=== PATIENT | male | born 1965 | race Caucasian/White ===

== ENCOUNTER 2025-05-06 15:52 | Inpatient (IN) | payer BC, SELFPAY ==
--- OUTSIDE RECORDS SUMMARY | 2025-04-07 05:06 | XMS_ITS ---
Author Organization [facility] in [place] Address [address] [place] [address] Care Team Providers Care Secretarial Teacher Name Role Phone Manoj Oshea Primary Care Provider REASON FOR VISIT TCM NOT DONE Encounters Encounter Location Date Provider Diagnosis [facility] [address] [place] [address] 04/07/2025 Manoj Oshea Plan Of Treatment No Information Progress Notes * Keshawn NOBLES ADOB:1965 (60 yo M)Acc No.[id number]:04/07/2025 Patient: Monica Keshawn BONILLA :1965 A ge:60 Y S ex:Male Address:[address] [place] [address], [phone] * true * Date: Generated for Printi ng/Faxing/eTransmitting on: 0 05/09/2025 08:30 AM EDT
--- OUTSIDE RECORDS SUMMARY | 2025-04-07 05:06 | XMS_ITS ---
Author Organization [facility] in [place] Address [address] [place] [address] Care Team Providers Care Landfill Grader Name Role Phone Manoj Oshea Primary Care Provider [phone] REASON FOR VISIT TCM NOT DONE Encounters Encounter Location Date Provider Diagnosis [facility] [address] [place] [address] 04/07/2025 Manoj Oshea Plan Of Treatment No Information Progress Notes * Keshawn NOBLES ADOB:1965 (60 yo M)Acc No.[id number]:04/07/2025 Patient: Monica Keshawn BONILLA :1965 A ge:60 Y S ex:Male Address:[address] [place] [address], [phone] * true * Date: Generated for Printi ng/Faxing/eTransmitting on: 0 05/06/2025 03:59 PM EDT
--- OUTSIDE RECORDS SUMMARY | 2025-04-27 13:00 | XMS_ITS | Encounter Summary ---
Author Organization [facility] [employer] Address [id number] [address] [place] [address] Care Team Providers Care President Educational Institution Name Role Phone Sheyla Oshea MD Primary Care Provider [phone] Reason for Referral * Cardiology (Routine) - Authorized Specialty Diagnoses / Procedures Referred By Contac t Referred To Contact Diagnoses Ischemic cardiomyopathy Procedures Echo complete W/O contrast Aliza De La Cruz MD [address] [place] [address] Phone: tel: fax: Referral ID Status Reason Start Date Expiration Date V isits Requested Visits Authorized [id number] Authorized 04/27/2025 04/27/2026 1 1 * Consultation (Routine) - Authorized Specialty Diagnoses / Procedures Referred By Contac t Referred To Contact Cardiac Rehabilitation Diagnoses Coronary artery disease 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 Procedures [facility]hab Aliza De La Cruz MD [address] [place] [address] Phone: tel: fax: [facility] [address] [place] [address] Phone: tel: fax: Referral ID Status Reason Start Date Expiration Date V isits Requested Visits Authorized [id number] Authorized 04/27/2025 04/27/2026 1 1 Reason for Visit * Reason Comments Follow-up EST PT HOSP FU IP TT H, S/P CABG,SCHED W/PT Encounter Details Date Type Department Care Team (Latest Contact Info) Description 04/27/2025 1:00 PM EDT Office Visit [facility] [address] [place] [address] Aliza De La Cruz MD [address] [place] [address] Chronic systolic heart failure (CMS-HCC) (Primary Dx); Coronary artery disease 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 No 04/07/2025 AUDIT-C Answer Date Recorded Q1: How often do you have a drink containing alcohol? Never 04/07/2025 Q2: How many drinks containi ng alcohol do you have on a typical day when you are drinking? Patient does not drink Q3: How often do you have si x or more drinks on one occasion? Never 04/07/2025 PHQ-2 Answer Date Recorded Total Score 0 04/07/2025 PRAPARE - Transportation Answer Date Re corded In the past 12 months, has l ack of transportation kept you from medical appointments or from getting medications? No 03/11 In the past 12 months, has l ack of transportation kept you from meetings, work, or from getting things needed for daily living? No 04/07/2025 Housing Instability Answer Date Recorde d Are you worried or concerned that in the next two months you may not have stable housing that you own, rent or stay in as a part of a household? No 04/07/2025 Hunger Screening Answer Date Recorded Within the past 12 months we worried whether our food would run out before we got money to buy more. Never True 04/27/2025 Within the past 12 months th e food we bought just didn't last and we didn't have money to get more. Never True 04/27/2025 Sex and Gender Information Value Date Recorded Sex Assigned at Not on file Legal Sex Male 11:53 AM EDT Gender Identity Not on file Sexual Orientation Not on file documented as of this encounter Last Filed Vital Signs Vital Sign Reading Time Taken Comments Blood Pressure 138/66 04/27/2025 12:54 PM EDT Pulse 81 04/27/2025 12:54 PM EDT Temperature - - Respiratory Rate - - Oxygen Saturation 97% 04/27/2025 12:54 PM EDT Inhaled Oxygen Concentration - - Weight 71.7 kg (158 lb) 04/27/2025 12:54 PM EDT Height 165.1 cm (5' 5 ) 04/27/2025 12:54 PM EDT Body Mass Index 26.29 04/27/2025 12:54 PM EDT documented in this encounter Patient Instructions * Patient Instructions* Aliza De La Cruz MD - 04/27/2025 1:00 PM EDT Discontinue metoprolol and Zetia/ezetimibe Start carvedilol 12.5 mg twice daily Call in 1 week and let us know how you are doing with the change in medicine Echocardiogram Record blood pressure and heart rate 3 times per week. Call if systolic (top) number is consistently greater than 140 or less than 100 or diastolic (bottom) number is consistently greater than 90. Call if heart rate is consistently greater than 110 or less than 50. Cardiac rehab documented in this encounter Progress Notes * Aliza De La Cruz MD - 04/27/2025 1:00 PM EDT Keshawn Hodges Hair Date of visit: 04/27/2025 Date of : 1965 Age: 60 y.o. Patient Active Problem List Diagnosis Coronary artery disease Mixed hyperlipidemia Primary hypertension Ischemic cardiomyopathy Chronic systolic heart failure (CMS-HCC) No Known Allergies Current Outpatient Medications Medication Sig Dispense Refill acetaminophen (TYLENOL EXTRA STRENGTH) 500 mg tablet Take 2 tablets (1,000 mg total) by mouth every6 (six) hours as needed for pain. 60 tablet 0 albuterol (PROVENTIL HFA;VENTOLIN HFA) 90 mcg/actuation inhaler Inhale 2 puffs every 6 (six) hours as needed for wheezing or shortness of breath. aspirin 81 mg Take 1 tablet (81 mg total) by mouth in the morning for 30 days. 30 tablet 0 furosemide (LASIX) 40 mg tablet Take 1 tablet (40 mg total) by mouth 2 (two) times a day before meals. 60 tablet 3 insulin glargine (LANTUS, SEMGLEE) 100 unit/mL (3 mL) insulin pen Inject 15 Units under the skin inthe morning. 15 mL 12 insulin lispro (HumaLOG) 100 unit/mL insulin pen Inject 1-8 Units under the skin 4 (four) times a day with meals and nightly. 15 mL 12 insulin lispro (HumaLOG) 100 unit/mL insulin pen Inject 2-10 Units under the skin in the morning and 2-10 Units at noon and 2-10 Units in the evening. Inject with meals. 15 mL 12 insulin lispro (HumaLOG) 100 unit/mL insulin pen Inject 2-8 Units under the skin nightly. 15 mL 12 oxyCODONE (ROXICODONE) 5 mg immediate release tablet Take 1 tablet (5 mg total) by mouth every 6 (six) hours as needed for pain. Max Daily Amount: 20 mg pen needle,diabetic dual safty (BD AUTOSHIELD DUO PEN NEEDLE) 30 gauge x 3/16 needle 1 applicator by miscellaneous route 4 (four) times daily after meals and at bedtime for 30 days. 100 each 4 tamsulosin (FLOMAX) 0.4 mg capsule Take 1 capsule (0.4 mg total) by mouth nightly for 30 days. 30 capsule 0 atorvastatin (LIPITOR) 80 mg tablet Take 1 tablet (80 mg total) by mouth nightly. 30 tablet 11 carvediloL (COREG) 12.5 mg tablet Take 1 tablet (12.5 mg total) by mouth in the morning and 1 tablet (12.5 mg total) before bedtime. 180 tablet 3 clopidogreL (PLAVIX) 75 mg tablet Take 1 tablet (75 mg total) by mouth in the morning. 30 tablet 11 No current facility-administered medications for this visit. Chief Complaint Patient presents with Follow-up EST PT HOSP FU IP TTH, S/P CABG,SCHED W/PT History of Present Illness I had the opportunity to meet this 60-year-old today He was first seen by Darcy MCCLELLAN 04/07/2025 when he presented as a transfer from [facility] to [facility] for shortness of breath and lower extremity edema. He was discharged from [facility] 04/17/2025 He has been doing relatively well since hospital discharge. He states the diabetes is difficult to accommodate He denies chest pain, worsening shortness of breath, syncope or palpitations. He has been troubled by severe diarrhea every other day that lasts for approximately 12 hours. He has not been taking a stool softener. He treats the diarrhea with Pepto-Bismol CV TESTING HISTORY: ECHO: Intra-operative transesophageal echocardiogram Result Date: 04/11/2025 See Anesthesia DEIDRE procedure note for findings. Intra-operative transesophageal echocardiogram Result Date: 04/11/2025 See Anesthesia DEIDRE procedure note for findings. Intra-operative transesophageal echocardiogram Result Date: 04/11/2025 See Anesthesia DEIDRE procedure note for findings. STRESS: No results found. HOLTER: No results found. CARDIAC CATH: No results found. CAROTID: Vas carotid duplex bilateral Result Date: 04/10/2025 Right: Plaque with no significant ICA spectral Doppler or color flow disturbances; ICA 114/25 cm/sec. Antegrade vertebral artery flow. Left: Plaque with no significant ICA spectral Doppler or color flow disturbances; ICA 125/25 cm/sec. Antegrade vertebral artery flow. Conclusions: BILATERAL: Plaquewithout significant stenosis (<50%) of the internal carotid artery. Antegrade vertebral artery flow. Recommendations: Any questions prior to finalization, please call the reading physician during normal business hours at the phone number beside their name. CXR: X-ray chest 1 view Result Date: 04/15/2025 XR CHEST 1 VW HISTORY: Shortness of breath COMPARISON: Radiograph 04/13/2025 and earlier FINDINGS: APportable upright film obtained. Status post sternotomy. Right IJ catheter with tip projecting over the SVC. The cardiomediastinal silhouette is stable compared to prior exam. Bibasilar airspace disease, increased. Trace left pleural effusion. No measurable pneumothorax. Skinfold overlies the right hemithorax. Congestion. IMPRESSION: Congestion with increase in lower lobe infiltrates. Approved by Cecil Benson DO on 04/15/2025 9:02 AM Shaun Lyons MD have personally reviewed the image(s) and agree with and/or edited the report Finalized by Shaun Loja MD on 04/15/2025 9:13 AM X-ray chest 1 view Result Date: 04/13/2025 Single view chest XR CHEST 1 VW History: s/p CABG x4 Comparison: April 12 Impression: * [place] catheter into sheath. Left chest tube unchanged. Mediastinal drains difficult to visualize currently * Poor inspiration with only minimal left basilar consolidation. No pneumothorax on expiratory view Wor kstation:[id number] Finalized by Carlos Jennings MD on 04/13/2025 7:23 AM X-ray chest 1 view Result Date: 04/12/2025 History: Post OHS Exam/Technique: Single AP view of the chest was obtained Comparison: 04/11/2025 Findings: There is interval removal of the endotracheal and enteric tubes. Right-sided [place] catheter tip at the right main pulmonary outflow track. Mediastinal and left-sided chest tubes are in stable position There is no gross new infiltration or pneumothorax. IMPRESSION: Stable chest x- ray status post extubation Finalized by Alli Velasquez MD on 04/12/2025 5:31 AM X-ray chest 1 view Result Date: 04/11/2025 History: Evaluate tube/line placement post-op cardiac surgery Exam/Technique: AP chest upright Comparison: 04/08/2025. Findings: Appropriate positioning of support tubes and lines. Of the [place] catheter in the right pulmonary outflow. No pneumothorax. ET tube approximately 3.3 cm above the linnea. IMPRESSION: Appropriate positioning of support tubes and lines. Finalized byRogerio Pizarro MD on 04/11/2025 6:22 PM X-ray chest 1 view Result Date: 04/08/2025 Single view chest History:Fluid overload Difficulty breathing, shortness of breath Comparison: 04/07/2025 Findings: Single portable view of the chest. Small bilateral pleural effusions and bilateral lower lung atelectasis versus pneumonia and mild vascular congestion, improved. Impression: Decreasing vascular congestion and edema. Otherwise, stable chest. Finalized by Nick Perdomo MD on 04/08/2025 7:02 AM Lipid Profile: Lab Results Component Value Date CHOLESTEROL 178 04/09/2025 CHOLESTEROL:HDL 3.1 04/09/2025 HDL CHOLESTEROL 57 04/09/2025 TRIGLYCERIDE 111 04/09/2025 DIRECT LDL 96 04/06/2025 LDL (CALC) 99 04/09/2025 Past Medical History: Diagnosis Date Arrhythmia CHF (congestive heart failure) ([facility]) Chronic kidney disease Coronary artery disease Dental disease Diabetes mellitus type 2, controlled ([facility]) RANDOLPH (dyspnea on exertion) HL (hearing loss) Hyperlipidemia Hypertension Visual impairment Past Surgical History: Procedure Laterality Date CORONARY ARTERY BYPASS GRAFT X 4 , DHILLON, SVG X 3 EVH LEFT LEG AND RIGHT UPPER LEG /DEIDRE N/A 04/11/2025 Performed by Jimmy Fernando MD at [facility] MULTIPLE TOOTH EXTRACTIONS History reviewed. No pertinent family history. Social History Socioeconomic History Marital status: Single Spouse name: Not on file Number of children: Not on file Years of education: Not on file Highest education level: Not on file Occupational History Not on file Tobacco Use Smoking status: Former Current packs/day: 0.00 Average packs/day: 1 pack/day for 28.0 years (28.0 ttl pk-yrs) Types: Cigarettes Start date: 1983 Quit date: 2011 Years since quittin.4 Passive exposure: Past Smokeless tobacco: Never Vaping Use Vaping status: Former Substances: Nicotine, Flavoring Devices: Pre-filled or refillable cartridge, Refillable tank Substance and Sexual Activity Alcohol use: Not Currently Drug use: Never Sexual activity: Defer Other Topics Concern Caffeine Use Yes Social History Narrative Not on file Social Drivers of Health Financial Resource Strain: Not on file Food Insecurity: No Food Insecurity (04/27/2025) Hunger Screening Food Insecurity - Worry: Never True Food Insecurity - Inability: Never True Transportation Needs: No Transportation Needs (04/07/2025) PRAPARE - Transportation Lack of Transportation (Medical): No Lack of Transportation (Non-Medical): No Physical Activity: Not on file Stress: Not on file Social Connections: Not on file Interpersonal Safety: Not At Risk (04/07/2025) Humiliation, Afraid, Rape, and Kick questionnaire Fear of Current or Ex-Partner: No Emotionally Abused: No Physically Abused: No Sexually Abused: No Housing Instability: Low Risk (04/07/2025) Housing Instability Housing Instability: No Review of Systems Review of Systems Constitutional: Positive for malaise/fatigue. HENT: Negative. Eyes: Positive for blurred vision. Cardiovascular: Negative. Vascular: Negative. Respiratory: Positive for shortness of breath. Endocrine: Negative. Hematologic/Lymphatic: Bruises/bleeds easily. Skin: Negative. Musculoskeletal: Negative. Gastrointestinal: Positive for change in bowel habit. Genitourinary: Negative. Neurological: Negative. Psychiatric/Behavioral: Negative. Allergic/Immunologic: Negative. CARDIOVASCULAR: Please review HPI. Physical Examination General appearance: Alert, oriented and cooperative. In no acute distress. Pleasant Respiratory: Bilateral diminished Cardiovascular: RRR with normal S1 and S2 with no murmurs. Musculoskeletal: No peripheral edema. VITAL SIGNS: BP 138/66 Pulse 81 Ht 165.1 cm (5' 5 ) Wt 71.7 kg (158 lb) SpO2 97% BMI 26.29 kg/m?? Orders Placed or Reconciled This Encounter Medications oxyCODONE (ROXICODONE) 5 mg immediate release tablet Sig: Take 1 tablet (5 mg total) by mouth every 6 (six) hours as needed for pain. Max Daily Amount: 20 mg atorvastatin (LIPITOR) 80 mg tablet Sig: Take 1 tablet (80 mg total) by mouth nightly. Dispense: 30 tablet Refill: 11 clopidogreL (PLAVIX) 75 mg tablet Sig: Take 1 tablet (75 mg total) by mouth in the morning. Dispense: 30 tablet Refill: 11 carvediloL (COREG) 12.5 mg tablet Sig: Take 1 tablet (12.5 mg total) by mouth in the morning and 1 tablet (12.5 mg total) before bedtime. Dispense: 180 tablet Refill: 3 Medications Discontinued During This Encounter Medication Reason sennosides-docusate sodium (SENOKOT-S) 8.6-50 mg ezetimibe (ZETIA) 10 mg tablet famotidine (PEPCID) 20 mg tablet metoprolol succinate XL (TOPROL XL) 50 mg 24 hr tablet atorvastatin (LIPITOR) 80 mg tablet Reorder clopidogreL (PLAVIX) 75 mg tablet Reorder IMPRESSIONS/PLAN 1. Chronic systolic heart failure (CMS-HCC) 2. Coronary artery disease 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 - [facility]; Future 3. Ischemic cardiomyopathy - Echo complete W/O contrast; Future 4. Primary hypertension 5. Mixed hyperlipidemia 1. ASCVD -status post CABG x4 04/2025 Dhillon to the LAD SVG to the diagonal SVG to the first obtuse marginal SVG to the PDA --continue clopidogrel 2. Ischemic cardiomyopathy 3. Chronic heart failure with reduced ejection fraction --metoprolol succinate --guideline directed medical therapy limited by renal insufficiency 4. Type 2 diabetes, newly diagnosed 05/04 with hemoglobin A1c of 13.8 5. Primary hypertension 6. Acute kidney injury post CABG 04/2025 7. Hyperlipidemia Atorvastatin Zetia \ The diarrhea may be related to medication. Some of his medication will be change/held to try to discover the culprit Discontinue metoprolol and Zetia/ezetimibe Start carvedilol 12.5 mg twice daily Call in 1 week and let us know how you are doing with the change in medicine Echocardiogram Record blood pressure and heart rate 3 times per week. Call if systolic (top) number is consistently greater than 140 or less than 100 or diastolic (bottom) number is consistently greater than 90. Call if heart rate is consistently greater than 110 or less than 50. Cardiac rehab He needs guideline directed medical therapy titrated for his left ventricular dysfunction. He is obtaining an echocardiogram. Laboratory studies were done yesterday which will give us information as to his current renal function. Medication then can be added once the GI issues are resolved TODAYS ORDERS Orders Placed This Encounter Procedures [facility] Echo complete W/O contrast FOLLOW UP Return for 4-8 weeks, LEBRON Ok. PCP: SHEYLA OSHEA MD Referring Physician: Sheyla Oshea MD [address] [place] [address] * Maisha Mar RN - 04/27/2025 1:00 PM EDT Patient will call and schedule his echo. Order given. Will await cardiac rehab to call him for scheduling. Will go buy a bp cuff as does not have one and understands to monitor and update us per LLD request. documented in this encounter Plan of Treatment Upcoming Encounters Date Type Department Care Team (Late st Contact Info) Description 05/12/2025 10:30 AM EDT Appointment [facility] [address] [place] [id number] Aliza De La Cruz MD [address] [place] [address] 06/27/2025 9:00 AM EDT Office Visit [facility] [address] [place] [id number] Charlotte Alatorre, PA-C [address] [place] [address] Scheduled Orders Name Type Priority Associated Diagnoses Orde r Schedule [facility] Card Rehab Routine Coronary artery disease 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 1 Occurrences starting 04/27/2025 until 10/27/2025 Echo complete W/O contrast Echocardiography Routine Ischemic cardiomyopathy Expected: 04/27/2025, Expires: 04/27/2026 documented as of this encounter Goals Goal Patient Goal Type Associated Problems Recent Progress Patient-Stated? Author <enter goal here> General Yes Mariely Daniel, RN Note: Evaluation of progress towards goal: Patient plans for a safe discharge. documented as of this encounter Visit Diagnoses Diagnosis Chronic systolic heart failure ([facility])- Primary Chronic systolic heart failure Coronary artery disease 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 Ischemic cardiomyopathy Other specified forms of chronic ischemic heart disease Primary hypertension Unspecified essential hypertension Mixed hyperlipidemia documented in this encounter Additional Health Concerns Assessment Noted Time PHQ-9 Depression Total Score: 0 04/07/20 25 8:16 PM EDT documented as of this encounter Care Teams President Educational Institution Relationship Specialty Start Date End Date Sheyla Oshea MD [address] [place] [address] PCP - General Family Medicine 04/07/25 documented as of this encounter
--- OUTSIDE RECORDS SUMMARY | 2025-04-27 13:00 | XMS_ITS | Encounter Summary ---
Author Organization [facility] [employer] s tem Address [id number] [address] [place] [address] Care Team Providers Care Drug Worker Name Role Phone Sheyla Oshea MD Primary Care Provider [phone] Reason for Referral * Cardiology (Routine) - Authorized Specialty Diagnoses / Procedures Referred By Contac t Referred To Contact Diagnoses Ischemic cardiomyopathy Procedures Echo complete W/O contrast Aliza De La Cruz MD [address] [place] [address] Phone: tel: fax: Referral ID Status Reason Start Date Expiration Date V isits Requested Visits Authorized [id number] Authorized 04/27/2025 04/27/2026 1 1 * Consultation (Routine) - Authorized Specialty Diagnoses / Procedures Referred By Contac t Referred To Contact Cardiac Rehabilitation Diagnoses 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 pectoris Procedures [facility] Cardiac Rehab Aliza De La Cruz MD [address] [place] [address] Phone: tel: fax: [facility] - Cardiac Rehab [address] [place] [address] Phone: tel: fax: Referral ID Status Reason Start Date Expiration Date V isits Requested Visits Authorized [id number] Authorized 04/27/2025 04/27/2026 1 1 Reason for Visit * Reason Comments Follow-up EST PT HOSP FU IP TT H, S/P CABG,SCHED W/PT Encounter Details Date Type Department Care Team (Latest Contact Info) Description 04/27/2025 1:00 PM EDT Office Visit [facility] [address] [place] [address] Aliza De La Cruz MD [address] [place] [address] Chronic systolic heart failure (CMS-HCC) (Primary Dx); 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 pectoris; Ischemic cardiomyopathy; Primary hypertension; Mixed hyperlipidemia Social History Tobacco Use Types Packs/Day Years Used Date Smoking Tobacco: Former Cigarettes - 2011 Passive Smoke Exposure: Past Smokeless Tobacco: Never Tobacco Cessation:Counseling Given: Not Answered Alcohol Use Standard Drinks/Week Comments Not Currently 0 (1 standard drink = 0.6 oz pur e alcohol) [facility] [employer] Answer Date Recorded In the past 12 months has [email or web address], gas, oil, or water [employer] threatened to shut off services in your [...] this encounter Patient Instructions * Patient Instructions* Alzia De La Cruz MD - 04/27/2025 1:00 [...] when he presented as a transfer from [facility] to [facility] for shortness of breath and lower extremity edema. He was discharged from [facility] 04/17/2025 He has been doing relatively well [...] CABG x4 Comparison: April 12 Impression: * Megargel-Patito catheter into sheath. Left chest tube unchanged. Mediastinal drains difficult to visualize currently * Poor inspiration with only minimal left basilar consolidation. No pneumothorax on expiratory view Wor kstation:[id number] Finalized by Carlos Jennings MD on 04/13/2025 7:23 AM X-ray chest 1 view Result Date: 04/12/2025 History: Post OHS Exam/Technique: Single AP view of the chest was obtained Comparison: 04/11/2025 Findings: There is interval removal of the endotracheal and enteric tubes. Right-sided Megargel-Patito catheter tip at the right main pulmonary [...] of support tubes and lines. Of the Megargel-Patito catheter in the right pulmonary outflow. No [...] Diagnosis Date Arrhythmia CHF (congestive heart failure) ([facility]) Chronic kidney disease Coronary artery disease Dental disease Diabetes mellitus type 2, controlled ([facility]) RANDOLPH (dyspnea on exertion) HL (hearing loss) Hyperlipidemia Hypertension Visual impairment Past Surgical History: Procedure Laterality Date CORONARY ARTERY BYPASS GRAFT X 4 , DHILLON, SVG X 3 EVH LEFT LEG AND RIGHT UPPER LEG /DEIDRE N/A 04/11/2025 Performed by Jimmy Fernando MD at [facility] MULTIPLE TOOTH EXTRACTIONS History reviewed. No pertinent [...] failure (CMS-HCC) 2. 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 pectoris - [facility] [...] Referring Physician: Sheyla Oshea MD [address] [place] [address] * Maisha Mar RN - 04/27/2025 1:00 [...] Info) Description 05/12/2025 10:30 AM EDT Appointment [facility] - Cardiovascular [address] [place] [phone] Aliza De La Cruz MD [address] [place] [address] 06/27/2025 9:00 AM EDT Office Visit [facility] [address] [place] [id number] Charlotte Alatorre, PA-C [address] [place] [address] Scheduled Orders Name Type Priority Associated Diagnoses Orde r Schedule [facility] Routine 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 pectoris 1 Occurrences starting [...] Visit Diagnoses Diagnosis Chronic systolic heart failure ([facility])- Primary Chronic systolic heart failure 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
[2025-05-06] VITALS (35 sets, daily range): BP systolic 143–171; BP diastolic 76–102; PULSE 64–85; TEMP 36.6–37.2; O2SAT 95–99; BMI 26.1; BMI 27.3
--- OUTSIDE RECORDS SUMMARY | 2025-05-06 09:30 | XMS_ITS ---
Author Organization [facility] [place] in [place] Address [address] [place] [address] Care Team Providers Care Cloud Operations Engineer Name Role Phone Manoj Oshea Primary Care Provider [phone] Allergies No Known Allergies Results Component Value Reference Range Notes BNP Reviewed date:05/08/2025 02:54:50 PM Interpretation: Performing Lab: Notes/Report: [facility] , NT Pro B Type Natriuretic Pept 6748.0 <=900.0 pg /mL RESULTS CALLED TO LISA DON RN Performing Lab: see note ML - [facility] LB REASON FOR VISIT [facility] F/u, CABG 04/14/2025, Hasn't been seen in about 10 years, Swelling in legs, Fatigue, Just not feeling well, Please clarify the directions you want for the Humalog, Approx 1.5 hours after patient left the building the sister came to window saying he was out in his vehicle and felt like his blood sugar was low. She gave him half a hotdog on a bun, container of oranges and a glass of juice. I checked his sugar after that and it was 65. Patient was very clamy but has been sitting in a hot car for 1.5 hours. I gave patient a piece of hard candy to suck on. He said he feltmuch better after that and sister is going to take him to the ER. Patient assisted to her vehicle with a standby assist. Report called to Enrike at [facility] ER Medications Medication SIG (Take, Route, Frequency, Duration) Notes Start Date End Date Status Aspirin 81 MG 1 tablet Orally Once a day Active Acetaminophen 500 MG 1 capsule as needed Orally every 6 hrs Active Albuterol Sulfate HFA 108 (90 Base) MCG/ACT 1 puff as needed Inhalation every 4 hrs Active Hyoscyamine Sulfate 0.125 MG 1-2 tabs SL SL every 4 hrs PRN abd pain 05/06/2025 Active Jardiance 10 MG 1 tablet Orally Once a day for 30 days 05/06/2025 Active Furosemide 40 MG 1 tablet Orally Twice Daily Active Clopidogrel Bisulfate 75 MG 1 tablet Orally Once a day Active Spironolactone 25 MG 1 tablet Orally Once a day for 3 days 05/06/2025 Active Carvedilol 12.5 MG 1 tablet with food Orally Twice a day Active Atorvastatin Calcium 80 MG 1 tablet Orally Once a day Active Lantus SoloStar 100 UNIT/ML 15 units Subcutaneous in morning Active oxyCODONE HCl 5 MG 1 tablet as needed Orally every 6 hrs Active HumaLOG KwikPen 100 UNIT/ML Inject 1-8 units Subcutaneous four times day with meals and nightly Clarify Directions Active Tamsulosin HCl 0.4 MG 1 capsule Orally Once a day Active Social History Tobacco Use: Social History Observation Description Date Details (start date - stop date) Former Smoker NA - NA Tobacco Control (Standard) Question Answer Notes Tobacco use: Former smoker How long has it been since you last smoked? Grea ter than 10 years AUDIT-C (Standard) Question Answer Notes Did you have a drink containing alcohol in the p ast year? No Points 0 Interpretation Negative Problems Problem Type SNOMED Code ICD Code Onset Dates Problem Status W/U Status Risk Notes Problem Hypertension (24326286) Hypertension (I10) Active confirmed Problem Type II diabetes mellitus without complication (420270337) Controlled type 2 diabetes mellitus (E11.9) Active confirmed Problem Heart failure (52140479) Heart failure (I50.9) Active confirmed Vital Signs Weight 166.2 lbs 05/06/2025 Height 65 in 05/06/2025 Blood pressure systolic 140 mm Hg 05/06/20 25 Blood pressure diastolic 82 mm Hg 025 BMI 27.65 kg/m2 05/06/2025 Encounters Encounter Location Date Provider Diagnosis [facility] [address] [place] [address] 05/06/2025 Manoj Hoy Heart failure I50.9 ; Hypertension I10 ; Controlled type 2 diabetes mellitus E11.9 and Coronary artery disease involving port lions coronary artery of port lions heart without angina pectoris I25.10 Assessments Encounter Date Diagnosis (ICD Code) Assessment Notes Treatment Notes Treatment Clinical Notes Section Notes 05/06/2025 Heart failure (ICD-10 - I50.9) 05/06/2025 Hypertension (ICD-10 - I10) 05/06/2025 Controlled type 2 diabetes mellitus (ICD-10 - E11.9) 05/06/2025 Coronary artery disease involving port lions coronary artery of port lions heart without angina pectoris (ICD-10 - I25.10) Plan Of Treatment Medication Medication Name Sig Start Date Stop Date Notes Hyoscyamine Sulfate 0.125 MG 1-2 tabs SL SL every 4 hrs PRN abd pain 05/06/2025 Jardiance 10 MG 1 tablet Orally Once a day for 30 days 05/06/2025 Spironolactone 25 MG 1 tablet Orally Onc e a day for 3 days 05/06/2025 Pending Test Test Name Order Date High Sensitivity Troponin 05/06/2025 THYROID PANEL (T4/TSH/FREE T3) CMP (COMP MET GALEANO) w/eGFR CKD-EPI 2024 CBC WITH DIFF 05/06/2025 Progress Notes * Keshawn ARNDT ADOB:1965 (60 yo M)Acc No.[id number]:05/06/2025 UNLOCKED PROGRESS NOTE New Patient Patient: Keshawn SIEGEL Provider: Jonny Oshea ([facility])MD :1965 A ge:60 Y S ex:Male Date:05/06/2025 Address:[address] [place], [place] [id number] Check In:01:06 PM ESTCheck O ut:02:32 PM EST Subjective: * Chief Complaints: * 1 . [facility] F/u. 2. CABG 04/14/2025. 3. Hasn't been seen in about 10 years. 4. Swelling in legs, Fatigue, Just not feeling well. 5. Please clarify the directions you want for the Humalog. 6. Approx 1.5 hours after patient left the building the sister came to window saying he was out in his vehicle and felt like his blood sugar was low. She gave him half a hotdog on a bun, container of oranges and a glass of juice. I checked his sugar after that and it was 65. Patient was very clamy but has been sitting in a hot car for 1.5 hours. I gave patient a piece of hard candy to suck on. He said he felt much better after that and sister is going to take him to the ER. Patient assisted to her vehicle with a standby assist. Report called to Enrike at [facility] ER. * HPI: D epression Screening: PHQ-2 (2015 Edition) L ittle interest or pleasure in doing things??Not at all F eeling down, depressed, or hopeless? N ot at all T otal Score 0 [place] good at D/C - now withsweling in legs and + Orthpopnea. * ROS: E ENT: hearing changes d enies. v isual changes d enies.?non-healing mouth sores d enies. s wollen glands or neck lumps d enies. h oarseness d enies. s ore throat d enies. d ifficulty swallowing d enies. n ose bleeds d enies. n estrada congestion d enies. e ar ache d enies. e ar discharge?denies. r inging in ears d enies. l ight sensitivity d enies. e ye pain d enies. b lurring d enies. e ye irritation d enies. d ouble vision d enies.?vision loss d enies. G eneral/Constitutional: Sweats: D enies. F atigue d enies. S leep problems d enies. A norexia d enies. M alaise d enies. W eight loss d enies.?Fatigue or Weakness d enies. F ever or Chills d enies. C ardiovascular: Shortness of Breath w/lying flat d enies. L ightheadedness/dizziness d enies. C hest tightness/ heavy pressure d enies. S welling of legs, ankles, or feet d enies. W aking up with shortness of breath d enies. C hest pain denies. P alpitations d enies. W eight gain d enies. R espiratory: Chronic or frequent cough d enies. C oughing up blood?denies. D ifficulty breathing d enies. P roductive cough d enies. S noring?denies. S hortness of breath that awakens from sleep (PND) d enies. C hest pain d enies. S putum production d enies. W heezing d enies. M usculoskeletal: Joint pain d enies. J oint Fluid d enies. B ack pain d enies. K nee pain d enies. N pierce pain d enies. J oint Stiffness d enies. M uscle cramps d enies. W eakness of muscles d enies. A rthritis d enies. M uscle aches d enies. P ain in shoulder(s) d enies. S wollen joints d enies. * Medical History: H ypertension, Controlled type 2 diabetes mellitus, Heart failure. * Surgical History: C oronary Artery Bypass X 4 04/11/25. * Hospitalization/Major Diagno stic Procedure: S ee Above . * Family History: F ather: alive, diagnosed with Diabetes mellitus without mention of complication, type II or unspecified type, not stated as uncontrolled, Unspecified essential hypertension, Unspecified heart disease. M other: alive, diagnosed with Diabetes mellitus without mention of complication, type II or unspecified type, not stated as uncontrolled, Unspecified essential hypertension, Unspecified heart disease. B rother(s): alive, diagnosed with Diabetes mellitus without mention of complication, type II or unspecified type, not stated as uncontrolled, Unspecified essential hypertension, Unspecified heart disease. S ister(s): alive, diagnosed with Diabetes mellitus without mention of complication, type II or unspecified type, not stated as uncontrolled, Unspecified essential hypertension, Unspecified heart disease. S on(s): alive. 1 brother(s) . . * Social History: T obacco Use: T obacco Control (Standard) T obacco use: F ormer smoker H ow long has it been since you last smoked??Greater than 10 years D rug/Alcohol: A AMENA-C (Standard) D id you have a drink containing alcohol in the past year? N o P oints 0 I nterpretation N egative * Medications: T aking Acetaminophen 500 MG Capsule 1 capsule as needed Orally every 6 hrs , Taking Albuterol Sulfate HFA 108 (90 Base) MCG/ACT Aerosol Solution 1 puff as needed Inhalation every 4 hrs , Taking Aspirin 81 MG Tablet Delayed Release 1 tablet Orally Once a day , Taking Atorvastatin Calcium 80 MG Tablet 1 tablet Orally Once a day , Taking Carvedilol 12.5 MG Tablet 1 tablet with food Orally Twice a day , Taking Clopidogrel Bisulfate 75 MG Tablet 1 tablet Orally Once a day , Taking Furosemide 40 MG Tablet 1 tablet Orally Twice Daily , Taking HumaLOG KwikPen(Insulin Lispro (1 Unit Dial)) 100 UNIT/ML Solution Pen-injector Inject 1-8 units Subcutaneous four times day with meals and nightly , Notes to Pharmacist: Clarify Directions, Taking Lantus SoloStar(Insulin Glargine) 100 UNIT/ML Solution Pen-injector 15 units Subcutaneous in morning , Taking oxyCODONE HCl 5 MG Tablet 1 tablet as needed Orally every 6 hrs , Taking Tamsulosin HCl 0.4 MG Capsule 1 capsule Orally Once a day , Medication List reviewed and reconciled with the patient * Allergies: N .K.D.A. Objective: * Vitals: W t:166.2lbs, Ht: 65 in, BP:140/82mm Hg, BMI:27.65Index, Ht-cm: 165.1 cm, Wt-k.39 kg. * Examination: P hysical Exam: GENERAL: w ell developed, well nourished, in no acute distress. HEAD: n ormocephalic/atraumatic. EYES: p upils equal, round and reactive to light, conjunctivae and sclerae normal. EARS: n o deformity or lesion of external ear, canals and TM appear normal bilaterally, TM's intact, not inflamed with normal light reflex, hearing grossly normal to conversational speech. NOSE: n o deformity, discharge, inflammation, or lesions.? MOUTH: m ucous membranes moist, normal oropharynx and posterior pharynx without lesions or exudates, tongue normal, dentition normal. NECK: n pierce supple, no masses or palpable cervical nodes, trachea midline, thyroid without nodules, masses, tenderness, or enlargement. CHEST: n o chest wall deformity, no chest wall tenderness.? LUNGS: n ormal respiratory effort and clear to auscultation, no wheezes, rales, or rhonchi, good air exchange. CARDIO: r egular rate and rhythm, normal S1 and S2, nor murmur, rub, or gallop. PULSES: n ormal capillary refill. ABDOMEN: s oft, non-distended, non-tender, no masses. MUSCULOSKELETAL: n o deformity or scoliosis noted, normal range of motion, joints normal, no erythema, edema, effusion, or ecchymosis. EXTREMITY: n o clubbing, cyanosis, edema, or deformity with normal ROM in both upper and lower bilateral extremities. NEUROLOGIC: g rossly normal. SKIN: n o rashes, ulcerations, or suspicious lesions. LYMPH NODES: n o cervical adenopathy, nodes normal. MENTAL STATUS: a lert and oriented x3, normal mood and affect. Assessment: * Assessment: 1. H eart failure - I50.9 (Primary) 2 . H ypertension - I10 ?3. C ontrolled type 2 diabetes mellitus - E11.9 4 . C oronary artery disease involving port lions coronary artery of port lions heart without angina pectoris - I25.10 ? Plan: * Treatment: 2. H ypertension L AB: THYROID PANEL (T4/TSH/FREE T3) L AB: CMP (COMP MET GALEANO) w/eGFR CKD-EPI L AB: CBC WITH DIFF * Labs: * L ab: BNP (Collection Date & Time - 05/06/2025 04:25 PM) * Preventive Medicine: Screenings/Counseling: B FL ACTION PLAN Above Normal BMI Follow-up D ietary management education, guidance, and counseling * * Electronic signature of Manoj Oshea MD, [id number] on 05/09/2025 at 08:31 AM EDT Sign off status: Pending Visit Status: C HK (Check Out) * Provider: Jonny Oshea ([facility])MD Date: 0 05/06/2025 Generated for Denise bansal/Deshaun/eTransmitting on: 0 05/09/2025 08:31 AM EDT History and Physical Notes * HPI (History of Present Illness) Category Sub-Category Detail Notes Category Not es Depression Screening PHQ-2 (2015 Edition) Little interest or pleasure in doing things?: Not at all [place] good at D/C - now withsweling in legs and + Orthpopnea Feeling down, depressed, or hopeless?: N ot at all Total Score: 0 Examination Category Sub-Category Detail Notes Category Not es Physical Exam GENERAL: well developed, well nourished, in no acute distress HEAD: normocephalic/atraum atic EYES: pupils equal, round and reactive to light, conjunctivae and sclerae normal EARS: no deformity or lesi on of external ear, canals and TM appear normal bilaterally, TM's intact, not inflamed with normal light reflex, hearing grossly normal to conversational speech NOSE: no deformity, discha rge, inflammation, or lesions MOUTH: mucous membranes sneha st, normal oropharynx and posterior pharynx without lesions or exudates, tongue normal, dentition normal NECK: neck supple, no mass es or palpable cervical nodes, trachea midline, thyroid without nodules, masses, tenderness, or enlargement CHEST: no chest wall deform ity, no chest wall tenderness LUNGS: normal respiratory e ffort and clear to auscultation, no wheezes, rales, or rhonchi, good air exchange CARDIO: regular rate and rhy thm, normal S1 and S2, nor murmur, rub, or gallop PULSES: normal capillary ref ill ABDOMEN: soft, non-distended, non-tender, no masses RECTAL: MUSCULOSKELETAL: no deformity or scol iosis noted, normal range of motion, joints normal, no erythema, edema, effusion, or ecchymosis EXTREMITY: no clubbing, cyanosi s, edema, or deformity with normal ROM in both upper and lower bilateral extremities NEUROLOGIC: grossly normal SKIN: no rashes, ulceratio ns, or suspicious lesions LYMPH NODES: no cervical adenopat hy, nodes normal MENTAL STATUS: alert and oriented x 3, normal mood and affect
--- OUTSIDE RECORDS SUMMARY | 2025-05-06 09:30 | XMS_ITS ---
Author Organization [facility] in [place] Address [address] [place] [address] Care Team Providers Care Crime Laboratory Analyst Name Role Phone DayoManoj Primary Care Provider Allergies No Known Allergies REASON FOR VISIT [facility] F/u, CABG 04/14/2025, Hasn't been seen in [...] standby assist. Report called to Enrike at [facility] ER Medications Medication SIG (Take, Route, Frequency, [...] Status W/U Status Risk Notes Problem Hypertension (34618258) Hypertension (I10) Active confirmed Problem Type II diabetes mellitus without complication (752187839) Controlled type 2 diabetes mellitus (E11.9) Active confirmed Problem Heart failure (48317096) Heart failure (I50.9) Active confirmed Vital Signs Weight 166.2 lbs 05/06/2025 Height 65 in 05/06/2025 Blood pressure systolic 140 mm Hg 05/06/20 25 Blood pressure diastolic 82 mm Hg 025 BMI 27.65 kg/m2 05/06/2025 Encounters Encounter Location Date Provider Diagnosis [facility] [address] [place] [address] 05/06/2025 Manoj Hoy Heart failure I50.9 ; Hypertension I10 ; Controlled type 2 diabetes mellitus E11.9 and Coronary artery disease involving tanana coronary artery of tanana heart without angina pectoris I25.10 Assessments Encounter Date Diagnosis (ICD Code) Assessment Notes Treatment Notes Treatment Clinical Notes Section Notes 05/06/2025 Heart failure (ICD-10 - I50.9) 05/06/2025 Hypertension (ICD-10 - I10) 05/06/2025 Controlled type 2 diabetes mellitus (ICD-10 - E11.9) 05/06/2025 Coronary artery disease involving tanana coronary artery of tanana heart without angina pectoris (ICD-10 - I25.10) [...] Name Order Date High Sensitivity Troponin 05/06/2025 BNP 05/06/2025 THYROID PANEL (T4/TSH/FREE T3) CMP (COMP MET GALEANO) w/eGFR CKD-EPI 2024 CBC WITH DIFF 05/06/2025 Progress Notes * Keshawn ARNDT ADOB:1965 (60 yo M)Acc No.[id number]:05/06/2025 UNLOCKED PROGRESS NOTE New Patient Patient: Keshawn SIEGEL Provider: Jonny Oshea ([facility])MD :1965 A ge:60 Y S ex:Male Date:05/06/2025 Address:[address] [place], [place] [id number] Check In:01:06 PM ESTCheck O ut:02:32 PM EST Subjective: * Chief Complaints: * [address] [facility] F/u. 2. CABG 04/14/2025. 3. Hasn't been [...] standby assist. Report called to Enrike at [facility] ER. * HPI: D epression Screening: PHQ-2 (2015 Edition) L ittle interest or pleasure in doing things??Not at all F eeling down, depressed, or hopeless? N ot at all T otal Score 0 [place] good at D/C - now withsweling in [...] 4 . C oronary artery disease involving tanana coronary artery of tanana heart without angina pectoris - I25.10 ? Plan: * Treatment: 2. H ypertension L AB: THYROID PANEL (T4/TSH/FREE T3) L AB: CMP (COMP MET GALEANO) w/eGFR CKD-EPI L AB: CBC WITH DIFF * Preventive Medicine: Screenings/Counseling: B RI ACTION PLAN Above Normal BMI Follow-up D ietary management education, guidance, and counseling * * Electronic signature of Manoj Oshea MD, [id number] on 05/06/2025 at 03:59 PM EDT Sign off status: Pending Visit Status: C HK (Check Out) * Provider: Jonny Oshea ([facility])MD Date: 0 05/06/2025 Generated for Jalyni nimisha/Deshaun/eTmarileeitting on: 0 05/06/2025 03:59 PM EDT History and Physical Notes * HPI (History of Present Illness) Category Sub-Category Detail Notes Category Not es Depression Screening PHQ-2 (2015 Edition) Little interest or pleasure in doing things?: Not at all [place] good at D/C - now withsweling in [...]
--- OUTSIDE RECORDS SUMMARY | 2025-05-06 10:27 | XMS_ITS ---
Author Organization [facility] in [place] Address [address] [place] [address] Care Team Providers Care Orthopedics Pediatric Physician Name Role Phone Manoj Oshea Primary Care Provider REASON FOR VISIT rf lantus and test strips Medications Medication SIG (Take, Route, Frequency, Duration) Notes Start Date End Date Status Test Strips - Dx: E11.9 Dx: Diabet es Type II Once daily for 90 days 05/06/2025 Active Lantus SoloStar 100 UNIT/ML 15 units Subcutaneous in morning Active Encounters Encounter Location Date Provider Diagnosis [address] [address] 05/06/2025 Manoj Oshea Plan Of Treatment Medication Medication Name Sig Start Date Stop Date Notes Test Strips - Dx: E11.9 Dx: Diabet es Type II Once daily for 90 days 05/06/2025 Lantus SoloStar 100 UNIT/ML 15 units Sub cutaneous in morning Progress Notes * Keshawn NOBLES ADOB:1965 (60 yo M)Acc No.[id number]:05/06/2025 Patient: Monica SRAVANTHIJESUS Keshawn Diana :1965 A ge:60 Y S ex:Male Address:[address] [place] [address], [phone] * Refills Refill Lantus SoloStar Solution Pen-injector, 100 UNIT/ML, Subcutaneous, 10 Milliliter, 15 units, in morning Start Test Strips -, -, 100, Dx: E11.9 Dx: Diabetes Type II Once daily, 90 days, Refills=3 * true * Date: Generated for Denise bansal/Deshaun/Sergiosmitting on: 0 05/06/2025 03:59 PM EDT
--- OUTSIDE RECORDS SUMMARY | 2025-05-06 10:27 | XMS_ITS ---
Author Organization [facility] in [place] Address [address] [place] [address] Care Team Providers Care Collateral Specialist Name Role Phone Manoj Oshea Primary Care Provider REASON FOR VISIT rf lantus and test strips Medications Medication SIG (Take, Route, Frequency, Duration) Notes Start Date End Date Status Test Strips - Dx: E11.9 Dx: Diabet es Type II Once daily for 90 days 05/06/2025 Active Lantus SoloStar 100 UNIT/ML 15 units Subcutaneous in morning Active Encounters Encounter Location Date Provider Diagnosis [address] [address] 05/06/2025 Manoj Oshea Plan Of Treatment Medication Medication Name Sig Start Date Stop Date Notes Test Strips - Dx: E11.9 Dx: Diabet es Type II Once daily for 90 days 05/06/2025 Lantus SoloStar 100 UNIT/ML 15 units Sub cutaneous in morning Progress Notes * Keshawn NOBLES ADOB:1965 (60 yo M)Acc No.[id number]:05/06/2025 Patient: Monica SRAVANTHIJESUS Keshawn Diana :1965 A ge:60 Y S ex:Male Address:[address] [place] [address], [phone] * Refills Refill Lantus SoloStar Solution Pen-injector, 100 UNIT/ML, Subcutaneous, 10 Milliliter, 15 units, in morning Start Test Strips -, -, 100, Dx: E11.9 Dx: Diabetes Type II Once daily, 90 days, Refills=3 * true * Date: Generated for Denise bansal/Deshaun/Sergiosmitting on: 0 05/09/2025 08:30 AM EDT
--- OUTSIDE RECORDS SUMMARY | 2025-05-06 15:59 | XMS_ITS | Encounter Summary ---
Author [facility] Address [id number] [address] [place] [address] Care Team Providers Care Mechanic Foreman Name Role Phone Kwadwo Oshea MD Primary Care Provider [phone] Encounter Details Date Type Department Care Team (Late st Contact Info) Description 04/19/2025 Lab Requisition [facility] - Lab [address] [place] [phone] Jimmy Fernando MD [address] [facility] [place], [place] [id number] Chronic kidney disease, stage 3a ([facility]-HCC); Proteinuria, unspecified; Atherosclerotic heart disease of [place] coronary artery with unstable angina pectoris ([facility]-HCC) Social History Tobacco Use Types Packs/Day Years Used Date Smoking Tobacco: Former Cigarettes 984 - 2011 Passive Smoke Exposure: Past Smokeless Tobacco: Never Alcohol Use Standard Drinks/Week Comments Not Currently 0 (1 standard drink = 0.6 oz pur e alcohol) [facility] Utilities Answer Date Recorded In the past 12 months has [employer], gas, oil, or water company threatened to shut off services in your [...] got money to buy more. Never True 04/07/2025 Within the past 12 months th e food we bought just didn't last and we didn't have money to get more. Never True 04/07/2025 Sex and Gender Information Value Date Recorded Sex Assigned at Not on file Legal Sex Male 11:53 AM EDT Gender Identity Not on file Sexual Orientation Not on file documented as of this encounter Plan of Treatment Upcoming Encounters Date Type Department Care Team (Late st Contact Info) Description 05/12/2025 10:30 AM EDT Appointment [facility] - Cardiovascular [address] [place] [phone] Aliza De La Cruz MD [address] [place] [address] 06/27/2025 9:00 AM EDT Office Visit [facility] Physicians Cardiology [address] [facility] [address] [place] [phone] [place] Alatorre, PA-C [address] [place] [address] documented as of this encounter Goals Goal Patient Goal Type Associated Problems Recent Progress Patient-Stated? Author <enter goal here> General Yes Mariely Daniel, RN Note: Evaluation of progress towards goal: Patient plans for a safe discharge. documented as of this encounter Procedures Procedure Name Priority Date/Time Associated Diagnosis Comments CBC (NO DIFF) Routine 04/19/2025 9:00 AM EDT Chronic kidney disease, stage 3a (CMS-HCC) Proteinuria, unspecified Atherosclerotic heart disease of [place] coronary artery with unstable angina pectoris (CMS-HCC) PHOSPHORUS Routine 04/19/2025 9:00 AM EDT Chronic kidney disease, stage 3a (CMS-HCC) Proteinuria, unspecified Atherosclerotic heart disease of [place] coronary artery with unstable angina pectoris (CMS-HCC) MAGNESIUM Routine 04/19/2025 9:00 AM EDT Chronic kidney disease, stage 3a (CMS-HCC) Proteinuria, unspecified Atherosclerotic heart disease of [place] coronary artery with unstable angina pectoris (CMS-HCC) COMPREHENSIVE METABOLIC PANEL Routine 04/19/2025 9:00 AM EDT Chronic kidney disease, stage 3a (CMS-HCC) Proteinuria, unspecified Atherosclerotic heart disease of [place] coronary artery with unstable angina pectoris (CMS-HCC) documented in this encounter Results * Phosphorus (04/19/2025 9:00 AM EDT) PHOSPHORUS 3.8 2.4 - 4.9 mg/dL 04/19/2025 10:[address] [facility] Blood Venous blood / Unknown 04/19/2025 9:00 AM EDT 04/19/2025 10:07 AM EDT us Jimmy Fernando MD LAB BLOOD ORDERABLES Fi nal Result [facility] [address] [place] [address], * Magnesium (04/19/2025 9:00 AM EDT) MAGNESIUM 2.0 1.8 - 2.6 mg/dL 04/19/2025 10:[address] [facility] Blood Venous blood / Unknown 04/19/2025 9:00 AM EDT 04/19/2025 10:07 AM EDT us Jimmy Fernando MD LAB BLOOD ORDERABLES Fi nal Result [facility] [address] [place] [address], [place] * (ABNORMAL) CBC without diff (04/19/2025 9:00 AM EDT) WBC 7.4 4 - 11 x10E9/L 04/19/2025 10:[address] [facility] RBC Count 3.04(L) 4.1 - 5.7 X10E12/L 04/19/2025 10:[address] [facility] Hemoglobin 9.7(L) 13 - 17 g/dL 04/19/2025 10:[address] [facility] Hematocrit 28.1(L) 39 - 50 % 04/19/2025 10:[address] [facility] MCV 93 80 - 100 fL 04/19/2025 10:[address] [facility] MCH 31.8 27 - 34 pg 04/19/2025 10:[address] [facility] MCHC 34.3 32 - 36 g/dL 04/19/2025 10:[address] [facility] RDW 13.8 11.5 - 15 % 04/19/2025 10:[address] [facility] Platelet Count 430 150 - 450 X10E9/L 04/19/2025 10:[address] [facility] MPV 7.2 7 - 12 fL 04/19/2025 10:[address] [facility] Blood Venous blood / Unknown 04/19/2025 9:00 AM EDT 04/19/2025 10:07 AM EDT us Jimmy Fernando MD LAB BLOOD ORDERABLES Fi nal Result [facility] [address] [place] [address], [place] * (ABNORMAL) Comprehensive metabolic panel (04/19/2025 9:00 AM EDT) SODIUM 134 134 - 146 mmol/L 04/19/2025 10:[address] [facility] POTASSIUM 4.0 3.5 - 5.0 mmol/L 04/19/2025 10:[address] [facility] CHLORIDE 101 98 - 109 mmol/L 04/19/2025 10:[address] [facility] CARBON DIOXIDE 29 22 - 32 mmol/L 04/19/2025 10:[address] [facility] ANION GAP 4(L) 5 - 15 mmol/L 04/19/2025 10:[address] [facility] BLOOD UREA NITROGEN 42(H) 5 - 27 mg/dL 04/19/2025 10:[address] [facility] CREATININE 1.48(H) 0.70 - 1.20 mg/dL 04/19/2025 10:[address] [facility] Comment:METHOD TRACEABLE TO IDMS STANDARD GLUCOSE 285(H) 65 - 99 mg/dL 04/19/2025 10:[address] [facility] CALCIUM 7.9(L) 8.5 - 10.5 mg/dL 04/19/2025 10:[address] [facility] TOTAL PROTEIN 5.9(L) 6.0 - 8.0 g/dL 04/19/2025 10:[address] [facility] ALBUMIN 2.7(L) 3.2 - 5.3 g/dL 04/19/2025 10:[address] [facility] ALKALINE PHOSPHATASE 100 39 - 130 U/L 04/19/2025 10:[address] [facility] AST 25 <=41 U/L 04/19/2025 10:[address] [facility] ALT 18 <=40 U/L 04/19/2025 10:[address] [facility] BILIRUBIN,TOTAL 0.4 0.3 - 1.2 mg/dL 04/19/2025 10:[address] [facility] EGFR Non-Race Dependent 53(L) >=60 ml/min/1.7 3sq.m 04/19/2025 10:[address] [facility] Comment: eGFR not reported due to non-numeric value for Creatinine. Reported eGFR is based on the CKD-EPI 2020 equation that does not use a race coefficient. Blood Venous blood / Unknown 04/19/2025 9:00 AM EDT 04/19/2025 10:07 AM EDT us Jimmy Fernando MD LAB BLOOD ORDERABLES Fi nal Result [facility] [address] documented in this encounter Visit Diagnoses Diagnosis Chronic kidney disease, stage 3a (CMS-HCC) Proteinuria, unspecified Atherosclerotic heart disease of [place] coronary artery with unstable angina pectoris (CMS-HCC) documented in this encounter Additional Health Concerns Assessment Noted Time PHQ-9 Depression Total Score: 0 04/07/20 25 8:16 PM EDT documented as of this encounter Care Teams Mechanic Foreman Relationship Specialty Start Date End Date Kwadwo Oshea MD [address] [place] [address] PCP - General Family Medicine 04/07/25 documented as of this encounter
--- OUTSIDE RECORDS SUMMARY | 2025-05-06 15:59 | XMS_ITS | Encounter Summary ---
Author Organization [facility] tem Address [id number] [address] [place] [address] Care Team Providers Care Butt Presser Name Role Phone Kwadwo Oshea MD Primary Care Provider [phone] Encounter Details Date Type Department Care Team ([facility] st Contact Info) Description 04/20/2025 Orders Only [facility] [address] [place] [phone] External, Scanning Provider Social History Tobacco Use Types Packs/Day Years Used Date Smoking Tobacco: Former Cigarettes 984 2011 Passive Smoke Exposure: Past Smokeless Tobacco: Never Alcohol Use Standard Drinks/Week Comments Not Currently 0 (1 standard drink = 0.6 oz pur e alcohol) [facility] Utilities Answer Date Recorded In the past 12 months has e [employer], gas, oil, or water company threatened to [...] Info) Description 05/12/2025 10:[address] [facility] - Cardiovascular [address] [place] [phone] Aliza De La Cruz MD [address] [place], [place] [phone] 06/27/2025 9:00 AM EDT Office Visit [facility] Cardiology [address] [facility] 1 [place] [address] [place] Alatorre, PA-C [address] [place], [place] [phone] documented as of this encounter Goals Goal Patient Goal Type Associated Problems Recent Progress Patient-Stated? Author <enter goal here> General Yes Mariely Daniel, DANIEL Note: Evaluation of progress towards goal: Patient plans for a safe discharge. documented as of this encounter Procedures Procedure Name Priority Date/Time Associated Diagnosis Comments XR CHEST 1 VW Routine 04/07/2025 11:06 AM EDT MULTIPLE LABS Routine 04/07/2025 10:55 AM EDT CARDIAC INVASIVE Routine 04/07/2025 10:0 2 AM EDT LIPID PROFILE Routine 04/06/2025 10:57 AM EDT ECHO DOPPLER Routine 04/06/2025 10:[address] CHEST W CONT Routine 04/05/2025 11:04 AM EDT ECG 12-LEAD Routine 04/05/2025 10:00 AM EDT documented in this encounter Results * X-ray chest 1 view (04/07/2025 11:06 AM EDT) Anatomical Region Laterality Modality Body, Chest N/A Computed Radiogr aphy us Scanning Provider External IMG DIAGNOSTIC IMAGIN G ORDERABLES Final Result * Multiple labs (04/07/2025 10:55 AM EDT) us Scanning Provider External [facility] Final Result Performing Organization Address City/[facility]/ZIP Co de Phone Number MANUALLY TRANSCRIBED RESULTS * Cardiac Invasive (04/07/2025 10:02 AM EDT) Anatomical Region Laterality Modality Other us Scanning Provider External CV CARDIAC CATH ORDER JANESSA Final Result * Lipid profile (04/06/2025 10:57 AM EDT) External Cholesterol 174 MANUALLY TRANSCRIBED RESULTS External Hdl Cholesterol 47 MANUALLY TRANSCRIBED RESULTS DIRECT LDL 96 <=130 mg/dL MANUALLY TRANSCRIBED RESULTS External Triglycerides 145 MANUALLY TRANSCRIBED RESULTS Vldl,Cholesterol 29 MAN UALLY TRANSCRIBED RESULTS Blood Venous blood / Unknown us Scanning Provider External LAB BLOOD ORDERABLES Edited Result - Final MANUALLY TRANSCRIBED RESULTS * Echo Doppler (04/06/2025 10:01 AM EDT) Anatomical Region Laterality Modality Chest N/A Ultrasound us Scanning Provider External CV ECHO ORDERABLES Fi nal Result * CT chest with contrast (04/05/2025 11:04 AM EDT) Anatomical Region Laterality Modality Body, Lung, Chest, Body Covera N/A C omputed Tomography us Scanning Provider External IMG CT ORDERABLES Fin al Result * ECG 12 lead (04/05/2025 10:00 AM EDT) us Scanning Provider External ECG ORDERABLES Final Result MANUALLY TRANSCRIBED RESULTS documented in this encounter Visit Diagnoses Not on filedocumented in this encounter Additional Health Concerns Assessment Noted Time PHQ-9 Depression Total Score: 0 04/07/20 8:16 PM EDT documented as of this encounter Care Teams Butt Presser Relationship Specialty Start Date End Date Kwadwo Oshea MD [address] [place] [address] PCP - General Family Medicine 04/07/25 documented as of this encounter
--- OUTSIDE RECORDS SUMMARY | 2025-05-06 15:59 | XMS_ITS | Encounter Summary ---
Author Organization [facility] tem Address [id number] [address] [place] [address] Care Team Providers Care Research Phlebotomist Name Role Phone Kwadwo Oshea MD Primary Care Provider [phone] Encounter Details Date Type Department Care Team (Late st Contact Info) Description 04/26/2025 Orders Only [facility] Cardiothoracic [facility] - [facility] [address] [phone] Laura Bills, ADNIEL Coronary artery disease involving [place] coronary artery of [place] heart with unstable angina pectoris ([facility]) Social History Tobacco Use Types Packs/Day Years Used Date Smoking Tobacco: Former Cigarettes 2011 Passive Smoke Exposure: Past Smokeless Tobacco: Never Alcohol Use Standard Drinks/Week Comments Not Currently 0 (1 standard drink = 0.6 oz pur e alcohol) [facility] Utilities Answer Date Recorded In the past 12 months has [employer], gas, oil, or water [employer] threatened to shut off services in your [...] Info) Description 05/12/2025 10:30 AM EDT Appointment [facility] - Cardiovascular [address] [phone] Aliza De La Cruz MD [address] [place], [place] [phone] 06/27/2025 9:00 AM EDT Office Visit [facility] Cardiology [address] [place] [phone] [place] Alatorre, PA-C [address] [place] [address] documented as of this encounter Goals Goal Patient Goal Type Associated Problems Recent Progress Patient-Stated? Author <enter goal here> General Yes Mariely Daniel, RN Note: Evaluation of progress towards goal: Patient plans for a safe discharge. documented as of this encounter Procedures Procedure Name Priority Date/Time Associated Diagnosis Comments MULTIPLE LABS Routine 04/26/2025 2:48 PM EDT documented in this encounter Results * Multiple labs (04/26/2025 2:48 PM EDT) us Not In System Ref Prov AL IMAGING Final Res ult MANUALLY TRANSCRIBED RESULTS documented in this encounter Visit Diagnoses Diagnosis Coronary artery disease involving [place] coronary artery of [place] heart with unstable angina pectoris ([facility]) documented in this encounter Additional Health Concerns Assessment Noted Time PHQ-9 Depression Total Score: 0 04/07/20 25 8:16 PM EDT documented as of this encounter Care Teams Research Phlebotomist Relationship Specialty Start Date End Date Kwadwo Oshea MD [address] [place] [address] PCP - General Family Medicine 04/07/25 documented as of this encounter
--- OUTSIDE RECORDS SUMMARY | 2025-05-06 15:59 | XMS_ITS | Encounter Summary ---
Author Organization [facility] Address [id number] [address] [place] [address] Care Team Providers Care Biomedical Analytical Scientist Name Role Phone Kwadwo Oshea MD Primary Care Provider [phone] Encounter Details Date Type Department Care Team ([facility] st Contact Info) Description 05/03/2025 Documentation [facility] Cardioth[facility] - [place] [address] [phone] Marquita Veliz Social History Tobacco Use Types Packs/Day Years Used Date Smoking Tobacco: Former Cigarettes 2011 Passive Smoke Exposure: Past Smokeless Tobacco: Never Alcohol Use Standard Drinks/Week Comments Not Currently 0 (1 standard drink = 0.6 oz pur e alcohol) [facility] Utilities Answer Date Recorded In the past 12 months has [employer], gas, oil, or water [employer] threatened to shut off services in your [...] on file documented as of this encounter Progress Notes * Marquita Veliz - 05/03/2025 4:33 PM EDT Lvm to schedule post op appointment w/cr documented in this encounter Plan of Treatment Upcoming Encounters Date Type Department Care Team (Late st Contact Info) Description 05/12/2025 10:30 AM EDT Appointment [facility] - Cardiovascular [address] [place] [phone] Aliza De La Cruz MD [address] [place] [address] 06/27/2025 9:00 AM EDT Office Visit [facility] Cardiology [address] [facility] [address] [place] [phone] [place] Alatorre, PA-C [address] [place] [address] documented as of this encounter Goals Goal Patient Goal Type Associated Problems Recent Progress Patient-Stated? Author <enter goal here> General Yes Mariely Daniel, RN Note: Evaluation of progress towards goal: Patient plans for a safe discharge. documented as of this encounter Visit Diagnoses Not on filedocumented in this encounter Additional Health Concerns Assessment Noted Time PHQ-9 Depression Total Score: 0 04/07/20 25 8:16 PM EDT documented as of this encounter Care Teams Biomedical Analytical Scientist Relationship Specialty Start Date End Date Kwadwo Oshea MD [address] [place] [address] PCP - General Family Medicine 04/07/25 documented as of this encounter
--- OUTSIDE RECORDS SUMMARY | 2025-05-06 15:59 | XMS_ITS | Clinical Summary ---
Author Organization [facility] Address [id number] [address] [place] [address] Care Team Providers Care Utility Technician Name Role Phone Kwadwo Oshea MD Primary Care Provider [phone] Allergies No known active allergies Medications albuterol (PROVENTIL HFA;VENTOLIN HFA) 90 mcg/actuation inhaler Inhale 2 puffs every 6 (six) hours as needed for wheezing or shortness of breath. 03/09/20 25 Active acetaminophen (TYLENOL EXTRA STRENGTH) 500 mg tablet Take 2 tablets (1,000 mg total) by mouth every 6 (six) hours as needed for pain. 60 tablet 04/16/20 25 Active aspirin 81 mg Take 1 tablet (81 mg total) by mouth in the morning for 30 days. 30 tablet 04/17/20 25 2024 Active insulin glargine (LANTUS, SEMGLEE) 100 unit/mL (3 mL) insulin pen Inject 15 Units under the skin in the morning. 15 mL 12 04/17/20 25 Active insulin lispro (HumaLOG) 100 unit/mL insulin pen Inject 1-8 Units under the skin 4 (four) times a day with meals and nightly. 15 mL 04/16/20 25 Active insulin lispro (HumaLOG) 100 unit/mL insulin pen Inject 2-10 Units under the skin in the morning and 2-10 Units at noon and 2-10 Units in the evening. Inject with meals. 15 mL 04/16/20 25 Active insulin lispro (HumaLOG) 100 unit/mL insulin pen Inject 2-8 Units under the skin nightly. 15 mL 04/16/20 25 Active tamsulosin (FLOMAX) 0.4 mg capsule Take 1 capsule (0.4 mg total) by mouth nightly for 30 days. 30 capsule 04/16/20 25 2024 Active pen needle,diabet ic dual safty (BD AUTOSHIELD DUO PEN NEEDLE) 30 gauge x 3/16 needle 1 applicator by miscellaneous route 4 (four) times daily after meals and at bedtime for 30 days. 100 each 4 04/16/20 25 2024 Active furosemide (LASIX) 40 mg tablet Take 1 tablet (40 mg total) by mouth 2 (two) times a day before meals. 60 tablet 04/16/20 25 Active oxyCODONE (ROXICODONE) 5 mg immediate release tablet Take 1 tablet (5 mg total) by mouth every 6 (six) hours as needed for pain. Max Daily Amount: 20 mg Active atorvastatin (LIPITOR) 80 mg tablet Take 1 tablet (80 mg total) by mouth nightly. 30 tablet 04/27/20 25 Active clopidogreL (PLAVIX) 75 mg tablet Take 1 tablet (75 mg total) by mouth in the morning. 30 tablet 04/27/20 25 Active carvediloL (COREG) 12.5 mg tablet Take 1 tablet (12.5 mg total) by mouth in the morning and 1 tablet (12.5 mg total) before bedtime. 180 tablet 04/27/20 25 Active ibuprofen (ADVIL,MOTRIN ) 200 mg tablet Take 3 tablets (600 mg total) by mouth every 6 (six) hours as needed for headaches, fever or pain. 04/05/20 25 2024 Discontinued(S top Taking at Discharge) atorvastatin (LIPITOR) 80 mg tablet Take 1 tablet (80 mg total) by mouth nightly for 30 days. 30 tablet 04/16/20 25 2024 Discontinued(R eorder) clopidogreL (PLAVIX) 75 mg tablet Take 1 tablet (75 mg total) by mouth in the morning for 30 days. 30 tablet 04/17/20 25 2024 Discontinued(R eorder) ezetimibe (ZETIA) 10 mg tablet Take 1 tablet (10 mg total) by mouth nightly for 30 days. 30 tablet 04/16/20 25 2024 Discontinued famotidine (PEPCID) 20 mg tablet Take 1 tablet (20 mg total) by mouth in the morning for 14 days. 14 tablet 04/17/20 25 2024 Discontinued metoprolol succinate XL (TOPROL XL) 50 mg 24 hr tablet Take 1 tablet (50 mg total) by mouth in the morning for 30 days. 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 Max Daily Amount: 20 mg 28 tablet 04/16/20 25 2024 sennosides-do cusate sodium (SENOKOT-S) 8.6-50 mg Take 1 tablet by mouth in the morning for 14 days. 14 tablet 04/17/20 25 2024 Discontinued Active Problems Problem Noted Date Diagnosed Date Mixed hyperlipidemia 04/27/2025 Primary hypertension 04/27/2025 Ischemic cardiomyopathy 04/27/2025 Chronic systolic heart failure 04/27/2025 Coronary artery disease 04/07/2025 Encounters Date Type Department Care Team Description 05/03/2025 Documentation [facility] - Manuel Nobles [place] [address] [place] [phone] Marquita Veliz 04/27/2025 1:00 PM EDT Office Visit [facility] [address] [place] [address] Aliza De La Cruz MD Chronic systolic heart failure (CMS-HCC) (Primary Dx); Coronary artery disease involving kashia coronary artery of kashia heart without angina pectoris; Ischemic cardiomyopathy; Primary hypertension; Mixed hyperlipidemia 04/27/2025 Travel 04/26/2025 Orders Only [facility] - Manuel Manueler [address] [place] [phone] Laura Bills RN 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 ([facility]) 04/20/2025 Orders Only [facility] [address] [place] [phone] External, Scanning Provider 04/19/2025 Abstract [facility] [address] [place] [phone] External, Scanning Provider 04/19/2025 Lab Requisition [facility] - Lab [address] [place] [address] Jimmy Fernando MD Chronic kidney disease, stage 3a ([facility]); Proteinuria, unspecified; Atherosclerotic heart disease of kashia coronary artery with unstable angina pectoris ([facility]) 04/18/2025 Telephone [facility] [address] [place] [address] [facility] Follow-up 04/12/2025 Telephone [facility] [address] [place] [address] Diya Sarkar orders 04/11/2025 5:30 PM EDT Ancillary Procedure [facility] [phone] 04/11/2025 12:36 PM EDT Anesthesia Event [facility] [address] [place] [address]. [place] [phone] Omar Iglesias MD 04/11/2025 12:35 PM EDT Ancillary Procedure [facility] [phone] 04/11/2025 12:30 PM EDT - 04/11/2025 5:30 PM EDT Surgery [facility] [address] [place] [address]. [place] [phone] Jimmy Fernando MD CORONARY ARTERY BYPASS GRAFT X 4 , DHILLON, SVG X 3 EVH LEFT LEG AND RIGHT UPPER LEG /DEIDRE 04/11/2025 11:30 AM EDT Ancillary Procedure [facility] [phone] 04/11/2025 Travel 04/07/2025 5:51 PM EDT - 04/16/2025 3:41 PM EDT Hospital Encounter 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 ([facility]) Discharge Disposition: Home Health 04/07/2025 8:15 AM EDT Ancillary Procedure [facility] [address] [place] [phone] Pain 04/07/2025 6:00 AM EDT [facility] [address] [place] [phone] Pain 04/07/2025 Travel 04/06/2025 9:30 AM EDT [facility] [address] [place] [phone] Pain 04/05/2025 5:45 PM EDT [facility] [address] [place] [phone] Pain 04/05/2025 12:35 PM EDT [facility] [address] [place] [phone] Pain 04/05/2025 10:10 AM EDT Ancillary Procedure [facility] [address] [place] [phone] Pain from Last 3 Months Immunizations Immunization Administration Dates Next Due Influenza (IM) Preservative Free 09/18/2016 Social History Tobacco Use Types Packs/Day Years Used Date Smoking Tobacco: Former Cigarettes 1 28 1 984 - 2011 Passive Smoke Exposure: Past Smokeless Tobacco: Never Tobacco Cessation:Counseling Given: Not Answered Alcohol Use Standard Drinks/Week Comments Not Currently 0 (1 standard drink = 0.6 oz pur e alcohol) [facility] Utilities Answer Date Recorded In the past 12 months has th e electric, gas, oil, or water company threatened to [...] on file Sexual Orientation Not on file Last Filed Vital Signs Vital Sign Reading Time Taken Comments Blood Pressure 138/66 04/27/2025 12:54 PM EDT Pulse 81 04/27/2025 12:54 PM EDT Temperature 37.1 C (98.7 F) 04/16/2025 12:55 PM EDT Respiratory Rate 18 04/16/2025 12:55 PM EDT Oxygen Saturation 97% 04/27/2025 12:54 PM EDT Inhaled Oxygen Concentration - - Weight 71.7 kg (158 lb) 04/27/2025 12:54 PM EDT Height 165.1 cm (5' 5 ) 04/27/2025 12:54 PM EDT Body Mass Index 26.29 04/27/2025 12:54 PM EDT Plan of Treatment Upcoming Encounters Date Type Department Care Team (Late st Contact Info) Description 05/12/2025 10:30 AM EDT Appointment [facility] - Cardiovascular [address] [facility] [place] [phone] Aliza De La Cruz MD [address] [place], [place] [phone] 06/27/2025 9:00 AM EDT Office Visit [facility] [address] [place] [address] Charlotte Alatorre PA-C [address] [place] [address] Health Maintenance Due Date Last Done Comments Diabetic Ophthalmology Exam 1963 Adult BMI Follow Up Plan 1981 Diabetic Foot Exam 1981 DTaP,Tdap and Td Vaccines (1 - Tdap) 1982 Zoster (Shingles) Vaccine (1 of 2) 2013 Influenza Vaccine 07/11/2025 09/18/2016 Depression Screening 04/07/2026 04/07/2025 Adult BMI Screening 04/27/2026 04/27/2025 Tobacco Screening 04/27/2026 04/27/2025 Goals Goal Patient Goal Type Associated Problems Recent Progress Patient-Stated? Author <enter goal here> General Yes Mariely Daniel, RN Note: Evaluation of progress towards goal: Patient plans for a safe discharge. Medical Devices Not on file Procedures Procedure Name Priority Date/Time Associated Diagnosis Comments MULTIPLE LABS Routine 04/26/2025 2:48 PM EDT LAB RESULTS REPORT (SCANNED INTO EHR) 04/22/2025 10:38 AM EDT PHOSPHORUS Routine 04/19/2025 9:00 AM EDT Chronic kidney disease, stage 3a ([facility]) Proteinuria, unspecified Atherosclerotic heart disease of kashia coronary artery with unstable angina pectoris ([facility]) MAGNESIUM Routine 04/19/2025 9:00 AM EDT Chronic kidney disease, stage 3a (CMS-HCC) Proteinuria, unspecified Atherosclerotic heart disease of kashia coronary artery with unstable angina pectoris (CMS-HCC) CBC (NO DIFF) Routine 04/19/2025 9:00 AM EDT Chronic kidney disease, stage 3a (CMS-HCC) Proteinuria, unspecified Atherosclerotic heart disease of kashia coronary artery with unstable angina pectoris (CMS-HCC) COMPREHENSIVE METABOLIC PANEL Routine 04/19/2025 9:00 AM EDT Chronic kidney disease, stage 3a (CMS-HCC) Proteinuria, unspecified Atherosclerotic heart disease of kashia coronary artery with unstable angina pectoris (CMS-HCC) BEDSIDE GLUCOSE Routine 04/16/2025 12:52 PM EDT BEDSIDE GLUCOSE Routine 04/16/2025 8:55 AM EDT PHOSPHORUS Routine 04/16/2025 4:44 AM EDT COMPREHENSIVE METABOLIC PANEL Routine 04/16/2025 4:44 AM EDT IONIZED CALCIUM Routine 04/16/2025 4:44 AM EDT CBC (NO DIFF) Routine 04/16/2025 4:44 AM EDT BEDSIDE GLUCOSE Routine 04/15/2025 9:30 PM EDT BEDSIDE GLUCOSE Routine 04/15/2025 4:27 PM EDT HEMOGLOBIN Routine 04/15/2025 3:01 PM EDT BEDSIDE GLUCOSE Routine 04/15/2025 12:35 PM EDT XR CHEST 1 VW Routine 04/15/2025 8:45 AM EDT BEDSIDE GLUCOSE Routine 04/15/2025 8:04 AM EDT PHOSPHORUS Routine 04/15/2025 3:29 AM EDT COMPREHENSIVE METABOLIC PANEL Routine 04/15/2025 3:29 AM EDT IONIZED CALCIUM Routine 04/15/2025 3:29 AM EDT CBC (NO DIFF) Routine 04/15/2025 3:29 AM EDT BEDSIDE GLUCOSE Routine 04/14/2025 9:02 PM EDT HEMOGLOBIN Routine 04/14/2025 5:02 PM EDT BEDSIDE GLUCOSE Routine 04/14/2025 4:47 PM EDT CLINICAL PATHOLOGY REVIEW Routine 2024 2:17 PM EDT TRANSFUSE RED BLOOD CELLS Routine 2024 12:38 PM EDT BEDSIDE GLUCOSE Routine 04/14/2025 12:02 PM EDT CROSSMATCH RBC Routine 04/14/2025 11:18 AM EDT TYPE AND SCREEN Routine 04/14/2025 11:18 AM EDT BEDSIDE GLUCOSE Routine 04/14/2025 8:45 AM EDT PHOSPHORUS Routine 04/14/2025 3:35 AM EDT COMPREHENSIVE METABOLIC PANEL Routine 04/14/2025 3:35 AM EDT IONIZED CALCIUM Routine 04/14/2025 3:35 AM EDT CK TOTAL Routine 04/14/2025 3:35 AM EDT CBC (NO DIFF) Routine 04/14/2025 3:35 AM EDT CROSSMATCH RBC STAT 04/13/2025 10:42 PM EDT BEDSIDE GLUCOSE Routine 04/13/2025 10:30 PM EDT BEDSIDE GLUCOSE Routine 04/13/2025 9:42 PM EDT US RETROPERITONEAL COMPLETE Routine 02/2025 8:37 PM EDT URINALYSIS Add-On 04/13/2025 6:12 PM EDT PROTEIN CREAT RATIO Routine 04/13/2025 6:12 PM EDT MICROALBUMIN / CREATININE URINE RATIO Add-On 04/13/2025 6:12 PM EDT BEDSIDE GLUCOSE Routine 04/13/2025 6:07 PM EDT GLOMERULAR BASEMENT MEMBRANE IGG AB Routine 04/13/2025 4:33 PM EDT CYTOPLASMIC NEUTROPHILIC AB (ANCA), S Routine 04/13/2025 4:33 PM EDT SYPHILIS TOTAL(UNKNOWN SYPHILIS STATUS) Routine 04/13/2025 4:33 PM EDT IMMUNOELECTROPHORESIS FOR THERAPY MONITORING Routine 04/13/2025 4:33 PM EDT COMPLEMENT PROFILE (C3 AND C4) Routine 04/13/2025 4:33 PM EDT PROTEIN ELECTROPHORESIS, SERUM Routine 04/13/2025 4:33 PM EDT BEDSIDE GLUCOSE Routine 04/13/2025 1:29 PM EDT BEDSIDE GLUCOSE Routine 04/13/2025 9:23 AM EDT BEDSIDE GLUCOSE Routine 04/13/2025 6:18 AM EDT XR CHEST 1 VW Routine 04/13/2025 5:49 AM EDT HEMOGLOBIN A1C Add-On 04/13/2025 3:41 AM EDT RHEUMATOID FACTOR Add-On 04/13/2025 3:41 AM EDT DOUBLE STRANDED DNA AB Add-On 3:41 AM EDT HEPATITIS PANEL, ACUTE Add-On 3:41 AM EDT RAMBO SCREEN W/ REFLEX Add-On 04/13/2025 3:41 AM EDT IRON AND TIBC Add-On 04/13/2025 3:41 AM EDT FERRITIN Add-On 04/13/2025 3:41 AM EDT VITAMIN B12 Add-On 04/13/2025 3:41 AM EDT FOLATE Add-On 04/13/2025 3:41 AM EDT CBC (NO DIFF) Routine 04/13/2025 3:41 AM EDT IONIZED CALCIUM Routine 04/13/2025 3:41 AM EDT IONIZED MAGNESIUM Routine 04/13/2025 3:41 AM EDT PHOSPHORUS Routine 04/13/2025 3:41 AM EDT BASIC METABOLIC PANEL Routine 04/13/2025 3:41 AM EDT BEDSIDE GLUCOSE Routine 04/12/2025 9:32 PM EDT BEDSIDE GLUCOSE Routine 04/12/2025 6:18 PM EDT BEDSIDE GLUCOSE Routine 04/12/2025 11:38 AM EDT BEDSIDE GLUCOSE Routine 04/12/2025 8:43 AM EDT BEDSIDE GLUCOSE Routine 04/12/2025 7:23 AM EDT POTASSIUM Routine 04/12/2025 7:20 AM EDT BEDSIDE GLUCOSE Routine 04/12/2025 6:16 AM EDT BEDSIDE GLUCOSE Routine 04/12/2025 5:36 AM EDT XR CHEST 1 VW Routine 04/12/2025 5:14 AM EDT ECG 12-LEAD Timed 04/12/2025 3:21 AM EDT BEDSIDE GLUCOSE Routine 04/12/2025 3:09 AM EDT BEDSIDE GLUCOSE Routine 04/12/2025 2:06 AM EDT PROTIME & INR Routine 04/12/2025 2:03 AM EDT CBC (NO DIFF) Routine 04/12/2025 2:03 AM EDT IONIZED CALCIUM Routine 04/12/2025 2:03 AM EDT IONIZED MAGNESIUM Routine 04/12/2025 2:03 AM EDT PHOSPHORUS Routine 04/12/2025 2:03 AM EDT BASIC METABOLIC PANEL Routine 04/12/2025 2:03 AM EDT BEDSIDE GLUCOSE Routine 04/12/2025 1:12 AM EDT BEDSIDE GLUCOSE Routine 04/12/2025 12:07 AM EDT HEMOGLOBIN Routine 04/11/2025 11:12 PM EDT HEMOGLOBIN AND HEMATOCRIT, BLOOD STAT 04/11/2025 11:12 PM EDT PLATELET COUNT STAT 04/11/2025 11:12 PM EDT IONIZED CALCIUM Routine 04/11/2025 11:12 PM EDT IONIZED MAGNESIUM Routine 04/11/2025 11:12 PM EDT POTASSIUM Routine 04/11/2025 11:12 PM EDT CREATININE, SERUM Routine 04/11/2025 11:12 PM EDT BUN Routine 04/11/2025 11:12 PM EDT BEDSIDE GLUCOSE Routine 04/11/2025 10:02 PM EDT BEDSIDE GLUCOSE Routine 04/11/2025 9:02 PM EDT BEDSIDE GLUCOSE Routine 04/11/2025 8:04 PM EDT BEDSIDE GLUCOSE Routine 04/11/2025 7:00 PM EDT BLOOD GAS, ARTERIAL Routine 04/11/2025 6:20 PM EDT VENTILATION Routine 04/11/2025 6:12 PM EDT BEDSIDE GLUCOSE Routine 04/11/2025 5:54 PM EDT ECG 12-LEAD STAT 04/11/2025 5:34 PM EDT XR CHEST 1 VW STAT 04/11/2025 5:33 PM EDT HEMOGLOBIN AND HEMATOCRIT, BLOOD Routine 04/11/2025 5:29 PM EDT PLATELET COUNT Routine 04/11/2025 5:29 PM EDT IONIZED CALCIUM STAT 04/11/2025 5:29 PM EDT IONIZED MAGNESIUM STAT 04/11/2025 5:29 PM EDT POTASSIUM STAT 04/11/2025 5:29 PM EDT CREATININE, SERUM STAT 04/11/2025 5:29 PM EDT BUN STAT 04/11/2025 5:29 PM EDT APTT STAT 04/11/2025 5:29 PM EDT PROTIME & INR STAT 04/11/2025 5:29 PM EDT WEANING PARAMETERS Routine 04/11/2025 5:26 PM EDT VENTILATION Routine 04/11/2025 5:26 PM EDT ECHO DEIDRE INTRA OP ONLY STAT 5:25 PM EDT ANESTHESIA DEIDRE Routine 04/11/2025 4:40 PM EDT TEG BILL ONLY Routine 04/11/2025 4:33 PM EDT POCT ABG RAPID K GLU ICA HH Routine 12/2024 4:31 PM EDT POCT ABG RAPID K GLU HH Routine 04/11/20 25 4:02 PM EDT POCT ABG RAPID K GLU ICA HH Routine 12/2024 3:30 PM EDT POCT ABG RAPID K GLU HH Routine 04/11/20 3:02 PM EDT OR ANES ART LINE Routine 04/11/2025 2:39 PM EDT OR INSERT/PLACE FLOW DIRECT CATH Routine 04/11/2025 2:36 PM EDT TRANSFUSE RED BLOOD CELLS Routine 2024 1:41 PM EDT POCT IMAGN Routine 04/11/2025 1:11 PM EDT TEG BILL ONLY Routine 04/11/2025 1:11 PM EDT POCT ABG RAPID K GLU ICA HH Routine 12/2024 1:10 PM EDT OR AN ELECTIVE ENDOTRACHEAL AIRWAY Routine 04/11/2025 12:48 PM EDT CORONARY ARTERY BYPASS GRAFT 04/11/2025 12:36 PM EDT CORONARY ARTERY DISEASE Case Notes BHARGAV 4.5W DNM Special Needs DNM ECHO DEIDRE INTRA OP ONLY STAT 12:33 PM EDT ECHO DEIDRE INTRA OP ONLY Routine 11:25 AM EDT BEDSIDE GLUCOSE Routine 04/11/2025 11:21 AM EDT BEDSIDE GLUCOSE Routine 04/11/2025 7:30 AM EDT MAGNESIUM Routine 04/11/2025 6:25 AM EDT HEPARIN ANTI XA, UNFRACTIONATED Routine 04/11/2025 6:25 AM EDT APTT Routine 04/11/2025 6:25 AM EDT PROTIME & INR Routine 04/11/2025 6:25 AM EDT CBC WITH AUTO DIFFERENTIAL Routine 04/11 6:25 AM EDT BASIC METABOLIC PANEL Routine 04/11/2025 6:25 AM EDT BEDSIDE GLUCOSE Routine 04/10/2025 9:56 PM EDT BEDSIDE GLUCOSE Routine 04/10/2025 5:09 PM EDT POTASSIUM Routine 04/10/2025 3:52 PM EDT BEDSIDE GLUCOSE Routine 04/10/2025 11:21 AM EDT BEDSIDE GLUCOSE Routine 04/10/2025 7:40 AM EDT TYPE AND SCREEN Routine 04/10/2025 6:24 AM EDT C-REACTIVE PROTEIN Routine 04/10/2025 6:24 AM EDT COMPREHENSIVE METABOLIC PANEL Routine 04/10/2025 6:24 AM EDT APTT Routine 04/10/2025 6:24 AM EDT PROTIME & INR Routine 04/10/2025 6:24 AM EDT CBC WITH AUTO DIFFERENTIAL Routine 04/10 6:24 AM EDT CROSSMATCH RBC Routine 04/10/2025 6:00 AM EDT MAGNESIUM Routine 04/09/2025 11:58 PM EDT BEDSIDE GLUCOSE Routine 04/09/2025 9:40 PM EDT BEDSIDE GLUCOSE Routine 04/09/2025 5:17 PM EDT POTASSIUM Routine 04/09/2025 3:48 PM EDT MAGNESIUM Routine 04/09/2025 3:48 PM EDT BEDSIDE GLUCOSE Routine 04/09/2025 12:07 PM EDT FOLATE Routine 04/09/2025 8:27 AM EDT IRON AND TIBC Routine 04/09/2025 8:27 AM EDT VITAMIN B12 Routine 04/09/2025 8:27 AM EDT FERRITIN Routine 04/09/2025 8:27 AM EDT LIPID PROFILE Routine 04/09/2025 8:27 AM EDT MAGNESIUM Routine 04/09/2025 8:27 AM EDT CBC WITH AUTO DIFFERENTIAL Routine 04/09 8:27 AM EDT BASIC METABOLIC PANEL Routine 04/09/2025 8:27 AM EDT BEDSIDE GLUCOSE Routine 04/09/2025 8:16 AM EDT BEDSIDE GLUCOSE Routine 04/08/2025 9:32 PM EDT BEDSIDE GLUCOSE Routine 04/08/2025 7:53 PM EDT VASC CAROTID DUPLEX BILATERAL Routine 04/08/2025 4:41 PM EDT PROTEIN CREAT RATIO Routine 04/08/2025 3:05 PM EDT URINALYSIS Routine 04/08/2025 3:05 PM EDT BEDSIDE GLUCOSE Routine 04/08/2025 12:15 PM EDT HEMOGLOBIN A1C Add-On 04/08/2025 7:26 AM EDT MAGNESIUM Routine 04/08/2025 7:26 AM EDT CBC WITH AUTO DIFFERENTIAL Routine 04/08 7:26 AM EDT BASIC METABOLIC PANEL Routine 04/08/2025 7:26 AM EDT XR CHEST 1 VW Routine 04/08/2025 6:45 AM EDT BEDSIDE GLUCOSE Routine 04/07/2025 11:19 PM EDT ECG 12-LEAD Routine 04/07/2025 11:15 PM EDT BEDSIDE GLUCOSE Routine 04/07/2025 9:29 PM EDT BEDSIDE GLUCOSE Routine 04/07/2025 7:15 PM EDT LIVER PANEL Routine 04/07/2025 6:28 PM EDT TSH WITH REFLEX Routine 04/07/2025 6:28 PM EDT MAGNESIUM Routine 04/07/2025 6:28 PM EDT CBC WITH AUTO DIFFERENTIAL Routine 04/07 6:28 PM EDT BASIC METABOLIC PANEL Routine 04/07/2025 6:28 PM EDT BEDSIDE GLUCOSE Routine 04/07/2025 6:27 PM EDT XR CHEST 1 VW Routine 04/07/2025 11:06 AM EDT MULTIPLE LABS Routine 04/07/2025 10:55 AM EDT CARDIAC INVASIVE Routine 04/07/2025 10:02 AM EDT NON [facility] CATH Routine 04/07 8:15 AM EDT Pain XR CHEST 1 VW Routine 04/07/2025 6:00 AM EDT Pain LIPID PROFILE Routine 04/06/2025 10:57 AM EDT ECHO DOPPLER Routine 04/06/2025 10:01 AM EDT NON [facility] ECHO Routine 04/06/2025 9:30 AM EDT Pain VASC VENOUS DUPLEX LOWER BILATERAL Routine 04/05/2025 5:[address] CTA CHEST Routine 04/05/2025 12:[address] CHEST W CONT Routine 04/05/2025 11:04 AM EDT XR CHEST 2 VWS Routine 04/05/2025 10:10 AM EDT Pain ECG 12-LEAD Routine 04/05/2025 10:00 AM EDT from Last 3 Months Results * Multiple labs (04/26/2025 2:48 PM EDT) Only the most recent of2 resultswithin the time period is included. us Not In System Ref Prov OR IMAGING Final Res ult MANUALLY TRANSCRIBED RESULTS * Lab Results Report (Scanned Into EHR) (04/22/2025 10:38 AM EDT) Narrative 04/22/2025 10:38 AM EDT Ordered by an unspecified provider. us Not In System Ref Prov LAB BLOOD ORDERABLES Valery l Result * (ABNORMAL) CBC without diff (04/19/2025 9:00 AM EDT) Only the most recent of6 resultswithin the time period is included. WBC 7.4 4 - 11 x10E9/L 04/19/2025 10:25 AM EDT [facility] RBC Count 3.04(L) 4.1 - 5.7 X10E12/L 04/19/2025 10:25 AM EDT [facility] Hemoglobin 9.7(L) 13 - 17 g/dL 04/19/2025 10:25 AM EDT [facility] Hematocrit 28.1(L) 39 - 50 % 04/19/2025 10:25 AM EDT [facility] MCV 93 80 - 100 fL 04/19/2025 10:25 AM EDT [facility] MCH 31.8 27 - 34 pg 04/19/2025 10:25 AM EDT [facility] MCHC 34.3 32 - 36 g/dL 04/19/2025 10:25 AM EDT [facility] RDW 13.8 11.5 - 15 % 04/19/2025 10:25 AM EDT [facility] Platelet Count 430 150 - 450 X10E9/L 04/19/2025 10:25 AM EDT [facility] MPV 7.2 7 - 12 fL 04/19/2025 10:25 AM EDT [facility] Blood Venous blood / Unknown 04/19/2025 9:00 AM EDT 04/19/2025 10:07 AM EDT Jimmy Fernando MD LAB BLOOD ORDERABLES Fi nal Result Performing Organization Address City/[facility]/ZIP Co de Phone Number [address] [place] [address], [place] * Phosphorus (04/19/2025 9:00 AM EDT) Only the most recent of6 resultswithin the time period is included. PHOSPHORUS 3.8 2.4 - 4.9 mg/dL 04/19/2025 10:34 AM EDT [facility] Blood Venous blood / Unknown 04/19/2025 9:00 AM EDT 04/19/2025 10:07 AM EDT us Jimmy Fernando MD LAB BLOOD ORDERABLES Fi nal Result Performing Organization Address City/[facility] Co de Phone Number [address] [place] [address], [place] * Magnesium (04/19/2025 9:00 AM EDT) Only the most recent of7 resultswithin the time period is included. MAGNESIUM 2.0 1.8 - 2.6 mg/dL 04/19/2025 10:34 AM EDT [facility] Blood Venous blood / Unknown 04/19/2025 9:00 AM EDT 04/19/2025 10:07 AM EDT Jimmy Fernando MD LAB BLOOD ORDERABLES Fi nal Result Performing Organization Address City/[facility]/ZIP Co de Phone Number [address] [place] [address], [place] * (ABNORMAL) Comprehensive metabolic panel (04/19/2025 9:00 AM EDT) Only the most recent of5 resultswithin the time period is included. SODIUM 134 134 - 146 mmol/L 04/19/2025 10:34 AM EDT [facility] POTASSIUM 4.0 3.5 - 5.0 mmol/L 04/19/2025 10:34 AM EDT [facility] CHLORIDE 101 98 - 109 mmol/L 04/19/2025 10:34 AM EDT [facility] CARBON DIOXIDE 29 22 - 32 mmol/L 04/19/2025 10:34 AM EDT [facility] ANION GAP 4(L) 5 - 15 mmol/L 04/19/2025 10:34 AM T [facility] BLOOD UREA NITROGEN 42(H) 5 - 27 mg/dL 04/19/2025 10:34 AM EDT [facility] CREATININE 1.48(H) 0.70 - 1.20 mg/dL 04/19/2025 10:34 AM EDT [facility] Comment:METHOD TRACEABLE TO IDMS STANDARD GLUCOSE 285(H) 65 - 99 mg/dL 04/19/2025 10:34 AM EDT [facility] [facility] CALCIUM 7.9(L) 8.5 - 10.5 mg/dL 04/19/2025 10:34 AM EDT [facility] TOTAL PROTEIN 5.9(L) 6.0 - 8.0 g/dL 04/19/2025 10:34 AM EDT [facility] ALBUMIN 2.7(L) 3.2 - 5.3 g/dL 04/19/2025 10:34 AM EDT [facility] ALKALINE PHOSPHATASE 100 39 - 130 U/L 04/19/2025 10:34 AM EDT [facility] AST 25 <=41 U/L 04/19/2025 10:34 AM EDT [facility] ALT 18 <=40 U/L 04/19/2025 10:34 AM EDT [facility] BILIRUBIN,TOTAL 0.4 0.3 - 1.2 mg/dL 04/19/2025 10:34 AM EDT [facility] EGFR Non-Race Dependent 53(L) >=60 ml/min/1.7 3sq.m 04/19/2025 10:34 AM EDT [facility] Comment: eGFR not reported due to non-numeric value for Creatinine. Reported eGFR is based on the CKD-EPI 2020 equation that does not use a race coefficient. Blood Venous blood / Unknown 04/19/2025 9:00 AM EDT 04/19/2025 10:07 AM EDT us Jimmy Fernando MD LAB BLOOD ORDERABLES Fi nal Result [facility] [address] [place] [address], [place] * (ABNORMAL) Bedside Glucose *Place/Obtain serum glucose if >500 per glucometer. (04/16/2025 12:52PM EDT) Only the most recent of49 resultswithin the time period is included. Bedside Glucose (POC) 167(H) 65 - 99 mg/dL 04/16/2025 12:57 PM EDT [facility] arterial/capilla ry 04/16/2025 12:52 PM EDT 04/16/2025 12:57 PM EDT us Jimmy Fernando MD POINT OF CARE TEST ORDE RABLES Final Result [facility] [address] [place] [address], [place] * Ionized calcium (04/16/2025 4:44 AM EDT) Only the most recent of7 resultswithin the time period is included. IONIZED CALCIUM - ICAN 4.5 4.5 - 5.3 mg/dL 04/16/2025 5:24 AM EDT [facility] Blood Venous blood / Unknown Port / Unknown 04/16/2025 4:44 AM EDT 04/16/2025 5:07 AM EDT Alicia Puri MD LAB BLOOD ORDERABLES Final Result [facility] [address] [place] [address], * (ABNORMAL) Hemoglobin (04/15/2025 3:01 PM EDT) Only the most recent of3 resultswithin the time period is included. Hemoglobin 8.5(L) 13 - 17 g/dL 04/15/2025 3:15 PM EDT [facility] Blood Venous blood / Unknown 04/15/2025 3:01 PM EDT 04/15/2025 3:09 PM EDT Varsha Reeves CLINICAL RESEARCH SCIENTIST-WOOD GRAINER LAB BLOOD ORDERABLES F inal Result Performing Organization Address City/[facility]/ZIP Co de Phone Number [facility] [address] [place] [address], * X-ray chest 1 view (04/15/2025 8:45 AM EDT) Only the most recent of7 resultswithin the time period is included. Anatomical Region Laterality Modality Body, Chest N/A Computed Radiogr aphy 04/15/2025 9:02 AM EDT Narrative 04/15/2025 9:13 AM EDT XR CHEST 1 VW HISTORY: Shortness of breath COMPARISON: Radiograph 04/13/2025 and earlier FINDINGS: AP portable upright film obtained. Status post sternotomy. Right [...] Shaun Loja MD on 04/15/2025 9:13 AM Procedure Note Shaun Loja MD - 04/15/2025 XR CHEST 1 VW HISTORY: Shortness of breath COMPARISON: Radiograph 04/13/2025 and earlier FINDINGS: AP portable upright film obtained. Status post sternotomy. Right IJcatheter with tip projecting over the SVC. The cardiomediastinal silhouette is stable compared to prior exam.Bibasilar airspace disease, increased. Trace left pleural effusion. Nomeasurable pneumothorax. Skinfold overlies the right hemithorax.Congestion. IMPRESSION: Congestion with increase in lower lobe infiltrates. Approved by Cecil Benson DO on 04/15/2025 9:02 AM Shaun Lyons MD have personally reviewed the image(s) and agree withand/or edited the report Finalized by Shaun Loja MD on 04/15/2025 9:13 AM 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 IMG DIAGNOSTIC IMAGING ORDERABLES Final Result * Transfuse RBC:1 Unit (04/14/2025 2:21 PM EDT) Only the most recent of2 resultswithin the time period is included. us Bertha Roldan CLINICAL RESEARCH SCIENTIST-WOOD GRAINER BLOOD TRANSFUSION OR DERABLES Final Result * Clinical Pathology Review (04/14/2025 2:17 PM EDT) Case Report Clinical Pathology Report Case: [id number] Authorizing Provider: Alicia Puri MD Collected: 04/14/2025 1417 Ordering Location: [facility] Received: 04/14/2025 1417 - JUAREZ 6W Acute Pathologist: Rajwinder Madrigal MD Specimen: Blood, Venous 04/14/2025 4:16 PM EDT [facility] Final Diagnosis No monoclonal protein identified. 04/14/2025 4:16 PM EDT [facility] at 1616 EDT Venous blood / Unknown 04/14/2025 2:17 PM EDT 04/14/2025 2:17 PM EDT Alicia Puri MD PATHOLOGY/CYTOLOGY ORDERABL ES Final Result [facility] [address] [place] [address], [place] [phone] * Crossmatch RBC:Number of Units: 1 (04/14/2025 11:18 AM EDT) Only the most recent of3 resultswithin the time period is included. Blood component type [id number] BLOOD BANK - MD.Voice Unit number [id number] BL OOD BANK - MD.Voice Unit ABO A BLOOD BANK - MD.Voice Unit RH POS BLOOD BANK - MD.Voice Crossmatch Compatible BLOOD BA NK - [employer] Status of unit TRANSFUSED BLOO D BANK - MD.Voice Expiration Date BLOOD BANK - MD.Voice BB Type Barcode [id number] BLOOD BANK - MD.Voice Blood Venous blood / Unknown 04/14/2025 11:18 AM EDT 04/14/2025 11:25 AM EDT Bertha Roldan CLINICAL RESEARCH SCIENTIST-WOOD GRAINER BLOOD BANK PRODUCT O RDERABLES Edited Result - Final BLOOD BANK - MD.Voice * Type and screen(includes indirect magali) (04/14/2025 11:18 AM EDT) Only the most recent of2 resultswithin the time period is included. ABO A 04/14/2025 12:19 PM EDT [facility] RH Positive 04/14/2025 12:19 PM EDT [facility] Antibody Screen Negative 04/14/2025 12:19 PM EDT [facility] Blood Venous blood / Unknown Central Line / Unknown 04/14/2025 11:18 AM EDT 04/14/2025 11:37 AM EDT us Bertha Roldan CLINICAL RESEARCH SCIENTIST-WOOD GRAINER BLOOD BANK TEST ORDSulma CARBAJAL Edited Result - Final Performing Organization Address [facility] Co de Phone Number [facility] [address] [place] [address], [place] [facility] [address] [place] [address], [place] * CK Total (04/14/2025 3:35 AM EDT) CPK 155 24 - 195 U/L 04/14/2025 4:42 AM EDT [facility] Blood 04/14/2025 3:35 AM EDT 04/14/2025 4:09 AM EDT us Alicia Puri MD LAB BLOOD ORDERABLES Final Result Performing Organization Address [facility] Co de Phone Number [facility] [address] [place] [address], [place] [phone] * Ultrasound retroperitoneal complete (04/13/2025 8:37 PM EDT) Anatomical Region Laterality Modality Body Ultrasound 04/13/2025 10:2 0 PM EDT Narrative 04/13/2025 10:21 PM EDT ULTRASOUND RETROPERITONEUM INDICATION: Acute renal injury. COMPARISON: None available. FINDINGS: Ultrasound evaluation of the kidneys and bladder was performed. Right kidney: 9 cm in maximal length. No collecting system dilatation, calculi, or contour deforming mass lesion. Left kidney: 9.9 cm in maximal length. No collecting system dilatation, calculi, or contour deforming mass lesion. Bladder: Unremarkable fluid filled bladder. Bladder volume: 420 mL. Both ureteral jets seen. Right-sided pleural effusion. IMPRESSION: 1. No acute abnormality. No stone or collecting system dilatation. 2. Right-sided pleural effusion. Finalized by Les Spivey MD on 04/13/2025 10:21 PM Procedure Note Les Spivey MD - 04/13/2025 ULTRASOUND RETROPERITONEUM INDICATION: Acute renal injury. COMPARISON: None available. FINDINGS: Ultrasound evaluation of the kidneys and bladder wasperformed. Right kidney: 9 cm in maximal length. No collecting system dilatation,calculi, or contour deforming mass lesion. Left kidney: 9.9 cm in maximal length. No collecting system dilatation,calculi, or contour deforming mass lesion. Bladder: Unremarkable fluid filled bladder. Bladder volume: 420 mL. Bothureteral jets seen. Right-sided pleural effusion. IMPRESSION: 1. No acute abnormality. No stone or collecting system dilatation. 2. Right-sided pleural effusion. Finalized by Les Spivey MD on 04/13/2025 10:21 PM Alicia Puri MD [facility] Final Res ult * (ABNORMAL) Protein creat ratio (04/13/2025 6:12 PM EDT) Only the most recent of2 resultswithin the time period is included. URINE PROTEIN, RANDOM (MG/L) 1,830(H) <120 mg/L 04/13/2025 8:43 PM EDT [facility] URINE CREATININE,RDM 136.21 mg/dL 04/13/2025 8:43 PM EDT [facility] U/PRO/MANAGER ER RATIO CALC 1.34(H) <=0.20 04/13/2025 8:43 PM EDT [facility] Urine Collection / Unknown 04/13/2025 6:12 PM EDT 04/13/2025 6:28 PM EDT Narrative [facility] - 04/13/2025 8:43 PM EDT Nephrotic Syndrome is associated with ratios >3.5 Alicia Puri MD URINE ORDERABLES Final Resu lt [facility] [address] [place] [address], [place] [phone] * (ABNORMAL) Microalbumin - Albumin: Creatinine Urine Ratio (04/13/2025 6:12 PM EDT) URINE CREATININE,RDM 136.86 mg/dL 04/14/2025 1:40 AM EDT [facility] MALB/CREAT RATIO 971.8(H) 0.0 - 30.0 mg/g 04/14/2025 1:40 AM EDT [facility] MICROALBUMIN, URINE 133.0(H) 0.0 - 1.9 mg/dL 04/14/2025 1:40 AM EDT [facility] Urine Collection / Unknown 04/13/2025 6:12 PM EDT 04/13/2025 6:28 PM EDT us Alicia Puri MD URINE ORDERABLES Final Resu lt [facility] [address] [place] [address], * (ABNORMAL) Urinalysis (04/13/2025 6:12 PM EDT) Only the most recent of2 resultswithin the time period is included. COLOR Yellow Yellow, Colorless 04/14/2025 1:00 AM EDT [facility] TURBIDITY Clear Clear 04/14/2025 1:00 AM EDT [facility] SPECIFIC GRAVITY 1.021 1.003 - 1.035 04/14/2025 1:00 AM EDT [facility] NITRITE Negative Negative 04/14/2025 1:00 AM EDT [facility] PH,URINE 5.5 5.0 - 8.5 04/14/2025 1:00 AM EDT [facility] LEUKOCYTE ESTERASE Negative Negative 04/14/2025 1:00 AM EDT [facility] PROTEIN 100 mg/dL(A) Negative 04/14/2025 1:00 AM EDT [facility] KETONES (URINE) Trace(A) Negative 1:00 AM EDT [facility] UROBILINOGEN <1.1 eu/dL <1.1 eu/dL 04/14/2025 1:00 AM EDT [facility] BILIRUBIN (URINE) Negative Negative 04/14/2025 1:00 AM EDT [facility] BLOOD/HGB Small(A) Negative 04/14/2025 1:00 AM EDT [facility] HYALINE CASTS 8(H) 0 - 2 04/14/2025 1:00 AM EDT [facility] MUCOUS Present(A) None 04/14/2025 1:00 AM EDT [facility] R.B.CELLS 1 0 - 5 04/14/2025 1:00 AM EDT [facility] W.B.CELLS 2 0 - 5 04/14/2025 1:00 AM EDT [facility] GLUCOSE (URINE) 100 mg/dL(A) Negative 04/14/2025 1:00 AM EDT [facility] Urine Collection / Unknown 04/13/2025 6:12 PM EDT 04/13/2025 6:28 PM EDT Narrative [facility] - 04/14/2025 1:00 AM EDT Urine received without preservative. Delays in transport may affect results. Interpret with caution. A clinical correlation is recommended. us Alicia Puri MD URINE ORDERABLES Final Resu lt [facility] [address] [place] [address], * Cytoplasmic Neutrophilic Ab (ANCA), S (04/13/2025 4:33 PM EDT) C-ANCA Negative Negative 04/14/2025 2:13 PM EDT [facility] P-ANCA Negative Negative 04/14/2025 2:13 PM EDT [facility] Comment: Negative for cANCA and pANCA patterns by immunofluorescence. ADDITIONAL INFORMATION This test was developed and its performance characteristics determined by [facility] in a manner consistent with CLIA requirements. This test has not been cleared or approved by the U.S. Food and Drug Administration. Test Performed by: [facility] [address] [place] [address] Electro Mechanic: Brodie Hernandez Ph.D.; CLIA# [id number] Blood Central Line / Unknown 04/13/2025 4:33 PM EDT 04/13/2025 4:47 PM EDT Alicia Puri MD LAB BLOOD ORDERABLES Final Result [facility] [address] [place] [address], [place] * Glomerular basement membrane IgG AB (04/13/2025 4:33 PM EDT) GBM IGG AB <0.2 <1.0 AI 04/13/2025 6:35 PM EDT [facility] Blood Central Line / Unknown 04/13/2025 4:33 PM EDT 04/13/2025 4:48 PM EDT Alicia Puri MD LAB BLOOD ORDERABLES Final Result [facility] [address] [place] [address], * Syphilis Total (Unknown Syphilis Status) (04/13/2025 4:33 PM EDT) SYPHILIS TOTAL <0.2 <=0.8 AI 04/13/2025 6:36 PM EDT [facility] Blood Central Line / Unknown 04/13/2025 4:33 PM EDT 04/13/2025 4:48 PM EDT Narrative [facility] - 04/13/2025 6:36 PM EDT NON REACTIVE No serologic evidence of infection to Treponema pallidum. Repeat testing may be considered in patients with suspected acute or primary syphilis in 2 to 4 weeks. us Alicia Puri MD LAB BLOOD ORDERABLES Final Result [facility] [address] [place] [address], [place] [phone] * Complement profile (C3 AND C4) (04/13/2025 4:33 PM EDT) COMPLEMENT C3 110 86 - 184 mg/dL 04/13/2025 5:21 PM EDT [facility] COMPLEMENT C4 25 16 - 47 mg/dL 04/13/2025 5:21 PM EDT [facility] Blood Central Line / Unknown 04/13/2025 4:33 PM EDT 04/13/2025 4:48 PM EDT Alicia Puri MD LAB BLOOD ORDERABLES Final Result Performing Organization Address City/[facility]/ZIP Co de Phone Number [facility] [address] [place] [address], [place] [phone] * (ABNORMAL) Immunoelectrophoresis for Therapy Monitoring (04/13/2025 4:33 PM EDT) IGA 189 68 - 378 mg/dL 04/14/2025 7:37 PM EDT [facility] IGG 313(L) 635 - 1,741 mg/dL 04/14/2025 7:37 PM EDT [facility] IGM 39(L) 45 - 281 mg/dL 04/14/2025 7:37 PM EDT [facility] FREE KAPPA LT CHAINS 3.79(H) 0.33 - 1.94 mg/dL 04/14/2025 7:37 PM EDT [facility] Immune Profile Interpretation See Pathology Report 04/14/2025 7:37 PM EDT [facility] FREE LAMBDA LT CHAINS 2.41 0.57 - 2.63 mg/dL 04/14/2025 7:37 PM EDT [facility] FREE KIKA/LAMBD RATIO 1.57 0.26 - 1.65 04/14/2025 7:37 PM EDT [facility] Blood Central Line / Unknown 04/13/2025 4:33 PM EDT 04/13/2025 4:48 PM EDT us Alicia Puri MD LAB BLOOD ORDERABLES Final Result [facility] [address] [place] [address], [place] [phone] * (ABNORMAL) Protein electrophoresis, serum (04/13/2025 4:33 PM EDT) TOTAL PROTEIN 4.6(L) 6.0 - 8.0 g/dL 04/14/2025 1:22 PM EDT [facility] ALPHA 1 GLOBULIN 0.4 0.1 - 0.4 g/dL 04/14/2025 1:22 PM EDT [facility] ALPHA 2 GLOBULIN 0.8 0.4 - 1.1 g/dL 04/14/2025 1:22 PM EDT [facility] BETA GLOBULIN 0.5 0.5 - 1.2 g/dL 04/14/2025 1:22 PM EDT [facility] GAMMA GLOBULIN 0.3(L) 0.5 - 1.6 g/dL 04/14/2025 1:22 PM EDT [facility] Protein Electrophoresis Interp Unremarkable protein distribution, no monoclonal bands 04/14/2025 1:22 PM EDT [facility] Albumin 2.5(L) 3.4 - 5.3 g/dL 04/14/2025 1:22 PM EDT [facility] Blood Central Line / Unknown 04/13/2025 4:33 PM EDT 04/13/2025 4:48 PM EDT us Alicia Puri MD LAB BLOOD ORDERABLES Final Result Performing Organization Address City/[facility]/ZIP Co de Phone Number [facility] [address] [place] [address], * Ionized magnesium (04/13/2025 3:41 AM EDT) Only the most recent of4 resultswithin the time period is included. IONIZED MAGNESIUM 0.68 0.45 - 0.74 mmol/L 04/13/2025 4:11 AM EDT [facility] Blood Venous blood / Unknown 04/13/2025 3:41 AM EDT 04/13/2025 3:53 AM EDT Jimmy Fernando MD LAB BLOOD ORDERABLES Fi nal Result Performing Organization Address [facility]/ZIP Co de Phone Number [facility] [address] [place] [address], * (ABNORMAL) Iron and TIBC (04/13/2025 3:41 AM EDT) Only the most recent of2 resultswithin the time period is included. IRON 14(L) 50 - 212 ug/dL 04/13/2025 4:04 PM EDT [facility] TRANSFERRIN 119(L) 168 - 336 mg/dL 04/13/2025 4:04 PM EDT [facility] IRON BINDING 167(L) 250 - 425 ug/dL 04/13/2025 4:04 PM EDT [facility] IRON SATURATION 8(L) 20 - 50 % SATURATION 04/13/2025 4:04 PM EDT [facility] Blood Venous blood / Unknown 04/13/2025 3:41 AM EDT 04/13/2025 3:53 AM EDT Alicia Puri MD LAB BLOOD ORDERABLES Final Result Performing Organization Address City/[facility]/ZIP Co de Phone Number [facility] [address] [place] [address], [place] [phone] * DNA double-stranded (dsDNA) Abs (04/13/2025 3:41 AM EDT) [facility] Double Stranded DNA Ab <1 <5 IU/ML 04/13/2025 6:48 PM EDT [facility] Blood Venous blood / Unknown 04/13/2025 3:41 AM EDT 04/13/2025 3:53 AM EDT Narrative [facility] - 04/13/2025 6:48 PM EDT Interpretation < 5 Negative 5 - 9 Indeterminate > 9 Positive Alicia Puri MD LAB BLOOD ORDERABLES Final Result [facility] [address] [place] [address], * Hepatitis panel, acute (04/13/2025 3:41 AM EDT) [facility] HEPATITIS B SURF AG Non-Reacti ve Non-Reacti ve 04/13/2025 4:57 PM EDT [facility] HEPATITIS A IGM Non-Reacti ve Non-Reacti ve 04/13/2025 4:57 PM EDT [facility] HEPATITIS B CORE IGM Non-Reacti ve Non-Reacti ve 04/13/2025 4:57 PM EDT [facility] ANTI HCV W/PCR REFLX Non-Reacti ve Non-Reacti ve 04/13/2025 4:57 PM EDT [facility] Comment: If recent infection suspected, recommend repeat testing (>2 months). Qeopqn-ss-dobyoc ratio is <1.0. Blood Venous blood / Unknown 04/13/2025 3:41 AM EDT 04/13/2025 3:53 AM EDT Alicia Puri MD LAB BLOOD ORDERABLES Final Result [facility] [address] [place] [address], [place] [phone] * Rheumatoid factor (04/13/2025 3:41 AM EDT) RHEUMATOID FACTOR <10 <20 IU/mL 04/13/2025 4:04 PM EDT [facility] Blood Venous blood / Unknown 04/13/2025 3:41 AM EDT 04/13/2025 3:53 AM EDT Alicia Puri MD LAB BLOOD ORDERABLES Final Result [facility] [address] [place] [address], [place] [phone] * RAMBO Screen w/ Reflex (04/13/2025 3:41 AM EDT) RAMBO SCREEN W/REFLEX Negative Negative 04/13/2025 6:48 PM EDT [facility] Blood Venous blood / Unknown 04/13/2025 3:41 AM EDT 04/13/2025 3:53 AM EDT Narrative [facility] - 04/13/2025 6:48 PM EDT Testing performed using multiplex flow immunoassay. Eleven difference antigens associated with systemic autoimmunie diseases (dsDNA, Sm, Sm/ASSOCIATE PROFESSOR OF ART HISTORY, ASSOCIATE PROFESSOR OF ART HISTORY, Chromatin, SSA, SSB, Yamilka-1, Sc170, Ribo P, Centromere B) are included in this sreening tests. Alicia Puri MD LAB BLOOD ORDERABLES Final Result [facility] [address] [place] [address], [place] [phone] * (ABNORMAL) Hemoglobin A1c (04/13/2025 3:41 AM EDT) Only the most recent of2 resultswithin the time period is included. HEMOGLOBIN A1C 11.3(H) 4.4 - 5.6 % 04/13/2025 5:05 PM EDT [facility] Comment: ADA Guidelines Result HgbA1c Normal : less than 5.7 % Prediabetes : 5.7 % to 6.4 % Diabetes : > 6.4 % Use with caution in patients with abnormal hemoglobin variants as the half-life of red blood cells and in vivo glycation rates are affected. EST. AVERAGE GLUCOSE 278 mg/dL 04/13/2025 5:05 PM EDT [facility] Blood Venous blood / Unknown 04/13/2025 3:41 AM EDT 04/13/2025 3:53 AM EDT Alicia Puri MD LAB BLOOD ORDERABLES Final Result Performing Organization Address City/[facility]/ZIP Co de Phone Number [facility] [address] [place] [address], * (ABNORMAL) Folate (04/13/2025 3:41 AM EDT) Only the most recent of2 resultswithin the time period is included. FOLIC ACID 5.4(L) >5.8 ng/mL 04/13/2025 4:24 PM EDT [facility] Blood Venous blood / Unknown 04/13/2025 3:41 AM EDT 04/13/2025 3:53 AM EDT Alicia Puri MD LAB BLOOD ORDERABLES Final Result Performing Organization Address City/[facility]/ZIP Co de Phone Number [facility] [address] [place] [address], * (ABNORMAL) Ferritin (04/13/2025 3:41 AM EDT) Only the most recent of2 resultswithin the time period is included. FERRITIN 438(H) 24 - 336 ng/mL 04/13/2025 4:21 PM EDT [facility] Blood Venous blood / Unknown 04/13/2025 3:41 AM EDT 04/13/2025 3:53 AM EDT Alicia Puri MD LAB BLOOD ORDERABLES Final Result [facility] [address] [place] [address], [place] [phone] * Vitamin B12 (04/13/2025 3:41 AM EDT) Only the most recent of2 resultswithin the time period is included. VITAMIN B12 297 180 - 914 pg/mL 04/13/2025 4:26 PM EDT [facility] Blood Venous blood / Unknown 04/13/2025 3:41 AM EDT 04/13/2025 3:53 AM EDT Alicia Puri MD LAB BLOOD ORDERABLES Final Result [facility] [address] [place] [address], [place] [phone] * (ABNORMAL) Basic Metabolic Panel (04/13/2025 3:41 AM EDT) Only the most recent of6 resultswithin the time period is included. SODIUM 140 134 - 146 mmol/L 04/13/2025 4:20 AM EDT [facility] POTASSIUM 4.7 3.5 - 5.0 mmol/L 04/13/2025 4:20 AM EDT [facility] CHLORIDE 105 98 - 109 mmol/L 04/13/2025 4:20 AM EDT [facility] CARBON DIOXIDE 27 22 - 32 mmol/L 04/13/2025 4:20 AM EDT [facility] ANION GAP 8 5 - 15 mmol/L 04/13/2025 4:20 AM EDT [facility] BLOOD UREA NITROGEN 41(H) 5 - 27 mg/dL 04/13/2025 4:20 AM EDT [facility] CREATININE 1.80(H) 0.60 - 1.30 mg/dL 04/13/2025 4:20 AM EDT [facility] Comment:METHOD TRACEABLE TO IDMS STANDARD GLUCOSE 73 65 - 99 mg/dL 04/13/2025 4:20 AM EDT [facility] CALCIUM 7.9(L) 8.5 - 10.5 mg/dL 04/13/2025 4:20 AM EDT [facility] EGFR Non-Race Dependent 42(L) >=60 ml/min/1.7 3sq.m 04/13/2025 4:20 AM EDT [facility] Comment: Reported eGFR is based on the CKD-EPI 2020 equation that does not use a race coefficient. Blood Venous blood / Unknown 04/13/2025 3:41 AM EDT 04/13/2025 3:53 AM EDT Jimmy Fernando MD LAB BLOOD ORDERABLES Fi nal Result [facility] [address] [place] [address], * Potassium (04/12/2025 7:20 AM EDT) Only the most recent of5 resultswithin the time period is included. POTASSIUM 4.9 3.5 - 5.0 mmol/L 04/12/2025 7:57 AM EDT [facility] Blood Venous blood / Unknown 04/12/2025 7:20 AM EDT 04/12/2025 7:32 AM EDT Jimmy Fernando MD LAB BLOOD ORDERABLES Fi nal Result [facility] [address] [place] [address], * ECG 12 lead (04/12/2025 3:21 AM EDT) Only the most recent of4 resultswithin the time period is included. 04/12/2025 3:21 AM EDT Narrative TRACEMASTERVUE - 04/12/2025 9:13 AM EDT us Jimmy Fernando MD ECG ORDERABLES Final R esult Performing Organization Address City/[facility]/ZIP Co de Phone Number TRACEMASTERVUE * Protime & INR (04/12/2025 2:03 AM EDT) Only the most recent of4 resultswithin the time period is included. PROTIME 12.3 9.8 - 13.2 sec 04/12/2025 3:41 AM EDT [facility] INR 1.1 0.9 - 1.2 04/12/2025 3:41 AM EDT [facility] Blood Venous blood / Unknown 04/12/2025 2:03 AM EDT 04/12/2025 2:37 AM EDT us Jimmy Fernando MD LAB BLOOD ORDERABLES Fi nal Result Performing Organization Address City/[facility] Co de Phone Number [facility] [address] [place] [address], [place] [phone] * (ABNORMAL) Hemoglobin and hematocrit, blood (04/11/2025 11:12 PM EDT) Only the most recent of2 resultswithin the time period is included. Hemoglobin 8.4(L) 13 - 17 g/dL 04/11/2025 11:36 PM EDT [facility] Hematocrit 24.3(L) 39 - 50 % 04/11/2025 11:36 PM EDT [facility] Blood Venous blood / Unknown 04/11/2025 11:12 PM EDT 04/11/2025 11:24 PM EDT us Jimmy Fernando MD LAB BLOOD ORDERABLES Fi nal Result [facility] [address] [place] [address], * Platelet count (04/11/2025 11:12 PM EDT) Only the most recent of2 resultswithin the time period is included. Platelet Count 185 150 - 450 X10E9/L 04/11/2025 11:36 PM EDT [facility] MPV 7.6 7 - 12 fL 04/11/2025 11:36 PM EDT [facility] Blood Venous blood / Unknown 04/11/2025 11:12 PM EDT 04/11/2025 11:24 PM EDT Jimmy Fernando MD LAB BLOOD ORDERABLES Fi nal Result Performing Organization Address [facility] Co de Phone Number [facility] [address] [place] [address], * (ABNORMAL) BUN (04/11/2025 11:12 PM EDT) Only the most recent of2 resultswithin the time period is included. BLOOD UREA NITROGEN 36(H) 5 - 27 mg/dL 04/11/2025 11:52 PM EDT [facility] Blood Venous blood / Unknown 04/11/2025 11:12 PM EDT 04/11/2025 11:24 PM EDT Jimmy Fernando MD LAB BLOOD ORDERABLES Fi nal Result Performing Organization Address City/[facility]/ZIP Co de Phone Number [facility] [address] [place] [address], * (ABNORMAL) Creatinine includes GFR, serum (04/11/2025 11:12 PM EDT) Only the most recent of2 resultswithin the time period is included. CREATININE 1.34(H) 0.60 - 1.30 mg/dL 04/11/2025 11:52 PM EDT [facility] Comment:METHOD TRACEABLE TO IDMS STANDARD EGFR Non-Race Dependent 60 >=60 ml/min/1.7 3sq.m 04/11/2025 11:52 PM EDT [facility] Comment: Reported eGFR is based on the CKD-EPI 2020 equation that does not use a race coefficient. Blood Venous blood / Unknown 04/11/2025 11:12 PM EDT 04/11/2025 11:24 PM EDT us Jimmy Fernando MD LAB BLOOD ORDERABLES Fi nal Result [facility] [address] [place] [address], [place] [phone] * (ABNORMAL) Blood Gas, Arterial (04/11/2025 6:20 PM EDT) Sample type Arterial 04/11/2025 6:20 PM T [facility] Body Temp 37.00 >=37 C 04/11/2025 6:20 PM T [facility] pH, Arterial 7.393 7.350 - 7.450 04/11/2025 6:20 PM EDT [facility] pCO2, Arterial 40.2 35.0 - 45.0 mmHg 04/11/2025 6:20 PM T [facility] PO2, Arterial 550(H) 80 - 100 mmHg 04/11/2025 6:20 PM T [facility] Base, Deficit -0.5(L) 0.0 - 2.0 mmol/L 04/11/2025 6:20 PM EDT [facility] HCO3, Arterial 24.4 22.0 - 26.0 mmol/L 04/11/2025 6:20 PM EDT [facility] %O2 Saturation, Arterial 100.8 >90.0 % 04/11/2025 6:20 PM EDT [facility] Jono's test NA 04/11/2025 6:20 PM EDT [facility] SPO2 550.0 % 04/11/2025 6:20 PM EDT [facility] Sample site A LINE 04/11/2025 6:20 PM EDT [facility] Insp. O2 conc. 100.0 % 04/11/2025 6:20 PM EDT [facility] arterial (Blood, Arterial) 04/11/2025 6:20 PM EDT 04/11/2025 6:20 PM EDT us Mihai Gibbons MD LAB BLOOD ORDERABLES Final Re sult [facility] [address] [place] [address], [place] * APTT (04/11/2025 5:29 PM EDT) Only the most recent of3 resultswithin the time period is included. APTT 31 26 - 37 sec 04/11/2025 6:11 PM EDT [facility] Blood Venous blood / Unknown Central Line / Unknown 04/11/2025 5:29 PM EDT 04/11/2025 5:38 PM EDT us Jimmy Fernando MD LAB BLOOD ORDERABLES Fi nal Result Performing Organization Address City/[facility]/ZIP Co de Phone Number [facility] [address] [place] [address], [place] [phone] * Intra-operative transesophageal echocardiogram (04/11/2025 5:25 PM EDT) Narrative XCELERA - 04/11/2025 5:25 PM EDT See Anesthesia DEIDRE procedure note for findings. 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 CV ECHO ORDERABLES Fin al Result XCELERA * ANESTHESIA DEIDRE (04/11/2025 4:40 PM EDT) Narrative Omar Iglesias MD - 04/11/2025 4:40 PM EDT Omar Iglesias MD 04/11/2025 4:43 PM DEIDRE Patient Location: OR Type of Anesthesia: General Anesthesia: Requesting Physician: Jimmy Fernando MD IV Insitu: Peripheral Service Provider: Omar Iglesias MD Placed by: Omar Iglesias MD Checklist: Patient Identified, IV Checked, Risks and Benefits Discussed, Surgical Consent, Monitors and Equipment Checked, Pre-op Evaluation and Timeout Performed Fire Risk Assessment Score: 0 Indication for DEIDRE: Assessment of Surgical Repair Intubated: Yes Heart Visualized: Yes Insertion: Easy Probe Type: Biplane Modalities: 3D, Pulse Wave Doppler, Continuous Wave Doppler and Color Flow Mapping Right Ventricle Cavity Size: Normal Hypertrophy: No Thrombus: No Function: Normal Left Ventricle cavity size: Normal Hypertrophy: None Thrombus: No Function: Severe LV Ejection Fraction: 15 % AV Annulus: Normal AV Stenosis: None AV Regurgitation: Trace AV Leaflet Morphology: Normal AV Leaflet Motion: Normal MV Annulus: Normal MV Stenosis: None MV Regurgitation: Mild regurgitation is present. MV Leaflet Morphology: Normal MV Leaflet Motion: Normal TV Annulus: Normal TV Stenosis: None Severity: none TV Leaflet Morphology: Normal TV Leaflet Motion: Normal PV Annulus: Normal PV Stenosis:None PV Regurgitation: None PV Leaflet Morphology: Normal Ascending Aorta: Normal AA Dissection: No AA Plaque Thick: Grade 2 AA Plaque Mobile: No Aortic Arch: Normal Arch Dissection:No Aortic Arch Plaque Thick: grade 2 Aortic Arch Plaque Mobile:No Descending Aorta: Normal Aortic Arch Plaque Mobile:No Descending Aorta Plaque Thick: grade 2 Descending Aorta Plaque Mobile:No Right Atrium: Normal RA SEC: No RA Thrombus: No RA Tumor: No RA Device:No Left Atrium: Normal LA SEC: No LA Thrombus: No LA Tumor:No LA Device: No Left Atrial Appendage: Normal Intra-Atrial Septal Morphology: Normal Intra-Ventricular Septal Morphology: Normal Pericardium: Normal Pericardial Effusion: None Pleural: normal Pleural Effusion: None Pulmonary Arteries: Normal Pulmonary Venous Flow: normal Echocardiogram Comments: Post-bypass: LV: Improved, LVEF 30-35%, no obvious RWMAs RV: Stable, normal function Valves: Stable as above Aorta: No dissection AV post intervention: tracemild TV Regurgitation post intervention: trace LV Function post intervention: improved LV function RV Function post intervention: UnchangedLV Ejection Fraction: 35 us Omar Iglesias MD ANESTHESIA ORDERABLES Final Resu lt * TEG BILL ONLY (04/11/2025 4:33 PM EDT) Only the most recent of2 resultswithin the time period is included. Blood (Other) 04/11/2025 4:3 3 PM EDT 04/12/2025 11:13 AM EDT us Jimmy Fernando MD LAB BLOOD ORDERABLES Fi nal Result [facility] [address] [place] [address], [place] * (ABNORMAL) POCT ABG Rapid K GLU ICA HH (04/11/2025 4:31 PM EDT) Only the most recent of3 resultswithin the time period is included. POC Potassium 4.8 3.5 - 5.0 mmol/L 04/11/2025 4:34 PM EDT [facility] POC Glucose 206(H) 65 - 99 mg/dL 04/11/2025 4:34 PM [facility] POC HGB 8.2(L) 13.0 - 17.0 g/dL 04/11/2025 4:34 PM [facility] POC Hematocrit 25(L) 39 - 49 % 04/11/2025 4:34 PM [facility] POC Ionized Calcium 4.6 4.5 - 5.3 mg/dL 04/11/2025 4:34 PM [facility] Sample type Arterial 04/11/2025 4:34 PM [facility] Body Temp 37.00 >=37 C 04/11/2025 4:34 PM [facility] pH, Arterial 7.447 7.350 - 7.450 04/11/2025 4:34 PM [facility] pCO2, Arterial 34.4(L) 35.0 - 45.0 mmHg 04/11/2025 4:34 PM [facility] PO2, Arterial 538(H) 80 - 100 mmHg 04/11/2025 4:34 PM [facility] Base, Deficit -0.4(L) 0.0 - 2.0 mmol/L 04/11/2025 4:34 PM EDT [facility] HCO3, Arterial 23.7 22.0 - 26.0 mmol/L 04/11/2025 4:34 PM EDT [facility] %O2 Saturation, Arterial 100.6 >90.0 % 04/11/2025 4:34 PM EDT [facility] Jono's test NA 04/11/2025 4:34 PM EDT [facility] Sample site A LINE 04/11/2025 4:34 PM EDT [facility] Insp. O2 conc. 100.0 % 04/11/2025 4:34 PM EDT [facility] arterial (Blood, Arterial) 04/11/2025 4:31 PM EDT 04/11/2025 4:34 PM EDT us Mihai Gibbons MD POINT OF CARE TEST ORDERABLES Final Result [facility] [address] [place] [address], [place] * (ABNORMAL) POCT ABG Rapid K GLU HH (04/11/2025 4:02 PM EDT) Only the most recent of2 resultswithin the time period is included. POC Potassium 5.3(H) 3.5 - 5.0 mmol/L 04/11/2025 4:06 PM [facility] POC Glucose 181(H) 65 - 99 mg/dL 04/11/2025 4:06 PM [facility] POC HGB 7.6(L) 13.0 - 17.0 g/dL 04/11/2025 4:06 PM [facility] POC Hematocrit 23(L) 39 - 49 % 04/11/2025 4:06 PM [facility] Sample type Arterial 04/11/2025 4:06 PM EDT [facility] Body Temp 37.00 >=37 C 04/11/2025 4:06 PM EDT [facility] pH, Arterial 7.411 7.350 - 7.450 04/11/2025 4:06 PM EDT [facility] pCO2, Arterial 41.0 35.0 - 45.0 mmHg 04/11/2025 4:06 PM EDT [facility] PO2, Arterial 312(H) 80 - 100 mmHg 04/11/2025 4:06 PM EDT [facility] Base, Excess 1.4 0.0 - 2.0 mmol/L 04/11/2025 4:06 PM EDT [facility] HCO3, Arterial 26.0 22.0 - 26.0 mmol/L 04/11/2025 4:06 PM EDT [facility] %O2 Saturation, Arterial 100.4 >90.0 % 04/11/2025 4:06 PM EDT [facility] Jono's test NA 04/11/2025 4:06 PM EDT [facility] Sample site A LINE 04/11/2025 4:06 PM EDT [facility] Insp. O2 conc. 100.0 % 04/11/2025 4:06 PM EDT [facility] SPO2 312.0 % 04/11/2025 4:06 PM EDT [facility] arterial (Blood, Arterial) 04/11/2025 4:02 PM EDT 04/11/2025 4:06 PM EDT us Mihai Gibbons MD POINT OF CARE TEST ORDERABLES Final Result [facility] [address] [place] [address], [place] * OR ANES ART LINE (04/11/2025 2:39 PM EDT) Narrative Alphonso Gaviria APRN-CRNA - 04/11/2025 2:39 PM EDT MICHAEL Connolly 04/11/2025 2:40 PM Art Line Performed by: MICHAEL Connolly Authorized by: Omar Iglesias MD Patient Location: OR Start Time: 04/11/2025 12:46 PM End Time: 04/11/2025 1:06 PM Service Provider: Omar Iglesias MD FOLDER MACHINE OPERATOR ( if not the service provider): MICHAEL Connolly Placed By: Omar Iglesias MD Complete checklist: Patient Identified, IV Checked, Risks and Benefits Discussed, Surgical Consent, Monitors and Equipment Checked, Pre-op Evaluation and Timeout Performed Fire Risk Assessment Score: 0 Site Prep: Chlorhexidine and Maximum Sterile Barriers Used Hand Hygiene Performed Prior to Insertion: Yes Site Prep Agent has Completely Dried Before Insertion: Yes Local Anesthetic: Injectable Patient Prep Prior to AL Insertion: General Anesthesia Size: 20 G Total Catheter Length (inches): 1 01/11 Location: Radial Orientation: Left Securement Method: Taped, Transparent Dressing and Sutured Specimen Obtained: No Placement Technique: Guidewire and Ultrasound Guidance Insertion Attempts: 2 Patient Tolerance: Tolerated Well no arterial injury us Omar Iglesias MD OR ANESTHESIA Final Result * OR INSERT/PLACE FLOW DIRECT CATH (04/11/2025 2:36 PM EDT) Alphonso Noel APRN-CRNA - 04/11/2025 2:36 PM EDT MICHAEL Connolly 04/11/2025 2:37 PM Venous Access Line (CVC/Harvey Patito) Performed by: MICHAEL Connolly Authorized by: Omar Iglesias MD Patient Location: OR Start Time: 04/11/2025 12:50 PM End Time: 04/11/2025 12:55 PM Service Provider: Omar Iglesias MD Requesting Surgeon: Jimmy Fernando MD FOLDER MACHINE OPERATOR ( if not the service provider): MICHAEL Connolly Placed By: Omar Iglesias MD Patient Identified, IV Checked, Risks and Benefits Discussed, Surgical Consent, Monitors and Equipment Checked, Pre-op Evaluation and Timeout Performed Fire Risk Assessment Score: 0 Vascular Access: Introducer Number of Introducer Lumens: Double Vascular Access: Harvey-Patito Is the patient 5 years old or younger: No Prep: Chlorhexidine, Maximum Sterile Barriers used during central venous catheter insertion and All Elements of Maximal Sterile Barrier Technique Not Followed for Medical Reasons Hand Hygiene Performed Prior to Insertion: Yes Site Prep Agent has Completely Dried Before Insertion: Yes Patient Prep prior to CVC insertion: Yes Type of Patient Prep: General Anesthesia CVC Type: Non-Tunneled CVC Size (Fr): 9 Location: Internal Jugular Orientation: Right Securement Method: Sutured and Transparent Dressing Specimen Obtained: No Placement Technique: Ultrasound Guidance and Guidewire Insertion Attempts: 1 Placement Verification: Blood Return and Ultrasound Patient Tolerance: Tolerated Well us Omar Iglesias MD OR ANESTHESIA Final Result * POCT IMAGN (04/11/2025 1:11 PM EDT) POC Ionized Magnesium 0.58 0.45 - 0.60 mmol/L 04/11/2025 1:14 PM EDT [facility] venous 04/11/2025 1:11 PM EDT 04/11/2025 1:14 PM EDT Mihai Gibbons MD POINT OF CARE TEST ORDERABLES Final Result [facility] [address] [place] [address], * OR AN ELECTIVE ENDOTRACHEAL AIRWAY (04/11/2025 12:48 PM EDT) Narrative Alphonso Gaviria APRN-CRNA - 04/11/2025 12:48 PM EDT MICHAEL Connolly 04/11/2025 2:16 PM Airway Patient location during procedure: OR Urgency: Elective Date/Time: 04/11/2025 12:48 PM Airway not difficult IV In Situ: Peripheral General Information and Staff Service Provider: Omar Iglesias MD FOLDER MACHINE OPERATOR: MICHAEL Connolly Placed by: Omar Iglesias MD Patient Identified, IV Checked, Risks and Benefits Discussed, Surgical Consent, Monitors and Equipment Checked, Pre-op Evaluation and Timeout Performed Fire Risk Assessment Score: 0 Consent for Emergent Airway (if performed for an anesthetic, see related documentation for consents) Risks and benefits: risks, benefits and alternatives were discussed Indications and Patient Condition Sedation level: Deep Preoxygenated: yesPatient position: Supine Mask difficulty assessment: Vent By Mask Indications for airway management: Anesthesia Complications: No Complicating Factors: No Final Airway Details Final airway type: ETT Endotracheal airway: Cuffed, ETT - Single Lumen and Inflated Techniques used for successful ETT Placement: Direct Laryngoscopy and With Stylet Cormack-Lehane Classification: Grade I Endotracheal tube insertion site: Oral No Bite Block Placed Dentition Check Pre: See Pre-Evaluaton documentation Post Intubation Trauma? No Visibility: Cords Clear Blade: Alba Blade size: #4 Placement verified by: chest auscultation, capnography and symmetrical chest wall movement ETT size: 8.0 mm Measured from: Lips Secured at (cm): 23 Number of attempts at approach: 1 Additional Comments Atraumatic insertion of ETT. Omar Iglesias MD ANESTHESIA ORDERABLES Final Resu lt * Intra-operative transesophageal echocardiogram (04/11/2025 12:33 PM EDT) Narrative XCELERA - 04/11/2025 12:33 PM EDT See Anesthesia DEIDRE procedure note for findings. Omar Iglesias MD CV ECHO ORDERABLES Final Result Performing Organization Address [facility] Co de Phone Number XCELERA * Intra-operative transesophageal echocardiogram (04/11/2025 11:25 AM EDT) Narrative XCELERA - 04/11/2025 11:25 AM EDT See Anesthesia DEIDRE procedure note for findings. us Omar Iglesias MD CV ECHO ORDERABLES Final Result Performing Organization Address City/[facility] Co de Phone Number XCELERA * (ABNORMAL) CBC auto differential (04/11/2025 6:25 AM EDT) Only the most recent of5 resultswithin the time period is included. WBC 4.6 4 - 11 x10E9/L 04/11/2025 6:52 AM EDT [facility] RBC Count 3.25(L) 4.1 - 5.7 X10E12/L 04/11/2025 6:52 AM EDT [facility] Hemoglobin 10.1(L) 13 - 17 g/dL 04/11/2025 6:52 AM EDT [facility] Hematocrit 29.4(L) 39 - 50 % 04/11/2025 6:52 AM EDT [facility] MCV 91 80 - 100 fL 04/11/2025 6:52 AM EDT [facility] MCH 30.9 27 - 34 pg 04/11/2025 6:52 AM EDT [facility] MCHC 34.2 32 - 36 g/dL 04/11/2025 6:52 AM EDT [facility] RDW 14.5 11.5 - 15 % 04/11/2025 6:52 AM EDT [facility] Platelet Count 294 150 - 450 X10E9/L 04/11/2025 6:52 AM EDT [facility] MPV 7.4 7 - 12 fL 04/11/2025 6:52 AM EDT [facility] Neutrophils % 56.8 % 04/11/2025 6:52 AM EDT [facility] Lymphocytes % 27.4 % 04/11/2025 6:52 AM EDT [facility] Monocytes % 10.3 % 04/11/2025 6:52 AM EDT [facility] Eosinophils % 4.4 % 04/11/2025 6:52 AM EDT [facility] Basophils % 1.1 % 04/11/2025 6:52 AM EDT [facility] Neutrophils Absolute (A) 2.6 1.5 - 6.6 10*3/uL 04/11/2025 6:52 AM EDT [facility] Lymphocytes Absolute 1.3 1.0 - 3.5 10*3/uL 04/11/2025 6:52 AM EDT [facility] Monocytes Absolute 0.5 0.0 - 0.9 10*3/uL 04/11/2025 6:52 AM EDT [facility] Eosinophils Absolute 0.2 0.0 - 0.4 10*3/uL 04/11[facility]2025 6:[facility] Basophils Absolute 0.0 0.0 - 0.2 10*3/uL 04/11/2025 6:52 AM [facility] Differential Type AUTOMATED DIFFERENTIAL 04/11/2025 6:52 AM [facility] Blood 04/11/2025 6:25 AM EDT 04/11/2025 6:25 AM EDT Tricia Smith MD LAB BLOOD ORDERABLES Final Resul t [facility] [address] [place] [address], [place] [phone] * (ABNORMAL) Anti XA unfractionated heparin (04/11/2025 6:25 AM EDT) ANTI XA UFH 0.07(L) 0.30 - 0.70 IU/mL 04/11/2025 7:05 AM EDT [facility] Comment: Optimal time for testing is 6 hrs post dosage This test is specific for monitoring patients on UFH, and is not recommended for use with other Anti-Xa medications. Blood Venous blood / Unknown 04/11/2025 6:25 AM EDT 04/11/2025 6:25 AM EDT Enrike Lancaster CLINICAL RESEARCH SCIENTIST-WOOD GRAINER LAB BLOOD ORDERABLES Final Result Performing Organization Address City/[facility]/ZIP Co de Phone Number [facility] [address] [place] [address], [place] [phone] * C-reactive protein (04/10/2025 6:24 AM EDT) C REACTIVE PROTEIN <0.1 <=0.7 mg/dL 04/10/2025 7:58 AM EDT [facility] Blood 04/10/2025 6:24 AM EDT 04/10/2025 6:24 AM EDT Varsha Reeves CLINICAL RESEARCH SCIENTIST-WOOD GRAINER LAB BLOOD ORDERABLES F inal Result [facility] [address] [place] [address], [place] [phone] * Lipid profile (04/09/2025 8:27 AM EDT) Only the most recent of2 resultswithin the time period is included. CHOLESTEROL 178 150 - 200 mg/dL 04/09/2025 9:24 AM EDT [facility] TRIGLYCERIDE 111 27 - 150 mg/dL 04/09/2025 9:24 AM EDT [facility] HDL CHOLESTEROL 57 >39 mg/dL 9:24 AM EDT [facility] Comment: HDL <40 mg/dL - High Risk HDL > or = 40mg/dL- Desirable HDL >60 mg/dL - Negative Risk LDL (CALC) 99 <130 mg/dL 04/09/2025 9:24 AM EDT [facility] Comment: LDL <100 mg/dL - Desirable LDL >160 mg/dL - High Risk CHOLESTEROL:HDL 3.1 1.0 - 5.0 9:24 AM EDT [facility] VERY LOW LIPOPROTEIN 22 0 - 30 mg/dL 04/09/2025 9:24 AM EDT [facility] Blood Venous blood / Unknown 04/09/2025 8:27 AM EDT 04/09/2025 8:27 AM EDT 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 LAB BLOOD ORDERABLES F inal Result [facility] [address] [place] [address], * Vas carotid duplex bilateral (04/08/2025 4:41 PM EDT) Anatomical Region Laterality Modality Vascular Bilateral Ultrasound 04/08/2025 4:47 PM EDT Narrative 04/10/2025 9:29 AM EDT Right: Plaque with no significant ICA spectral Doppler or color flow disturbances; ICA 114/25 cm/sec. Antegrade vertebral artery flow. Left: Plaque with no significant ICA spectral Doppler or color flow disturbances; ICA 125/25 cm/sec. Antegrade vertebral artery flow. Conclusions: BILATERAL: Plaque without significant stenosis (<50%) of the internal carotid artery. Antegrade vertebral artery flow. Recommendations: Any questions prior to finalization, please call the reading physician during normal business hours at the phone number beside their name. Procedure Note MustaphaRay Sonny, DO - 04/10/2025 Right: Plaque with no significant ICA spectral Doppler or color flowdisturbances; ICA 114/25 cm/sec. Antegrade vertebral artery flow. Left: Plaque with no significant ICA spectral Doppler or color flowdisturbances; ICA 125/25 cm/sec. Antegrade vertebral artery flow. Conclusions: BILATERAL: Plaque without significant stenosis (<50%) of theinternal carotid artery. Antegrade vertebral artery flow. Recommendations: Any questions prior to finalization, please call thereading physician during normal business hours at the phone number besidetheir name. Varsha Reeves CLINICAL RESEARCH SCIENTIST-WOOD G[employer]INER CV VASCULAR ORDERABLES Final Result * TSH with Reflex (04/07/2025 6:28 PM EDT) Pathologist [facility] TSH 1.88 0.49 - 4.67 uIU/mL 04/07/2025 7:19 PM EDT [facility] Blood Venous blood / Unknown 04/07/2025 6:28 PM EDT 04/07/2025 6:28 PM EDT Tricia Smith MD LAB BLOOD ORDERABLES Final Resul t [facility] [address] [place] [address], [place] [phone] * (ABNORMAL) Liver panel (04/07/2025 6:28 PM EDT) TOTAL PROTEIN 5.8(L) 6.0 - 8.0 g/dL 04/07/2025 7:10 PM EDT [facility] ALBUMIN 3.0(L) 3.2 - 5.3 g/dL 04/07/2025 7:10 PM EDT [facility] BILIRUBIN,TOTAL 0.3 0.3 - 1.2 mg/dL 04/07/2025 7:10 PM EDT [facility] ALKALINE PHOSPHATASE 96 39 - 130 U/L 04/07/2025 7:10 PM EDT [facility] AST 18 <=41 U/L 04/07/2025 7:10 PM EDT [facility] ALT 16 <=40 U/L 04/07/2025 7:10 PM EDT [facility] BILIRUBIN,DIRECT <0.1 <=0.4 mg/dL 04/07/2025 7:10 PM EDT [facility] Blood Venous blood / Unknown 04/07/2025 6:28 PM EDT 04/07/2025 6:28 PM EDT us Tricia Smith MD LAB BLOOD ORDERABLES Final Resul t [facility] [address] [place] [address], [place] [phone] * Cardiac Invasive (04/07/2025 10:02 AM EDT) Anatomical Region Laterality Modality Other us Scanning Provider External CV CARDIAC CATH ORDER JANESSA Final Result * Non [facility] Cardiac Catheterization (04/07/2025 8:15 AM EDT) Narrative OLVINYMCHARIS - 04/07/2025 3:08 PM EDT This order has been auto-finalized and does not contain a result. us Scanning Provider External CV CARDIAC SERVICES O RDERABLES Final Result HOLTZYMED * Echo Doppler (04/06/2025 10:01 AM EDT) Anatomical Region Laterality Modality Chest N/A Ultrasound us Scanning Provider External CV ECHO ORDERABLES Fi nal Result * Non [facility] Echo (04/06/2025 9:30 AM EDT) us Scanning Provider External CV ECHO ORDERABLES Fi nal Result XCELERA * Vas venous duplex lwr bilateral (04/05/2025 5:45 PM EDT) us Scanning Provider External CV VASCULAR ORDERABLE S Final Result [facility] * CT angiogram chest (04/05/2025 12:35 PM EDT) us Scanning Provider External IMG CT ORDERABLES Fin al Result * CT chest with contrast (04/05/2025 11:04 AM EDT) Anatomical Region Laterality Modality Body, Lung, Chest, Body Covera N/A C omputed Tomography us Scanning Provider External IMG CT ORDERABLES Fin al Result * X-ray chest 2 views (04/05/2025 10:10 AM EDT) us Scanning Provider External IMG DIAGNOSTIC IMAGIN G ORDERABLES Final Result from Last 3 Months Insurance ESLIE ANTHJUWAN Advance Directives * Full Code (Latest Code Status on File) Date Activated Date Inactivated Comments 04/07/2025 5:55 PM 04/16/2025 5:46 PM Care Teams Utility Technician Relationship Specialty Start Date End Date Kwadwo Oshea MD [address] [place] [address] PCP - General Family Medicine 04/07/25
--- OUTSIDE RECORDS SUMMARY | 2025-05-06 15:59 | XMS_ITS | Encounter Summary ---
Author Organization [employer] Sys [employer] Address [facility] [id number] [address] [place] [address] Care Team Providers Care Call Or Contact Centre Manager Name Role Phone Kwadwo Oshea MD Primary Care Provider [phone] Reason for Visit * Reason Onset Date Comments Hospital Follow-up 04/18/2025 Encounter Details Date Type Department Care Team (Late st Contact Info) Description 04/18/2025 [facility] [address] [place] [phone] [facility] Follow-up Social History Tobacco Use Types Packs/Day Years Used Date Smoking Tobacco: Former Cigarettes 2011 Passive Smoke Exposure: Past Smokeless Tobacco: Never Alcohol Use Standard Drinks/Week Comments Not Currently 0 (1 standard drink = 0.6 oz pur e alcohol) C Utilities Answer Date Recorded In the past 12 months has [employer], gas, oil, or water Causes threatened to shut off services in your [...] on file documented as of this encounter Miscellaneous Notes * Telephone Encounter - Riya Roberts - 04/18/2025 11:15 AM EDT Message from the 04/16/25 d/c list Patient d/c from [facility]. Dx Progressive dyspnea Multivessel ASCVD -status post coronary artery bypass grafting x4 -DHILLON to LAD, SVG to diagonal, OM1 and PDA Ischemic cardiomyopathy -EF of 35% -currently on Toprol -adjust GDM T as outpatient, pending creatinine Hypertension, essential Hyperlipidemia Type 2 diabetes mellitus IRENE -creatinine today 1.83 -nephrology is following Patient to f/u 1 to 2 weeks. bvb * Telephone Encounter - Marquita Goddard CMA - 04/18/2025 11:15 AM EDT PHONED PT AND SCHED APPT documented in this encounter Plan of Treatment Upcoming Encounters Date Type Department Care Team (Late st Contact Info) Description 05/12/2025 10:30 AM EDT Appointment [facility] - Cardiovascular [address] [place] [address] Aliza De La Cruz MD [address] [place] [address] 06/27/2025 9:00 AM EDT Office Visit [facility] [address] [facility] [address] [place] [address] Charlotte Alatorre, PA-C [address] [place], [place] [phone] documented as of this encounter Goals Goal [...] documented as of this encounter Care Teams Call Or Contact Centre Manager Relationship Specialty Start Date End Date Kwadwo Oshea MD [address] [facility] [place] [address] PCP - General Family Medicine 04/07/25 documented as of this encounter
--- OUTSIDE RECORDS SUMMARY | 2025-05-06 15:59 | XMS_ITS | Encounter Summary ---
Author Organization [employer] s tem Address [facility] [id number] [address] [place] [address] Care Team Providers Care Helicopter Dispatcher Name Role Phone Kwadwo Oshea MD Primary Care Provider [phone] Encounter Details Date Type Department Care Team (Latest Contact Info) Description 04/27/2025 Travel Social History Tobacco Use Types Packs/Day Years Used Date Smoking Tobacco: Former Cigarettes 982011 Passive Smoke Exposure: Past Smokeless Tobacco: Never Alcohol Use Standard Drinks/Week Comments Not Currently 0 (1 standard drink = 0.6 oz pur e alcohol) [facility] Utilities Answer Date Recorded In the past 12 months has [employer], gas, oil, or water [employer] threatened to shut off services in your [...] Info) Description 05/12/2025 10:30 AM EDT Appointment [facility] - Cardiovascular [address] [place] [phone] Aliza De La Cruz MD [address] [place], [place] [phone] 06/27/2025 9:00 AM EDT Office Visit [facility] Cardiology [address] [facility] [address] [address] [place] [phone] Charlotte Alatorre, PA-C [address] [place] [address] documented as of this encounter Goals Goal [...] documented as of this encounter Care Teams Helicopter Dispatcher Relationship Specialty Start Date End Date Kwadwo Oshea MD [address] [facility] [place] [address] PCP - General Family Medicine 04/07/25 documented as of this encounter
[2025-05-06 16:10] LABS: Glucometer 105 mg/dL (74-106)
--- NOTE | 2025-05-06 16:10 | ECG_ITS ---
[facility] Test Date: 2025-05-06 Pat Name: GUMARO NOBLES Department: Room: - Gender: Male Net Programmer: : 1965 Requested By: SHEYLA JUSTICE Order Number: [id number] Reading MD: OSWALDO GALLO M.D. Measurements Intervals [place] Rate: 68 P: 55 TX: 188 QRS: 69 QRSD: 96 T: 222 QT: 378 QTc: 396 Interpretive Statements 1100 Sinus rhythm 4068 Nonspecific Twave abnormality 9130 borderline ECG No previous ECG available for comparison Electronically Signed On 05-07-2025 12:04:58 EDT by OSWALDO GALLO M.D.
--- OUTSIDE RECORDS SUMMARY | 2025-05-06 16:20 | XMS_ITS | Encounter Summary ---
Author Organization [employer] Address [facility] [id number] [address] [place] [address] Care Team Providers Care Territory Account Executive Name Role Phone Kwadwo Oshea MD Primary Care Provider [phone] Encounter Details Date Type Department Care Team ([facility] st Contact Info) Description 05/06/2025 4:20 PM EDT Ancillary Procedure [facility] [address] [place] [phone] Pain Social History Tobacco Use Types Packs/Day Years Used Date Smoking Tobacco: Former Cigarettes 2011 Passive Smoke Exposure: Past Smokeless Tobacco: Never Alcohol Use Standard Drinks/Week Comments Not Currently 0 (1 standard drink = 0.6 oz pur e alcohol) [facility] Utilities Answer Date Recorded In the past 12 months has [employer], gas, oil, or water [employer] threatened to shut off services in your home? No 05/07/2025 AUDIT-C Answer Date Recorded Q1: How often [...] medical appointments or from getting medications? No 04/11 In the past 12 months, has l ack of transportation kept you from meetings, work, or from getting things needed for daily living? No 05/07/2025 Housing Instability Answer Date Recorde d Are you worried or concerned that in the next two months you may not have stable housing that you own, rent or stay in as a part of a household? No 05/07/2025 Hunger Screening Answer Date Recorded Within the past 12 months we worried whether our food would run out before we got money to buy more. Never True 05/07/2025 Within the past 12 months th e food we bought just didn't last and we didn't have money to get more. Never True 05/07/2025 Sex and Gender Information Value Date Recorded Sex Assigned at Not on file Legal Sex Male 11:53 AM EDT Gender Identity Not on file Sexual Orientation Not on file documented as of this encounter Plan of Treatment Upcoming Encounters Date Type Department Care Team (Late st Contact Info) Description 05/12/2025 10:30 AM EDT Appointment [facility] - Cardiovascular [address] [place] [phone] Aliza De La Cruz MD [address] [place], [place] [phone] 06/27/2025 9:00 AM EDT Office Visit [facility] Cardiology [address] [facility] [address] [place] [phone] Charlotte Alatorre, PA-C [address] [place], [place] [phone] documented as of this encounter Goals Goal Patient Goal Type Associated Problems Recent Progress Patient-Stated? Author <enter goal here> General Yes Mariely Daniel, RN Note: Evaluation of progress towards goal: Patient plans for a safe discharge. documented as of this encounter Procedures Procedure Name Priority Date/Time Associated Diagnosis Comments XR CHEST 2 VWS Routine 05/06/2025 4:20 PM EDT Pain documented in this encounter Results * X-ray chest 2 views (05/06/2025 4:20 PM EDT) us Scanning Provider External IMG DIAGNOSTIC IMAGIN G ORDERABLES Final Result documented in this encounter Visit Diagnoses Diagnosis Pain Generalized pain documented in this encounter Additional Health Concerns Assessment Noted Time PHQ-9 Depression Total Score: 0 04/07/20 25 8:16 PM EDT documented as of this encounter Care Teams Territory Account Executive Relationship Specialty Start Date End Date Kwadwo Oshea MD [address] [place] [address] PCP - General Family Medicine 04/07/25 documented as of this encounter
--- NOTE | 2025-05-06 16:42 | XR_ITS ---
The [address] [address] Patient Name: GUMARO NOBLES MRN: [id number] date: 1965 Sex: M Assigned Patient Location: ER Current Patient Location: ER Accession/Order Number: [id number] Exam Date: 05/06/2025 17:07 Report Date: 05/06/2025 17:08 At the request of: SHANON BUENO Procedure: XR chest 2V PA AND LATERAL CHEST: CLINICAL HISTORY: short of breath COMPARISON: None FINDINGS: Sternotomy wires. Low lung findings. Small right-sided moderate left-sided opacities likely effusions. Left perihilar and left lung base opacity possibly related to atelectasis versus airspace disease. There are few prominent dilated loops of bowel within the upper abdomen with multifocal air-fluid levels.. XR/XR chest 2V IMPRESSION: Bilateral effusions and airspace disease, likely CHF and edema Dilated air-fluid levels involving the upper abdominal bowel loops please correlate with exam findings. Impression dictated by: Homer Mccrary M.D. 05/06/2025 5:08 PM Dictation Location: [place] [address] Electronically authenticated by: [id number] Y Date: 05/06/2025 17:08
[2025-05-06 16:46] LABS: Basophils Absolute Auto 0.1 10^3/uL (0.0-0.1); Basophils Percent Auto 0.8 % (0.2-2.0); Eosinophils Absolute Auto 0.4 10^3/uL (0.0-0.7); Eosinophils Percent Auto 5.6 % (0.9-7.0); Hematocrit 26.1 % (42.0-54.0); Hemoglobin 8.6 g/dL (14.0-18.0); Immature Granulocytes Abs Auto 0.02 10^3/uL (0.00-0.03); Immature Granulocytes Pct Auto 0.3 % (0.0-0.5); Lymphocytes Percent Auto 16.4 % (20.5-60.0); Mean Corpuscular Hemoglobin 30.9 pg (25.9-34.0); Mean Corpuscular Volume 93.9 fL (80.0-94.0); Mean Platelet Volume 9.6 fL (9.5-13.5); Monocytes Absolute Auto 0.6 10^3/uL (0.3-0.8); Monocytes Percent Auto 8.8 % (1.7-12.0); Neutrophils Absolute Auto 4.3 10^3/uL (1.4-6.5); Neutrophils Percent Auto 68.1 % (43.0-75.0); Platelet Count 252 10^3/uL (150-450); Red Blood Count 2.78 10^6/uL (4.70-6.10); Red Cell Distribution Width 13.8 % (11.0-15.0); White Blood Count 6.3 10^3/uL (4.0-11.0)
[2025-05-06 17:07] LABS: INR 1.06; Prothrombin Time 11.2 sec (9.0-11.6)
[2025-05-06 17:21] LABS: Alanine Aminotransferase 35 U/L (16-63); Albumin Globulin Ratio 0.6; Albumin Level 2.4 g/dL (3.4-5.0); Alkaline Phosphatase 135 U/L (46-116); Anion Gap 11.3; Aspartate Amino Transferase 30 U/L (15-37); BUN Creatinine Ratio 23.7; Bilirubin Total 0.2 mg/dL (0.2-1.0); Calcium 8.2 mg/dL (8.5-10.1); Carbon Dioxide 27.5 mmol/L (21.0-32.0); Chloride 109 mmol/L (98-107); Estimated GFR (African America >60 (>=60 mL/min/1.73m^2); Estimated GFR (Non-African Ame >60 (>=60 mL/min/1.73m^2); Globulin 3.7 g/dL; Glucose 110 mg/dL (74-106); Sodium 145 mmol/L (136-145); Total Protein 6.1 g/dL (6.4-8.2)
[2025-05-06 17:22] LABS: Potassium 2.8 mmol/L (3.5-5.1); Troponin I High Sensitivity 115.1 pg/mL (4.0-76.1)
--- NOTE | 2025-05-06 17:54 | CT_ITS ---
The [address] [address] Patient Name: GUMARO NOBLES MRN: [id number] date: 1965 Sex: M Assigned Patient Location: ER Current Patient Location: ER Accession/Order Number: [id number] Exam Date: 05/06/2025 18:03 Report Date: 05/06/2025 18:10 At the request of: SHANON BUENO Procedure: CT abdomen pelvis w con CT ABDOMEN AND PELVIS WITH INTRAVENOUS CONTRAST: CLINICAL HISTORY: air fluid level abnormal chest x-ray COMPARISON: Chest x-ray earlier today TECHNIQUE: Spiral images were obtained through the abdomen and pelvis following the administration of intravenous contrast. This CT exam was performed using one or more following dose reduction techniques: Automated exposure control, adjustment of the mA and/or kV according to patient size, or use of iterative reconstruction technique. FINDINGS: Lung Bases: [Moderate to large pleural effusions. There are consolidative changes both lung base likely areas of atelectasis. Cardiac megaly.] Organs:Liver, spleen, adrenals, kidneys, and pancreas unremarkable. Gallbladder is contracted.[ GI: Mild to moderate stool burden. No findings of bowel obstruction. Loss of normal haustral pattern involving the distal sigmoid colon possibly chronic finding[ Pelvis:[Insert bladder wall thickening likely chronic finding. Bladder extends into the right inguinal canal with associated fluid within the canal. Peritoneum/Retroperitoneum:Moderate severe plaque involving the aorta and atelectasis. Aorta is nonaneurysmal. No free air or free fluid.[ Abd wall/Bones:Diffuse anasarca. Pars defects L5 with minimal anterolisthesis. Otherwise multilevel degenerative changes noted.[ CT/CT abdomen pelvis w con IMPRESSION: Bilateral moderate to large effusions with consolidative changes both lung bases Diffuse anasarca. No evidence of acute inflammatory or bowel obstruction. Impression dictated by: Homer Mccrary M.D. 05/06/2025 6:10 PM Dictation Location: [place] [address] Electronically authenticated by: [id number] Y Date: 05/06/2025 18:10
--- OUTSIDE RECORDS SUMMARY | 2025-05-06 17:55 | XMS_ITS | Encounter Summary ---
Author Organization [employer] Address [facility] [id number] [address] [place] [address] Care Team Providers Care Android Developer Name Role Phone Kwadwo Oshea MD Primary Care Provider [phone] Reason for Visit * Diagnostic Imaging (Routine) - Pending Review Specialty Diagnoses / Procedures Referred By Contac t Referred To Contact Radiology Diagnoses Pain Procedures CT abdomen and pelvis with contrast Transcribe, Orders Support User Referral ID Status Reason Start Date Expiration Date V isits Requested Visits Authorized [id number] Pending Review 05/07/2025 05/07/2026 1 1 Encounter Details Date Type Department Care Team (Late st Contact Info) Description 05/06/2025 5:55 PM EDT Ancillary Procedure [facility] [address] [place] [phone] Pain Social History Tobacco Use Types Packs/Day Years Used Date Smoking Tobacco: Former Cigarettes 98 - 2011 Passive Smoke Exposure: Past Smokeless Tobacco: Never Alcohol Use Standard Drinks/Week Comments Not Currently 0 (1 standard drink = 0.6 oz pur e alcohol) [facility] Utilities Answer Date Recorded In the past 12 months has [employer], gas, oil, or water company threatened to [...] Info) Description 05/12/2025 10:30 AM EDT Appointment [facility] - Cardiovascular [address] [place] [phone] Aliza De La Cruz MD [address] [place] [address] 06/27/2025 9:00 AM EDT Office Visit [facility] Cardiology [address] [facility] [address] [place] [phone] Charlotte Alatorre PAMinervaC [address] [place] [address] documented as of this encounter Goals Goal Patient Goal Type Associated Problems Recent Progress Patient-Stated? Author <enter goal here> General Yes Mariely Daniel, RN Note: Evaluation of progress towards goal: Patient plans for a safe discharge. documented as of this encounter Procedures Procedure Name Priority Date/Time Associated Diagnosis Comments CT ABDOMEN AND PELVIS W CONT Routine 05/06/2025 5:55 PM EDT Pain documented in this encounter Results * CT abdomen and pelvis with contrast (05/06/2025 5:55 PM EDT) us Scanning Provider External IMG CT ORDERABLES Fin al Result documented in this encounter Visit Diagnoses Diagnosis Pain Generalized pain documented in this encounter Additional Health Concerns Assessment Noted Time PHQ-9 Depression Total Score: 0 04/07/20 8:16 PM EDT documented as of this encounter Care Teams Android Developer Relationship Specialty Start Date End Date Kwadwo Oshea MD [address] [place] [address] PCP - General Family Medicine 04/07/25 documented as of this encounter
[2025-05-06 17:58] LABS: Internal Control Within Normal Limits; Occult Blood Positive
--- NOTE | 2025-05-06 18:02 | ED.GENADUL1 ---
HPI HPI - General Adult General Chief complaint: Shortness of Breath/Dyspnea Stated complaint: ABNORMAL LABS SENT BY DR OSHEA Time Seen by Provider: 05/06/25 16:03 Source: patient Mode of arrival: Wheelchair Limitations: no limitations History of Present Illness HPI narrative: 60-year-old male was brought to the emergency room from Dr. Oshea office today. Patient was seen in hallway his office went out to his car felt weak and lightheaded. He was sitting in his car called his sister to come and drive him home. He was found to have a low blood sugar of 65. Patient had not eaten prior to seeing Dr. Oshea. Dr. Oshea's nurses came out and did help assist the patient and gave him juice and candies. Sister then brought him here to the hospital for evaluation. Patient had a quadruple bypass surgery performed at [facility] on 04/14/2025. He was following up with Dr. Oshea's office today because he had not felt well and felt weak and short of breath. He is very poor historian and states he cannot recall when he followed up with his cyber reverse engineer. Patient continues to have sutures in his abdomen from where his chest tubes were placed he states he did not have the sutures removed the cyber reverse engineer did not asked to see has chest when they saw him in the office. He did not show them to Dr. tSeele today as well. Patient does appear pale. He he was fever and he was not hypoxic. He is alert and oriented x 3 upon arrival here to the emergency room and blood sugar was 105. Related Data Home Medications ?Medication ?Instructions ?Recorded ?Confirmed acetaminophen 500 mg tablet 1,000 mg PO Q6H PRN pain 05/06/25 05/06/25 (Acetaminophen Extra Strength) albuterol sulfate 90 mcg/actuation 2 puff inhalation Q6H PRN 05/06/25 05/06/25 aerosol inhaler shortness of breath or wheezing aspirin 81 mg capsule 81 mg PO DAILY 05/06/25 05/06/25 atorvastatin 80 mg tablet 80 mg PO .qhs 05/06/25 05/06/25 carvedilol 12.5 mg tablet 12.5 mg PO Q12H 05/06/25 05/06/25 clopidogrel 75 mg tablet 75 mg PO QDAY 05/06/25 05/06/25 furosemide 20 mg tablet 40 mg PO Q12H 05/06/25 05/06/25 insulin glargine 100 unit/mL 15 unit subcut QAM 05/06/25 05/06/25 subcutaneous solution (Lantus U-100 Insulin) insulin lispro 100 unit/mL 1 sliding scale dose subcut 05/06/25 05/06/25 subcutaneous pen .COMPLEX oxycodone 5 mg tablet 5 mg PO Q6H PRN pain 05/06/25 05/06/25 tamsulosin 0.4 mg capsule 0.4 mg PO Q24H 05/06/25 05/06/25 Allergies Allergy/AdvReac Type Severity Reaction Status Date / Time No Known Drug Allergies Allergy Verified 05/06/25 15:59 Review of Systems ROS Status of ROS 10 or more systems reviewed and unremarkable except as noted in history and below PFSH PFSH Social History Little interest or pleasure in doing things: not at all Feeling down, depressed, or hopeless: not at all Exam Narrative Exam Narrative: All Systems are negative except as noted/marked.All systems reviewed and otherwise negative Nurses note and vital signs reviewed and patient is not hypoxic. General: The patient appears well and in no apparent distress. Patient is resting comfortably on cart. Skin: Warm, dry, pallor noted. There is no rash noted. Head: Normocephalic, atraumatic Eye: Normal conjunctiva, no drainage, EOMI. PERRL Ears, Nose, Mouth, and Throat: oral mucosa is moist. Nares patent. Mouth without vesicles. Ear canals patent. Tm's without Erythema Cardiovascular: Regular Rate and Rhythm chest wall: Sutures noted to the chest wall where chest tubes had been placed Respiratory: Patient is in no distress, no accessory muscle use, lungs are clear to auscultation, no wheezing, rales or rhonchi Back: non-tender, no CVA tenderness bilaterally to percussion. GI: Normal bowel sounds, no tenderness to palpation, no masses appreciated. No rebound, guarding, or rigidity noted. Musculoskeletal: The patient has no evidence of calf tenderness, + 2 pitting edema bilateral lower, symmetrical pulses noted bilaterally Neurological: A&O x4, normal speech Psychiatric: Cooperative Constitutional Vital Signs, click to edit/add: Last Vital Signs Pulse 77 05/06/25 18:10 Resp 17 05/06/25 18:10 BP 143/76 H 05/06/25 15:59 Pulse Ox 97 05/06/25 18:10 O2 Del Method Room Air 05/06/25 15:59 Course Vital Signs Vital signs: Vital Signs Pulse Rate 66 05/06/25 15:59 Respiratory Rate 20 05/06/25 15:59 Blood Pressure 143/76 H 05/06/25 15:59 Pulse Oximetry 96 05/06/25 15:59 Oxygen Delivery Method Room Air 05/06/25 15:59 Pulse Rate 77 05/06/25 18:10 Respiratory Rate 17 05/06/25 18:10 Blood Pressure 143/76 H 05/06/25 15:59 Pulse Oximetry 97 05/06/25 18:10 Oxygen Delivery Method Room Air 05/06/25 15:59 Medical Decision Making MDM Narrative Medical decision making narrative: 60-year-old male was brought to the emergency room from Dr. Oshea office today. Patient was seen in hallway his office went out to his car felt weak and lightheaded. He was sitting in his car called his sister to come and drive him home. He was found to have a low blood sugar of 65. Patient had not eaten prior to seeing Dr. Oshea. Dr. Oshea's nurses came out and did help assist the patient and gave him juice and candies. Sister then brought him here to the hospital for evaluation. Patient had a quadruple bypass surgery performed at [facility] on 04/14/2025. He was following up with Dr. Oshea's office today because he had not felt well and felt weak and short of breath. He is very poor historian and states he cannot recall when he followed up with his cyber reverse engineer. Patient continues to have sutures in his abdomen from where his chest tubes were placed he states he did not have the sutures removed the cyber reverse engineer did not asked to see has chest when they saw him in the office. He did not show them to Dr. Steele today as well. Patient does appear pale. He he was fever and he was not hypoxic. He is alert and oriented x 3 upon arrival here to the emergency room and blood sugar was 105. [address] Jc who agrees to admit this patient cardiology at [facility] hospitalist called me back to say the patient is admitted to stepdown but they are on a bed hold and patient will probably be held here for almost 24 hours. I did call and speak to Dr. Oshea who agrees to it keep the patient here. I will also speak to Rhonda. Massey hospitalist Differential Diagnosis Differential Diagnosis: chf, chest pain, anemia, weakness Medical Records Medical records reviewed: Yes I reviewed the patient's medical records Lab Data Lab results reviewed: Yes I reviewed the patient's lab results Labs: Lab Results 05/06/25 05/06/25 05/06/25 Range/Units 16:06 16:25 17:45 WBC 6.3 (4.0-11.0) 10^3/uL RBC 2.78 L (4.70-6.10) 10^6/uL Hgb 8.6 L (14.0-18.0) g/dL Hct 26.1 L (42.0-54.0) % MCV 93.9 (80.0-94.0) fL MCH 30.9 (25.9-34.0) pg MCHC 33.0 (29.9-35.2) g/dL RDW 13.8 (11.0-15.0) % Plt Count 252 (150-450) 10^3/uL MPV 9.6 (9.5-13.5) fL Neut % (Auto) 68.1 (43.0-75.0) % Lymph % (Auto) 16.4 L (20.5-60.0) % Crosby % (Auto) 8.8 (1.7-12.0) % Eos % (Auto) 5.6 (0.9-7.0) % Baso % (Auto) 0.8 (0.2-2.0) % Neut # (Auto) 4.3 (1.4-6.5) 10^3/uL Lymph # (Auto) 1.0 L (1.2-3.8) 10^3/uL Crosby # (Auto) 0.6 (0.3-0.8) 10^3/uL Eos # (Auto) 0.4 (0.0-0.7) 10^3/uL Baso # (Auto) 0.1 (0.0-0.1) 10^3/uL Abs Immat Gran (auto) 0.02 (0.00-0.03) 10^3/uL Imm/Tot Granulo (auto) 0.3 (0.0-0.5) % PT 11.2 (9.0-11.6) sec INR 1.06 Sodium 145 (136-145) mmol/L Potassium 2.8 L* (3.5-5.1) mmol/L Chloride 109 H (98-107) mmol/L Carbon Dioxide 27.5 (21.0-32.0) mmol/L Anion Gap 11.3 BUN 28.0 H (7.0-18.0) mg/dL Creatinine 1.18 (0.70-1.30) mg/dL Est GFR ( Amer) >60 (>=60 mL/min/1.73m^2) Est GFR (Non-Af Amer) >60 (>=60 mL/min/1.73m^2) BUN/Creatinine Ratio 23.7 Glucose 110 H (74-106) mg/dL Calcium 8.2 L (8.5-10.1) mg/dL Total Bilirubin 0.2 (0.2-1.0) mg/dL AST 30 (15-37) U/L ALT 35 (16-63) U/L Alkaline Phosphatase 135 H (46-116) U/L Troponin I High Sens 115.1 H* (4.0-76.1) pg/mL NT-Pro-B Natriuret Pep 6748.0 H* (<=900.0) pg/mL Total Protein 6.1 L (6.4-8.2) g/dL Albumin 2.4 L (3.4-5.0) g/dL Globulin 3.7 g/dL Albumin/Globulin Ratio 0.6 TSH 1.720 (0.358-3.740) uIU/mL Stool Occult Blood Positive A POC Glucose 105 (74-106) mg/dL Imaging Data CT scan - abdomen: Attestation: I have reviewed the pertinent imaging results. Radiologist's impression: ITS Impressions Chest X-Ray 05/06/25 16:42 IMPRESSION: Bilateral effusions and airspace disease, likely CHF and edema Dilated air-fluid levels involving the upper abdominal bowel loops please correlate with exam findings. Impression dictated by: Homer Mccrary M.D. 05/06/2025 5:08 PM Dictation Location: [place] [address] Electronically authenticated by: [id number] Y Date: 05/06/2025 17:08 Abdomen/Pelvis CT 05/06/25 17:54 IMPRESSION: Bilateral moderate to large effusions with consolidative changes both lung bases Diffuse anasarca. No evidence of acute inflammatory or bowel obstruction. Impression dictated by: Homer Mccrary M.D. 05/06/2025 6:10 PM Dictation Location: [facility] Electronically authenticated by: [id number] Y Date: 05/06/2025 18:10 ECG Data Attestation: ?I have reviewed the pertinent ECG results. Interpretation: 1631 normal sinus rhythm rate of 60 bpm, TN interval 108 ms QRS duration 96 ms T wave abnormality noted in leads II, aVF, V3, V4 V5 V6 acute STEMI Discharge Plan Discharge Chief Complaint: Shortness of Breath/Dyspnea Clinical Impression: Congestive heart failure, Pleural effusion, GI bleed, Acute hypokalemia Patient Disposition: [facility] Time of Disposition Decision: 19:00 Discharge Location: [facility] Condition: Fair Mode of Transportation: EMS
[2025-05-06] MEDS: POTASSIUM CHLORIDE 40 MEQ in 0.9 % SODIUM CHLORIDE 250 ML 67.5 MEQ IV (18:05)
[2025-05-06] MEDS: FUROSEMIDE 20 MG TABLET 40 MG PO (18:48)
[2025-05-06 19:58] LABS: Magnesium 1.7 mg/dL (1.8-2.4)
[2025-05-06 20:43] LABS: Troponin I High Sensitivity 114.5 pg/mL (4.0-76.1)
[2025-05-06] MEDS: CARVEDILOL 12.5 MG TABLET PO (23:27)
[2025-05-06] MEDS: ATORVASTATIN CALCIUM 40 MG TABLET 80 MG PO (23:28)
[2025-05-06] MEDS: TAMSULOSIN HCL 0.4 MG CAPSULE PO (23:28)
[2025-05-06] MEDS: BUMETANIDE 10 MG in 0.9 % SODIUM CHLORIDE 160 ML IV (23:28)
[2025-05-07] VITALS (80 sets, daily range): BP systolic 129–164; BP diastolic 68–89; PULSE 82–94; TEMP 36.7–37.1; O2SAT 88–97
[2025-05-07 03:54] LABS: Troponin I High Sensitivity 113.5 pg/mL (4.0-76.1)
[2025-05-07 06:45] LABS: Hematocrit 24.1 % (42.0-54.0); Mean Corpuscular HGB Conc 33.2 g/dL (29.9-35.2); Mean Corpuscular Volume 93.4 fL (80.0-94.0); Mean Platelet Volume 9.6 fL (9.5-13.5); Platelet Count 257 10^3/uL (150-450); Red Blood Count 2.58 10^6/uL (4.70-6.10); Red Cell Distribution Width 13.9 % (11.0-15.0); White Blood Count 5.1 10^3/uL (4.0-11.0)
[2025-05-07 06:58] LABS: Anion Gap 12.6; BUN Creatinine Ratio 21.1; Calcium 7.9 mg/dL (8.5-10.1); Carbon Dioxide 27.3 mmol/L (21.0-32.0); Chloride 111 mmol/L (98-107); Estimated GFR (African America >60 (>=60 mL/min/1.73m^2); Estimated GFR (Non-African Ame 60 (>=60 mL/min/1.73m^2); Glucose 103 mg/dL (74-106); Sodium 148 mmol/L (136-145)
[2025-05-07 07:01] LABS: Potassium 2.9 mmol/L (3.5-5.1)
--- NOTE | 2025-05-07 07:50 | P.HP_ITS ---
HPI H&P: HPI History of Present Illness Chief complaint: CHF,PE,GI BLEED, ACUTE HYPOKALEMIA, DIARREHA Narrative: Patient was seen and evaluated in the office yesterday 3 weeks postop from bypass surgery, found to have what appeared to be acute combined congestive heart failure, at the time patient did not want to be readmitted, sending over to the hospital for labs but while on his way over there had a severe hypoglycemic reaction recommended at that point in time he would go to the emergency room. In the emergency room did found to have hypoglycemia sugar less than 70, but significant bilateral pleural effusions and edema and laboratory findings consistent with acute combined congestive heart failure When I saw patient today does appear improved from previous day, much more alert and talkative, denies chest pain, shortness of breath is improving Opioid HPI Opioid Management Most Recent Pain and Opioid Data: Last Pain Assessment 05/06/25, 23:00 Last ORT Total Score 0 05/06/25, 22:12 Last ORT Risk Category Low Risk 05/06/25, 22:12 Review of Systems ROS Status of ROS 10 or more systems reviewed and unremark able except as noted in history and below PFSH PFSH Medical History (Updated 05/07/25 @ 09:41 by Kwadwo Oshea MD) CABG (coronary artery bypass graft) planned ?Z78.9 - Other specified health status (ICD-10) Family History (Updated 05/07/25 @ 01:50 by Jmimy Edgar RN) Father Family history of diabetes mellitus Mother Family history of diabetes mellitus Sister Family history of diabetes mellitus Social History (Updated 05/07/25 @ 01:16 by Jimmy Edgar RN) Within the past year, how often did you have a drink containing alcohol: never Within the past year, how often did you have six or more drinks on one occasion: never Score interpretation: A score less than 4 is consistent with normal alcohol consumption. 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 Highest level of school completed/degree received: high school graduate Little interest or pleasure in doing things: not at all Feeling down, depressed, or hopeless: not at all Gender Identity: male Meds Home Medications and Allergies Home Medications ?Medication ?Instructions ?Recorded ?Confirmed ?Type acetaminophen 500 mg tablet 1,000 mg PO Q6H PRN pain 0 05/06/25 05/06/25 History (Acetaminophen Extra Strength) albuterol sulfate 90 mcg/actuation 2 puff inhalation Q 6H PRN 05/06/25 05/06/25 History aerosol inhaler shortness of breath or wheez ing aspirin 81 mg capsule 81 mg PO DAILY 05/06/2504/11 History atorvastatin 80 mg tablet 80 mg PO .qhs 05/06/2505/06 History carvedilol 12.5 mg tablet 12.5 mg PO Q12H 05/06/25 History clopidogrel 75 mg tablet 75 mg PO QDAY 05/06/2505/06 History insulin glargine 100 unit/mL 15 unit subcut QAM 05/06/25 History subcutaneous solution (Lantus U-100 Insulin) insulin lispro 100 unit/mL 1 sliding scale dose subcut 05/06/25 05/06/25 History subcutaneous pen .COMPLEX oxycodone 5 mg tablet 5 mg PO Q6H PRN pain 5 05/06/25 History tamsulosin 0.4 mg capsule 0.4 mg PO Q24H 05/06/2504/11 History empagliflozin 10 mg tablet 10 mg PO DAILY 05/07/25 History (Jardiance) ezetimibe 10 mg tablet 10 mg PO DAILY 05/07/2504/11 History famotidine 20 mg tablet 20 mg PO DAILY 05/07/2504/11 History furosemide 40 mg tablet 40 mg PO Q12H 05/07/2505/07 History metoprolol succinate 50 mg 50 mg PO DAILY 05/07/25 History tablet,extended release 24 hr Allergies Allergy/AdvReac Type Severity Reaction Status Date / Time No Known Drug Allergies Allergy Verified 05/06/25 15:59 Exam Constitutional Vital Signs, click to edit/add: Last Vital Signs Temp 98.1 F 05/07/25 04:00 Pulse 84 05/07/25 06:20 Resp 22 H 05/07/25 06:20 BP 129/68 05/07/25 04:44 Pulse Ox 96 05/07/25 04:00 O2 Del Method Room Air 05/07/25 04:00 Documenting provider has reviewed patient's vital signs: yes Common normals: no apparent distress Chest Common normals: inspection of chest normal Respiratory Common normals: normal respiratory effort; not clear to ascultation bilaterally Auscultation: rales and diminished lung sounds Cardio Common normals: regular rhythm and no murmurs GI Common normals: Normal to inspection, nondistended, normoactive bowel sounds present, soft to palpation and no hepatosplenomegaly Extremity Common normals: abnormal to inspection (3+ edema bilateral) Results Labs Labs: Short CBC 05/06/25 05/07/25 Range/Units 16:25 06:11 WBC 6.3 5.1 (4.0-11.0) 10^3/uL Hgb 8.6 L 8.0 L (14.0-18.0) g/dL Hct 26.1 L 24.1 L (42.0-54.0) % Plt Count 252 257 (150-450) 10^3/uL BMP 05/06/25 05/07/25 16:25 06:11 Sodium 145 148 H Potassium 2.8 L* 2.9 L* Chloride 109 H 111 H Carbon Dioxide 27.5 27.3 BUN 28.0 H 26.0 H Creatinine 1.18 1.23 Glucose 110 H 103 Calcium 8.2 L 7.9 L Liver Function 05/06/25 Range/Units 16:25 Total Bilirubin 0.2 (0.2-1.0) mg/dL AST 30 (15-37) U/L ALT 35 (16-63) U/L Alkaline Phosphatase 135 H (46-116) U/L Albumin 2.4 L (3.4-5.0) g/dL Assessment and Plan Assessment and Plan (1) Diarrhea: (2) Acute hypokalemia: (3) GI bleed: (4) Pleural effusion: (5) Acute combined systolic (congestive) and diastolic (congestive) heart failure: (6) Status post coronary artery bypass graft: (7) Diabetes mellitus: (8) Bladder outlet obstruction: (9) BPH (benign prostatic hyperplasia): (10) Acute blood loss anemia: (11) Hypokalemia: (12) Acute non-ST elevation myocardial infarction (NSTEMI): (13) Hypomagnesemia: Plan Admission findings: Hypoglycemia, respiratory distress, uncontrolled hypertension, elevated BNP, elevated high-sensitivity troponin consistent with acute NSTEMI secondary to acute combined congestive heart failure Acute combined congestive heart failure resulting in acute NSTEMI-track and trend troponins and BNP, increase rate of Bumex drip to 1 mg an hour as opposed to the 0.5 mg an hour, repeat Bumex drip later today, so far good but not great diuresis although patient is overall feeling improved, holding off on heparin secondary to acute GI bleed Acute GI blood loss anemia secondary to acute upper gastrointestinal blood loss- IV Protonix, maintain aspirin prophy Plavix secondary to recent CABG, repeat CBC later today Poorly controlled diabetes mellitus-insulin sliding scale Hypertensive heart disease-maintain current medications Bilateral pleural effusion secondary to the acute combined congestive heart failure, repeat chest x-ray in the future Acute diarrhea-Hemoccult positive, check for C. difficile as well. Bladder outlet obstruction-secondary to BPH-started patient on Flomax, maintain Menezes catheter secondary to the diuresis, 1000 cc postvoid noted prior to catheter placement Hypokalemia-supplement Admission status: Patient with to inpatient status secondary to acute NSTEMI secondary to acute combined congestive heart failure, recent CABG, awaiting transfer to his tertiary care facility, medically necessary treatment will span 2 midnights. Inpatient status Urinary Catheter Management Urinary Catheter Management Urethral: Cath placed during this visit: yes Urethral indwelling: Yes Reason for continuing: acute urinary retention Insertion date: 05/07/25 Insertion time: 05:51
[2025-05-07 08:18] LABS: Magnesium 1.5 mg/dL (1.8-2.4); Thyroid Stimulating Hormone 1.034 uIU/mL (0.358-3.740)
[2025-05-07 08:21] LABS: Troponin I High Sensitivity 110.4 pg/mL (4.0-76.1)
[2025-05-07] MEDS: METOPROLOL SUCCINATE 50 MG TAB.ER.24H PO (08:57)
[2025-05-07] MEDS: ASPIRIN 81 MG TAB.CHEW PO (08:57)
[2025-05-07] MEDS: EZETIMIBE 10 MG TABLET PO (08:57)
[2025-05-07] MEDS: CLOPIDOGREL BISULFATE 75 MG TABLET PO (08:57)
[2025-05-07] MEDS: PROSTAT 15 GM PROTEIN/100 CAL 30 ML LIQUID PACKET PO (08:57)
[2025-05-07] MEDS: CANAGLIFLOZIN 100 MG TABLET PO (08:57)
[2025-05-07] MEDS: CARVEDILOL 12.5 MG TABLET PO (08:57)
[2025-05-07] MEDS: PANTOPRAZOLE SODIUM 40 MG VIAL IV (08:58)
[2025-05-07] MEDS: ENSURE HP 237 ML LIQUID PO (08:58)
[2025-05-07] MEDS: POTASSIUM CHLORIDE 40 MEQ in 0.9 % SODIUM CHLORIDE 250 ML 67.5 MEQ IV (08:59)
[2025-05-07] MEDS: MAGNESIUM SULFATE IN WATER 4 GM/100 ML PIGGYBACK IV (11:03)
[2025-05-07] MEDS: INSULIN ASPART 300 UNIT/3 ML PEN SUBQ (11:20)
[2025-05-07 11:29] LABS: Glucometer 206 mg/dL (74-106)
--- NOTE | 2025-05-07 12:59 | PC.NURSE ---
Transferred via ambulance to [facility]. Report given. Patient care relinquished
--- OUTSIDE RECORDS SUMMARY | 2025-05-07 14:11 | XMS_ITS | Encounter Summary ---
Author Organization [facility] tem Address [id number] [address] [place] [address] Care Team Providers Care Pile Driving Technician Name Role Phone Sheyla Oshea MD Primary Care Provider [phone] Reason for Visit * Auth/Cert Specialty Diagnoses / Procedures Referred By Contkimi t Referred To Contact Diagnoses Acute heart failure [address] [address] Referral ID Status Reason Start Date Expiration Date Visits Re quested Visits Authorized [id number] Encounter Details Date Type Department Care Team (Late st Contact Info) Description 05/07/2025 2:11 PM EDT - Present Hospital Encounter [facility] - GEN 5 Acute [address] [place] [id number] Mitesh Montoya MD [address], [address] [address] Social History Tobacco Use Types Packs/Day Years Used Date Smoking Tobacco: Former Cigarettes 4 - 2011 Passive Smoke Exposure: Past Smokeless Tobacco: Never Alcohol Use Standard Drinks/Week Comments Not Currently 0 (1 standard drink = 0.6 oz pur e alcohol) [facility] Utilities Answer Date Recorded In the past 12 months has e electric, gas, oil, or water company [...] Sign Reading Time Taken Comments Blood Pressure 132/77 05/09/2025 7:34 AM EDT Pulse 88 05/09/2025 7:34 AM EDT Temperature 36.8 C (98.2 F) 05/09/2025 7:34 AM EDT Respiratory Rate 17 05/09/2025 7:34 AM EDT Oxygen Saturation 90% 05/09/2025 7:34 AM EDT Inhaled Oxygen Concentration - - Weight 67.6 kg (149 lb 0.5 oz) 05/09/2025 4:00 A M EDT Height 165.1 cm (5' 5 ) 05/07/2025 2:16 PM EDT Body Mass Index 24.8 05/07/2025 2:16 PM EDT documented in this encounter Functional Status documented as of this encounter Progress Notes * Mitesh Montoya MD - 05/08/2025 2:00 PM EDT Images from the original note were not included. [facility] INTERNAL MEDICINE [facility] - GEN 5 ACUTE [address] [facility] [id number] Hospital Medicine Progress Note Patient: Keshawn Arndt Date of : 1965 Room: [place] [address] PCP: SHEYLA OSHEA MD Admission date: 05/07/2025 2:11 PM Encounter date: 05/08/25 Hospital Day: 2 SUBJECTIVE Interval History: Status: stable. No overnight events. Sitting up in recliner, stated he was breathing has improved Remains on Lasix infusion Urine is darker today, urinalysis ordered, denies any pain Review of Systems Constitutional: Positive for fatigue. Negative for chills and fever. HENT: Negative for ear pain and sore throat. Eyes: Negative for pain and visual disturbance. Respiratory: Positive for shortness of breath. Negative for cough. Cardiovascular: Positive for leg swelling. Negative for chest pain and palpitations. Gastrointestinal: Negative for abdominal pain and vomiting. Genitourinary: Negative for difficulty urinating, dysuria and hematuria. Musculoskeletal: Negative for arthralgias and back pain. Skin: Negative for color change and rash. Neurological: Positive for weakness. Negative for seizures and syncope. All other systems reviewed and are negative. OBJECTIVE BP 117/68 Pulse 86 Temp 36.4 ??C (97.5 ??F) (Oral) Resp 17 Ht 165.1 cm (5' 5 ) Wt 71.1 kg(156 lb 12 oz) SpO2 90% BMI 26.08 kg/m?? Temp: [36.4 ??C (97.5 ??F)-37.1 ??C (98.7 ??F)] 36.4 ??C (97.5 ??F) Pulse: [83-87] 86 Resp: [16-19] 17 BP: (117-150)/(67-91) 117/68 SpO2: [90 %-98 %] 90 % O2 Device: None (Room air) Intake/Output Summary (Last 24 hours) at 05/08/2025 1749 Last data filed at 05/08/2025 1730 Gross per 24 hour Intake 480 ml Output 6025 ml Net -5545 ml Physical Exam Constitutional: General: He is not in acute distress. Appearance: Normal appearance. He is well-developed. HENT: Head: Normocephalic. Right Ear: External ear normal. Left Ear: External ear normal. Nose: Nose normal. Eyes: Conjunctiva/sclera: Conjunctivae normal. Pupils: Pupils are equal, round, and reactive to light. Cardiovascular: Rate and Rhythm: Normal rate and regular rhythm. Heart sounds: Normal heart sounds. No murmur heard. Pulmonary: Effort: Pulmonary effort is normal. Breath sounds: Decreased air movement present. No wheezing or rales. Abdominal: General: Bowel sounds are normal. Palpations: Abdomen is soft. There is no mass. Tenderness: There is no abdominal tenderness. Genitourinary: Comments: Li Musculoskeletal: General: Normal range of motion. Cervical back: Normal range of motion. Right lower leg: Edema present. Left lower leg: Edema present. Lymphadenopathy: Cervical: No cervical adenopathy. Skin: General: Skin is warm and dry. Findings: No rash. Neurological: Mental Status: He is alert and oriented to person, place, and time. Cranial Nerves: No cranial nerve deficit. Coordination: Coordination normal. Psychiatric: Behavior: Behavior normal. Medications Scheduled: aspirin, 81 mg, oral, Daily atorvastatin, 80 mg, oral, Nightly carvediloL, 6.25 mg, oral, BID clopidogreL, 75 mg, oral, Daily heparin (porcine), 5,000 Units, subcutaneous, Q8H [facility] insulin glargine, 15 Units, subcutaneous, Daily insulin lispro, 2-10 Units, subcutaneous, TID with meals insulin lispro, 2-8 Units, subcutaneous, Nightly melatonin, 3 mg, oral, Nightly pantoprazole, 40 mg, oral, QAM AC sodium chloride, 3 mL, intravenous, Q12H ANNIE spironolactone, 25 mg, oral, Daily tamsulosin, 0.4 mg, oral, Nightly Infusions: dextrose 5 % in water, 100 mL/hr furosemide, 20 mg/hr, Last Rate: 20 mg/hr (05/08/25 1305) sodium chloride 0.9 %, 20 mL/hr As Needed: acetaminophen alum-mag hydroxide-simeth dextrose dextrose 5 % in water dextrose 50 % in water (D50W) glucagon (human recombinant) magnesium sulfate magnesium sulfate ondansetron potassium chloride OR potassium chloride OR potassium chloride IV (Adult) sennosides-docusate sodium sodium chloride sodium chloride sodium chloride 0.9 % Allergies: Definity [perflutren lipid microspheres] Code Status: Full Code Labs Recent Results (from the past 24 hours) Electrolyte panel Collection Time: 05/07/25 6:35 PM Result Value Ref Range SODIUM 143 134 - 146 mmol/L POTASSIUM 3.6 3.5 - 5.0 mmol/L CHLORIDE 105 98 - 109 mmol/L CARBON DIOXIDE 28 22 - 32 mmol/L ANION GAP 10 5 - 15 mmol/L Bedside Glucose *Place/Obtain serum glucose if >500 per glucometer. Collection Time: 05/07/25 8:34 PM Result Value Ref Range Bedside Glucose (POC) 168 (H) 65 - 99 mg/dL Electrolyte panel Collection Time: 05/08/25 12:50 AM Result Value Ref Range SODIUM 144 134 - 146 mmol/L POTASSIUM 3.6 3.5 - 5.0 mmol/L CHLORIDE 106 98 - 109 mmol/L CARBON DIOXIDE 28 22 - 32 mmol/L ANION GAP 10 5 - 15 mmol/L Comprehensive metabolic panel Collection Time: 05/08/25 6:57 AM Result Value Ref Range SODIUM 144 134 - 146 mmol/L POTASSIUM 3.8 3.5 - 5.0 mmol/L CHLORIDE 104 98 - 109 mmol/L CARBON DIOXIDE 31 22 - 32 mmol/L ANION GAP 9 5 - 15 mmol/L BLOOD UREA NITROGEN 32 (H) 5 - 27 mg/dL CREATININE 1.62 (H) 0.60 - 1.30 mg/dL GLUCOSE 157 (H) 65 - 99 mg/dL CALCIUM 8.3 (L) 8.5 - 10.5 mg/dL TOTAL PROTEIN 5.8 (L) 6.0 - 8.0 g/dL ALBUMIN 3.4 3.2 - 5.3 g/dL ALKALINE PHOSPHATASE 100 39 - 130 U/L AST 17 <=41 U/L ALT 17 <=40 U/L BILIRUBIN,TOTAL 0.4 0.3 - 1.2 mg/dL EGFR Non-Race Dependent 48 (L) >=60 ml/min/1.73sq.m Magnesium Collection Time: 05/08/25 6:57 AM Result Value Ref Range MAGNESIUM 2.3 1.8 - 2.6 mg/dL CBC auto differential Collection Time: 05/08/25 6:57 AM Result Value Ref Range WBC 5.4 4 - 11 x10E9/L RBC Count 2.68 (L) 4.1 - 5.7 X10E12/L Hemoglobin 8.3 (L) 13 - 17 g/dL Hematocrit 24.2 (L) 39 - 50 % MCV 90 80 - 100 fL MCH 31.0 27 - 34 pg MCHC 34.3 32 - 36 g/dL RDW 14.3 11.5 - 15 % Platelet Count 245 150 - 450 X10E9/L MPV 7.5 7 - 12 fL Neutrophils % 61.5 % Lymphocytes % 20.6 % Monocytes % 11.3 % Eosinophils % 5.9 % Basophils % 0.7 % Neutrophils Absolute (A) 3.3 1.5 - 6.6 10*3/uL Lymphocytes Absolute 1.1 1.0 - 3.5 10*3/uL Monocytes Absolute 0.6 0.0 - 0.9 10*3/uL Eosinophils Absolute 0.3 0.0 - 0.4 10*3/uL Basophils Absolute 0.0 0.0 - 0.2 10*3/uL Differential Type AUTOMATED DIFFERENTIAL Ferritin Collection Time: 05/08/25 6:57 AM Result Value Ref Range FERRITIN 759 (H) 24 - 336 ng/mL Folate Collection Time: 05/08/25 6:57 AM Result Value Ref Range FOLIC ACID 9.6 >5.8 ng/mL Iron and TIBC Collection Time: 05/08/25 6:57 AM Result Value Ref Range IRON 42 (L) 50 - 212 ug/dL TRANSFERRIN 128 (L) 168 - 336 mg/dL IRON BINDING 179 (L) 250 - 425 ug/dL IRON SATURATION 23 20 - 50 % SATURATION Vitamin B12 Collection Time: 05/08/25 6:57 AM Result Value Ref Range VITAMIN B12 260 180 - 914 pg/mL Bedside Glucose *Place/Obtain serum glucose if >500 per glucometer. Collection Time: 05/08/25 7:55 AM Result Value Ref Range Bedside Glucose (POC) 170 (H) 65 - 99 mg/dL Bedside Glucose *Place/Obtain serum glucose if >500 per glucometer. Collection Time: 05/08/25 11:23 AM Result Value Ref Range Bedside Glucose (POC) 242 (H) 65 - 99 mg/dL Electrolyte panel Collection Time: 05/08/25 12:09 PM Result Value Ref Range SODIUM 142 134 - 146 mmol/L POTASSIUM 3.8 3.5 - 5.0 mmol/L CHLORIDE 103 98 - 109 mmol/L CARBON DIOXIDE 28 22 - 32 mmol/L ANION GAP 11 5 - 15 mmol/L Bedside Glucose *Place/Obtain serum glucose if >500 per glucometer. Collection Time: 05/08/25 5:05 PM Result Value Ref Range Bedside Glucose (POC) 176 (H) 65 - 99 mg/dL Radiology Echo limited W/ contrast Result Date: 05/08/2025 Left Ventricle: Left ventricle is small. Wall thickness is normal. Systolic function is mildly decreased with an ejection fraction of 45-50%. See wall score diagram for wall motion abnormalities. Right Ventricle: Right ventricular size appears normal. Systolic function is normal. HOSPITAL PROBLEM LIST Principal Problem: Acute heart failure ([facility]) Active Problems: Coronary artery disease Mixed hyperlipidemia Primary hypertension Ischemic cardiomyopathy Type 2 diabetes mellitus without complications ([facility]) Chronic kidney disease, stage 3a ([facility]) ASSESSMENT & PLAN Acute on chronic folic heart failure Ischemic cardiomyopathy Coronary artery disease with previous CABG Cardiology following Nephrology consulted for fluid management Currently on Lasix infusion, down 6.9L Ejection fraction 35-40%, repeat echo today pending Continue aspirin, Lipitor, Coreg, Plavix, Aldactone Chronic kidney disease stage IIIA Nephrology following Baseline creatinine approximately 1.5 Urine tea-colored today, UA ordered BPH Li placed this admission On flomax Type 2 diabetes Insulin sliding scale, Lantus Hemoglobin A1c 11.3 VTE prophylaxis Heparin subQ Discharge planning Home LUDWIG Valdez 05/08/2025 5:49 PM [facility] Internal Medicine 7AM-7PM & 7PM-7AM: EpicChat or page through On-Call Finder. LUDWIG Valdez 05/08/25 3822 Attending Addendum: I Dr Mitesh Montoya, personally performed a face to face diagnostic evaluation on this patient. I have reviewed the note authored by the advance practice provider including history, review of systems, physical examination, medical decision making and agree with the assessment and plan as written. I have seen and evaluated the patient,I have repeated the laughlin portions of the physical exam and concur with the LEBRON findings.I have reviewed all laboratory findings and imaging reprts/films.I agree with the plan as noted. * LUDWIG Segura - 05/08/2025 10:51 AM EDT Images from the original note were not included. NEPHROLOGY PROGRESS NOTE Assessment Acute on chronic systolic congestive heart failure with left ventricular ejection fraction of 35-40%, in negative balace Chronic kidney disease stage IIIB, creatinine stable Hypertension: elevated, start coreg Anemia, check iron Plan Renal panel daily I/O Weights Coreg bid Iron workuop Subjective/ interval history no events Problem List Acute kidney injury on chronic kidney disease : Baseline creatinine is around 1.2-1.3 mg/dL.. Renalultrasound from 04/13/2025 showed no evidence of hydronephrosis there was right-sided pleural effusion right kidney size was 9 cm left kidney size was 9.9 cm. Npob-tskmgf-kpimwepe DNA is negative. Rheumatoid factor is normal. RAMBO is negative. C3 and C4 were normal. Hepatitis panel is negative. Ancais negative. Serum free light chain ratio was 1.57. Glomerular basement membrane antibody is negative. SPEP showed no evidence of monoclonal bands. Multivessel coronary artery disease status post CABG x4 on 04/11/2025 Acute systolic congestive heart failure decompensation Ischemic cardiomyopathy. LV ejection fraction 35-40% with [id number] MR mild pulmonary hypertension on outside echo Hypertension Hyperlipidemia Type 2 diabetes mellitus. Visual in permanent. Former smoker Physical Exam Admission Weight: Weight: 73.6 kg (162 lb 4.1 oz) I/O last 3 completed shifts: In: 240 [P.O.:240] Out: 5250 [Urine:5250] Weight change: Wt Readings from Last 3 Encounters: 05/08/25 71.1 kg (156 lb 12 oz) 04/27/25 71.7 kg (158 lb) 04/16/25 67.5 kg (148 lb 13 oz) Vitals: Vitals: 05/07/25 1947 05/07/25 2326 05/08/25 0418 05/08/25 0756 BP: (!) 147/91 132/67 143/74 150/76 Pulse: 83 83 85 87 Resp: 16 16 19 16 Temp: 36.8 ??C (98.3 ??F) 36.7 ??C (98.1 ??F) 37 ??C (98.6 ??F) 37.1 ??C (98.7 ??F) TempSrc: Oral Oral Oral Oral SpO2: 96% 98% 93% 90% Weight: 71.1 kg (156 lb 12 oz) Height: General: Alert, oriented x 3 and in no obvious distress Psychiatric: Has a normal mood and affect. HEENT: Head normocephalic. Eyes: Conjunctivae and EOM are normal. Pupils are equal, round and reactive to light. Cardiovascular: Normal rate, regular rhythm and normal heart sounds. No JVD. Pulmonary/Chest: Air entry bilaterally equal. No wheezes or rales. Abdominal: Soft, bowel sounds are normal and there was no tenderness rebound or guarding. Musculoskeletal: Normal range of motion. No tenderness. Neurological: No obvious deficits. Skin: No rash noted. Extremities: 1+ Meds: Current Meds: aspirin, 81 mg, oral, Daily atorvastatin, 80 mg, oral, Nightly clopidogreL, 75 mg, oral, Daily heparin (porcine), 5,000 Units, subcutaneous, Q8H ANNIE insulin glargine, 15 Units, subcutaneous, Daily insulin lispro, 2-10 Units, subcutaneous, TID with meals insulin lispro, 2-8 Units, subcutaneous, Nightly melatonin, 3 mg, oral, Nightly pantoprazole, 40 mg, oral, QAM AC sodium chloride, 3 mL, intravenous, Q12H ANNIE spironolactone, 25 mg, oral, Daily tamsulosin, 0.4 mg, oral, Nightly Continuous Infusions: dextrose 5 % in water, 100 mL/hr furosemide, 20 mg/hr, Last Rate: 20 mg/hr (05/08/25 0554) sodium chloride 0.9 %, 20 mL/hr Laboratory Studies Results from last 7 days Lab Units 05/08/25 0657 05/08/25 0050 05/07/25 1835 05/07/25 1504 SODIUM mmol/L 144 144 143 142 POTASSIUM mmol/L 3.8 3.6 3.6 3.9 CHLORIDE mmol/L 104 106 105 107 CO2 mmol/L BUN mg/dL 32* -- -- 25 CREATININE mg/dL 1.62* -- -- 1.44* CALCIUM mg/dL 8.3* -- -- 7.8* MAGNESIUM mg/dL 2.3 -- -- 2.5 Results from last 7 days Lab Units 05/08/25 0657 05/07/25 1504 WBC x10E9/L 5.4 5.3 HEMOGLOBIN g/dL 8.3* 8.7* HEMATOCRIT % 24.2* 25.7* PLATELETS X10E9/L 245 261 Results from last 7 days Lab Units 05/08/25 0657 05/07/25 1504 MAGNESIUM mg/dL 2.3 2.5 Lab Results Component Value Date CALCIUM 8.3 (L) 05/08/2025 Lab Results Component Value Date IRON 14 (L) 04/13/2025 TIBC 167 (L) 04/13/2025 FERRITIN 438 (H) 04/13/2025 Please contact me at [phone] (Office) or [phone] (Answering service) with any questions. Please feel free to contact me through Epic Secure chat during the daytime hours, if no response after 5 minutes then call the answering service. LUDWIG Rowe [facility] This note was created with the assistance of a speech-recognition program. Although the intention is to generate a document that actually reflects the content of the visit, no guarantees can be provided that every mistake has been identified and corrected by editing. LUDWIG Segura 05/08/25 1108 * Baltazar Bailey MD - 05/08/2025 8:30 AM EDT Images from the original note were not included. [facility] [place] [address] PROGRESS NOTE Nam Hair no chest pain, shortness of breath significantly improving, continues to have some no complaints of heart palpitations SUBJECTIVE Allergies: No Known Allergies CURRENT MEDICATIONS aspirin, 81 mg, oral, Daily atorvastatin, 80 mg, oral, Nightly clopidogreL, 75 mg, oral, Daily heparin (porcine), 5,000 Units, subcutaneous, Q8H ANNIE insulin glargine, 15 Units, subcutaneous, Daily insulin lispro, 2-10 Units, subcutaneous, TID with meals insulin lispro, 2-8 Units, subcutaneous, Nightly melatonin, 3 mg, oral, Nightly pantoprazole, 40 mg, oral, QAM AC sodium chloride, 3 mL, intravenous, Q12H ANNIE spironolactone, 25 mg, oral, Daily tamsulosin, 0.4 mg, oral, Nightly CONTINUOUS INFUSIONS dextrose 5 % in water, 100 mL/hr furosemide, 20 mg/hr, Last Rate: 20 mg/hr (05/08/25 0554) sodium chloride 0.9 %, 20 mL/hr OBJECTIVE CBC: Results from last 7 days Lab Units 05/08/25 0657 05/07/25 1504 WBC x10E9/L 5.4 5.3 HEMOGLOBIN g/dL 8.3* 8.7* HEMATOCRIT % 24.2* 25.7* MCV fL 90 92 PLATELETS X10E9/L 245 261 BMP: Results from last 7 days Lab Units 05/08/25 0657 05/08/25 0050 05/07/25 1835 05/07/25 1504 SODIUM mmol/L 144 144 143 142 POTASSIUM mmol/L 3.8 3.6 3.6 3.9 CHLORIDE mmol/L 104 106 105 107 CO2 mmol/L 28 28 25 BUN mg/dL 32* -- -- 25 CREATININE mg/dL 1.62* -- -- 1.44* CALCIUM mg/dL 8.3* -- -- 7.8* MAGNESIUM mg/dL 2.3 -- -- 2.5 PT/INR: APTT: MAG: Results from last 7 days Lab Units 05/08/25 0657 05/07/25 1504 MAGNESIUM mg/dL 2.3 2.5 D Dimer: Troponin I ProBNP Results from last 7 days Lab Units 05/07/25 1504 BNP pg/mL 1,709* Lipid Panel: Lab Results Component Value Date CHOL 178 04/09/2025 TRIG 111 04/09/2025 HDL 57 04/09/2025 Liver Panel: No results found for: TBIL , ALB HgA1C: Lab Results Component Value Date HGBA1C 11.3 (H) 04/13/2025 ABG: CV TESTING HISTORY: ECHO: Intra-operative transesophageal echocardiogram [...] CABG x4 Comparison: April 12 Impression: * [place] catheter into sheath. Left chest tube unchanged. Mediastinal drains difficult to visualize currently * Poor inspiration with only minimal left basilar consolidation. No pneumothorax on expiratory view Wor kstation:[id number] Finalized by Carlos Jennings MD on 04/13/2025 7:23 AM X-ray chest 1 view Result Date: 04/12/2025 History: Post OHS Exam/Technique: Single AP view of the chest was obtained Comparison: 04/11/2025 Findings: There is interval removal of the endotracheal and enteric tubes. Right-sided [place] catheter tip at the right main pulmonary [...] of support tubes and lines. Of the [place] catheter in the right pulmonary outflow. No [...] Nick Perdomo MD on 04/08/2025 7:02 AM TELEMETRY: Sinus rhythm PHYSICAL EXAM Admission Weight: Weight: 73.6 kg (162 lb 4.1 oz) I/O last 3 completed shifts: In: 240 [P.O.:240] Out: 5250 [Urine:5250] Weight change: Wt Readings from Last 3 Encounters: 05/08/25 71.1 kg (156 lb 12 oz) 04/27/25 71.7 kg (158 lb) 04/16/25 67.5 kg (148 lb 13 oz) Vitals: Vitals: 05/07/25 1947 05/07/25 2326 05/08/25 0418 05/08/25 0756 BP: (!) 147/91 132/67 143/74 150/76 Pulse: 83 83 85 87 Resp: 16 16 19 16 Temp: 36.8 ??C (98.3 ??F) 36.7 ??C (98.1 ??F) 37 ??C (98.6 ??F) 37.1 ??C (98.7 ??F) TempSrc: Oral Oral Oral Oral SpO2: 96% 98% 93% 90% Weight: 71.1 kg (156 lb 12 oz) Height: Admit Weight Weight: 73.6 kg (162 lb 4.1 oz) Last 3 Weights Last 3 Weight Readings 05/07/25 1416 05/08/25 0418 Weight: 73.6 kg (162 lb 4.1 oz) 71.1 kg (156 lb 12 oz) Body mass index is 26.08 kg/m??. INTAKE/OUTPUT I/O last 3 completed shifts: In: 240 [P.O.:240] Out: 5250 [Urine:5250] Intake/Output Summary (Last 24 hours) at 05/08/2025 0830 Last data filed at 05/08/2025 0759 Gross per 24 hour Intake 480 ml Output 5800 ml Net -5320 ml General appearance: Alert oriented and cooperative, In no acute distress Skin: Warm and dry to touch Head: Normocephalic, without obvious abnormality, atraumatic Eyes: Conjunctivae unremarkable, EOM's intact, sclera non icteric Neck: Trace JVD Lungs: Clear to ausculation bilaterally, no use of accessory muscles Heart:: RRR with normal S1 and S2, +murmur and no gallops. Abdomen: Nontender Extremities: +2 pitting edema Neurologic: Oriented to time, person and place, affect appropriate, no focal/major motor or sensorydefects noted Psychiatric: Appropriate mood, memory and judgment ASSESSMENT Acute on chronic heart failure with reduced ejection fraction Ischemic cardiomyopathy CAD with prior CABG 04/12/2025 Type 2 diabetes mellitus Hypertension Dyslipidemia PLAN Patient is currently on a furosemide drip responding well 5 L of urine produced His dry weight appears to be around 148/0 04/16/2025 currently 156 as of today, continue current diuretics will continue to titrate guideline directed medical therapy as able to -continue carvedilol 12.5 mg b.i.d. -spironolactone 25 mg -eventual addition of Entresto once nearing euvolemia -SGLT2 prior to discharge Echocardiogram ordered yesterday this is pending CLEMENT CASTANEDA PA-C This note was completed using a voice flue lining dipper system. Every effort was made to ensure accuracy. However, inadvertent computerized flue lining dipper errors may be present. Clement Castaneda PA-C 05/08/25 0846 Progress Note Patient Name: Keshawn Arndt : 1965 05/08/2025 12:09 PM I, Baltazar Bailey MD, personally performed the face to face diagnostic evaluation on this patient. My findings are as follows below. If there is no associated LEBRON/resident/fellow note, I evaluated the patient independently. SUBJECTIVE Mr. Arndt has no chest pain, shortness of breath, orthopnea or palpitations. MEDS Current Meds: aspirin, 81 mg, oral, Daily atorvastatin, 80 mg, oral, Nightly carvediloL, 6.25 mg, oral, BID clopidogreL, 75 mg, oral, Daily heparin (porcine), 5,000 Units, subcutaneous, Q8H ANNIE insulin glargine, 15 Units, subcutaneous, Daily insulin lispro, 2-10 Units, subcutaneous, TID with meals insulin lispro, 2-8 Units, subcutaneous, Nightly melatonin, 3 mg, oral, Nightly pantoprazole, 40 mg, oral, QAM AC sodium chloride, 3 mL, intravenous, Q12H ANNIE spironolactone, 25 mg, oral, Daily tamsulosin, 0.4 mg, oral, Nightly Continuous Infusions: dextrose 5 % in water, 100 mL/hr furosemide, 20 mg/hr, Last Rate: 20 mg/hr (05/08/25 0554) sodium chloride 0.9 %, 20 mL/hr OBJECTIVE Vital signs: BP 126/67 Pulse 86 Temp 36.9 ??C (98.5 ??F) (Oral) Resp 16 Ht 165.1 cm (5' 5 ) Wt 71.1 kg(156 lb 12 oz) SpO2 90% BMI 26.08 kg/m?? Admit Weight: 73.6 kg (162 lb 4.1 oz) Last 3 weights: Wt Readings from Last 3 Encounters: 05/08/25 71.1 kg (156 lb 12 oz) 04/27/25 71.7 kg (158 lb) 04/16/25 67.5 kg (148 lb 13 oz) BMI: Body mass index is 26.08 kg/m??. Input/Output: Intake/Output Summary (Last 24 hours) at 05/08/2025 1209 Last data filed at 05/08/2025 1125 Gross per 24 hour Intake 720 ml Output 6400 ml Net -5680 ml PHYSICAL EXAM Constiutional: In no acute distress. Cardiovascular: RRR, normal S1S2 Respiratory: Clear to Auscultation bilaterally Gastointestonal: Soft, NABS Extremities: no edema Psychiatric: Appropriate mood and affect. Awake, alert and oriented x 3. LABS CBC: Results from last 7 days Lab Units 05/08/25 0657 05/07/25 1504 WBC x10E9/L 5.4 5.3 HEMOGLOBIN g/dL 8.3* 8.7* HEMATOCRIT % 24.2* 25.7* MCV fL 90 92 PLATELETS X10E9/L 245 261 BMP: Results from last 7 days Lab Units 05/08/25 0657 05/08/25 0050 05/07/25 1835 05/07/25 1504 POTASSIUM mmol/L 3.8 3.6 3.6 3.9 CHLORIDE mmol/L 104 106 105 107 CO2 mmol/L 31 28 28 25 BUN mg/dL 32* -- -- 25 CREATININE mg/dL 1.62* -- -- 1.44* PT/INR: MAG: Results from last 7 days Lab Units 05/08/25 0657 05/07/25 1504 MAGNESIUM mg/dL 2.3 2.5 Troponin I ASSESSMENT 1. Acute on chronic heart failure with preserved LV function 2. Coronary artery disease CABG 04/12/2025 3. Mellitus 4. Primary hypertension 5. IRENE on CKD 6. Ischemic cardiomyopathy with improvement in LV function reported after CABG PLAN Recheck limited echocardiogram to make sure LV Function is truly normal Continue carvedilol 6.25 mg twice daily and spironolactone, aggressive diuresis 6 on Bumex drip by Nephrology If LV systolic dysfunction on echo, add hydralazine/nitrates or ARB/Entresto depending on where renal function is documented in this encounter H&P Notes * Mitesh Montoya MD - 05/07/2025 4:00 PM EDT Images from the original note were not included. [facility] INTERNAL MEDICINE [facility] - GEN ACUTE [address] [facility] [id number] Hospital Medicine History & Physical Patient: Keshawn Arndt Date of : 1965 Room: [place] [address] PCP: SHEYLA OSHEA MD Admission date: 05/07/2025 2:11 PM Encounter date: 05/07/25 Hospital Day: 1 SUBJECTIVE Keshawn Arndt is a 60 y.o. male past medical history of coronary artery disease with previousCABG, ischemic cardiomyopathy, CKD, diabetes, hypertension, hyperlipidemia, who presented to outside hospital due to worsening shortness of breath, also having increased bilateral lower extremity edema. He stated he has been taking his diuretic as prescribed. Due to his recent open heart surgery, he was transferred to [facility] to be evaluated by Cardiology. At time of assessment, he was sitting up on room air, stated his breathing has improved however he was not yet back to baseline. He was started on Lasix infusion. Allergies: Patient has no known allergies. Prior to Admission medications Medication Sig Start Date End Date Taking? Authorizing Provider acetaminophen (TYLENOL EXTRA STRENGTH) 500 mg tablet Take 2 tablets (1,000 mg total) by mouth every6 (six) hours as needed for pain. 04/16/25 Zachariah Pacheco, CARE COORDINATION MANAGER-CHARTER COORDINATOR albuterol (PROVENTIL HFA;VENTOLIN HFA) 90 mcg/actuation inhaler Inhale 2 puffs every 6 (six) hours as needed for wheezing or shortness of breath. 03/09/25 Not In System Ref Prov aspirin 81 mg Take 1 tablet (81 mg total) by mouth in the morning for 30 days. 04/17/25 05/17/25 LUDWIG Sky atorvastatin (LIPITOR) 80 mg tablet Take 1 tablet (80 mg total) by mouth nightly. 04/27/25 Aliza De La Cruz MD carvediloL (COREG) 12.5 mg tablet Take 1 tablet (12.5 mg total) by mouth in the morning and 1 tablet (12.5 mg total) before bedtime. 04/27/25 Aliza De La Cruz MD clopidogreL (PLAVIX) 75 mg tablet Take 1 tablet (75 mg total) by mouth in the morning. 04/27/25 Aliza De La Cruz MD furosemide (LASIX) 40 mg tablet Take 1 tablet (40 mg total) by mouth 2 (two) times a day before meals. 04/16/25 LUDWIG Segura insulin glargine (LANTUS, SEMGLEE) 100 unit/mL (3 mL) insulin pen Inject 15 Units under the skin inthe morning. 04/17/25 LUDWIG Sky insulin lispro (HumaLOG) 100 unit/mL insulin pen Inject 1-8 Units under the skin 4 (four) times a day with meals and nightly. 04/16/25 LUDWIG Sky insulin lispro (HumaLOG) 100 unit/mL insulin pen Inject 2-10 Units under the skin in the morning and 2-10 Units at noon and 2-10 Units in the evening. Inject with meals. 04/16/25 LUDWIG Sky insulin lispro (HumaLOG) 100 unit/mL insulin pen Inject 2-8 Units under the skin nightly. 04/16/25 LUDWIG Sky pen needle,diabetic dual safty (BD AUTOSHIELD DUO PEN NEEDLE) 30 gauge x 3/16 needle 1 applicator by miscellaneous route 4 (four) times daily after meals and at bedtime for 30 days. 04/16/25 05/16/25 LUDWIG Sky tamsulosin (FLOMAX) 0.4 mg capsule Take 1 capsule (0.4 mg total) by mouth nightly for 30 days. 04/16/25 05/16/25 Zachariah Pacheco APRN-CHARTER COORDINATOR Code Status: Full Code Past Medical History: Patient has a past medical history of Arrhythmia, CHF (congestive heart failure) ([facility] Chronickidney disease, Coronary artery disease, Dental disease, Diabetes mellitus type 2, controlled ([facility]), RANDOLPH (dyspnea on exertion), HL (hearing loss), Hyperlipidemia, Hypertension, and Visual impairment. Past Surgical History: Patient has a past surgical history that includes Multiple tooth extractions and Coronary artery bypass graft (N/A, 04/11/2025). Family History: Patient's family history is not on file. Social History: Patient reports that he quit smoking about 13 years ago. His smoking use included cigarettes. He started smoking about 41 years ago. He has a 28 pack- year smoking history. He has been exposed to tobacco smoke. He has never used smokeless tobacco. He reports that he does not currently use alcohol. He reports that he does not use drugs. Review of Systems Constitutional: Positive for fatigue. Negative for chills and fever. HENT: Negative for ear pain and sore throat. Eyes: Negative for pain and visual disturbance. Respiratory: Positive for cough and shortness of breath. Cardiovascular: Positive for chest pain. Negative for palpitations. Gastrointestinal: Negative for abdominal pain and vomiting. Genitourinary: Negative for dysuria and hematuria. Musculoskeletal: Negative for arthralgias and back pain. Skin: Negative for color change and rash. Neurological: Positive for weakness. Negative for seizures and syncope. All other systems reviewed and are negative. OBJECTIVE BP (!) 147/91 Pulse 83 Temp 36.8 ??C (98.3 ??F) (Oral) Resp 16 Ht 165.1 cm (5' 5 ) Wt 73.6 kg (162 lb 4.1 oz) SpO2 96% BMI 27.00 kg/m?? Temp: [36.8 ??C (98.2 ??F)-36.8 ??C (98.3 ??F)] 36.8 ??C (98.3 ??F) Pulse: [83-87] 83 Resp: [16-20] 16 BP: (136-157)/(61-91) 147/91 SpO2: [92 %-96 %] 96 % O2 Device: None (Room air) Intake/Output Summary (Last 24 hours) at 05/07/20252135 Last data filed at 05/07/20251946 Gross per 24 hour Intake 240 ml Output 2600 ml Net -2360 ml Physical Exam Constitutional: General: He is not in acute distress. Appearance: Normal appearance. He is well-developed. HENT: Head: Normocephalic. Right Ear: External ear normal. Left Ear: External ear normal. Nose: Nose normal. Eyes: Conjunctiva/sclera: Conjunctivae normal. Pupils: Pupils are equal, round, and reactive to light. Cardiovascular: Rate and Rhythm: Normal rate and regular rhythm. Heart sounds: Normal heart sounds. No murmur heard. Pulmonary: Effort: Pulmonary effort is normal. Breath sounds: Rales present. No wheezing. Abdominal: General: Bowel sounds are normal. Palpations: Abdomen is soft. There is no mass. Tenderness: There is no abdominal tenderness. Musculoskeletal: General: Normal range of motion. Cervical back: Normal range of motion. Right lower leg: Edema present. Left lower leg: Edema present. Lymphadenopathy: Cervical: No cervical adenopathy. Skin: General: Skin is warm and dry. Findings: No rash. Neurological: Mental Status: He is alert and oriented to person, place, and time. Cranial Nerves: No cranial nerve deficit. Coordination: Coordination normal. Psychiatric: Behavior: Behavior normal. Medications Scheduled: aspirin, 81 mg, oral, Daily atorvastatin, 80 mg, oral, Nightly clopidogreL, 75 mg, oral, Daily heparin (porcine), 5,000 Units, subcutaneous, Q8H ANNIE insulin glargine, 15 Units, subcutaneous, Daily insulin lispro, 2-10 Units, subcutaneous, TID with meals insulin lispro, 2-8 Units, subcutaneous, Nightly pantoprazole, 40 mg, oral, QAM AC sodium chloride, 3 mL, intravenous, Q12H ANNIE spironolactone, 25 mg, oral, Daily tamsulosin, 0.4 mg, oral, Nightly Infusions: dextrose 5 % in water, 100 mL/hr furosemide, 20 mg/hr, Last Rate: 20 mg/hr (05/07/25 1624) sodium chloride 0.9 %, 20 mL/hr As Needed: acetaminophen alum-mag hydroxide-simeth dextrose dextrose 5 % in water dextrose 50 % in water (D50W) glucagon (human recombinant) magnesium sulfate magnesium sulfate ondansetron potassium chloride OR potassium chloride OR potassium chloride IV (Adult) sennosides-docusate sodium sodium chloride sodium chloride sodium chloride 0.9 % Allergies: Patient has no known allergies. Labs Recent Results (from the past 24 hours) Comprehensive metabolic panel Collection Time: 05/07/25 3:04 PM Result Value Ref Range SODIUM 142 134 - 146 mmol/L POTASSIUM 3.9 3.5 - 5.0 mmol/L CHLORIDE 107 98 - 109 mmol/L CARBON DIOXIDE 25 22 - 32 mmol/L ANION GAP 10 5 - 15 mmol/L BLOOD UREA NITROGEN 25 5 - 27 mg/dL CREATININE 1.44 (H) 0.60 - 1.30 mg/dL GLUCOSE 157 (H) 65 - 99 mg/dL CALCIUM 7.8 (L) 8.5 - 10.5 mg/dL TOTAL PROTEIN 5.7 (L) 6.0 - 8.0 g/dL ALBUMIN 3.0 (L) 3.2 - 5.3 g/dL ALKALINE PHOSPHATASE 114 39 - 130 U/L AST 25 <=41 U/L ALT 19 <=40 U/L BILIRUBIN,TOTAL 0.3 0.3 - 1.2 mg/dL EGFR Non-Race Dependent 55 (L) >=60 ml/min/1.73sq.m Magnesium Collection Time: 05/07/25 3:04 PM Result Value Ref Range MAGNESIUM 2.5 1.8 - 2.6 mg/dL CBC auto differential Collection Time: 05/07/25 3:04 PM Result Value Ref Range WBC 5.3 4 - 11 x10E9/L RBC Count 2.80 (L) 4.1 - 5.7 X10E12/L Hemoglobin 8.7 (L) 13 - 17 g/dL Hematocrit 25.7 (L) 39 - 50 % MCV 92 80 - 100 fL MCH 30.9 27 - 34 pg MCHC 33.7 32 - 36 g/dL RDW 14.5 11.5 - 15 % Platelet Count 261 150 - 450 X10E9/L MPV 7.4 7 - 12 fL Neutrophils % 62.0 % Lymphocytes % 21.4 % Monocytes % 10.8 % Eosinophils % 4.9 % Basophils % 0.9 % Neutrophils Absolute (A) 3.3 1.5 - 6.6 10*3/uL Lymphocytes Absolute 1.1 1.0 - 3.5 10*3/uL Monocytes Absolute 0.6 0.0 - 0.9 10*3/uL Eosinophils Absolute 0.3 0.0 - 0.4 10*3/uL Basophils Absolute 0.0 0.0 - 0.2 10*3/uL Differential Type AUTOMATED DIFFERENTIAL B-type natriuretic peptide Collection Time: 05/07/25 3:04 PM Result Value Ref Range BNP 1,709 (H) <=100 pg/mL Bedside Glucose *Place/Obtain serum glucose if >500 per glucometer. Collection Time: 05/07/25 4:42 PM Result Value Ref Range Bedside Glucose (POC) 169 (H) 65 - 99 mg/dL Electrolyte panel Collection Time: 05/07/25 6:35 PM Result Value Ref Range SODIUM 143 134 - 146 mmol/L POTASSIUM 3.6 3.5 - 5.0 mmol/L CHLORIDE 105 98 - 109 mmol/L CARBON DIOXIDE 28 22 - 32 mmol/L ANION GAP 10 5 - 15 mmol/L Bedside Glucose *Place/Obtain serum glucose if >500 per glucometer. Collection Time: 05/07/25 8:34 PM Result Value Ref Range Bedside Glucose (POC) 168 (H) 65 - 99 mg/dL Radiology X-ray chest 1 view Result Date: 04/15/2025 Narrative: XR CHEST 1 VW HISTORY: Shortness of breath COMPARISON: Radiograph 04/13/2025 and earlier FINDINGS: AP portable upright film obtained. Status post sternotomy. Right IJ catheter with tip projecting over the SVC. The cardiomediastinal silhouette is stable compared to prior exam. Bibasilar airs pace disease, increased. Trace left pleural effusion. No measurable pneumothorax. Skinfold overliesthe right hemithorax. Congestion. IMPRESSION: Congestion with increase in lower lobe infiltrates. Approved by Cecil Benson DO on 04/15/2025 9:02 AM Shaun Lyons MD have personally reviewed the image(s) and agree with and/or edited the report Finalized by Shaun Loja MDon 04/15/2025 9:13 AM Ultrasound retroperitoneal complete Result Date: 04/13/2025 Narrative: ULTRASOUND RETROPERITONEUM INDICATION: Acute renal injury. COMPARISON: [...] Les Spivey MD on 04/13/2025 10:21 PM X-ray chest 1 view Result Date: 04/13/2025 Narrative: Single view chest XR CHEST 1 VW History: s/p CABG x4 Comparison: April 12 Impression: * [place] catheter into sheath. Left chest tube unchanged. Mediastinal drains difficult to visualize currently * Poor inspiration with only minimal left basilar consolidation. No pneumothorax on expiratory view Finalized by Carlos Jennings MD on 04/13/2025 7:23 AM X-ray chest 1 view Result Date: 04/12/2025 Narrative: History: Post OHS Exam/Technique: Single AP view of the chest was obtained Comparison: 04/11/2025 Findings: There is interval removal of the endotracheal and enteric tubes. Right-sided [place] catheter tip at the right main pulmonary outflow track. Mediastinal and left-sided chest tubes are in stable position There is no gross new infiltration or pneumothorax. IMPRESSION: Stable chest x-ray status post extubation Finalized by Alli Velasquez MD on 04/12/2025 5:31 AM X-ray chest 1 view Result Date: 04/11/2025 Narrative: History: Evaluate tube/line placement post-op cardiac surgery Exam/Technique: AP chest upright Comparison: 04/08/2025. Findings: Appropriate positioning of support tubes and lines. Of the [place] catheter in the right pulmonary outflow. No pneumothorax. ET tube approximately 3.3 cm above the linnea. IMPRESSION: Appropriate positioning of support tubes and lines. Finalized by Rogerio Pizarro MD on 04/11/2025 6:22 PM Intra-operative transesophageal echocardiogram Result Date: 04/11/2025 Narrative: See Anesthesia DEIDRE procedure note for findings. Intra-operative transesophageal echocardiogram Result Date: 04/11/2025 Narrative: See Anesthesia DEIDRE procedure note for findings. Intra-operative transesophageal echocardiogram Result Date: 04/11/2025 Narrative: See Anesthesia DEIDRE procedure note for findings. Vas carotid duplex bilateral Result Date: 04/10/2025 Narrative: Right: Plaque with no significant ICA spectral Doppler or color flow disturbances; ICA 114/25 cm/sec. Antegrade vertebral artery flow. Left: Plaque with no significant ICA spectral Doppleror color flow disturbances; ICA 125/25 cm/sec. Antegrade vertebral artery flow. Conclusions: BILATERAL: Plaque without significant stenosis (<50%) of the internal carotid artery. Antegrade vertebral artery flow. Recommendations: Any questions prior to finalization, please call the reading physician during normal business hours at the phone number beside their name. X-ray chest 1 view Result Date: 04/08/2025 Narrative: Single view chest History:Fluid overload Difficulty breathing, shortness of breath Comparison: 04/07/2025 Findings: Single portable view of the chest. Small bilateral pleural effusions and bilateral lower lung atelectasis versus pneumonia and mild vascular congestion, improved. Impression: Decreasing vascular congestion and edema. Otherwise, stable chest. Finalized by Nick Perdomo MD on 04/08/2025 7:02 AM HOSPITAL PROBLEM LIST Principal Problem: Acute heart failure ([facility]) Active Problems: Coronary artery disease Mixed hyperlipidemia Primary hypertension Ischemic cardiomyopathy Type 2 diabetes mellitus without complications ([facility]) Chronic kidney disease, stage 3a ([facility]) ASSESSMENT & PLAN Acute on chronic folic heart failure Ischemic cardiomyopathy Coronary artery disease with previous CABG Cardiology following Nephrology consulted for fluid management Currently on Lasix infusion Ejection fraction 35-40% Chronic kidney disease stage IIIA Nephrology following Baseline creatinine approximately 1.5 Type 2 diabetes Insulin sliding scale, Lantus Hemoglobin A1c 11.3 VTE prophylaxis Heparin subQ Discharge planning Home LUDWIG Valdez 05/07/2025 9:36 PM [facility] 7AM-7PM & 7PM-7AM: EpicChat or page through On-Call Finder. LUDWIG Valdez 05/07/25 2141 Attending Addendum: I Dr Mitesh Montoya, personally performed a face to face diagnostic evaluation on this patient. I have reviewed the note authored by the advance practice provider including history, review of systems, physical examination, medical decision making and agree with the assessment and plan as written. I have seen and evaluated the patient,I have repeated the laughlin portions of the physical exam and concur with the LEBRON findings.I have reviewed all laboratory findings and imaging reprts/films.I agree with the plan as noted. documented in this encounter Consult Notes * Ritesh Simpson MD - 05/07/2025 4:33 PM EDTAssociated Order(s): IP CONSULT TO CARDIOLOGY Images from the original note were not included. [facility] [address] [place] [address] CONSULT Date of Admission: 05/07/2025 Date of Consultation: 05/07/2025 PCP: SHEYLA OSHEA MD Chief Complaint: History of Present Illness: Keshawn Arndt is a 60 y.o. male history of CAD SP recent CABG discharge 04/17/2025 With DHILLON to LAD, vein graft to diagonal, vein graft to 1st obtuse marginal vein graft to PDA, chronic HFrEF just discovered recently before CABG, acute renal insufficiency post CABG, diabetes mellitus and hypertension. Patient was ischemic cardiomyopathy EF in the 35-40% range Patient was seen in the office on 04/27/25 was doing well. Since then has developed progressive shortness of breath, PND, orthopnea and lower extremity edema. No chest pain no chest pressure. Patient was transferred here from [place] and has been started on a Lasix drip. He is having good diuresis he starting to feel less short of breath now The patient's original presentation was acute systolic heart failure which led to cardiac catheterization and the CABG BNP is 1709 PMH: Past Medical History: Diagnosis Date Arrhythmia CHF (congestive heart failure) ([facility]) Chronic kidney disease Coronary artery disease Dental disease Diabetes mellitus type 2, controlled ([facility]) RANDOLPH (dyspnea on exertion) HL (hearing loss) Hyperlipidemia Hypertension Visual impairment PSH: has a past surgical history that includes Multiple tooth extractions and Coronary artery bypass graft (N/A, 04/11/2025). Allergies: No Known Allergies Home Meds: Prior to Admission medications Medication Sig Start Date End Date Taking? Authorizing Provider acetaminophen (TYLENOL EXTRA STRENGTH) 500 mg tablet Take 2 tablets (1,000 mg total) by mouth every6 (six) hours as needed for pain. 04/16/25 LUDWIG Sky albuterol (PROVENTIL HFA;VENTOLIN HFA) 90 mcg/actuation inhaler Inhale 2 puffs every 6 (six) hours as needed for wheezing or shortness of breath. 03/09/25 Not In System Ref Prov aspirin 81 mg Take 1 tablet (81 mg total) by mouth in the morning for 30 days. 04/17/25 05/17/25 LUDWIG Sky atorvastatin (LIPITOR) 80 mg tablet Take 1 tablet (80 mg total) by mouth nightly. 04/27/25 Aliza De La Cruz MD carvediloL (COREG) 12.5 mg tablet Take 1 tablet (12.5 mg total) by mouth in the morning and 1 tablet (12.5 mg total) before bedtime. 04/27/25 Aliza De La Cruz MD clopidogreL (PLAVIX) 75 mg tablet Take 1 tablet (75 mg total) by mouth in the morning. 04/27/25 Aliza De La Cruz MD furosemide (LASIX) 40 mg tablet Take 1 tablet (40 mg total) by mouth 2 (two) times a day before meals. 04/16/25 LUDWIG Segura insulin glargine (LANTUS, SEMGLEE) 100 unit/mL (3 mL) insulin pen Inject 15 Units under the skin inthe morning. 04/17/25 LUDWIG Sky insulin lispro (HumaLOG) 100 unit/mL insulin pen Inject 1-8 Units under the skin 4 (four) times a day with meals and nightly. 04/16/25 LUDWIG Sky insulin lispro (HumaLOG) 100 unit/mL insulin pen Inject 2-10 Units under the skin in the morning and 2-10 Units at noon and 2-10 Units in the evening. Inject with meals. 04/16/25 LUDWIG Sky insulin lispro (HumaLOG) 100 unit/mL insulin pen Inject 2-8 Units under the skin nightly. 04/16/25 LUDWIG Syk pen needle,diabetic dual safty (BD AUTOSHIELD DUO PEN NEEDLE) 30 gauge x 3/16 needle 1 applicator by miscellaneous route 4 (four) times daily after meals and at bedtime for 30 days. 04/16/25 05/16/25 LUDWIG Sky tamsulosin (FLOMAX) 0.4 mg capsule Take 1 capsule (0.4 mg total) by mouth nightly for 30 days. 04/16/25 05/16/25 LUDWIG Sky [facility] Meds: Current Facility-Administered Medications Medication Dose Route Frequency Provider Last Rate Last Admin acetaminophen (TYLENOL) tablet 650 mg 650 mg oral Q4H PRN LUDWIG Valdez albumin human 25 % IVPB Premix 25 g 25 g intravenous Q6H Madelaine Ferrer MD 25 g at 05/07/25 1524 alum-mag hydroxide-simeth (MAALOX) 200-200-20 mg/5 mL suspension 30 mL 30 mL oral [facility]SP LUDWIG Valdez aspirin EC tablet 81 mg 81 mg oral Daily LUDWIG Valdez atorvastatin (LIPITOR) tablet 80 mg 80 mg oral Nightly LUDWIG Valdez clopidogreL (PLAVIX) tablet 75 mg 75 mg oral Daily LUDWIG Valdez dextrose (GLUTOSE) 40 % gel 15 g 15 g oral PRN LUDWIG Valdez dextrose 5 % (D5W) infusion 100 mL/hr intravenous Continuous PRN LUDWIG Valdez dextrose 50 % in water (D50W) 50% solution 25 mL 25 mL intravenous PRN LUDWIG Valdez furosemide (LASIX) infusion 500 mg/50 mL (10 mg/mL premix cmpd) 20 mg/hr intravenous Continuous Madelaine Ferrer MD 2 mL/hr at 05/07/25 1624 20 mg/hr at 05/07/25 1624 glucagon HCL injection 1 mg 1 mg intramuscular PRN Siobhan Fu APRN-CHRISTIAN heparin (porcine) injection 5,000 Units 5,000 Units subcutaneous Q8H [facility] Siobhan Fu APRN-CHARTER COORDINATOR 5,000 Units at 05/07/25 1526 insulin glargine (LANTUS, SEMGLEE) injection pen 15 Units 15 Units subcutaneous Daily Siobhan Fu APRN-CHRISTIAN insulin lispro (HumaLOG) injection 2-10 Units 2-10 Units subcutaneous TID with meals Siobhan Fu APRN-CHRISTIAN insulin lispro (HumaLOG) injection 2-8 Units 2-8 Units subcutaneous Nightly LUDWIG Valdez magnesium sulfate IVPB 2000 mg/50 mL in iso-osmotic water (40 mg/mL premix) 2,000 mg intravenous PRN Siobhan Fu, CARE COORDINATION MANAGER-CHRISTIAN magnesium sulfate IVPB 4000 mg/100 mL in iso-osmotic water (40 mg/mL premix) 4,000 mg intravenous PRN Siobhan Fu, CARE COORDINATION MANAGER-CHARTER COORDINATOR ondansetron (PF) (ZOFRAN) injection 4 mg 4 mg intravenous Q6H PRN Siobhan Fu APRN-CHARTER COORDINATOR pantoprazole (PROTONIX) EC tablet 40 mg 40 mg oral QAM AC Siobhan Fu APRN-CHARTER COORDINATOR potassium chloride (K-TAB,KLOR-CON) CR tablet 30-50 mEq 30-50 mEq oral PRN Siobhan Fu APRN-CHARTER COORDINATOR Or potassium chloride (KAYCIEL) 20 mEq/15 mL solution 30-50 mEq 30-50 mEq oral PRN Siobhan Fu, CARE COORDINATION MANAGER-CHARTER COORDINATOR Or potassium chloride IVPB 10 mEq/100 mL in water (0.1 mEq/mL premix) 10 mEq intravenous PRN Siobhan Fu, CARE COORDINATION MANAGER-CHARTER COORDINATOR sennosides-docusate sodium (SENOKOT-S) 8.6-50 mg 1 tablet 1 tablet oral Q12H PRN Siobhan Fu APRN-CHARTER COORDINATOR sodium chloride 0.9 % flush 3 mL 3 mL intravenous PRN Siobhan Fu APRN-CHARTER COORDINATOR sodium chloride 0.9 % flush 3 mL 3 mL intravenous Q12H [facility] Siobhan Tank, CARE COORDINATION MANAGER-CHARTER COORDINATOR sodium chloride 0.9 % flush bag 25 mL intravenous PRN Siobhan Fu, CARE COORDINATION MANAGER-CHARTER COORDINATOR sodium chloride 0.9 % infusion 20 mL/hr intravenous Continuous PRN Siobhan Fu CARE COORDINATION MANAGER-CHARTER COORDINATOR spironolactone (ALDACTONE) tablet 25 mg 25 mg oral Daily Madelaine Ferrer MD tamsulosin (FLOMAX) 24 hr capsule 0.4 mg 0.4 mg oral Nightly Siobhan Fu APRN-CHRISTIAN Social History: Social History Socioeconomic History Marital status: Single [...] on file Food Insecurity: No Food Insecurity (05/07/2025) Hunger Screening Food Insecurity - Worry: Never True Food Insecurity - Inability: Never True Transportation Needs: No Transportation Needs (05/07/2025) PRAPARE - Transportation Lack of Transportation (Medical): No Lack of Transportation (Non-Medical): No Physical Activity: Not on file Stress: Not on file Social Connections: Not on file Interpersonal Safety: Not At Risk (05/07/2025) Humiliation, Afraid, Rape, and Kick questionnaire Fear of Current or Ex-Partner: No Emotionally Abused: No Physically Abused: No Sexually Abused: No Housing Instability: Low Risk (05/07/2025) Housing Instability Housing Instability: No Family History: No family history on file. Review of Systems: Constitutional: No Fevers/Chills, No recent weight gain weight loss, No fatigue. Eyes: No visual changes or diplopia. ENT: No Headaches, hearing loss or vertigo. Cardiovascular: Per HPI Respiratory: No cough or wheezing, no sputum production. No hematemesis. Gastrointestinal: No Nausea, Vomiting, Diarrhea, or Constipation Genitourinary: No dysuria,hematuria. Musculoskeletal: No gait disturbance, weakness or joint complaints. Integumentary: No rash or pruritis. Neurological: No headache, No Hx CVA/TIA Psychiatric: No anxiety, or depression. Endocrine: No temperature intolerance. Hematologic/Lymphatic: No abnormal bruising or bleeding Physical Exam Vital Signs: BP 136/61 Pulse 86 Temp 36.8 ??C (98.2 ??F) (Oral) Resp 18 Ht 165.1 cm (5' 5 ) Wt 73.6 kg (162 lb 4.1 oz) SpO2 94% BMI 27.00 kg/m?? Admission Weight: 73.6 kg (162 lb 4.1 oz) General appearance: Alert oriented and cooperative. In no acute distress Skin: Warm and Dry to touch Head: Normocephalic, without obvious abnormality, atraumatic Eyes: Conjunctivae unremarkable, EOM's intact. Neck: No JVD, No carotid bruit. Neck supple, trachea midline Respiratory: Clear to ausculation bilaterally, no use of accessory muscles. Cardiovascular: RRR with Normal S1 and S2 with no murmurs Gastrointestinal: Soft, non-tender. Bowel sounds normal. Musculoskeletal: Positive lower extremity edema Neurologic: Oriented to time, person and place, affect appropriate. No focal/major motor defects noted. Psychiatric: Appropriate mood, memory and judgment CV HISTORY: ECHO: Intra-operative transesophageal echocardiogram Result Date: [...] the phone number beside their name. CXR: @CXR24@ Labs: CBC: Lab Results Component Value Date WBC 5.3 05/07/2025 HGB 8.7 (L) 05/07/2025 HCT 25.7 (L) 05/07/2025 MCV 92 05/07/2025 RDW 14.5 05/07/2025 PLT 261 05/07/2025 BMP: Lab Results Component Value Date K 3.9 05/07/2025 K 4.8 04/11/2025 CL 107 05/07/2025 CO2 25 05/07/2025 BUN 25 05/07/2025 CREATININE 1.44 (H) 05/07/2025 EGFR 55 (L) 05/07/2025 GLU 157 (H) 05/07/2025 GLU 167 (H) 04/16/2025 MG/PHOS: Lab Results Component Value Date MG 2.5 05/07/2025 PT/INR: Lab Results Component Value Date INR 1.1 04/12/2025 PTT: No results found for: APTT BNP: Lab Results Component Value Date BNP 1,709 (H) 05/07/2025 Last 3 Troponin: No components found for: TROPONINI;3 Lipid Panel: Lab Results Component Value Date CHOL 178 04/09/2025 TRIG 111 04/09/2025 HDL 57 04/09/2025 Plan: 1. Acute on chronic HFrEF -Lasix drip 20 mg/hr -seems to be responding -recently had carvedilol started 12.5 b.i.d. -depending on renal function, will likely need to be started on an SGLT2, and Entresto and considerafter that Aldactone 2. Ischemic cardiomyopathy -EF 35-40% -recommend repeat echo 3. CAD SP CABG -04/12/2025 -DHILLON to LAD, vein graft to diagonal, vein graft to OM1, vein graft to PDA 4. Diabetes mellitus -recently diagnosed 5. Essential hypertension 6. Dyslipidemia -on atorvastatin and Zetia * Madelaine Ferrer MD - 05/07/2025 2:54 PM EDT Images from the original note were not included. NEPHROLOGY CONSULT NOTE Date of Admission: 05/07/2025 2:11 PM Reason for Consult: Diuresis Referring Physician: Russell Hylton PCP: SHEYLA OSHEA MD History of Present Illness: Keshawn Arndt is a 60 y.o. male with a history of hypertension, dyslipidemia, diabetes mellitus type 2, coronary artery disease status post coronary artery bypass graft for 4 vessels, chronic renal failure stage 3 a was discharged to 3 weeks ago after being admitted with fluid overload, he returned back to the hospital with fluid overload, shortness of breath andlower extremity edema Review of Systems: Constitutional: No fevers chills or night sweats no weight loss Eyes: No scleral icterus no conjunctiva pallor is no visual changes no blurry vision Ears, nose, mouth, throat, and face: No ear pain no mucositis no sore throat Respiratory: No shortness of breath no hemoptysis, no cough, no wheezing Cardiovascular: No chest pain, no palpitations Gastrointestinal: No nausea or vomiting no abdominal pain, no abdominal cramping, normal bowel movements, no diarrhea or constipation Integument/breast: No rashes, and no suspicious lesions or ecchymosis Hematologic/lymphatic: No easy bruising or bleeding, and noted no enlarged lymph nodes Neurological: No headaches, no gait imbalance, no cognitive changes, no focal motor weakness Behavioral/Psych: No significant anxiety or depression no hallucinations : No hematuria, no urinary frequency or urgency, no lower extremity edema PMH & PSH Acute kidney injury on chronic kidney disease : Baseline creatinine is around 1.2-1.3 mg/dL.. Renalultrasound from 04/13/2025 showed no evidence of hydronephrosis there was right-sided pleural effusion right kidney size was 9 cm left kidney size was 9.9 cm. Saxe-zaazpy-sghizlwf DNA is negative. Rheumatoid factor is normal. RAMBO is negative. C3 and C4 were normal. Hepatitis panel is negative. Ancais negative. Serum free light chain ratio was 1.57. Glomerular basement membrane antibody is negative. SPEP showed no evidence of monoclonal bands. Multivessel coronary artery disease status post CABG x4 on 04/11/2025 Acute systolic congestive heart failure decompensation Ischemic cardiomyopathy. LV ejection fraction 35-40% with [id number] MR mild pulmonary hypertension on outside echo Hypertension Hyperlipidemia Type 2 diabetes mellitus. Visual in permanent. Former smoker Social History: Social History Socioeconomic History Marital status: Single [...] on file Food Insecurity: No Food Insecurity (05/07/2025) Hunger Screening Food Insecurity - Worry: Never True Food Insecurity - Inability: Never True Transportation Needs: No Transportation Needs (05/07/2025) PRAPARE - Transportation Lack of Transportation (Medical): No Lack of Transportation (Non-Medical): No Physical Activity: Not on file Stress: Not on file Social Connections: Not on file Interpersonal Safety: Not At Risk (05/07/2025) Humiliation, Afraid, Rape, and Kick questionnaire Fear of Current or Ex-Partner: No Emotionally Abused: No Physically Abused: No Sexually Abused: No Housing Instability: Low Risk (05/07/2025) Housing Instability Housing Instability: No Family History: No family history on file. Allergies: No Known Allergies Home Meds: Medications Prior to Admission Medication Sig Dispense Refill Last Dose/Taking acetaminophen (TYLENOL EXTRA STRENGTH) 500 mg tablet [...] morning for 30 days. 30 tablet 0 atorvastatin (LIPITOR) 80 mg tablet Take [...] mouth in the morning. 30 tablet 11 furosemide (LASIX) 40 mg tablet Take 1 [...] under the skin nightly. 15 mL 12 pen needle,diabetic dual safty (BD AUTOSHIELD DUO PEN NEEDLE) 30 gauge x 3/16 needle 1 applicator by miscellaneous route 4 (four) times daily after meals and at bedtime for 30 days. 100 each 4 tamsulosin (FLOMAX) 0.4 mg capsule Take 1 capsule (0.4 mg total) by mouth nightly for 30 days. 30 capsule 0 Inpatient Meds: Inpatient Infusion Meds: No current facility-administered medications for this encounter. Physical Exam: Admission Weight: Weight: 73.6 kg (162 lb 4.1 oz) Vitals: Vitals: 05/07/25 1415 05/07/25 1416 BP: 136/61 Pulse: 87 86 Resp: 20 18 Temp: 36.8 ??C (98.2 ??F) TempSrc: Oral SpO2: 92% 94% Weight: 73.6 kg (162 lb 4.1 oz) Height: 165.1 cm (5' 5 ) INTAKE/OUTPUT: No intake or output data in the 24 hours ending 05/07/25 1455 General appearance: alert in no acute distress. Head: Normocephalic, without obvious abnormality, atraumatic Eyes: Conjunctivae unremarkable, pupils reactive Neck: No JVD, no carotid bruit, neck supple, trachea midline cardiovascular: normal S1-S2, No gallops. Respiratory: clear to auscultation B/L, Gastrointestinal: no tenderness, no guarding, no hepatosplenomegaly could be appreciated. Muscloskeletal: ++LE edema, no active arthritis, normal range of movement Neurology: Moves all extremities, alert oriented Skin: no rash, no petechia Psychiatric, no anxiety, no suicidal ideas Lymphatic: no lymphadenopathy, no lymphedema Labs: Lab Results Component Value Date CALCIUM 7.9 (L) 04/19/2025 Lab Results Component Value Date IRON 14 (L) 04/13/2025 TIBC 167 (L) 04/13/2025 FERRITIN 438 (H) 04/13/2025 Impression: Acute on chronic systolic congestive heart failure with left ventricular ejection fraction of 35-40% Chronic renal failure stage IIIB Recommendations: Start Lasix drip 20 mg per hour Start spironolactone 25 mg daily Follow renal chemistry MADELAINE FERRER MD [facility] ANY QUESTIONS FEEL FREE TO CALL: 1. OFFICE [phone] 2. ANSWERING SERVICE:[phone] YOU CAN CONTACT ME THROUGH [employer] DURING THE DAYTIME HOURS, IF NO RESPONSE AFTER 5 MINUTES CALL THE ANSWERING SERVICE This note was created with the assistance of a speech-recognition program. Although the intention is to generate a document that actually reflects the content of the visit, no guarantees can be provided that every mistake has been identified and corrected by editing. documented in this encounter Nursing Notes * Veronica Quinn RN - 05/08/2025 6:12 AM EDT Pt presents with intact sutures on his abdomen that appear to be from the removal of his pacer wires s/p CABG. Pt requests that cardiology/cardiothoracic surgery assess them for removal as his CABG was performed on 04/11/2025 documented in this encounter Miscellaneous Notes * Plan of Care - Veronica Quinn RN - 05/09/2025 6:29 AM EDT Problem: Pain Goal: Patient goal is pain score less than 4, able to rest, and participant in treatment plan as appropriate Description: INTERVENTIONS: 1. Encourage patient or legal civil rights representative to report early pain and ask for pain medicine when needed 2. Assess pain using appropriate pain scale and include the scale used when documenting 3. Administer analgesics based on type and severity of pain and evaluate response within appropriate time frame 4. Implement non-pharmacological measures as appropriate and evaluate response 5. Consider cultural and social influences on pain and pain management 6. Notify LIP if interventions ineffective or patient reports new pain 7. Monitor vital signs including pulse ox, end-tidal CO2 based on pain intervention 8. Reassess pain per policy 9. Teach patient or legal civil rights representative interventions for comforting Outcome: Progressing Note: Evaluation of progress towards goal: Pt denies the presence of pain this shift. Pt is able toappropriately advocate for his pain control needs as necessary. Problem: Safety Goal: Patient will be injury free during hospitalization Description: INTERVENTIONS: 1. Assess patient's risk for falls and implement fall prevention plan of care per policy 2. Provide and maintain a safe environment 3. Proper use of double Identifiers 4. Medication administration using the 5 rights 5. Hand hygiene 6. Specimens are labeled at the bedside 7. Instruct patient/ patient civil rights representative about use of safety devices 8. Include patient/ patient civil rights representative in decisions related to safety Outcome: Progressing Note: Evaluation of progress towards goal: Pt remains free from falls this shift. Hourly rounding has been performed to both anticipate and address needs as well as reduce safety concerns. Problem: Knowledge Deficit Goal: Patient/patient civil rights representative demonstrates understanding of disease process, treatment plan,medications, and discharge instructions Description: INTERVENTIONS 1. Complete learning assessment and assess knowledge base 2. Provide teaching at level of understanding 3. Provide teaching via preferred learning method(s) Outcome: Progressing Note: Evaluation of progress towards goal: Pt has been educated on POC as well as all administered inpatient medications. Immediate questions have been answered and voiced concerns have been addressed. Problem: Excessive Fluid Volume Goal: Fluid and electrolyte balance are achieved/maintained Description: INTERVENTIONS 1. Monitor vitals signs oxygen saturation, respiratory status to include rate, depth, effort, and lung sounds, ) urine color, labs, edema, jugular venous distention, and mental status 2. Monitor patient's weight 3. Monitor intake and output 4. Elevate head of bed 30 degrees 5. Turn patient 6. Monitor low sodium and fluid restriction diet per physician order 7. Collaborate with interdisciplinary team and initiate plan and interventions as ordered Outcome: Progressing Note: Evaluation of progress towards goal: Pt continues to receive IV Lasix at 2ml/hour. He has participated in daily weights and a 1500ml fluid restriction and has lost 7.7lbs overnight. Pt continues to present with edema of his BLE and scrotum. Problem: Inadequate Gas Exchange Goal: Patient is adequately oxygenated and ventilation is improved Description: Patient's goal is: INTERVENTIONS 1. Monitor vital signs, oxygen saturation, respiratory status to include rate, depth, effort, lung sounds, mental status, cyanosis, and labs (ABGs) 2. Administer oxygen as indicated 3. Position patient to optimize gas exchange 4. Instruct patient to turn, cough, and deep breathe; encourage incentive spirometer if indicated 5. Collaborate with Respiratory Therapy for inhaled medication and therapeutic adjuncts 6. Assess skin when indicated 7. Coordinate care and interventions to conserve energy 8. Educate and offer resources for tobacco cessation, if indicated Outcome: Progressing Note: Evaluation of progress towards goal: Pt has denied the presence of SOB and remains on room air. * Plan of Care - Mercedes Landeros RN - 05/08/2025 9:47 AM EDT Problem: Pain Goal: Patient goal is pain score less than 4, able to rest, and participant in treatment plan as appropriate Description: INTERVENTIONS: 1. Encourage patient or legal civil rights representative to report early pain and ask for pain medicine when needed 2. Assess pain using appropriate pain scale and include the scale used when documenting 3. Administer analgesics based on type and severity of pain and evaluate response within appropriate time frame 4. Implement non-pharmacological measures as appropriate and evaluate response 5. Consider cultural and social influences on pain and pain management 6. Notify LIP if interventions ineffective or patient reports new pain 7. Monitor vital signs including pulse ox, end-tidal CO2 based on pain intervention 8. Reassess pain per policy 9. Teach patient or legal civil rights representative interventions for comforting Outcome: Progressing Note: Evaluation of progress towards goal: Patient currently denies pain. Patient encouraged to communicate with staff if pain occurs. Will continue to monitor for changes. Problem: Safety Goal: Patient will be injury free during hospitalization Description: INTERVENTIONS: 1. Assess patient's risk for falls and implement fall prevention plan of care per policy 2. Provide and maintain a safe environment 3. Proper use of double Identifiers 4. Medication administration using the 5 rights 5. Hand hygiene 6. Specimens are labeled at the bedside 7. Instruct patient/ patient civil rights representative about use of safety devices 8. Include patient/ patient civil rights representative in decisions related to safety Outcome: Progressing Note: Evaluation of progress towards goal: Patient remains injury free through hospital stay at this time. Fall risk precautions in place as appropriate for patient. Will continue to monitor. Problem: Infection Goal: Absence of infection during hospitalization Description: INTERVENTIONS 1. Assess and monitor for signs and symptoms of infection. 2. Monitor lab/diagnostic results. 3. Monitor all insertion sites i.e., indwelling lines, tubes and drains. 4. Monitor endotracheal (as able) and nasal secretions for changes in amount and color. 5. Administer medications as ordered. 6. Instruct and encourage patient and family to use good hand hygiene technique. 7. Identify and instruct patient/patient civil rights representative in use of appropriate isolation precautionsfor identified infection/symptoms. 8. Provide and discuss with patient/patient civil rights representative on educational MDRO sheet. 9. Encourage and monitor nutritional status daily and consult chief engineer production if indicated. 10. Implement neutropenic guidelines as needed. Outcome: Progressing Note: Evaluation of progress towards goal: Labs and vitals monitored as ordered. Medications administered as ordered. Patient remains free from infection at this time. Problem: Knowledge Deficit Goal: Patient/patient civil rights representative demonstrates understanding of disease process, treatment plan,medications, and discharge instructions Description: INTERVENTIONS 1. Complete learning assessment and assess knowledge base 2. Provide teaching at level of understanding 3. Provide teaching via preferred learning method(s) Outcome: Progressing Note: Evaluation of progress towards goal: Care plan discussed & goals for shift set with patient input appreciated. All questions answered. Problem: Discharge Planning Goal: Discharge to post-acute care, other facility, or home with appropriate resources Description: Patient's goal is: INTERVENTIONS 1. Conduct assessment to determine patient/family and health care team treatment goals, and need for post-acute services based on payer coverage, community resources, and patient preferences, and barriers to discharge 2. Coordinate with Social work, Care Navigation, and Utilization Review to arrange appropriate level of services according to patient's needs based on patient preference and payer coverage in collaboration with the physician and health care team 3. Address psychosocial, clinical, and financial barriers to discharge as identified in assessment in conjunction with the patient/family and health care team 4. Consult appropriate ancillary services (i.e.. PT/OT/ST, etc) as needed 5. Communicate with and update the patient/family, physician, and health care team regarding progress on the discharge plan 6. Identify discharge learning needs (meds, wound care, etc). 7. Arrange for needed discharge transportation as appropriate Outcome: Progressing Note: Evaluation of progress towards goal: Discharge planning in progress with appropriate multidisciplinary teams. Problem: Hemodynamic Status Goal: Maintains optimal cardiac output and hemodynamic stability Description: Patient's goal is: INTERVENTIONS 1. Assess and monitor patient's heart rate, rhythm, respiratory rate, peripheral pulses, capillary refill, color, body temperature, intake and output 2. Monitor labs and diagnostic testing 3. Observe for signs of chest pain (note location, duration, severity, radiation and associated symptoms such as diaphoresis, nausea, indigestion) 4. Monitor for signs and symptoms of heart failure (i.e. shortness of breath, edema of feet/ankles/legs, rapid irregular heart rate, coughing, wheezing, white/pink blood tinged sputum, sudden weight gain, chest pain) 5. Plan activities to conserve energy 6. Monitor for signs and symptoms of bleeding Outcome: Progressing Note: Evaluation of progress towards goal: maintains optimal cardiac output Problem: Excessive Fluid Volume Goal: Fluid and electrolyte balance are achieved/maintained Description: INTERVENTIONS 1. Monitor vitals signs oxygen saturation, respiratory status to include rate, depth, effort, and lung sounds, ) urine color, labs, edema, jugular venous distention, and mental status 2. Monitor patient's weight 3. Monitor intake and output 4. Elevate head of bed 30 degrees 5. Turn patient 6. Monitor low sodium and fluid restriction diet per physician order 7. Collaborate with interdisciplinary team and initiate plan and interventions as ordered Outcome: Progressing Note: Evaluation of progress towards goal: electrolytes replaced per protocol Problem: Inadequate Gas Exchange Goal: Patient is adequately oxygenated and ventilation is improved Description: Patient's goal is: INTERVENTIONS 1. Monitor vital signs, oxygen saturation, respiratory status to include rate, depth, effort, lung sounds, mental status, cyanosis, and labs (ABGs) 2. Administer oxygen as indicated 3. Position patient to optimize gas exchange 4. Instruct patient to turn, cough, and deep breathe; encourage incentive spirometer if indicated 5. Collaborate with Respiratory Therapy for inhaled medication and therapeutic adjuncts 6. Assess skin when indicated 7. Coordinate care and interventions to conserve energy 8. Educate and offer resources for tobacco cessation, if indicated Outcome: Progressing Note: Evaluation of progress towards goal: on room air * Plan of Care - Veronica Quinn RN - 05/08/2025 5:04 AM EDT Problem: Pain Goal: Patient goal is pain score less than 4, able to rest, and participant in treatment plan as appropriate Description: INTERVENTIONS: 1. Encourage patient or legal civil rights representative to report early pain and ask for pain medicine when needed 2. Assess pain using appropriate pain scale and include the scale used when documenting 3. Administer analgesics based on type and severity of pain and evaluate response within appropriate time frame 4. Implement non-pharmacological measures as appropriate and evaluate response 5. Consider cultural and social influences on pain and pain management 6. Notify LIP if interventions ineffective or patient reports new pain 7. Monitor vital signs including pulse ox, end-tidal CO2 based on pain intervention 8. Reassess pain per policy 9. Teach patient or legal civil rights representative interventions for comforting Outcome: Progressing Note: Evaluation of progress towards goal: Pt denies the presence of pain this shift. Pt is able toappropriately advocate for his pain control needs as necessary. Problem: Safety Goal: Patient will be injury free during hospitalization Description: INTERVENTIONS: 1. Assess patient's risk for falls and implement fall prevention plan of care per policy 2. Provide and maintain a safe environment 3. Proper use of double Identifiers 4. Medication administration using the 5 rights 5. Hand hygiene 6. Specimens are labeled at the bedside 7. Instruct patient/ patient civil rights representative about use of safety devices 8. Include patient/ patient civil rights representative in decisions related to safety Outcome: Progressing Note: Evaluation of progress towards goal: Pt remains free from falls this shift. Hourly rounding has been performed to both anticipate and address needs as well as reduce safety concerns. Problem: Knowledge Deficit Goal: Patient/patient civil rights representative demonstrates understanding of disease process, treatment plan,medications, and discharge instructions Description: INTERVENTIONS 1. Complete learning assessment and assess knowledge base 2. Provide teaching at level of understanding 3. Provide teaching via preferred learning method(s) Outcome: Progressing Note: Evaluation of progress towards goal: Pt has been educated on POC as well as all administered inpatient medications. Immediate questions have been answered and voiced concerns have been addressed. Problem: Excessive Fluid Volume Goal: Fluid and electrolyte balance are achieved/maintained Description: INTERVENTIONS 1. Monitor vitals signs oxygen saturation, respiratory status to include rate, depth, effort, and lung sounds, ) urine color, labs, edema, jugular venous distention, and mental status 2. Monitor patient's weight 3. Monitor intake and output 4. Elevate head of bed 30 degrees 5. Turn patient 6. Monitor low sodium and fluid restriction diet per physician order 7. Collaborate with interdisciplinary team and initiate plan and interventions as ordered Outcome: Progressing Note: Evaluation of progress towards goal: Pt remains on a lasix drip, and he has had over 5000ml of fluid output the last 24 hours. Additionally, the patient has lost 2.5kg of body weight the last 24 hours. Problem: Genitourinary - Adult Goal: Urinary catheter remains patent Description: INTERVENTIONS: 1. Assess patency of urinary catheter. 2. Irrigate catheter per LIP order if indicated and notify LIP if unable to irrigate. Outcome: Progressing Note: Evaluation of progress towards goal: Pt continues to utilize li catheter for acute urinaryretention. Pt is compliant with twice daily cleaning of his li. * Plan of Care - Veronica Brown RN - 05/07/2025 2:55 PM EDT Problem: Moderate - High Risk Fall Score Description: Rowley Fall Score of =/> 25 or indicated by [facility] Assessment Goal: Patient should be free from fall Description: Interventions: 1. [place] to environment 2. Hourly rounds addressing the 4 P's (Pain, Positioning, Possessions, Potty) 3. Clear area of hazards (spills, clutter, electrical cords, unnecessary equipment) 4. Place equipment (bed & TV controls, call light, phone, urinal) within reach 5. Encourage patient to wear glasses and hearing aides as appropriate 6. Maintain bed in lowest position 7. Lock wheels on bed/wheelchair 8. Provide adequate lighting, including night light 9. Assess need for additional bedding, food/fluids, pain med's prior to sleep/routinely 10. Provide gripper slippers or personal non-skid footwear 11. Teach patient and patient civil rights representative to maintain environment for safety and engage in all aspects of fall prevention program 12. Remind patient to call for help before getting out of bed 13. Initiate bed/chair/exit alarms supportive devices as appropriate, (chair wedge, no-skid floor mat, raised edge mattress, hip protectors) 14. Locate patient bed assignment for optimal visualization 15. Evaluate and identify Safe Patient Handling Equipment needs 16. Provide supervision when out of bed or chair 17. Utilize gait belt as needed to assist with ambulation 18. Place adaptive equipment (cane, walker) within reach 19. Request patient civil rights representative bring adaptive equipment/mobility aids from home or obtain and provide as needed 20. Consult pharmacy regarding effects of med's affecting mobility, cognition, and alternatives 21. Obtain physician order for PT if risk factors associated with mobility are present 22. Obtain physician order for OT as appropriate 23. Utilize diversional activities 24. Educate patient and patient civil rights representative how to maintain a safe environment during visitationtimes (notify nurse prior to leaving bedside) 25. Consider appropriateness of medical or non-medical sonographer 26. Set up voiding schedule as appropriate (every 2 hours) Outcome: Progressing Note: Evaluation of progress towards goal: Patient will be free from falls during shift. documented in this encounter Plan of Treatment Upcoming Encounters Date Type Department Care Team (Late st Contact Info) Description 05/12/2025 10:30 AM EDT Appointment [facility] - Cardiovascular [address] [place] [phone] Aliza De La Cruz MD [address] [place] [address] 06/27/2025 9:00 AM EDT Office Visit [facility] Cardiology [address] [place] [phone] Charlotte Alatorre, PAMinervaC [address] [place] [address] Pending Results Name Type Priority Associated Diagnoses Date /Time Urine Culture Urine, Indwelling Catheter Microbiology Routine 05/08/2025 6 :38 PM EDT GI Panel(stool pathogen panel) Lab Routine 05/09/2025 6:07 AM EDT Scheduled Orders Name Type Priority Associated Diagnoses Order Schedule Oxygen Therapy - Maintain SpO2: 90%; *SERVICE TECH Guidelines for O2: Yes; Document: \[email or web address]\ epic\[email or web address]_Reference\O rders\Respiratory Care Guidelines\CPG Oxygen 2022.pdf Respiratory Care Routine As Needed until discontinued starting 05/07/2025 Comprehensive metabolic panel Lab Routine Lab max of 3 day s, Daily, for lab use only until discontinued starting 05/07/2025, 3 completed Magnesium Lab Routine Lab max of 3 d ays, Daily, for lab use only until discontinued starting 05/07/2025, 3 completed CBC auto differential Lab Routine Lab max of 3 days, Daily, for lab use only until discontinued starting 05/07/2025, 3 completed Bedside Glucose *Place/Obtain serum glucose if >500 per glucometer. Point of Care Testing Routine 4X Daily (AC and at bedtime) until discontinued starting 05/07/2025, 7 completed Electrolyte panel Lab Routine Lab max of 3 days, Every 6hr, lab use only for 3 Days starting 05/07/2025 until 05/10/2025, 5 completed Urine Culture Urine, Clean Catch Midstream Microbiology Routine Once for 1 Occurrences starting 05/08/2025 until 05/08/2025 GI Panel(stool pathogen panel) Lab Routine Once for 1 Occurrences starting 05/09/2025 until 05/09/2025 Potassium Lab Routine Once for 1 Occurrences starting 05/09/2025 until 05/09/2025 documented as of this encounter Goals Goal Patient Goal Type Associated Problems Recent Progress Patient-Stated? Author <enter goal here> General Yes Mariely Daniel, RN Note: Evaluation of progress towards goal: Patient plans for a safe discharge. documented as of this encounter Procedures * The patient is currently admitted. The information in this section might not be complete until the patient is discharged. Procedure Name Priority Date/Time Associated Diagnosis Comments BEDSIDE GLUCOSE Routine 05/09/2025 7:36 AM EDT C DIFFICILE BY PCR Routine 05/09/2025 6: 07 AM EDT CBC WITH AUTO DIFFERENTIAL Routine 05/09/2025 5:20 AM EDT MAGNESIUM Routine 05/09/2025 5:20 AM EDT COMPREHENSIVE METABOLIC PANEL Routine 05/09/2025 5:20 AM EDT ELECTROLYTE PANEL Routine 05/09/2025 12: 07 AM EDT BEDSIDE GLUCOSE Routine 05/08/2025 9:16 PM EDT ER EXTRA URINE Routine 05/08/2025 6:38 PM EDT URINALYSIS Routine 05/08/2025 6:38 PM EDT ELECTROLYTE PANEL Routine 05/08/2025 6:2 1 PM EDT BEDSIDE GLUCOSE Routine 05/08/2025 5:05 PM EDT ECHO LIMITED WITH CONTRAST Routine 05/08/2025 1:24 PM EDT ELECTROLYTE PANEL Routine 05/08/2025 12: 09 PM EDT BEDSIDE GLUCOSE Routine 05/08/2025 11:23 AM EDT BEDSIDE GLUCOSE Routine 05/08/2025 7:55 AM EDT CBC WITH AUTO DIFFERENTIAL Routine 05/08/2025 6:57 AM EDT IRON AND TIBC Add-On 05/08/2025 6:57 AM EDT MAGNESIUM Routine 05/08/2025 6:57 AM EDT FOLATE Add-On 05/08/2025 6:57 AM EDT FERRITIN Add-On 05/08/2025 6:57 AM EDT VITAMIN B12 Add-On 05/08/2025 6:57 AM EDT COMPREHENSIVE METABOLIC PANEL Routine 05/08/2025 6:57 AM EDT ELECTROLYTE PANEL Routine 05/08/2025 12: 50 AM EDT BEDSIDE GLUCOSE Routine 05/07/2025 8:34 PM EDT ELECTROLYTE PANEL Routine 05/07/2025 6:3 5 PM EDT BEDSIDE GLUCOSE Routine 05/07/2025 4:42 PM EDT CBC WITH AUTO DIFFERENTIAL Routine 05/07/2025 3:04 PM EDT B-TYPE NATRIURETIC PEPTIDE Routine 05/07/2025 3:04 PM EDT MAGNESIUM Routine 05/07/2025 3:04 PM EDT COMPREHENSIVE METABOLIC PANEL Routine 05/07/2025 3:04 PM EDT PULSE OXIMETRY, SPOT Routine 05/07/2025 2:57 PM EDT documented in this encounter Results * (ABNORMAL) Bedside Glucose *Place/Obtain serum glucose if >500 per glucometer. (05/09/2025 7:36 AM EDT) Bedside Glucose (POC) 213(H) 65 - 99 mg/dL 05/09/2025 7:38 AM EDT [facility] arterial/capilla ry 05/09/2025 7:36 AM EDT 05/09/2025 7:38 AM EDT us Mitesh Montoya MD POINT OF CARE TEST ORDERABL ES Final Result [facility] [address] [place] [address], [place] * C difficile by PCR (05/09/2025 6:07 AM EDT) TOXIGENIC C DIFF Negative Negative 05/09/20 8:20 AM EDT [facility] [address]1 Presumptive Negative Presumptive Negative 05/09/2025 8:20 AM EDT [facility] Comment:Assay methodology is nucleic acid amplification by real-time PCR for detection of C. difficile toxin gene sequences performed on [employer] System. Stool Feces / Unknown 05/09/2025 6 :07 AM EDT 05/09/2025 6:15 AM EDT us Casey Ulloa CARE COORDINATION MANAGER-CHARTER COORDINATOR BODY FLUIDS AND STOOLS O RDERABLES Final Result [facility] [address] [place] [address], [place] [phone] * (ABNORMAL) CBC auto differential (05/09/2025 5:20 AM EDT) WBC 7.0 4 - 11 x10E9/L 05/09/2025 5:59 AM EDT [facility] RBC Count 2.72(L) 4.1 - 5.7 X10E12/L 05/09/2025 5:59 AM EDT [facility] Hemoglobin 8.4(L) 13 - 17 g/dL 05/09/2025 5:59 AM EDT [facility] Hematocrit 24.4(L) 39 - 50 % 05/09/2025 5:59 AM EDT [facility] MCV 90 80 - 100 fL 05/09/2025 5:59 AM EDT [facility] MCH 31.0 27 - 34 pg 05/09/2025 5:59 AM EDT [facility] MCHC 34.5 32 - 36 g/dL 05/09/2025 5:59 AM EDT [facility] RDW 14.4 11.5 - 15 % 05/09/2025 5:59 AM EDT [facility] Platelet Count 239 150 - 450 X10E9/L 05/09/2025 5:59 AM EDT [facility] MPV 7.7 7 - 12 fL 05/09/2025 5:59 AM EDT [facility] Neutrophils % 67.4 % 05/09/2025 5:59 AM EDT [facility] Lymphocytes % 15.8 % 05/09/2025 5:59 AM EDT [facility] Monocytes % 11.4 % 05/09/2025 5:59 AM EDT [facility] Eosinophils % 4.4 % 05/09/2025 5:59 AM EDT [facility] Basophils % 1.0 % 05/09/2025 5:59 AM EDT [facility] Neutrophils Absolute (A) 4.7 1.5 - 6.6 10*3/uL 05/09/2025 5:59 AM EDT [facility] Lymphocytes Absolute 1.1 1.0 - 3.5 10*3/uL 05/09/2025 5:59 AM EDT [facility] Monocytes Absolute 0.8 0.0 - 0.9 10*3/uL 05/09/2025 5:59 AM EDT [facility] Eosinophils Absolute 0.3 0.0 - 0.4 10*3/uL 05/09/2025 5:59 AM EDT [facility] Basophils Absolute 0.1 0.0 - 0.2 10*3/uL 05/09/2025 5:59 AM EDT [facility] Differential Type AUTOMATED DIFFERENTIAL 05/09/2025 5:59 AM EDT [facility] Blood Venous blood / Unknown Venipuncture / Unknown 05/09/2025 5:20 AM EDT 05/09/2025 5:20 AM EDT Siobhan Mcadamsden CARE COORDINATION MANAGER-CHARTER COORDINATOR LAB BLOOD ORDERABLES Valery l Result [facility] [address] [place] [address], [place] [phone] * Magnesium (05/09/2025 5:20 AM EDT) Pathologist [facility] MAGNESIUM 2.1 1.8 - 2.6 mg/dL 05/09/2025 6:19 AM EDT [facility] Blood Venous blood / Unknown Venipuncture / Unknown 05/09/2025 5:20 AM EDT 05/09/2025 5:20 AM EDT Siobhan Fu CARE COORDINATION MANAGER-[facility] LAB BLOOD ORDERABLES Valery l Result Performing Organization Address City/[facility]/ZIP Co de Phone Number [facility] [address] [place] [address], [place] [phone] * (ABNORMAL) Comprehensive metabolic panel (05/09/2025 5:20 AM EDT) [facility] SODIUM 142 134 - 146 mmol/L 05/09/2025 6:19 AM EDT [facility] POTASSIUM 3.6 3.5 - 5.0 mmol/L 05/09/2025 6:19 AM EDT [facility] CHLORIDE 102 98 - 109 mmol/L 05/09/2025 6:19 AM EDT [facility] CARBON DIOXIDE 31 22 - 32 mmol/L 05/09/2025 6:19 AM EDT [facility] ANION GAP 9 5 - 15 mmol/L 05/09/2025 6:19 AM EDT [facility] BLOOD UREA NITROGEN 36(H) 5 - 27 mg/dL 05/09/2025 6:19 AM EDT [facility] CREATININE 1.62(H) 0.60 - 1.30 mg/dL 05/09/2025 6:19 AM EDT [facility] Comment:METHOD TRACEABLE TO IDMS STANDARD GLUCOSE 160(H) 65 - 99 mg/dL 05/09/2025 6:19 AM EDT [facility] CALCIUM 8.0(L) 8.5 - 10.5 mg/dL 05/09/2025 6:19 AM EDT [facility] TOTAL PROTEIN 5.8(L) 6.0 - 8.0 g/dL 05/09/2025 6:19 AM EDT [facility] ALBUMIN 3.2 3.2 - 5.3 g/dL 05/09/2025 6:19 AM EDT [facility] ALKALINE PHOSPHATASE 99 39 - 130 U/L 05/09/2025 6:19 AM EDT [facility] AST 15 <=41 U/L 05/09/2025 6:19 AM EDT [facility] ALT 14 <=40 U/L 05/09/2025 6:19 AM EDT [facility] BILIRUBIN,TOTAL 0.4 0.3 - 1.2 mg/dL 05/09/2025 6:19 AM EDT [facility] EGFR Non-Race Dependent 48(L) >=60 ml/min/1.7 3sq.m 05/09/2025 6:19 AM EDT [facility] Comment: Reported eGFR is based on the CKD-EPI 2020 equation that does not use a race coefficient. Blood Venous blood / Unknown Venipuncture / Unknown 05/09/2025 5:20 AM EDT 05/09/2025 5:20 AM EDT us Siobhan Fu CARE COORDINATION MANAGER-CHARTER COORDINATOR LAB BLOOD ORDERABLES Valery sandro Result [facility] [address] [place] [address], * Electrolyte panel (05/09/2025 12:07 AM EDT) SODIUM 143 134 - 146 mmol/L 05/09/2025 1:15 AM EDT [facility] POTASSIUM 3.7 3.5 - 5.0 mmol/L 05/09/2025 1:15 AM EDT [facility] CHLORIDE 104 98 - 109 mmol/L 05/09/2025 1:15 AM EDT [facility] CARBON DIOXIDE 30 22 - 32 mmol/L 05/09/2025 1:15 AM EDT [facility] ANION GAP 9 5 - 15 mmol/L 05/09/2025 1:15 AM EDT [facility] Blood Venous blood / Unknown Venipuncture / Unknown 05/09/2025 12:07 AM EDT 05/09/2025 12:07 AM EDT us Madelaine Ferrer MD LAB BLOOD ORDERABLES Final Result [facility] [address] [place] [address], [place] [phone] * (ABNORMAL) Bedside Glucose *Place/Obtain serum glucose if >500 per glucometer. (05/08/2025 9:16 PM EDT) Bedside Glucose (POC) 230(H) 65 - 99 mg/dL 05/08/2025 9:21 PM EDT [facility] arterial/capilla ry 05/08/2025 9:16 PM EDT 05/08/2025 9:21 PM EDT us Mitesh Montoya MD POINT OF CARE TEST ORDERABL ES Final Result [facility] [address] [place] [address], [place] * Er Extra Urine (05/08/2025 6:38 PM EDT) Extra Tube Auto Resulted 05/08/2025 8:02 PM EDT [facility] Urine Urine / Unknown 05/08/2025 6 :38 PM EDT 05/08/2025 7:20 PM EDT us Mitesh Montoya MD URINE ORDERABLES Final Resu lt [facility] [address] [place] [address], [place] [phone] * (ABNORMAL) Urinalysis (05/08/2025 6:38 PM EDT) COLOR [place](A) Yellow, Colorless 05/08/2025 7:48 PM EDT [facility] TURBIDITY Cloudy(A) Clear 05/08/2025 7:48 PM EDT [facility] SPECIFIC GRAVITY 1.020 1.003 - 1.035 05/08/2025 7:48 PM EDT [facility] NITRITE Negative Negative 05/08/2025 7:48 PM EDT [facility] PH,URINE 6.0 5.0 - 8.5 05/08/2025 7:48 PM EDT [facility] LEUKOCYTE ESTERASE Moderate(A) Negative 05/08/2025 7:48 PM EDT [facility] PROTEIN 70 mg/dL(A) Negative 05/08/2025 7:48 PM EDT [facility] KETONES (URINE) Negative Negative 7:48 PM EDT [facility] UROBILINOGEN <1.1 eu/dL <1.1 eu/dL 05/08/2025 7:48 PM EDT [facility] BILIRUBIN (URINE) Negative Negative 05/08/2025 7:48 PM EDT [facility] BLOOD/HGB Large(A) Negative 05/08/2025 7:48 PM EDT [facility] R.B.CELLS >720(H) 0 - 5 05/08/2025 7:48 PM EDT [facility] W.B.CELLS 327(H) 0 - 5 05/08/2025 7:48 PM EDT [facility] GLUCOSE (URINE) 150 mg/dL(A) Negative 05/08/2025 7:48 PM EDT [facility] Urine (Urine, Indwelling Catheter) Collection / Unknown 05/08/2025 6:38 PM EDT 05/08/2025 7:18 PM EDT Siobhan Tank CARE COORDINATION MANAGER-CHARTER COORDINATOR URINE ORDERABLES Final Re sult [facility] [address] [place] [address], [place] [phone] * Electrolyte panel (05/08/2025 6:21 PM EDT) SODIUM 141 134 - 146 mmol/L 05/08/2025 7:42 PM EDT [facility] POTASSIUM 3.8 3.5 - 5.0 mmol/L 05/08/2025 7:42 PM EDT [facility] CHLORIDE 102 98 - 109 mmol/L 05/08/2025 7:42 PM EDT [facility] CARBON DIOXIDE 27 22 - 32 mmol/L 05/08/2025 7:42 PM EDT [facility] ANION GAP 12 5 - 15 mmol/L 05/08/2025 7:42 PM EDT [facility] Blood Venous blood / Unknown Venipuncture / Unknown 05/08/2025 6:21 PM EDT 05/08/2025 6:21 PM EDT Madelaine Ferrer MD LAB BLOOD ORDERABLES Final Result [facility] [address] [place] [address], [place] [phone] * (ABNORMAL) Bedside Glucose *Place/Obtain serum glucose if >500 per glucometer. (05/08/2025 5:05 PM EDT) Bedside Glucose (POC) 176(H) 65 - 99 mg/dL 05/08/2025 5:08 PM EDT [facility] arterial/capilla ry 05/08/2025 5:05 PM EDT 05/08/2025 5:08 PM EDT us Mitesh Montoya MD POINT OF CARE TEST ORDERABL ES Final Result [facility] [address] [place] [address], [place] * Echo limited W/ contrast (05/08/2025 1:24 PM EDT) FS 23 28 - 44 % XCELERA LVIDd 3.90 4.18 - 5.80 cm XCELERA LVIDs 3.00 2.47 - 3.74 cm XCELERA IVS 1.00 0.6 - 1.1 cm XCELERA PW 1.00 0.6 - 1.1 cm XCELERA LA size 4.10 cm XCELERA Aortic root 2.80 cm XCELERA LV RWT 2D 51.28 XCELERA Left Ventricle Mass 122.84237 [id number] 7 g XCELERA Interventricular Septum Diastolic Thickness by 2D 10 cm XCELERA ZLVIDS -0.11 XCELERA ZLVIDD -2.32 XCELERA Energy loss index 10.95 XCELERA Anatomical Region Laterality Modality Chest N/A Ultrasound Narrative 05/08/2025 2:41 PM EDT Left Ventricle: Left ventricle is small. Wall thickness is normal. Systolic function is mildly decreased with an ejection fraction of 45-50%. See wall score diagram for wall motion abnormalities. Right Ventricle: Right ventricular size appears normal. Systolic function is normal. Left Ventricle Left ventricle is small. Wall thickness is normal. Systolic function is mildly decreased with an ejection fraction of 45-50%. See wall score diagram for wall motion abnormalities. Right Ventricle Right ventricular size appears normal. Systolic function is normal. Left Atrium Left atrium is normal in size. Right Atrium Right atrium is normal in size. Mitral Valve Mitral valve structure is normal. Tricuspid Valve Tricuspid valve appears to be normal. Aortic Valve The aortic valve is trileaflet. Pulmonic Valve Pulmonic valve structure is grossly normal. Ascending Aorta The aortic root is normal in size. Pericardium There is no pericardial effusion. There is a left pleural effusion. The pericardium has a fat pad. Study Details A limited echo was performed using limited 2D and limited left ventricle function/wall motion. During the study the apical, parasternal and subcostal views were captured. Overall the study quality was good. Reason for exam: CHF Wall Scoring Baseline Score Index: 2.00 The left ventricular wall motion is globally hypokinetic. Clement Castaneda PA-C CV ECHO ORDERABLES Final Result * Electrolyte panel (05/08/2025 12:09 PM EDT) SODIUM 142 134 - 146 mmol/L 05/08/2025 12:54 PM EDT [facility] POTASSIUM 3.8 3.5 - 5.0 mmol/L 05/08/2025 12:54 PM EDT [facility] CHLORIDE 103 98 - 109 mmol/L 05/08/2025 12:54 PM EDT [facility] CARBON DIOXIDE 28 22 - 32 mmol/L 05/08/2025 12:54 PM EDT [facility] ANION GAP 11 5 - 15 mmol/L 05/08/2025 12:54 PM EDT [facility] Blood Venous blood / Unknown Venipuncture / Unknown 05/08/2025 12:09 PM EDT 05/08/2025 12:21 PM EDT Madelaine Ferrer MD LAB BLOOD ORDERABLES Final Result [facility] [address] [place] [address], [place] [phone] * (ABNORMAL) Bedside Glucose *Place/Obtain serum glucose if >500 per glucometer. (05/08/2025 11:23AM EDT) Bedside Glucose (POC) 242(H) 65 - 99 mg/dL 05/08/2025 11:24 AM EDT [facility] arterial/capilla ry 05/08/2025 11:23 AM EDT 05/08/2025 11:24 AM EDT Mitesh Montoya MD POINT OF CARE TEST ORDERABL ES Final Result Performing Organization Address [facility] Co de Phone Number [facility] [address] [place] [address], [place] * (ABNORMAL) Bedside Glucose *Place/Obtain serum glucose if >500 per glucometer. (05/08/2025 7:55 AM EDT) Bedside Glucose (POC) 170(H) 65 - 99 mg/dL 05/08/2025 7:57 AM EDT [facility] arterial/capilla ry 05/08/2025 7:55 AM EDT 05/08/2025 7:57 AM EDT Mitesh Montoya MD POINT OF CARE TEST ORDERABL ES Final Result Performing Organization Address [facility] Co de Phone Number [facility] [address] [place] [address], [place] * Vitamin B12 (05/08/2025 6:57 AM EDT) [facility] Signature VITAMIN B12 260 180 - 914 pg/mL 05/08/2025 12:40 PM EDT [facility] Blood Venous blood / Unknown Venipuncture / Unknown 05/08/2025 6:57 AM EDT 05/08/2025 7:42 AM EDT Fanny Ta CARE COORDINATION MANAGER-CHARTER COORDINATOR LAB BLOOD ORDERABLE S Final Result Performing Organization Address City/[facility] Co de Phone Number [facility] [address] [place] [address], [place] [phone] * (ABNORMAL) Iron and TIBC (05/08/2025 6:57 AM EDT) IRON 42(L) 50 - 212 ug/dL 05/08/2025 12:15 PM EDT [facility] TRANSFERRIN 128(L) 168 - 336 mg/dL 05/08/2025 12:15 PM EDT [facility] IRON BINDING 179(L) 250 - 425 ug/dL 05/08/2025 12:15 PM EDT [facility] IRON SATURATION 23 20 - 50 % SATURATION 05/08/2025 12:15 PM EDT [facility] Blood Venous blood / Unknown Venipuncture / Unknown 05/08/2025 6:57 AM EDT 05/08/2025 7:42 AM EDT Fanny Ta CARE COORDINATION MANAGER-CHARTER COORDINATOR LAB BLOOD ORDERABLE S Final Result [facility] [address] [place] [address], [place] [phone] * Folate (05/08/2025 6:57 AM EDT) FOLIC ACID 9.6 >5.8 ng/mL 05/08/2025 12:39 PM EDT [facility] Blood Venous blood / Unknown Venipuncture / Unknown 05/08/2025 6:57 AM EDT 05/08/2025 7:42 AM EDT Fanny Ta APRN-CHARTER COORDINATOR LAB BLOOD ORDERABLE S Final Result [facility] [address] [place] [address], [place] [phone] * (ABNORMAL) Ferritin (05/08/2025 6:57 AM EDT) FERRITIN 759(H) 24 - 336 ng/mL 05/08/2025 12:35 PM EDT [facility] Blood Venous blood / Unknown Venipuncture / Unknown 05/08/2025 6:57 AM EDT 05/08/2025 7:42 AM EDT us Fanny Bealsenthil CARE COORDINATION MANAGER-CHARTER COORDINATOR LAB BLOOD ORDERABLE S Final Result [facility] [address] [place] [address], [place] [phone] * (ABNORMAL) CBC auto differential (05/08/2025 6:57 AM EDT) WBC 5.4 4 - 11 x10E9/L 05/08/2025 7:57 AM EDT [facility] RBC Count 2.68(L) 4.1 - 5.7 X10E12/L 05/08/2025 7:57 AM EDT [facility] Hemoglobin 8.3(L) 13 - 17 g/dL 05/08/2025 7:57 AM EDT [facility] Hematocrit 24.2(L) 39 - 50 % 05/08/2025 7:57 AM EDT [facility] MCV 90 80 - 100 fL 05/08/2025 7:57 AM EDT [facility] MCH 31.0 27 - 34 pg 05/08/2025 7:57 AM EDT [facility] MCHC 34.3 32 - 36 g/dL 05/08/2025 7:57 AM EDT [facility] RDW 14.3 11.5 - 15 % 05/08/2025 7:57 AM EDT [facility] Platelet Count 245 150 - 450 X10E9/L 05/08/2025 7:57 AM EDT [facility] MPV 7.5 7 - 12 fL 05/08/2025 7:57 AM EDT [facility] Neutrophils % 61.5 % 05/08/2025 7:57 AM EDT [facility] Lymphocytes % 20.6 % 05/08/2025 7:57 AM EDT [facility] Monocytes % 11.3 % 05/08/2025 7:57 AM EDT [facility] Eosinophils % 5.9 % 05/08/2025 7:57 AM EDT [facility] Basophils % 0.7 % 05/08/2025 7:57 AM EDT [facility] Neutrophils Absolute (A) 3.3 1.5 - 6.6 10*3/uL 05/08/2025 7:57 AM EDT [facility] Lymphocytes Absolute 1.1 1.0 - 3.5 10*3/uL 05/08/2025 7:57 AM EDT [facility] Monocytes Absolute 0.6 0.0 - 0.9 10*3/uL 05/08/2025 7:57 AM EDT [facility] Eosinophils Absolute 0.3 0.0 - 0.4 10*3/uL 05/08/2025 7:57 AM EDT [facility] Basophils Absolute 0.0 0.0 - 0.2 10*3/uL 05/08/2025 7:57 AM EDT [facility] Differential Type AUTOMATED DIFFERENTIAL 05/08/2025 7:57 AM EDT [facility] Blood Venous blood / Unknown Venipuncture / Unknown 05/08/2025 6:57 AM EDT 05/08/2025 7:43 AM EDT Siobhan Fu CARE COORDINATION MANAGER-CHARTER COORDINATOR LAB BLOOD ORDERABLES Valery l Result [facility] [address] [place] [address], * Magnesium (05/08/2025 6:57 AM EDT) MAGNESIUM 2.3 1.8 - 2.6 mg/dL 05/08/2025 8:15 AM EDT [facility] Blood Venous blood / Unknown Venipuncture / Unknown 05/08/2025 6:57 AM EDT 05/08/2025 7:42 AM EDT Siobhan Fu CARE COORDINATION MANAGER-CHARTER COORDINATOR LAB BLOOD ORDERABLES Valery l Result [facility] [address] [place] [address], * (ABNORMAL) Comprehensive metabolic panel (05/08/2025 6:57 AM EDT) SODIUM 144 134 - 146 mmol/L 05/08/2025 8:15 AM EDT [facility] POTASSIUM 3.8 3.5 - 5.0 mmol/L 05/08/2025 8:15 AM EDT [facility] CHLORIDE 104 98 - 109 mmol/L 05/08/2025 8:15 AM EDT [facility] CARBON DIOXIDE 31 22 - 32 mmol/L 05/08/2025 8:15 AM EDT [facility] ANION GAP 9 5 - 15 mmol/L 05/08/2025 8:15 AM EDT [facility] BLOOD UREA NITROGEN 32(H) 5 - 27 mg/dL 05/08/2025 8:15 AM EDT [facility] CREATININE 1.62(H) 0.60 - 1.30 mg/dL 05/08/2025 8:15 AM EDT [facility] Comment:METHOD TRACEABLE TO IDMS STANDARD GLUCOSE 157(H) 65 - 99 mg/dL 05/08/2025 8:15 AM EDT [facility] CALCIUM 8.3(L) 8.5 - 10.5 mg/dL 05/08/2025 8:15 AM EDT [facility] TOTAL PROTEIN 5.8(L) 6.0 - 8.0 g/dL 05/08/2025 8:15 AM EDT [facility] ALBUMIN 3.4 3.2 - 5.3 g/dL 05/08/2025 8:15 AM EDT [facility] ALKALINE PHOSPHATASE 100 39 - 130 U/L 05/08/2025 8:15 AM EDT [facility] AST 17 <=41 U/L 05/08/2025 8:15 AM EDT [facility] ALT 17 <=40 U/L 05/08/2025 8:15 AM EDT [facility] BILIRUBIN,TOTAL 0.4 0.3 - 1.2 mg/dL 05/08/2025 8:15 AM EDT [facility] EGFR Non-Race Dependent 48(L) >=60 ml/min/1.7 3sq.m 05/08/2025 8:15 AM EDT [facility] Comment: Reported eGFR is based on the CKD-EPI 2020 equation that does not use a race coefficient. Blood Venous blood / Unknown Venipuncture / Unknown 05/08/2025 6:57 AM EDT 05/08/2025 7:42 AM EDT us Siobhan Fu APRN-CHRISTIAN LAB BLOOD ORDERABLES Valery l Result [facility] [address] [place] [address], [place] [phone] * Electrolyte panel (05/08/2025 12:50 AM EDT) SODIUM 144 134 - 146 mmol/L 05/08/2025 1:46 AM EDT [facility] POTASSIUM 3.6 3.5 - 5.0 mmol/L 05/08/2025 1:46 AM EDT [facility] CHLORIDE 106 98 - 109 mmol/L 05/08/2025 1:46 AM EDT [facility] CARBON DIOXIDE 28 22 - 32 mmol/L 05/08/2025 1:46 AM EDT [facility] ANION GAP 10 5 - 15 mmol/L 05/08/2025 1:46 AM EDT [facility] Blood Venous blood / Unknown Venipuncture / Unknown 05/08/2025 12:50 AM EDT 05/08/2025 12:50 AM EDT us Madelaine Ferrer MD LAB BLOOD ORDERABLES Final Result [facility] [address] [place] [address], [place] [phone] * (ABNORMAL) Bedside Glucose *Place/Obtain serum glucose if >500 per glucometer. (05/07/2025 8:34 PM EDT) Bedside Glucose (POC) 168(H) 65 - 99 mg/dL 05/07/2025 8:46 PM EDT [facility] arterial/capilla ry 05/07/2025 8:34 PM EDT 05/07/2025 8:46 PM EDT us Mitesh Montoya MD POINT OF CARE TEST ORDERABL ES Final Result [facility] [address] [place] [address], [place] * Electrolyte panel (05/07/2025 6:35 PM EDT) SODIUM 143 134 - 146 mmol/L 05/07/2025 8:53 PM EDT [facility] POTASSIUM 3.6 3.5 - 5.0 mmol/L 05/07/2025 8:53 PM EDT [facility] CHLORIDE 105 98 - 109 mmol/L 05/07/2025 8:53 PM EDT [facility] CARBON DIOXIDE 28 22 - 32 mmol/L 05/07/2025 8:53 PM EDT [facility] ANION GAP 10 5 - 15 mmol/L 05/07/2025 8:53 PM EDT [facility] Blood Venous blood / Unknown Venipuncture / Unknown 05/07/2025 6:35 PM EDT 05/07/2025 6:35 PM EDT us Madelaine Ferrer MD LAB BLOOD ORDERABLES Final Result [facility] [address] [place] [address], [place] [phone] * (ABNORMAL) Bedside Glucose *Place/Obtain serum glucose if >500 per glucometer. (05/07/2025 4:42 PM EDT) [facility] Bedside Glucose (POC) 169(H) 65 - 99 mg/dL 05/07/2025 4:43 PM EDT [facility] arterial/capilla ry 05/07/2025 4:42 PM EDT 05/07/2025 4:43 PM EDT us Mitesh Montoya MD POINT OF CARE TEST ORDERABL ES Final Result [facility] [address] [place] [address], [place] * (ABNORMAL) B-type natriuretic peptide (05/07/2025 3:04 PM EDT) [facility] BNP 1,709(H) <=100 pg/mL 05/07/2025 4:09 PM EDT [facility] Blood Venous blood / Unknown Venipuncture / Unknown 05/07/2025 3:04 PM EDT 05/07/2025 3:04 PM EDT us Siobhan Fu CARE COORDINATION MANAGER-CHARTER COORDINATOR LAB BLOOD ORDERABLES Valery l Result [facility] [address] [place] [address], [place] [phone] * (ABNORMAL) CBC auto differential (05/07/2025 3:04 PM EDT) [facility] WBC 5.3 4 - 11 x10E9/L 05/07/2025 3:40 PM EDT [facility] RBC Count 2.80(L) 4.1 - 5.7 X10E12/L 05/07/2025 3:40 PM EDT [facility] Hemoglobin 8.7(L) 13 - 17 g/dL 05/07/2025 3:40 PM EDT [facility] Hematocrit 25.7(L) 39 - 50 % 05/07/2025 3:40 PM EDT [facility] MCV 92 80 - 100 fL 05/07/2025 3:40 PM EDT [facility] MCH 30.9 27 - 34 pg 05/07/2025 3:40 PM EDT [facility] MCHC 33.7 32 - 36 g/dL 05/07/2025 3:40 PM EDT [facility] RDW 14.5 11.5 - 15 % 05/07/2025 3:40 PM EDT [facility] Platelet Count 261 150 - 450 X10E9/L 05/07/2025 3:40 PM EDT [facility] MPV 7.4 7 - 12 fL 05/07/2025 3:40 PM EDT [facility] Neutrophils % 62.0 % 05/07/2025 3:40 PM EDT [facility] Lymphocytes % 21.4 % 05/07/2025 3:40 PM EDT [facility] Monocytes % 10.8 % 05/07/2025 3:40 PM EDT [facility] Eosinophils % 4.9 % 05/07/2025 3:40 PM EDT [facility] Basophils % 0.9 % 05/07/2025 3:40 PM EDT [facility] Neutrophils Absolute (A) 3.3 1.5 - 6.6 10*3/uL 05/07/2025 3:40 PM EDT [facility] Lymphocytes Absolute 1.1 1.0 - 3.5 10*3/uL 05/07/2025 3:40 PM EDT [facility] Monocytes Absolute 0.6 0.0 - 0.9 10*3/uL 05/07/2025 3:40 PM EDT [facility] Eosinophils Absolute 0.3 0.0 - 0.4 10*3/uL 05/07/2025 3:40 PM EDT [facility] Basophils Absolute 0.0 0.0 - 0.2 10*3/uL 05/07/2025 3:40 PM EDT [facility] Differential Type AUTOMATED DIFFERENTIAL 05/07/2025 3:40 PM EDT [facility] Blood Venous blood / Unknown Venipuncture / Unknown 05/07/2025 3:04 PM EDT 05/07/2025 3:04 PM EDT Siobhan Fu CARE COORDINATION MANAGER-CHARTER COORDINATOR LAB BLOOD ORDERABLES Valery l Result [facility] [address] [place] [address], [place] [phone] * Magnesium (05/07/2025 3:04 PM EDT) MAGNESIUM 2.5 1.8 - 2.6 mg/dL 05/07/2025 4:04 PM EDT [facility] Blood Venous blood / Unknown Venipuncture / Unknown 05/07/2025 3:04 PM EDT 05/07/2025 3:04 PM EDT Siobhan Mcadamsden CARE COORDINATION MANAGER-CHARTER COORDINATOR LAB BLOOD ORDERABLES Valery l Result [facility] [address] [place] [address], [place] [phone] * (ABNORMAL) Comprehensive metabolic panel (05/07/2025 3:04 PM EDT) SODIUM 142 134 - 146 mmol/L 05/07/2025 4:04 PM EDT [facility] POTASSIUM 3.9 3.5 - 5.0 mmol/L 05/07/2025 4:04 PM EDT [facility] CHLORIDE 107 98 - 109 mmol/L 05/07/2025 4:04 PM EDT [facility] CARBON DIOXIDE 25 22 - 32 mmol/L 05/07/2025 4:04 PM EDT [facility] ANION GAP 10 5 - 15 mmol/L 05/07/2025 4:04 PM EDT [facility] BLOOD UREA NITROGEN 25 5 - 27 mg/dL 05/07/2025 4:04 PM EDT [facility] CREATININE 1.44(H) 0.60 - 1.30 mg/dL 05/07/2025 4:04 PM EDT [facility] Comment:METHOD TRACEABLE TO IDWV STANDARD GLUCOSE 157(H) 65 - 99 mg/dL 05/07/2025 4:04 PM EDT [facility] CALCIUM 7.8(L) 8.5 - 10.5 mg/dL 05/07/2025 4:04 PM EDT [facility] TOTAL PROTEIN 5.7(L) 6.0 - 8.0 g/dL 05/07/2025 4:04 PM EDT [facility] ALBUMIN 3.0(L) 3.2 - 5.3 g/dL 05/07/2025 4:04 PM EDT [facility] ALKALINE PHOSPHATASE 114 39 - 130 U/L 05/07/2025 4:04 PM EDT [facility] AST 25 <=41 U/L 05/07/2025 4:04 PM EDT [facility] ALT 19 <=40 U/L 05/07/2025 4:04 PM EDT [facility] BILIRUBIN,TOTAL 0.3 0.3 - 1.2 mg/dL 05/07/2025 4:04 PM EDT [facility] EGFR Non-Race Dependent 55(L) >=60 ml/min/1.7 3sq.m 05/07/2025 4:04 PM EDT [facility] Comment: Reported eGFR is based on the CKD-EPI 2020 equation that does not use a race coefficient. Blood Venous blood / Unknown Venipuncture / Unknown 05/07/2025 3:04 PM EDT 05/07/2025 3:04 PM EDT us Siobhan Fu CARE COORDINATION MANAGER-CHARTER COORDINATOR LAB BLOOD ORDERABLES Valery sandro Result [facility] [address] [place] [address], [place] [phone] documented in this encounter Visit Diagnoses Diagnosis Acute heart failure ([facility] Primary Unspecified heart failure Coronary artery disease Coronary atherosclerosis of unspecified type of vessel, [place] or graft Mixed hyperlipidemia Primary hypertension Unspecified essential hypertension Ischemic cardiomyopathy Other specified forms of chronic ischemic heart disease Chronic kidney disease, stage 3a ([facility]) Type 2 diabetes mellitus without complications ([facility]) documented in this encounter Admitting Diagnoses Diagnosis Acute heart failure ([facility]) Unspecified heart failure documented in this encounter Administered Medications Active Administered Medications - up to 3 most recent administrations Medication Order MAR Action Action Date Dose Rate Site acetaminophen (TYLENOL) tablet 650 mg 650 mg, oral, Every 4 hours PRN, mild pain - pain scale 1-3, temperature greater than 38 C, headaches, Temperature greater than 38.3 C, Starting on 05/07/25 at 1456, [Warning: Total Acetaminophen not to exceed more than 4 grams (4000 mg) in 24 hours] alum-mag hydroxide-simeth (MAALOX) 200-200-20 mg/5 mL suspension 30 mL 30 mL, oral, 4 times daily after meals and at bedtime as needed, dyspepsia, Starting on 05/07/25 at 1456, Look-alike/sound-alike medication - verify indication for use. Luis well., Indications: dyspepsiaIndications:dyspepsia aspirin EC tablet 81 mg 81 mg, oral, Daily, First dose on 05/07/25 at 1500, Do not crush or chew. Given 05/08/2025 8:54 AM EDT 81 mg atorvastatin (LIPITOR) tablet 80 mg 80 mg, oral, Nightly, First dose on 05/07/25 at 2200, Look-alike/sound-alike medication - verify indication for use. Given 05/08/2025 8:13 PM EDT 80 mg Given 05/07/2025 8:23 PM EDT 80 mg carvediloL (COREG) tablet 6.25 mg 6.25 mg, oral, 2 times daily, First dose on 05/08/25 at 1100, Hold for hr less than 60 or bp less than 110 Give with meal or snack. Look-alike/sound-alike medication - verify indication for use. Given 05/08/2025 8:13 PM EDT 6.25 mg Given 05/08/2025 12:15 PM EDT 6.25 mg clopidogreL (PLAVIX) tablet 75 mg 75 mg, oral, Daily, First dose on 05/07/25 at 1500, Look-alike/sound-alike medication - verify indication for use. Given 05/08/2025 8:54 AM EDT 75 mg dextrose (GLUTOSE) 40 % gel 15 g 15 g, oral, As needed, low blood sugar, blood glucose less than 70 mg/dL, Starting on 05/07/25 at 1456, If patient conscious and taking PO. If blood glucose is not greater than 70 mg/dL after initial treatment, repeat treatment. dextrose 5 % (D5W) infusion 100 mL/hr, intravenous, Continuous PRN, blood glucose less than 70 mg/dL, Starting on 05/07/25 at 1456, Use immediately following dextrose 50% or glucagon treatment for patients who are unconscious or NPO. Contact prescriber for additional orders. If blood glucose is not greater than 70 mg/dL after initial treatment, repeat treatment. dextrose 50 % in water (D50W) 50% solution 25 mL 25 mL, intravenous, As needed, low blood sugar, blood glucose less than 70 mg/dL and unconscious or NPO with IV access, Starting on 05/07/25 at 1456, Push over 1-3 minutes STAT. If conscious and not NPO, immediately follow with meal tray or high protein (7 grams) snack if tray not available. If NPO, initiate 5% dextrose in water at 100 mL/hr and contact prescriber for additional orders. If blood glucose is not greater than 70 mg/dL after initial treatment, repeat treatment. VESICANT (RED) Warning: HYPERTONIC solution. furosemide (LASIX) infusion 500 mg/50 mL (10 mg/mL premix cmpd) 20 mg/hr (2 mL/hr), intravenous, Continuous, Starting on 05/07/25 at 1515, Look-alike/sound-alike medication - verify indication for use. New Bag 05/09/2025 2:29 AM EDT 20 mg/hr 2 mL/hr New Bag 05/08/2025 5:54 AM EDT 20 mg/hr 2 mL/hr New Bag 05/07/2025 4:24 PM EDT 20 mg/hr 2 mL/hr glucagon HCL injection 1 mg 1 mg, intramuscular, As needed, low blood sugar, blood glucose less than 70 mg/dL and unconscious or NPO without IV access., Starting on 05/07/25 at 1456, If conscious and not NPO, immediately follow with meal tray or high protein (7Grams) snack if tray not available. If NPO, initiate IV 5% Dextrose/Water at 100 mL/hr and contact prescriber for additional orders. If blood glucose is not greater than 70 mg/dL after initial treatment, repeat treatment. heparin (porcine) injection 5,000 Units 5,000 Units, subcutaneous, Every 8 hours scheduled, First dose on 05/07/25 at 1500, Notify prescriber if INR greater than 1.9, hemoglobin less than 10 mg/dL, aPTT greater than 40 seconds, and/or platelet count less than 100,000/mm Look-alike/sound-alike medication - verify indication for use. Observe for bleeding. Given 05/09/2025 5:50 AM EDT 5,000 Units Abdominal Tissue Given 05/08/2025 8:13 PM EDT 5,000 Units A bdominal Tissue Given 05/08/2025 2:22 PM EDT 5,000 Units A bdominal Tissue insulin glargine (LANTUS, SEMGLEE) injection pen 15 Units 15 Units, subcutaneous, Daily, First dose on 05/07/25 at 1500, Look-alike/sound-alike medication - verify indication for use. Prime with 2 units of insulin prior to administration. Basal (long acting) insulin for subcutaneous administration only. Do not mix with any other insulin. Pre-filled pens stable 28 days at room temperature. Given 05/08/2025 8:56 AM EDT 15 Units Abdominal Tissue insulin lispro (HumaLOG) injection 2-10 Units 2-10 Units, subcutaneous, 3 times daily with meals, First dose on 05/07/25 at 1700, Daytime hyperglycemia dosing. For blood glucose 151-200 mg/dL, give 2 units. For blood glucose 201-250 mg/dL, give 4 units. For blood glucose 251-300 mg/dL, give 6 units. For blood glucose 301-350 mg/dL, give 8 units. For blood glucose 351-400 mg/dL, give 10 units. Give even if NPO or meals skipped. Do NOT give more often then every 4 hours when NPO. Notify prescriber if blood glucose greater than 400 mg/dL. Look-alike/sound-alike medication - verify indication for use. Prime with 2 units of insulin prior to administration. Prandial/supplemental Insulin. Pre-filled pens stable 28 days at room temperature. Insulin lispro should be administered within 15 minutes before or immediately after a meal. Given 05/08/2025 5:38 PM EDT 2 Units Left Arm Given 05/08/2025 12:15 PM EDT 4 Units A bdominal Tissue Given 05/08/2025 8:56 AM EDT 2 Units Ab dominal Tissue insulin lispro (HumaLOG) injection 2-8 Units 2-8 Units, subcutaneous, Nightly, First dose on 05/07/25 at 2200, Bedtime hyperglycemia dosing. For blood glucose 201-250 mg/dL, give 2 units. For blood glucose 251-300 mg/dL, give 4 units. For blood glucose 301-350 mg/dL, give 6 units. For blood glucose 351-400 mg/dL, give 8 units. Give even if NPO or meals skipped. Do NOT give more often then every 4 hours when NPO. Notify prescriber if blood glucose greater than 400 mg/dL. Look-alike/sound-alike medication - verify indication for use. Prime with 2 units of insulin prior to administration. Prandial/supplemental Insulin. Pre-filled pens stable 28 days at room temperature. Insulin lispro should be administered within 15 minutes before or immediately after a meal. Given 05/08/2025 10:05 PM EDT 2 Units Left Arm magnesium sulfate IVPB 2000 mg/50 mL in iso-osmotic water (40 mg/mL premix) 2,000 mg, intravenous, at 25 mL/hr, Administer over 120 Minutes, As needed, Magnesium level 1.7 to 1.9 mg/dL, or Ionized Magnesium level 0.45 to 0.5 mmol/L., Starting on 05/07/25 at 1456, Recheck magnesium level 4 hours after infusion complete. With each magnesium result continue the replacement orders as needed. magnesium sulfate IVPB 4000 mg/100 mL in iso-osmotic water (40 mg/mL premix) 4,000 mg, intravenous, at 25 mL/hr, Administer over 240 Minutes, As needed, Magnesium level 1.6 mg/dL or less, or Ionized Magnesium level 0.44 mmol/L or less, Starting on 05/07/25 at 1456, Recheck magnesium level 4 hours after infusion complete. With each magnesium result continue the replacement orders as needed. melatonin (CIRCADIN) tablet 3 mg 3 mg, oral, Nightly, First dose on 05/08/25 at 0000 Given 05/08/2025 8:13 PM EDT 3 mg Given 05/08/2025 12:00 AM EDT 3 mg ondansetron (PF) (ZOFRAN) injection 4 mg 4 mg, intravenous, Every 6 hours PRN, nausea, vomiting, Starting on 05/07/25 at 1456, Intravenous administration preferred to be given over 2-5 minutes. pantoprazole (PROTONIX) EC tablet 40 mg 40 mg, oral, Every morning before breakfast, First dose on 05/07/25 at 1500, Look-alike/sound-alike medication - verify indication for use. If patient is receiving enteral feeding, consider alternative PPI or continue IV pantoprazole until the delayed-release tablet can be taken orally, Indication: GERD Given 05/09/2025 5:50 AM EDT 40 mg Given 05/08/2025 5:53 AM EDT 40 mg potassium chloride (K-TAB,KLOR-CON) CR tablet 30-50 mEq 30-50 mEq, oral, As needed, Potassium Supplementation, Starting on 05/07/25 at 1456, Progress to oral potassium replacement when patient tolerating oral intake. If dose administered, recheck potassium level 4 hours after last dose. For potassium level 3.4 to 3.8 mmol/L and GFR 30 mL/min or greater=30 mEq. For potassium level 3.1 to 3.3 mmol/L and GFR 30 mL/min or greater=40 mEq. For potassium level 3 mmol/L or less and GFR 30 mL/min or greater=50 mEq. Do not crush or chew. Given 05/09/2025 6:01 AM EDT 30 mEq Given 05/08/2025 8:13 PM EDT 30 mEq Given 05/07/2025 11:25 PM EDT 30 mEq potassium chloride (KAYCIEL) 20 mEq/15 mL solution 30-50 mEq 30-50 mEq, oral, As needed, Potassium Supplementation, Starting on 05/07/25 at 1456, Progress to oral potassium replacement when patient tolerating oral intake. If dose administered, recheck potassium level 4 hours after last dose. For potassium level 3.4 to 3.8 mmol/L and GFR 30 mL/min or greater=30 mEq. For potassium level 3.1 to 3.3 mmol/L and GFR 30 mL/min or greater=40 mEq. For potassium level 3 mmol/L or less and GFR 30 mL/min or greater=50 mEq. Must dilute before use - Mix in 3-8 ounces of water or juice before administration When administering in feeding tube, flush before and after per policy and monitor potassium levels potassium chloride IVPB 10 mEq/100 mL in water (0.1 mEq/mL premix) 10 mEq, intravenous, at 100 mL/hr, Administer over 60 Minutes, As needed, POTASSIUM REPLACEMENT, Starting on 05/07/25 at 1456, IV if unable to use oral/enteral with the current dosing strategies Potassium level 3 mmol/L or less administer Potassium Chloride 50 mEq Potassium level 3.1 to 3.3 mmol/L administer Potassium Chloride 40 mEq Potassium level 3.4 to 3.8 mmol/L administer Potassium Chloride 30 mEq Use central line when applicable. Recheck potassium level 1 hour after total IVPB infusion complete, With each potassium result continue the replacement orders as needed VESICANT (YELLOW) Infuse each 10 mEq over a minimum of 1 hour. sennosides-docusate sodium (SENOKOT-S) 8.6-50 mg 1 tablet 1 tablet, oral, Every 12 hours PRN, constipation, Starting on 05/07/25 at 1456 sodium chloride 0.9 % flush 3 mL 3 mL, intravenous, As needed, line care, before and after each intermittent use, Starting on 05/07/25 at 1456 sodium chloride 0.9 % flush 3 mL 3 mL, intravenous, Every 12 hours scheduled, First dose on 05/07/25 at 2100 Given 05/08/2025 8:13 PM EDT 3 mL Given 05/08/2025 8:55 AM EDT 3 mL Given 05/07/2025 8:24 PM EDT 3 mL sodium chloride 0.9 % flush bag 25 mL, intravenous, at 100 mL/hr, Administer over 15 Minutes, As needed, line care, line care after IVPB administration, Starting on 05/07/25 at 1456 sodium chloride 0.9 % infusion 20 mL/hr, intravenous, Continuous PRN, to maintain patency of lines, Starting on 05/07/25 at 1456 spironolactone (ALDACTONE) tablet 25 mg 25 mg, oral, Daily, First dose on 05/07/25 at 1515 Given 05/08/2025 8:54 AM EDT 25 mg tamsulosin (FLOMAX) 24 hr capsule 0.4 mg 0.4 mg, oral, Nightly, First dose on 05/07/25 at 2200, Do not crush or chew. Given 05/08/2025 8:13 PM EDT 0.4 m g Given 05/07/2025 8:23 PM EDT 0.4 mg Inactive Administered Medications - up to 3 most recent administrations Medication Order MAR Action Action Date Dose Rate Site albumin human 25 % IVPB Premix 25 g 25 g, intravenous, Every 6 hours, First dose on 05/07/25 at 1515, For 2 doses, Do not exceed 1 mL/minute in patients with normal plasma volume; 2 to 3 mL/minute in patients with hypoproteinemia For BUMINATE, administer using a 15 micron or smaller filter. A filter is NOT required for administration by other brands., Indication: Other, Indication: Hypoalbuminemia New Bag 05/07/2025 8:22 PM EDT 25 g New Bag 05/07/2025 3:24 PM EDT 25 g perflutren lipid microspheres (DEFINITY) dilution injection 1.43 mg/10 mL 2 mL, intravenous, Once in imaging, contrast, Starting on 05/08/25 at 1312, For 1 dose, Dilute 1.3 mL of Definity with 8.7 mL 0.9% NaCl in 10 mL syringe. Administer 2 mL perflutren (Definity) contrast if 2 contiguous segments of the LV are not well visualized. May repeat 2 mL dose until LV visualization is accomplished. Procedure total dose not to exceed 10 mL. Given 05/08/2025 1:18 PM EDT 2 mL documented in this encounter Active and Recently Administered Medications Times are shown in EDT. Scheduled Medication Order 05/07/2025 05/08/2025 05/09/2025 albumin human 25 % IVPB Premix 25 g (COMPLETED) 25 g, intravenous, Every 6 hours, First dose on 05/07/25 at 1515, For 2 doses, Do not exceed 1 mL/minute in patients with normal plasma volume; 2 to 3 mL/minute in patients with hypoproteinemia For BUMINATE, administer using a 15 micron or smaller filter. A filter is NOT required for administration by other brands., Indication: Other, Indication: Hypoalbuminemia 1524 (New Bag - Provider: Veronica Brown RN)2021 (New Bag - Provider: Veronica Quinn RN)2121 (Stop Bag - Provider: Veronica Quinn RN) aspirin EC tablet 81 mg 81 mg, oral, Daily, First dose on 05/07/25 at 1500, Do not crush or chew. 1500 (Not Given - Provider: Veronica Brown RN - Reason: Patient not available - Comment: pt had already) 0854 (Given - Provider: Mercedes Landeros RN) 0900 (Due) atorvastatin (LIPITOR) tablet 80 mg 80 mg, oral, Nightly, First dose on 05/07/25 at 2200, Look-alike/sound-alike medication - verify indication for use. 2022 (Given - Provider: Veronica Quinn RN) 2012 (Given - Provider: Veronica Quinn RN) 2200 (Due) carvediloL (COREG) tablet 6.25 mg 6.25 mg, oral, 2 times daily, First dose on 05/08/25 at 1100, Hold for hr less than 60 or bp less than 110 Give with meal or snack. Look-alike/sound-alike medication - verify indication for use. 1215 (Given - Provider: Mercedes Landeros RN)2012 (Given - Provider: Veronica Quinn RN) 0900 (Due)2100 (Due) clopidogreL (PLAVIX) tablet 75 mg 75 mg, oral, Daily, First dose on 05/07/25 at 1500, Look-alike/sound-alike medication - verify indication for use. 1500 (Not Given - Provider: Veronica Brown RN - Reason: Contraindicated - Comment: had already) 0854 (Given - Provider: Mercedes Landeros RN) 0900 (Due) heparin (porcine) injection 5,000 Units 5,000 Units, subcutaneous, Every 8 hours scheduled, First dose on 05/07/25 at 1500, Notify prescriber if INR greater than 1.9, hemoglobin less than 10 mg/dL, aPTT greater than 40 seconds, and/or platelet count less than 100,000/mm Look-alike/sound-alike medication - verify indication for use. Observe for bleeding. 152 (Given - Provider: Veronica Brown RN)2022 (Given - Provider: Veronica Quinn RN) 0553 (Given - Provider: Veronica Quinn RN)1422 (Given - Provider: Mercedes Landeros, DANIEL)2013 (Given - Provider: Veronica Quinn RN) 0550 (Given - Provider: Veronica Quinn RN)1400 (Due)2200 (Due) insulin glargine (LANTUS, SEMGLEE) injection pen 15 Units 15 Units, subcutaneous, Daily, First dose on 05/07/25 at 1500, Look-alike/sound-alike medication - verify indication for use. Prime with 2 units of insulin prior to administration. Basal (long acting) insulin for subcutaneous administration only. Do not mix with any other insulin. Pre-filled pens stable 28 days at room temperature. 1500 (Not Given - Provider: Veronica Brown RN - Reason: Contraindicated) 0856 (Given - Provider: Mercedes Landeros RN) 0900 (Due) insulin lispro (HumaLOG) injection 2-10 Units 2-10 Units, subcutaneous, 3 times daily with meals, First dose on 05/07/25 at 1700, Daytime hyperglycemia dosing. For blood glucose 151-200 mg/dL, give 2 units. For blood glucose 201-250 mg/dL, give 4 units. For blood glucose 251-300 mg/dL, give 6 units. For blood glucose 301-350 mg/dL, give 8 units. For blood glucose 351-400 mg/dL, give 10 units. Give even if NPO or meals skipped. Do NOT give more often then every 4 hours when NPO. Notify prescriber if blood glucose greater than 400 mg/dL. Look-alike/sound-alike medication - verify indication for use. Prime with 2 units of insulin prior to administration. Prandial/supplemental Insulin. Pre-filled pens stable 28 days at room temperature. Insulin lispro should be administered within 15 minutes before or immediately after a meal. 1647 (Given - Provider: Veronica Brown RN) 0856 (Given - Provider: Mercedes Landeros, DANIEL)1215 (Given - Provider: Mercedes Landeros, DANIEL)1738 (Given - Provider: Mercedes Landeros RN) 0800 (Due)1200 (Due)1700 (Due) insulin lispro (HumaLOG) injection 2-8 Units 2-8 Units, subcutaneous, Nightly, First dose on 05/07/25 at 2200, Bedtime hyperglycemia dosing. For blood glucose 201-250 mg/dL, give 2 units. For blood glucose 251-300 mg/dL, give 4 units. For blood glucose 301-350 mg/dL, give 6 units. For blood glucose 351-400 mg/dL, give 8 units. Give even if NPO or meals skipped. Do NOT give more often then every 4 hours when NPO. Notify prescriber if blood glucose greater than 400 mg/dL. Look-alike/sound-alike medication - verify indication for use. Prime with 2 units of insulin prior to administration. Prandial/supplemental Insulin. Pre-filled pens stable 28 days at room temperature. Insulin lispro should be administered within 15 minutes before or immediately after a meal. 2100 (Not Given - Provider: Veronica Quinn RN - Reason: Order parameters not met - Comment: bs 168) 220 (Given - Provider: Veronica Quinn RN) 2199 (Due) melatonin (CIRCADIN) tablet 3 mg 3 mg, oral, Nightly, First dose on 05/08/25 at 0000 0000 (Given - Provider: Veronica Quinn RN)2012 (Given - Provider: Veronica Quinn RN) 0 (Due) pantoprazole (PROTONIX) EC tablet 40 mg 40 mg, oral, Every morning before breakfast, First dose on 05/07/25 at 1500, Look-alike/sound-alike medication - verify indication for use. If patient is receiving enteral feeding, consider alternative PPI or continue IV pantoprazole until the delayed-release tablet can be taken orally, Indication: GERD 1500 (Not Given - Provider: Veronica Brown RN - Reason: Contraindicated) 0553 (Given - Provider: Veronica Quinn RN) 0550 (Given - Provider: Veronica Quinn RN) sodium chloride 0.9 % flush 3 mL 3 mL, intravenous, Every 12 hours scheduled, First dose on 05/07/25 at 2100 2023 (Given - Provider: Veronica Quinn RN) 0855 (Given - Provider: Mercedes Landeros, DANIEL)2012 (Given - Provider: Veronica Quinn RN) 0900 (Due)2100 (Due) spironolactone (ALDACTONE) tablet 25 mg 25 mg, oral, Daily, First dose on 05/07/25 at 1515 1515 (Canceled Entry - Provider: Veronica Brown RN) 0854 (Given - Provider: Mercedes Landeros RN) 0900 (Due) tamsulosin (FLOMAX) 24 hr capsule 0.4 mg 0.4 mg, oral, Nightly, First dose on 05/07/25 at 2200, Do not crush or chew. 2022 (Given - Provider: Veronica Quinn RN) 2012 (Given - Provider: Veronica Quinn RN) 2200 (Due) Continuous Medication Order 05/07/2025 05/08/2025 05/09/2025 furosemide (LASIX) infusion 500 mg/50 mL (10 mg/mL premix cmpd) 20 mg/hr (2 mL/hr), intravenous, Continuous, Starting on 05/07/25 at 1515, Look-alike/sound-alike medication - verify indication for use. 1624 (New Bag - Provider: Veronica Brown RN) 0554 (New Bag - Provider: Veronica Quinn RN) 0229 (New Bag - Provider: Veronica Quinn RN) PRN Medication Order 05/07/2025 05/08/2025 05/09/2025 acetaminophen (TYLENOL) tablet 650 mg 650 mg, oral, Every 4 hours PRN, mild pain - pain scale 1-3, temperature greater than 38 C, headaches, Temperature greater than 38.3 C, Starting on 05/07/25 at 1456, [Warning: Total Acetaminophen not to exceed more than 4 grams (4000 mg) in 24 hours] alum-mag hydroxide-simeth (MAALOX) 200-200-20 mg/5 mL suspension 30 mL 30 mL, oral, 4 times daily after meals and at bedtime as needed, dyspepsia, Starting on 05/07/25 at 1456, Look-alike/sound-alike medication - verify indication for use. Shake well., Indications: dyspepsia dextrose (GLUTOSE) 40 % gel 15 g 15 g, oral, As needed, low blood sugar, blood glucose less than 70 mg/dL, Starting on 05/07/25 at 1456, If patient conscious and taking PO. If blood glucose is not greater than 70 mg/dL after initial treatment, repeat treatment. dextrose 5 % (D5W) infusion 100 mL/hr, intravenous, Continuous PRN, blood glucose less than 70 mg/dL, Starting on 05/07/25 at 1456, Use immediately following dextrose 50% or glucagon treatment for patients who are unconscious or NPO. Contact prescriber for additional orders. If blood glucose is not greater than 70 mg/dL after initial treatment, repeat treatment. dextrose 50 % in water (D50W) 50% solution 25 mL 25 mL, intravenous, As needed, low blood sugar, blood glucose less than 70 mg/dL and unconscious or NPO with IV access, Starting on 05/07/25 at 1456, Push over 1-3 minutes STAT. If conscious and not NPO, immediately follow with meal tray or high protein (7 grams) snack if tray not available. If NPO, initiate 5% dextrose in water at 100 mL/hr and contact prescriber for additional orders. If blood glucose is not greater than 70 mg/dL after initial treatment, repeat treatment. VESICANT (RED) Warning: HYPERTONIC solution. glucagon HCL injection 1 mg 1 mg, intramuscular, As needed, low blood sugar, blood glucose less than 70 mg/dL and unconscious or NPO without IV access., Starting on 05/07/25 at 1456, If conscious and not NPO, immediately follow with meal tray or high protein (7Grams) snack if tray not available. If NPO, initiate IV 5% Dextrose/Water at 100 mL/hr and contact prescriber for additional orders. If blood glucose is not greater than 70 mg/dL after initial treatment, repeat treatment. magnesium sulfate IVPB 2000 mg/50 mL in iso-osmotic water (40 mg/mL premix) 2,000 mg, intravenous, at 25 mL/hr, Administer over 120 Minutes, As needed, Magnesium level 1.7 to 1.9 mg/dL, or Ionized Magnesium level 0.45 to 0.5 mmol/L., Starting on 05/07/25 at 1456, Recheck magnesium level 4 hours after infusion complete. With each magnesium result continue the replacement orders as needed. magnesium sulfate IVPB 4000 mg/100 mL in iso-osmotic water (40 mg/mL premix) 4,000 mg, intravenous, at 25 mL/hr, Administer over 240 Minutes, As needed, Magnesium level 1.6 mg/dL or less, or Ionized Magnesium level 0.44 mmol/L or less, Starting on 05/07/25 at 1456, Recheck magnesium level 4 hours after infusion complete. With each magnesium result continue the replacement orders as needed. ondansetron (PF) (ZOFRAN) injection 4 mg 4 mg, intravenous, Every 6 hours PRN, nausea, vomiting, Starting on 05/07/25 at 1456, Intravenous administration preferred to be given over 2-5 minutes. perflutren lipid microspheres (DEFINITY) dilution injection 1.43 mg/10 mL (COMPLETED) 2 mL, intravenous, Once in imaging, contrast, Starting on 05/08/25 at 1312, For 1 dose, Dilute 1.3 mL of Definity with 8.7 mL 0.9% NaCl in 10 mL syringe. Administer 2 mL perflutren (Definity) contrast if 2 contiguous segments of the LV are not well visualized. May repeat 2 mL dose until LV visualization is accomplished. Procedure total dose not to exceed 10 mL. 1318 (Given - Provider: Nelda Reis RN) potassium chloride (K-TAB,KLOR-CON) CR tablet 30-50 mEq(Linked Group 1) 30-50 mEq, oral, As needed, Potassium Supplementation, Starting on 05/07/25 at 1456, Progress to oral potassium replacement when patient tolerating oral intake. If dose administered, recheck potassium level 4 hours after last dose. For potassium level 3.4 to 3.8 mmol/L and GFR 30 mL/min or greater=30 mEq. For potassium level 3.1 to 3.3 mmol/L and GFR 30 mL/min or greater=40 mEq. For potassium level 3 mmol/L or less and GFR 30 mL/min or greater=50 mEq. Do not crush or chew. 2324 (Given - Provider: Veronica Quinn RN) 2012 (Given - Provider: Veronica Quinn RN) 600 (Given - Provider: Veronica Quinn RN) potassium chloride (KAYCIEL) 20 mEq/15 mL solution 30-50 mEq(Linked Group 1) 30-50 mEq, oral, As needed, Potassium Supplementation, Starting on 05/07/25 at 1456, Progress to oral potassium replacement when patient tolerating oral intake. If dose administered, recheck potassium level 4 hours after last dose. For potassium level 3.4 to 3.8 mmol/L and GFR 30 mL/min or greater=30 mEq. For potassium level 3.1 to 3.3 mmol/L and GFR 30 mL/min or greater=40 mEq. For potassium level 3 mmol/L or less and GFR 30 mL/min or greater=50 mEq. Must dilute before use - Mix in 3-8 ounces of water or juice before administration When administering in feeding tube, flush before and after per policy and monitor potassium levels 2324 (See Alternative - Provider: Veronica Quinn RN) 2012 (See Alternative - Provider: Veronica Quinn RN) 600 (See Alternative - Provider: Veronica Quinn RN) potassium chloride IVPB 10 mEq/100 mL in water (0.1 mEq/mL premix)(Linked Group 1) 10 mEq, intravenous, at 100 mL/hr, Administer over 60 Minutes, As needed, POTASSIUM REPLACEMENT, Starting on 05/07/25 at 1456, IV if unable to use oral/enteral with the current dosing strategies Potassium level 3 mmol/L or less administer Potassium Chloride 50 mEq Potassium level 3.1 to 3.3 mmol/L administer Potassium Chloride 40 mEq Potassium level 3.4 to 3.8 mmol/L administer Potassium Chloride 30 mEq Use central line when applicable. Recheck potassium level 1 hour after total IVPB infusion complete, With each potassium result continue the replacement orders as needed VESICANT (YELLOW) Infuse each 10 mEq over a minimum of 1 hour. 2324 (See Alternative - Provider: Veronica Quinn RN) 2012 (See Alternative - Provider: Veronica Quinn RN) 600 (See Alternative - Provider: Veronica Quinn RN) sennosides-docusate sodium (SENOKOT-S) 8.6-50 mg 1 tablet 1 tablet, oral, Every 12 hours PRN, constipation, Starting on 05/07/25 at 1456 sodium chloride 0.9 % flush 3 mL 3 mL, intravenous, As needed, line care, before and after each intermittent use, Starting on 05/07/25 at 1456 sodium chloride 0.9 % flush bag 25 mL, intravenous, at 100 mL/hr, Administer over 15 Minutes, As needed, line care, line care after IVPB administration, Starting on 05/07/25 at 1456 sodium chloride 0.9 % infusion 20 mL/hr, intravenous, Continuous PRN, to maintain patency of lines, Starting on 05/07/25 at 1456 Linked Groups Order Group 1: potassium chloride (K-TAB,KLOR-CON) CR tablet 30-50 mEqJump to med 30-50 mEq, oral, As needed, Potassium Supplementation, Starting on 05/07/25 at 1456, Progress to oral potassium replacement when patient tolerating oral intake. If dose administered, recheck potassium level 4 hours after last dose. For potassium level 3.4 to 3.8 mmol/L and GFR 30 mL/min or greater=30 mEq. For potassium level 3.1 to 3.3 mmol/L and GFR 30 mL/min or greater=40 mEq. For potassium level 3 mmol/L or less and GFR 30 mL/min or greater=50 mEq. Do not crush or chew. Or potassium chloride (KAYCIEL) 20 mEq/15 mL solution 30-50 mEqJump to med 30-50 mEq, oral, As needed, Potassium Supplementation, Starting on 05/07/25 at 1456, Progress to oral potassium replacement when patient tolerating oral intake. If dose administered, recheck potassium level 4 hours after last dose. For potassium level 3.4 to 3.8 mmol/L and GFR 30 mL/min or greater=30 mEq. For potassium level 3.1 to 3.3 mmol/L and GFR 30 mL/min or greater=40 mEq. For potassium level 3 mmol/L or less and GFR 30 mL/min or greater=50 mEq. Must dilute before use - Mix in 3-8 ounces of water or juice before administration When administering in feeding tube, flush before and after per policy and monitor potassium levels Or potassium chloride IVPB 10 mEq/100 mL in water (0.1 mEq/mL premix)Jump to med 10 mEq, intravenous, at 100 mL/hr, Administer over 60 Minutes, As needed, POTASSIUM REPLACEMENT, Starting on 05/07/25 at 1456, IV if unable to use oral/enteral with the current dosing strategies Potassium level 3 mmol/L or less administer Potassium Chloride 50 mEq Potassium level 3.1 to 3.3 mmol/L administer Potassium Chloride 40 mEq Potassium level 3.4 to 3.8 mmol/L administer Potassium Chloride 30 mEq Use central line when applicable. Recheck potassium level 1 hour after total IVPB infusion complete, With each potassium result continue the replacement orders as needed VESICANT (YELLOW) Infuse each 10 mEq over a minimum of 1 hour. documented in this encounter Additional Health Concerns Infection Onset Date Last Indicated Resolved Time Enteric Rule-Out 05/09/2025 05/09/2025 05/09/2025 8:20 AM EDT Assessment Noted Time PHQ-9 Depression Total Score: 0 04/07/20 8:16 PM EDT documented as of this encounter Care Teams Pile Driving Technician Relationship Specialty Start Date End Date Sheyla Oshea MD [address] [place] [address] PCP - General Family Medicine 04/07/25 documented as of this encounter
--- OUTSIDE RECORDS SUMMARY | 2025-05-09 08:30 | XMS_ITS | Encounter Summary ---
Author Organization [facility] Address [id number] [address] [place] [address] Care Team Providers Care Maintenance Superintendent Name Role Phone Kwadwo Oshea MD Primary Care Provider [phone] Reason for Visit * Reason Onset Date Comments Medication Reaction 05/08/2025 Encounter Details Date Type Department Care Team ([facility] st Contact Info) Description 05/08/2025 Telephone [facility] [address] [place] [id number] Saundra Flores, A Medication Reaction Social History Tobacco Use Types Packs/Day Years Used Date Smoking Tobacco: Former Cigarettes 2011 Passive Smoke Exposure: Past Smokeless Tobacco: Never Alcohol Use Standard Drinks/Week Comments Not Currently 0 (1 standard drink = 0.6 oz pur e alcohol) [facility] Utilities Answer Date Recorded In the past 12 months has [employer], gas, oil, or water [employer] threatened to shut off services in your [...] encounter Miscellaneous Notes * Telephone Encounter - WILLIAM Carrasco - 05/08/2025 1:36 PM EDT Contract: CORDELL Lutz calling from [facility] Gen 5 acute patient is in room 536. Reason for the call patient had a reaction to the medication definity. Please call Nelda at [phone] thank you Juan after hours. Sent secure chat to Gabriella Cabrera documented in this encounter Plan of Treatment Upcoming Encounters Date Type Department Care Team (Late st Contact Info) Description 05/12/2025 10:30 AM EDT Appointment [facility] - Cardiovascular [address] [place] [address] Aliza De La Cruz MD [address] [place] [address] 06/27/2025 9:00 AM EDT Office Visit [facility] Cardiology [address] [place] [address] Charlotte Alatorre, PA-C [address] [place] [address] documented as of this encounter Goals Goal [...] documented as of this encounter Care Teams Maintenance Superintendent Relationship Specialty Start Date End Date Kwadwo Oshea MD [address] [place] [address] PCP - General Family Medicine 04/07/25 documented as of this encounter
--- OUTSIDE RECORDS SUMMARY | 2025-05-09 08:30 | XMS_ITS | Patient Health Record ---
Author Organization [facility] in [place] Address [address] [place] [address] Care Team Providers Care Process Control Operator Name Role Phone Manoj Justice Primary Care Provider Allergies No Known Allergies Results Component Value Reference Range Notes CBC AUTO DIFF Reviewed date:05/08/2025 02:54:50 PM Interpretation: Performing Lab: Notes/Report: [facility] , White Blood Count 6.3 4.0-11.0 10 3/uL Red Blood Count 2.78 4.70-6.10 10 6/uL Hemoglobin 8.6 14.0-18.0 g/dL Hematocrit 26.1 42.0-54.0 % Mean Corpuscular Volume 93.9 80.0-94.0 fL Mean Corpuscular Hemoglobin 30.9 25.9-34.0 pg Mean Corpuscular HGB Conc 33.0 29.9-35.2 g/dL Red Cell Distribution Width 13.8 11.0-15.0 % Platelet Count 252 150-450 10 3/uL Mean Platelet Volume 9.6 9.5-13.5 fL Neutrophils Percent Auto 68.1 43.0-75.0 % Lymphocytes Percent Auto 16.4 20.5-60.0 % Monocytes Percent Auto 8.8 1.7-12.0 % Eosinophils Percent Auto 5.6 0.9-7.0 % Basophils Percent Auto 0.8 0.2-2.0 % Immature Granulocytes Pct Auto 0.3 0.0-0.5 % Neutrophils Absolute Auto 4.3 1.4-6.5 10 3/uL Lymphocytes Absolute Auto 1.0 1.2-3.8 10 3/uL Monocytes Absolute Auto 0.6 0.3-0.8 10 3/uL Eosinophils Absolute Auto 0.4 0.0-0.7 10 3/uL Basophils Absolute Auto 0.1 0.0-0.1 10 3/uL Immature Granulocytes Abs Auto 0.02 0.00-0.03 10 3/uL Performing Lab: see note - [facility] LB Prothrombin Time INR Reviewed date:05/08/2025 02:54:50 PM Interpretation: Performing Lab: Notes/Report: [facility] , Prothrombin Time 11.2 9.0-11.6 sec INR 1.06 DESIRED INR: 2.0-3.0 CONDITIONS NOT LISTED BELOW 2.5-3.5 FOR PROSTHETIC HEART VALVE REPLACEMENT 2.5-3.5 RECURRENT THROMBOSIS Performing Lab: see note - [facility] LB Type and Screen Reviewed date:05/08/2025 02:54:50 PM Interpretation: Performing Lab: Notes/Report: [facility] , Blood Type A Positive Antibody Screen NEGATIVE Occult Blood* Reviewed date:05/08/2025 02:54:50 PM Interpretation: Performing Lab: Notes/Report: [facility] , Occult Blood Positive Performing Lab: see note - [facility] LB ECG 12 lead Reviewed date:05/08/2025 02:54:50 PM Interpretation: Performing Lab: Notes/Report: Source Facility: [place] [address] Electrocardiograph Report Signed Patient: GUMARO ARNDT MR#: [id number] : 1965 Acct:[id number] Age/Sex: 60 / M ADM Date: 05/06/25 Loc: [place] 224-[address]: Sheyla Justice M.D. 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 Measurements Intervals Beverly Rate: 68 P: 55 CO: 188 QRS: 69 QRSD: 96 T: 222 QT: 378 QTc: 396 Interpretive Statements 1100 Sinus rhythm 4068 Nonspecific Twave abnormality 9130 borderline ECG No previous ECG available for comparison Electronically Signed On 05-07-2025 12:04:58 EDT by OSWALDO GALLO M.D. Dictated By: OSWALDO GALLO Signed By: 05/07/25 1205 DD/ 1631 TD/TT: [place]: [place] [address] Electrocardiograph Report Signed Patient: GUMARO ARNDT MR#: [id number] : 1965 Acct:[id number] Age/Sex: 60 / M ADM Date: 05/06/25 Loc: MS 224-[address]: Viraj Justice M.D. 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 Measurements Intervals Beverly Rate: 68 P: 55 CO: 188 QRS: 69 QRSD: 96 T: 222 QT: 378 QTc: 396 Interpretive Statements 1100 Sinus rhythm 4068 Nonspecific Twa ve abnormality 9130 borderline ECG No previous ECG avai lable for comparison Electronically Sosa d On 05-07-2025 12:04:58 EDT by OSWALDO GALLO M.D. Dictated By: OSWALDO GALLO Signed By: 05/07/25 1205 DD/ 1631 TD/TT: [place]oe Builder: MARÍA ELENA chest 2V Reviewed date:05/08/2025 02:54:50 PM Interpretation: Performing Lab: Notes/Report: Source Facility: [place] [address] [place] [address] XRay Report Signed Patient: GUMARO ARNDT MR#: [id number] : 1965 Acct:[id number] Age/Sex: 60 / M ADM Date: 05/06/25 Loc: ER Attending Dr: Ordering Physician: Daisy Bueno Date of Service: 05/06/25 Procedure(s): XR chest 2V Accession Number(s): [id number] cc: Daisy Bueno; Sheyla Justice M.D. [place] [address] Patient Name: GUMARO ARNDT MRN: [id number] date: 1965 Sex: M Assigned Patient Location: ER Current Patient Location: ER Accession/Order Number: [id number] Exam Date: 05/06/2025 17:07 Report Date: 05/06/2025 17:08 At the request of: DAISY BUENO Procedure: XR chest 2V PA AND LATERAL CHEST: CLINICAL HISTORY: short of breath COMPARISON: None FINDINGS: Sternotomy wires. Low lung findings. Small right-sided moderate left-sided opacities likely effusions. Left perihilar and left lung base opacity possibly related to atelectasis versus airspace disease. There are few prominent dilated loops of bowel within the upper abdomen with multifocal air-fluid levels.. XR/XR chest 2V IMPRESSION: Bilateral effusions and airspace disease, likely CHF and edema Dilated air-fluid levels involving the upper abdominal bowel loops please correlate with exam findings. Impression dictated by: Homer Mccrary M.D. 05/06/2025 5:08 PM Dictation Location: [place] [address] Electronically authenticated by: [id number] Y Date: 05/06/2025 17:08 Dictated By: Homer Mccrary M.D. Signed By: 05/06/25 171 DD/ 07 TD/TT: [place]: [place] [address] XRay Report Signed Patient: GUMARO ARNDT MR#: [id number] : 1965 Acct:[id number] Age/Sex: 60 / M ADM Date: 05/06/25 Loc: ER Attending Dr: Ordering Physician: Daisy Bueno Date of Service: 05/06/25 Procedure(s): XR chest 2V Accession Number(s): [id number] cc: Daisy Bueno; Jonny Justice M.D. [place] [address] Patient Name: GUMARO ARNDT MRN: [id number] date: 1965 Sex: M Assigned Patient Loc ation: ER Current Patient Loca tion: ER Accession/Order Numb er: [id number] Exam Date: 05/06/2025 17:07 Report Date: 05/06/2025 17:08 At the request of: DAISY BUENO Procedure: XR chest 2V PA AND LATERAL CHEST: CLINICAL HISTORY: sh ort of breath COMPARISON: None FINDINGS: Sternotomy wires. Lo w lung findings. Small right-sided moderate left-sided opacities likely effusions. Left perihilar and left lung base opacity possibly related to atelectasis versus airspace disease. There are few prominent dilated lo ops of bowel within the upper abdomen with multifocal air-fluid levels.. X R/XR chest 2V IMPRESSION: Bilateral effusions and airspace disease, likely CHF and edema Dilated air-fluid le vels involving the upper abdominal bowel loops please correlate with exam findings. Impression dictated by: Homer Mccrary M.D. 05/06/2025 5:08 PM Dictation Location: [place] [address] Electronically authenticated by: [id number] Y Date: 05/06/2025 17:08 Dictated By: Yamikla Mccrary M.D. Signed By: 05/06/25 1711 DD/ 1708 TD/TT: [place]: CT abdomen pelvis w con Reviewed date:05/08/2025 02:54:50 PM Interpretation: Performing Lab: Notes/Report: Source Facility: [facility] [place] [address] [place] [address] CT Scan Report Signed Patient: GUMARO ARNDT MR#: [id number] : 1965 Acct:[id number] Age/Sex: 60 / M ADM Date: 05/06/25 Loc: ER Attending Dr: Ordering Physician: Daisy Bueno Date of Service: 05/06/25 Procedure(s): CT abdomen pelvis w con Accession Number(s): [id number] cc: Sheyla Justice M.D. [place] [address] Patient Name: GUMARO ARNDT MRN: [facility]:[id number] date: 1965 Sex: M Assigned Patient Location: ER Current Patient Location: ER Accession/Order Number: [id number] Exam Date: 05/06/2025 18:03 Report Date: 05/06/2025 18:10 At the request of: DAISY BUENO Procedure: CT abdomen pelvis w con CT ABDOMEN AND PELVIS WITH INTRAVENOUS CONTRAST: CLINICAL HISTORY: air fluid level abnormal chest x-ray COMPARISON: Chest x-ray earlier today TECHNIQUE: Spiral images were obtained through the abdomen and pelvis following the administration of intravenous contrast. This CT exam was performed using one or more following dose reduction techniques: Automated exposure control, adjustment of the mA and/or kV according to patient size, or use of iterative reconstruction technique. FINDINGS: Lung Bases: [Moderate to large pleural effusions. There are consolidative changes both lung base likely areas of atelectasis. Cardiac megaly.] Organs:Liver, spleen, adrenals, kidneys, and pancreas unremarkable. Gallbladder is contracted.[ GI: Mild to moderate stool burden. No findings of bowel obstruction. Loss of normal haustral pattern involving the distal sigmoid colon possibly chronic finding[ Pelvis:[Insert bladder wall thickening likely chronic finding. Bladder extends into the right inguinal canal with associated fluid within the canal. Peritoneum/Retroperitoneum:Moderate severe plaque involving the aorta and atelectasis. Aorta is nonaneurysmal. No free air or free fluid.[ Abd wall/Bones:Diffuse anasarca. Pars defects L5 with minimal anterolisthesis. Otherwise multilevel degenerative changes noted.[ CT/CT abdomen pelvis w con IMPRESSION: Bilateral moderate to large effusions with consolidative changes both lung bases Diffuse anasarca. No evidence of acute inflammatory or bowel obstruction. Impression dictated by: Homer Mccrary M.D. 05/06/2025 6:10 PM Dictation Location: [place] [address] Electronically authenticated by: [id number] Y Date: 05/06/2025 18:10 Dictated By: Homer Mccrary M.D. Signed By: 05/06/251812 DD/ 09 TD/TT: [place] [place]: [place] [address] CT Scan Report Signed Patient: GUMARO ARNDT MR#: [id number] : 1965 Acct:[id number] Age/Sex: 60 / M ADM Date: 05/06/25 Loc: ER Attending Dr: Ordering Physician: Daisy Bueno Date of Service: 05/06/25 Procedure(s): CT abd omen pelvis w con Accession Number(s): [id number] cc: Sheyla Justice M.D. [place] [id number] Patient Name: GUMARO ARNDT MRN: [id number] date: 1965 Sex: M Assigned Patient Loc ation: ER Current Patient Loca tion: ER Accession/Order Numb er: [id number] Exam Date: 05/06/2025 18:03 Report Date: 05/06/2025 18:10 At the request of: DAISY BUENO Procedure: CT abdome n pelvis w con CT ABDOMEN AND PELVI S WITH INTRAVENOUS CONTRAST: CLINICAL HISTORY: ai r fluid level abnormal chest x-ray COMPARISON: Chest x- ray earlier today TECHNIQUE: Spiral im ages were obtained through the abdomen and pelvis following the administration of intravenous contrast. This CT exam was performed using one or more following dose reduction techniques: Automated exposure control, adjustment of the mA and/or kV according to patient size, or use of iterative reconstruction technique. FINDINGS: Lung Bases: [Moderat e to large pleural effusions. There are consolidative changes both lung ba se likely areas of atelectasis. Cardiac megaly.] Organs:Liver, spleen , adrenals, kidneys, and pancreas unremarkable. Gallbladder is contracted.[ GI: Mild to moderate stool burden. No findings of bowel obstruction. Loss of normal haustral macho kota involving the distal sigmoid colon possibly chronic finding[ Pelvis:[Insert bladd er wall thickening likely chronic finding. Bladder extends into the rig ht inguinal canal with associated fluid within the canal. Peritoneum/Retroperi toneum :Moderate severe plaque involving the aorta and atelectasis. Aorta i s nonaneurysmal. No free air or free fluid.[ Abd wall/Bones:Diffu se anasarca. Pars defects L5 with minimal anterolisthesis. Oth erwise multilevel degenerative changes noted.[ C T/CT abdomen pelvis w con IMPRESSION: Bilateral moderate t o large effusions with consolidative changes both lung bases Diffuse anasarca. No evidence of acute inflammatory or bowel obstruction. Impression dictated by: Homer Mccrary M.D. 05/06/2025 6:10 PM [facility] Electron[facility] authenticated by: [id number] Y Date: 05/06/2025 18:10 Dictated By: Yamilka Mccrary M.D. Signed By: 05/06/251812 DD/ 09 TD/TT: [place] [employer]: Troponin I High Sensitivity Reviewed date:05/08/2025 02:54:50 PM Interpretation: Performing Lab: Notes/Report: [facility] , Troponin I High Sensitivity 114.5 4.0-76.1 pg/mL RESULTS CALLED TO ER Gerardo Garcia DO @BY Jl Oleary MLT at 2039 CUT-OFF POINTS HAVE BEEN ESTABLISHED BASED ON THE FOURTH UNIVERSAL DEFINITION OF MYOCARDIAL INFARCTION. THE UPPER REFERENCE LIMIT (URL) OF TROPONIN, DEFINED THE 99TH PERCENTILE OF cTnI DISTRIBUTION IN A REFERENCE POPULATION, HAS BEEN CONFIRMED THE DECISION THRESHOLD FOR CO DIAGNOSIS. 99TH PERCENTILE = 76.2 PG/ML NOTE: HIGH-SENSITIVITY TROPONIN ASSAY IS NOT INTENDED TO BE USED IN ISOLATION BUT SHOULD BE INTERPRETED IN CONJUNCTION WITH OTHER DIAGNOSTIC AND CLINICAL INFORMATION. Performing Lab: see note ML - [facility] LB BNP Reviewed date:05/08/2025 02:54:50 PM Interpretation: Performing Lab: Notes/Report: [facility] , NT Pro B Type Natriuretic Pept 5381.0 <=900.0 pg/mL RESULTS CALLED TO Tonia Abernathy RN Performing Lab: see note ML - [facility] LB MAGNESIUM Reviewed date:05/08/2025 02:54:50 PM Interpretation: Performing Lab: Notes/Report: [facility] , Magnesium 1.5 1.8-2.4 mg/dL Performing Lab: see note ML - [facility] LB PROF CHEM 8 (BAS METB) Reviewed date:05/08/2025 02:54:50 PM Interpretation: Performing Lab: Notes/Report: [facility] , Sodium 148 136-145 mmol/L Potassium 2.9 3.5-5.1 mmol/L RESULTS CALLED TO Nicolette Abernathy RN @BY Jl Oleary MLT at 0659 Chloride 111 98-107 mmol/L Carbon Dioxide 27.3 21.0-32.0 mmol/L Anion Gap 12.6 Glucose 103 74-106 mg/dL Blood Urea Nitrogen 26.0 7.0-18.0 mg/dL Creatinine 1.23 0.70-1.30 mg/dL Estimated GFR ( Khadra >60 >=60 mL/min/1.73m 2 Estimated GFR (Non- Court 60 >=60 mL/min/1.73m 2 BUN Creatinine Ratio 21.1 Calcium 7.9 8.5-10.1 mg/dL Performing Lab: see note ML - [facility] LB T4 Reviewed date:05/08/2025 02:54:50 PM Interpretation: Performing Lab: Notes/Report: [facility] , T4 Thyroxine 4.60 4.50-12.10 ug/dL Performing Lab: see note ML - [facility] LB TSH Reviewed date:05/08/2025 02:54:50 PM Interpretation: Performing Lab: Notes/Report: [facility] , Thyroid Stimulating Hormone 1.034 0.358-3.740 uIU/mL Performing Lab: see note ML - [facility] LB CBC no Diff (Hemogram) Reviewed date:05/08/2025 02:54:50 PM Interpretation: Performing Lab: Notes/Report: [facility] , White Blood Count 5.1 4.0-11.0 10 3/uL Red Blood Count 2.58 4.70-6.10 10 6/uL Hemoglobin 8.0 14.0-18.0 g/dL Hematocrit 24.1 42.0-54.0 % Mean Corpuscular Volume 93.4 80.0-94.0 fL Mean Corpuscular Hemoglobin 31.0 25.9-34.0 pg Mean Corpuscular HGB Conc 33.2 29.9-35.2 g/dL Red Cell Distribution Width 13.9 11.0-15.0 % Platelet Count 257 150-450 10 3/uL Mean Platelet Volume 9.6 9.5-13.5 fL Performing Lab: see note ML - [facility] Troponin I High Sensitivity Reviewed date:05/08/2025 02:54:50 PM Interpretation: Performing Lab: Notes/Report: [facility] , Troponin I High Sensitivity 113.5 4.0-76.1 pg/mL RESULTS CALLED TO Renu Osorio RN @BY Jl Oleary MLT at 0353 CUT-OFF POINTS HAVE BEEN ESTABLISHED BASED ON THE FOURTH UNIVERSAL DEFINITION OF MYOCARDIAL INFARCTION. THE UPPER REFERENCE LIMIT (URL) OF TROPONIN, DEFINED THE 99TH PERCENTILE OF cTnI DISTRIBUTION IN A REFERENCE POPULATION, HAS BEEN CONFIRMED THE DECISION THRESHOLD FOR CO DIAGNOSIS. 99TH PERCENTILE = 76.2 PG/ML NOTE: HIGH-SENSITIVITY TROPONIN ASSAY IS NOT INTENDED TO BE USED IN ISOLATION BUT SHOULD BE INTERPRETED IN CONJUNCTION WITH OTHER DIAGNOSTIC AND CLINICAL INFORMATION. Performing Lab: see note ML - [facility] Troponin I High Sensitivity Reviewed date:05/08/2025 02:54:50 PM Interpretation: Performing Lab: Notes/Report: [facility] , Troponin I High Sensitivity 110.4 4.0-76.1 pg/mL RESULTS CALLED TO Tonia Abernathy RN CUT-OFF POINTS HAVE BEEN ESTABLISHED BASED ON THE FOURTH UNIVERSAL DEFINITION OF MYOCARDIAL INFARCTION. THE UPPER REFERENCE LIMIT (URL) OF TROPONIN, DEFINED THE 99TH PERCENTILE OF cTnI DISTRIBUTION IN A REFERENCE POPULATION, HAS BEEN CONFIRMED THE DECISION THRESHOLD FOR CO DIAGNOSIS. 99TH PERCENTILE = 76.2 PG/ML NOTE: HIGH-SENSITIVITY TROPONIN ASSAY IS NOT INTENDED TO BE USED IN ISOLATION BUT SHOULD BE INTERPRETED IN CONJUNCTION WITH OTHER DIAGNOSTIC AND CLINICAL INFORMATION. Performing Lab: see note ML - [facility] LB Troponin I High Sensitivity Reviewed date:05/08/2025 02:54:50 PM Interpretation: Performing Lab: Notes/Report: [facility] , Troponin I High Sensitivity 115.1 4.0-76.1 pg/mL RESULTS CALLED TO LISA DON RN CUT-OFF POINTS HAVE BEEN ESTABLISHED BASED ON THE FOURTH UNIVERSAL DEFINITION OF MYOCARDIAL INFARCTION. THE UPPER REFERENCE LIMIT (URL) OF TROPONIN, DEFINED THE 99TH PERCENTILE OF cTnI DISTRIBUTION IN A REFERENCE POPULATION, HAS BEEN CONFIRMED THE DECISION THRESHOLD FOR CO DIAGNOSIS. 99TH PERCENTILE = 76.2 PG/ML NOTE: HIGH-SENSITIVITY TROPONIN ASSAY IS NOT INTENDED TO BE USED IN ISOLATION BUT SHOULD BE INTERPRETED IN CONJUNCTION WITH OTHER DIAGNOSTIC AND CLINICAL INFORMATION. Performing Lab: see note ML - [facility] LB TSH Reviewed date:05/08/2025 02:54:50 PM Interpretation: Performing Lab: Notes/Report: [facility] , Thyroid Stimulating Hormone 1.720 0.358-3.740 uIU/mL Performing Lab: see note - [facility] PROF 14(COMP METB) Reviewed date:05/08/2025 02:54:50 PM Interpretation: Performing Lab: Notes/Report: [facility] , Sodium 145 136-145 mmol/L Potassium 2.8 3.5-5.1 mmol/L RESULTS HOLCOMB D TO LISA DON RN Chloride 109 98-107 mmol/L Carbon Dioxide 27.5 21.0-32.0 mmol/L Anion Gap 11.3 Glucose 110 74-106 mg/dL Blood Urea Nitrogen 28.0 7.0-18.0 mg/dL Creatinine 1.18 0.70-1.30 mg/dL Estimated GFR ( Khadra >60 >=60 mL/min/1.73m 2 Estimated GFR (Non- Court >60 >=60 mL/min/1.73m 2 BUN Creatinine Ratio 23.7 Calcium 8.2 8.5-10.1 mg/dL Bilirubin Total 0.2 0.2-1.0 mg/dL Aspartate Amino Transferase 30 15-37 U/L Alanine Aminotransferase 35 16-63 U/L Alkaline Phosphatase 135 46-116 U/L Total Protein 6.1 6.4-8.2 g/dL Albumin Level 2.4 3.4-5.0 g/dL Globulin 3.7 Albumin Globulin Ratio 0.6 Performing Lab: see note ML - [facility] LB MAGNESIUM Reviewed date:05/08/2025 02:54:50 PM Interpretation: Performing Lab: Notes/Report: Comment Please add to blood in lab [facility] , Magnesium 1.7 1.8-2.4 mg/dL Performing Lab: see note ML - [facility] LB BNP Reviewed date:05/08/2025 02:54:50 PM Interpretation: Performing Lab: Notes/Report: [facility] , NT Pro B Type Natriuretic Pept 6748.0 <=900.0 pg/mL RESULTS CALLED TO LISA DON RN Performing Lab: see note ML - [facility] LB Reason For Referral No Information Medications Medication SIG (Take, Route, Frequency, Duration) Notes Start Date End Date Status oxyCODONE HCl 5 MG 1 tablet as needed Orally every 6 hrs Active HumaLOG KwikPen 100 UNIT/ML Inject 1-8 units Subcutaneous four times day with meals and nightly Clarify Directions Active Aspirin 81 MG 1 tablet Orally Once a day Active Lantus SoloStar 100 UNIT/ML 15 units Subcutaneous in morning Active Acetaminophen 500 MG 1 capsule as needed Orally every 6 hrs Active Albuterol Sulfate HFA 108 (90 Base) MCG/ACT 1 puff as needed Inhalation every 4 hrs Active Hyoscyamine Sulfate 0.125 MG 1-2 tabs SL SL every 4 hrs PRN abd pain 05/06/2025 Active Tamsulosin HCl 0.4 MG 1 capsule Orally Once a day Active Jardiance 10 MG 1 tablet Orally [...] 1 tablet Orally Once a day Active Test Strips - Dx: E11.9 Dx: Diabetes Type II Once daily for 90 days 05/06/2025 Active Social History Tobacco Use: Social History [...] Problem Status W/U Status Risk Notes Problem 09686083 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) Active confirmed Problem Mixed hyperlipidemia (273414275) Mixed hyperlipidemia (E78.2) Active confirmed Problem Hypertension (70334013) Hypertension (I10) Active confirmed Problem Heart failure (06043594) Heart failure (I50.9) Active confirmed Problem Atherosclerotic heart disease of nikolski coronary artery without angina pectoris (211816170350675) 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 (I25.10) Active confirmed Problem Chronic systolic heart failure (488024250) Chronic systolic heart failure (I50.22) Active confirmed Problem Type II diabetes mellitus without complication (514166922) Controlled type 2 diabetes mellitus (E11.9) Active confirmed Problem Primary hypertension (97003515) Primary hypertension (I10) Active confirmed Vital Signs Blood pressure diastolic 82 mm Hg 05/06/2025 Height 65 in 05/06/2025 Blood pressure systolic 140 mm Hg 05/06/2025 Weight 166.2 lbs 05/06/2025 BMI 27.65 kg/m2 05/06/2025 Encounters Encounter Location Date Provider Diagnosis [address] [id number] 04/07/[address] [address] 05/06/[address] [address] 05/06/2025 Manoj Justice Heart failure I50.9 ; Hypertension I10 ; Controlled type 2 diabetes mellitus E11.9 and 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 I25.10 Assessments Encounter Date Diagnosis (ICD Code) Assessment Notes Treatment Notes Treatment Clinical Notes Section Notes 05/06/2025 Heart failure (ICD-10 - I50.9) 05/06/2025 Hypertension (ICD-10 - I10) 05/06/2025 Controlled type 2 diabetes mellitus (ICD-10 - E11.9) 05/06/2025 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 (ICD-10 - I25.10) Plan Of Treatment Pending Test Test Name Order Date High Sensitivity Troponin 05/06/2025 THYROID PANEL (T4/TSH/FREE T3) CMP (COMP MET GALEANO) w/eGFR CKD-EPI 2024 CBC WITH DIFF 05/06/2025 Insurance Providers Payer Name Payer Address Payer Phone Subscriber Number Group Number Insured Name Patient Relationship to Insured Coverage Start Date Coverage End Date [employer] PPO PLUS LOCAL PLAN [address] [place] [phone] [id number] Gumaro Arndt Self - patient is the insured Medical (General) History Medical History History ICD Code Hypertension I10 Controlled type 2 diabetes mellitus E11. 9 Heart failure I50.9 Surgical History Surgery Date(Month/Year) Coronary Artery Bypass X 4 04/11/25 Hospitalization History Reason Date(Month/Year) See Above
--- OUTSIDE RECORDS SUMMARY | 2025-05-09 08:31 | XMS_ITS | Encounter Summary ---
Author Organization [employer] s tem Address [id number] [address] [place] [address] Care Team Providers Care K9 Handler Name Role Phone Kwadwo Oshea MD Primary Care Provider [phone] Encounter Details Date Type Department Care Team (Latest Contact Info) Description 05/07/2025 Travel Social History Tobacco Use Types Packs/Day Years Used Date Smoking Tobacco: Former Cigarettes 2011 Passive Smoke Exposure: Past Smokeless Tobacco: Never Alcohol Use Standard Drinks/Week Comments Not Currently 0 (1 standard drink = 0.6 oz pur e alcohol) [facility] Utilities Answer Date Recorded In the past 12 months has [employer], gas, oil, or water [employer] threatened to shut off services in your [...] on file documented as of this encounter Functional Status documented as of this encounter Plan of Treatment Upcoming Encounters Date Type Department Care Team ([facility] st Contact Info) Description 05/12/2025 10:30 AM EDT Appointment [facility] - Cardiovascular [address] [place] [phone] Aliza De La Cruz MD [address] [place], [place] [id number] 06/27/2025 9:00 AM EDT Office Visit [facility] Cardiology [address] [facility] [address] [place] [phone] Charlotte Alatorre, PA-C [address] [place] [address] documented as of this encounter Goals Goal [...] documented as of this encounter Care Teams K9 Handler Relationship Specialty Start Date End Date Kwadwo Oshea MD [address] [facility] [address] PCP - General Family Medicine 04/07/25 documented as of this encounter
--- OUTSIDE RECORDS SUMMARY | 2025-05-09 08:31 | XMS_ITS | Encounter Summary ---
Author Organization [employer] s tem Address [id number] [address] [place] [address] Care Team Providers Care Director Of Government Sales Name Role Phone Kwadwo Oshea MD Primary Care Provider [phone] Reason for Visit * Reason Onset Date Comments Consult 05/06/2025 Encounter Details Date Type Department Care Team ([facility] st Contact Info) Description 05/06/2025 Telephone [employer] [facility] [address] [place] [phone] Nayla Weiss Consult Social History Tobacco Use Types Packs/Day Years Used Date Smoking Tobacco: Former Cigarettes 2011 Passive Smoke Exposure: Past Smokeless Tobacco: Never Alcohol Use Standard Drinks/Week Comments Not Currently 0 (1 standard drink = 0.6 oz pur e alcohol) [facility] Utilities Answer Date Recorded In the past 12 months has [employer], gas, oil, or water [employer] threatened to shut off services in your [...] Functional Status documented as of this encounter Miscellaneous Notes * Telephone Encounter - Nayla Weiss - 05/06/2025 6:32 PM EDT Contract: [facility] Access calling for a pt in [place] Call [phone] * Telephone Encounter - Nayla Weiss - 05/06/2025 6:32 PM EDT Chat sent to [employer] MD documented in this encounter Plan of Treatment Upcoming Encounters Date Type Department Care Team (Late st Contact Info) Description 05/12/2025 10:30 AM EDT Appointment [facility] - Cardiovascular [address] [place] [address] Aliza De La Cruz MD [address] [place] [address] 06/27/2025 9:00 AM EDT Office Visit [facility] Cardiology [address] [place] [address] Charlotte Alatorre [facility] [address] [place] [address] documented as of this encounter Goals Goal Patient Goal Type Associated Problems Recent Progress Patient-Stated? Author <enter goal here> General Yes Mariely Daniel, RN Note: Evaluation of progress towards goal: Patient plans for a safe discharge. documented as of this encounter Visit Diagnoses Not on filedocumented in this encounter Additional Health Concerns Infection Onset Date Last Indicated Resolved Time Enteric Rule-Out 05/09/2025 05/09/2025 05/09/2025 8:20 AM EDT Assessment Noted Time PHQ-9 Depression Total Score: 0 04/07/20 8:16 PM EDT documented as of this encounter Care Teams Director Of Government Sales Relationship Specialty Start Date End Date Kwadwo Oshea MD [address] [place] [address] PCP - General Family Medicine 04/07/25 documented as of this encounter
--- OUTSIDE RECORDS SUMMARY | 2025-05-09 08:31 | XMS_ITS | Clinical Summary ---
Author Organization [employer] Address [id number] [address] [place] [address] Care Team Providers Care Grain Receiver Name Role Phone Kwadwo Oshea MD Primary Care Provider [phone] Allergies Active Allergy Reactions Criticality Noted Date Comments Perflutren Lipid Microspheres pain Low 2024 Back pain Medications albuterol (PROVENTIL HFA;VENTOLIN HFA) 90 mcg/actuation inhaler Inhale 2 puffs every 6 (six) hours as needed for wheezing or shortness of breath. 03/09/20 25 Suspended ibuprofen (ADVIL,MOTRIN ) 200 mg tablet Take 3 tablets (600 mg total) by mouth every 6 (six) hours as needed for headaches, fever or pain. 04/05/20 25 2024 Discontinued(S top Taking at Discharge) acetaminophen (TYLENOL EXTRA STRENGTH) 500 mg tablet Take 2 tablets (1,000 mg total) by mouth every 6 (six) hours as needed for pain. 60 tablet 04/16/20 25 Suspended aspirin 81 mg Take 1 tablet (81 mg total) by mouth in the morning for 30 days. 30 tablet 04/17/20 25 2024 Suspended atorvastatin (LIPITOR) 80 mg tablet Take 1 [...] days. 14 tablet 04/17/20 25 2024 Discontinued insulin glargine (LANTUS, SEMGLEE) 100 unit/mL (3 mL) insulin pen Inject 15 Units under the skin in the morning. 15 mL 12 04/17/20 25 Suspended insulin lispro (HumaLOG) 100 unit/mL insulin pen Inject 1-8 Units under the skin 4 (four) times a day with meals and nightly. 15 mL 12 04/16/20 25 Suspended insulin lispro (HumaLOG) 100 unit/mL insulin pen Inject 2-10 Units under the skin in the morning and 2-10 Units at noon and 2-10 Units in the evening. Inject with meals. 15 mL 12 04/16/20 25 Suspended insulin lispro (HumaLOG) 100 unit/mL insulin pen Inject 2-8 Units under the skin nightly. 15 mL 12 04/16/20 25 Suspended metoprolol succinate XL (TOPROL XL) 50 mg 24 hr tablet Take 1 tablet (50 mg total) by mouth in the morning for 30 days. 30 tablet 04/17/20 25 2024 Discontinued oxyCODONE (ROXICODONE) 5 mg immediate release tabletIndicat ions:Coronary artery disease involving redding coronary artery of redding heart with unstable angina pectoris ([facility]) Take 1 tablet (5 mg total) by mouth every 6 (six) hours as needed for pain for up to 7 days. Max Daily Amount: 20 mg 28 tablet 04/16/20 25 2024 sennosides-do cusate sodium (SENOKOT-S) 8.6-50 mg Take 1 tablet by mouth in the morning for 14 days. 14 tablet 04/17/20 25 2024 Discontinued tamsulosin (FLOMAX) 0.4 mg capsule Take 1 capsule (0.4 mg total) by mouth nightly for 30 days. 30 capsule 04/16/20 25 2024 Suspended pen needle,diabet ic dual safty (BD AUTOSHIELD DUO PEN NEEDLE) 30 gauge x 3/16 needle 1 applicator by miscellaneous route 4 (four) times daily after meals and at bedtime for 30 days. 100 each 4 04/16/20 25 2024 Suspended furosemide (LASIX) 40 mg tablet Take 1 tablet (40 mg total) by mouth 2 (two) times a day before meals. 60 tablet 3 04/16/20 25 Suspended oxyCODONE (ROXICODONE) 5 mg immediate release tablet Take 1 tablet (5 mg total) by mouth every 6 (six) hours as needed for pain. Max Daily Amount: 20 mg 2024 Discontinued(T herapy completed) atorvastatin (LIPITOR) 80 mg tablet Take 1 tablet (80 mg total) by mouth nightly. 30 tablet 11 04/27/20 25 Suspended clopidogreL (PLAVIX) 75 mg tablet Take 1 tablet (75 mg total) by mouth in the morning. 30 tablet 11 04/27/20 25 Suspended carvediloL (COREG) 12.5 mg tablet Take 1 tablet (12.5 mg total) by mouth in the morning and 1 tablet (12.5 mg total) before bedtime. 180 tablet 3 04/27/20 25 Suspended Active Problems Problem Noted Date Diagnosed Date Acute heart failure 05/07/2025 Type 2 diabetes mellitus without complications 0 05/07/2025 Chronic kidney disease, stage 3a 05/07/2025 Mixed hyperlipidemia 04/27/2025 Primary hypertension 04/27/2025 Ischemic cardiomyopathy 04/27/2025 Chronic systolic heart failure 04/27/2025 Coronary artery disease 04/07/2025 Encounters Date Type Department Care Team Description 05/08/2025 Telephone [facility] [address] [place] [phone] Saundra Flores, WILLIAM Medication Reaction 05/07/2025 2:11 PM EDT - Present Hospital Encounter [facility] - GEN 5 Acute [address] [place] [phone] Mitesh Montoya MD 05/07/2025 Travel 05/06/2025 5:55 PM EDT Ancillary Procedure [facility] [address] [place] [phone] Pain 05/06/2025 4:20 PM EDT Ancillary Procedure [facility] [address] [place] [address] Pain 05/06/2025 Telephone [facility] [address] [place] [phone] Nayla Weiss Consult 05/03/2025 Documentation [facility] - [facility] [address] [place] [address] Marquita Veliz 04/27/2025 1:00 PM EDT Office Visit [facility] [address] [place] [address] Aliza De La Cruz MD Chronic systolic heart failure [facility] (Primary Dx); Coronary artery disease involving redding coronary artery of redding heart without angina pectoris; Ischemic cardiomyopathy; Primary hypertension; Mixed hyperlipidemia 04/27/2025 Travel 04/26/2025 Orders Only [facility] [address] [place] [address] Laura Bills, DANIEL Coronary artery disease involving redding coronary artery of redding heart with unstable angina pectoris ([facility]) 04/20/2025 Orders Only [facility] [address] [place] [address] External, Scanning Provider 04/19/2025 Abstract [facility] [address] [place] [address] External, Scanning Provider 04/19/2025 Lab Requisition [facility] - Lab [address] [place] [address] Jimmy Fernando MD Chronic kidney disease, stage 3a ([facility]); Proteinuria, unspecified; Atherosclerotic heart disease of redding coronary artery with unstable angina pectoris ([facility]) 04/18/2025 Telephone [facility] [address] [place] [phone] [facility] Follow-up 04/12/2025 [facility]phone [facility] [address] [place] [phone] McMbob, Diya orders 04/11/2025 5:30 PM EDT Ancillary Procedure [facility] [id number] 04/11/2025 12:36 PM EDT Anesthesia Event [facility] [address] [place] [address]. [place] [phone] Omar Iglesias MD 04/11/2025 12:35 PM EDT Ancillary Procedure [facility] [phone] 04/11/2025 12:30 PM EDT - 04/11/2025 5:30 PM EDT Surgery [address] [place] [phone] Jimmy Fernando MD CORONARY ARTERY BYPASS GRAFT X 4 , DHILLON, SVG X 3 EVH LEFT LEG AND RIGHT UPPER LEG /DEIDRE 04/11/2025 11:30 AM EDT Ancillary Procedure [facility] [phone] 04/11/2025 Travel 04/07/2025 5:51 PM EDT - 04/16/2025 3:41 PM EDT Hospital Encounter [facility] - JUARE[facility] 6W Acute [address] [place] [phone] Sharath Gorman MD Ibrahim, Rahaf N, MD Riordan, Christopher J, MD Stage 3a chronic kidney disease ([facility]) (Primary Dx); Nephrotic range proteinuria; Coronary artery disease involving redding coronary artery of redding heart with unstable angina pectoris ([facility]) Discharge Disposition: Home Health 04/07/2025 8:15 AM EDT Ancillary Procedure [facility] [address] [place] [phone] Pain 04/07/2025 6:00 AM EDT Ancillary Procedure [facility] [address] [place] [address] Pain 04/07/2025 Travel 04/06/2025 9:30 AM EDT Ancillary Procedure [facility] [address] [place] [phone] Pain 04/05/2025 5:45 PM EDT Ancillary Procedure [facility] [address] [place] [phone] Pain 04/05/2025 12:35 PM EDT Ancillary Procedure [facility] [address] [place] [phone] Pain 04/05/2025 10:10 AM EDT Ancillary Procedure [facility] [address] [place] [phone] Pain from Last 3 Months Immunizations Immunization Administration Dates Next Due Influenza (IM) Preservative Free 09/18/2016 Social History Tobacco Use Types Packs/Day Years Used Date Smoking Tobacco: Former Cigarettes 2011 Passive Smoke Exposure: Past Smokeless Tobacco: Never Tobacco Cessation:Counseling Given: Not Answered Alcohol Use Standard Drinks/Week Comments Not Currently 0 (1 standard drink = 0.6 oz pur e alcohol) [facility] Utilities Answer Date Recorded In the past 12 months has e [employer], gas, oil, or water [employer] threatened to shut off services in your [...] Mass Index 24.8 05/07/2025 2:16 PM EDT Plan of Treatment Upcoming Encounters Date Type Department Care Team (Late st Contact Info) Description 05/12/2025 10:30 AM EDT Appointment [facility] - Cardiovascular [address] [place] [phone] Aliza De La Cruz MD [address] [place], [place] [phone] 06/27/2025 9:00 AM EDT Office Visit [facility] [address] [place] [phone] Charlotte Alatorre, PA-C [address] [place], [place] [phone] Health Maintenance Due Date Last Done Comments Diabetic Ophthalmology Exam 1963 Adult BMI Follow Up Plan 1981 Diabetic Foot Exam 1981 DTaP,Tdap and Td Vaccines (1 - Tdap) 1982 Zoster (Shingles) Vaccine (1 of 2) 2013 Influenza Vaccine 07/11/2025 09/18/2016 Depression Screening 04/07/2026 04/07/2025 Tobacco Screening 04/27/2026 04/27/2025 Adult BMI Screening 05/08/2026 05/09/2025 Goals Goal Patient Goal Type Associated Problems Recent Progress Patient-Stated? Author <enter goal here> General Yes Mariely Daniel, DANIEL Note: Evaluation of progress towards goal: Patient plans for a safe discharge. Medical Devices Not on file Procedures * The patient is currently admitted. The information in this section might not be complete until the patient is discharged. Procedure Name Priority Date/Time Associated Diagnosis Comments BEDSIDE GLUCOSE Routine 05/09/2025 7:36 AM EDT C DIFFICILE BY PCR Routine 05/09/2025 6:07 AM EDT CBC WITH AUTO DIFFERENTIAL Routine 05/09 5:20 AM EDT MAGNESIUM Routine 05/09/2025 5:20 AM EDT COMPREHENSIVE METABOLIC PANEL Routine 05/09/2025 5:20 AM EDT ELECTROLYTE PANEL Routine 05/09/2025 12:07 AM EDT BEDSIDE GLUCOSE Routine 05/08/2025 9:16 PM EDT ER EXTRA URINE Routine 05/08/2025 6:38 PM EDT URINALYSIS Routine 05/08/2025 6:38 PM EDT ELECTROLYTE PANEL Routine 05/08/2025 6:21 PM EDT BEDSIDE GLUCOSE Routine 05/08/2025 5:05 PM EDT ECHO LIMITED WITH CONTRAST Routine 05/08 1:24 PM EDT ELECTROLYTE PANEL Routine 05/08/2025 12:09 PM EDT BEDSIDE GLUCOSE Routine 05/08/2025 11:23 AM EDT BEDSIDE GLUCOSE Routine 05/08/2025 7:55 AM EDT VITAMIN B12 Add-On 05/08/2025 6:57 AM EDT IRON AND TIBC Add-On 05/08/2025 6:57 AM EDT FOLATE Add-On 05/08/2025 6:57 AM EDT FERRITIN Add-On 05/08/2025 6:57 AM EDT CBC WITH AUTO DIFFERENTIAL Routine 05/08 6:57 AM EDT MAGNESIUM Routine 05/08/2025 6:57 AM EDT COMPREHENSIVE METABOLIC PANEL Routine 05/08/2025 6:57 AM EDT ELECTROLYTE PANEL Routine 05/08/2025 12:50 AM EDT BEDSIDE GLUCOSE Routine 05/07/2025 8:34 PM EDT ELECTROLYTE PANEL Routine 05/07/2025 6:35 PM EDT BEDSIDE GLUCOSE Routine 05/07/2025 4:42 PM EDT B-TYPE NATRIURETIC PEPTIDE Routine 05/07 3:04 PM EDT CBC WITH AUTO DIFFERENTIAL Routine 05/07 3:04 PM EDT MAGNESIUM Routine 05/07/2025 3:04 PM EDT COMPREHENSIVE METABOLIC PANEL Routine 05/07/2025 3:04 PM EDT PULSE OXIMETRY, SPOT Routine 05/07/2025 2:[address] ABDOMEN AND PELVIS W CONT Routine 05/06/2025 5:55 PM EDT Pain XR CHEST 2 VWS Routine 05/06/2025 4:20 PM EDT Pain MULTIPLE LABS Routine 04/26/2025 2:48 PM EDT LAB RESULTS REPORT (SCANNED INTO EHR) 04/22/2025 10:38 AM EDT PHOSPHORUS Routine 04/19/2025 9:00 AM EDT Chronic kidney disease, stage 3a (CMS-HCC) Proteinuria, unspecified Atherosclerotic heart disease of redding coronary artery with unstable angina pectoris (CMS-HCC) MAGNESIUM Routine 04/19/2025 9:00 AM EDT Chronic kidney disease, stage 3a (CMS-HCC) Proteinuria, unspecified Atherosclerotic heart disease of redding coronary artery with unstable angina pectoris (CMS-HCC) CBC (NO DIFF) Routine 04/19/2025 9:00 AM EDT Chronic kidney disease, stage 3a (CMS-HCC) Proteinuria, unspecified Atherosclerotic heart disease of redding coronary artery with unstable angina pectoris (CMS-HCC) COMPREHENSIVE METABOLIC PANEL Routine 04/19/2025 9:00 AM EDT Chronic kidney disease, stage 3a (CMS-HCC) Proteinuria, unspecified Atherosclerotic heart disease of redding coronary artery with unstable angina pectoris (CMS-HCC) [...] ABG RAPID K GLU HH Routine 04/11/20 4:02 PM EDT POCT ABG RAPID K GLU ICA HH Routine 12/2024 3:30 PM EDT POCT ABG RAPID K GLU HH Routine 04/11/20 3:02 PM EDT MS ANES ART LINE Routine 04/11/2025 2:39 PM EDT MS INSERT/PLACE FLOW DIRECT CATH Routine 04/11/2025 2:36 PM EDT TRANSFUSE RED BLOOD CELLS Routine 2024 1:41 PM EDT POCT IMAGN Routine 04/11/2025 1:11 PM EDT TEG BILL ONLY Routine 04/11/2025 1:11 PM EDT POCT ABG RAPID K GLU ICA HH Routine 12/2024 1:10 PM EDT MS AN ELECTIVE ENDOTRACHEAL AIRWAY Routine 04/11/2025 12:48 [...] EDT from Last 3 Months Results * (ABNORMAL) Bedside Glucose *Place/Obtain serum glucose if >500 per glucometer. (05/09/2025 7:36 AM EDT) Only the most recent of56 resultswithin the time period is included. Pathologist [facility] Bedside Glucose (POC) 213(H) 65 - 99 mg/dL 05/09/2025 7:38 AM EDT [facility] arterial/capilla ry 05/09/2025 7:36 AM EDT 05/09/2025 7:38 AM EDT us Mitesh Montoya MD POINT OF CARE TEST ORDERABL ES Final Result [facility] [address] [place] [address], [place] * C difficile by PCR (05/09/2025 6:07 AM EDT) Pathologist [facility] TOXIGENIC C DIFF Negative Negative 05/09/20 8:20 AM EDT [facility] 027 NAP1 Presumptive Negative Presumptive Negative 05/09/2025 8:20 AM EDT [facility] Comment:Assay methodology is nucleic acid amplification by real-time PCR for detection of C. difficile toxin gene sequences performed on [employer] GeneXRed Stamp Instrument System. Stool Feces / Unknown 05/09/2025 6 :07 AM EDT 05/09/2025 6:15 AM EDT us Casey Ulloa HAND PATCHER-LOOM FIXER HELPER BODY FLUIDS AND STOOLS O RDERABLES Final Result [facility] [address] [place] [address], [place] [phone] * (ABNORMAL) CBC auto differential (05/09/2025 5:20 AM EDT) Only the most recent of8 resultswithin the time period is included. WBC 7.0 4 - 11 x10E9/L 05/09/2025 5:59 AM EDT [facility] RBC Count 2.72(L) 4.1 - 5.7 X10E12/L 05/09/2025 5:59 AM EDT [facility] Hemoglobin 8.4(L) 13 - 17 g/dL 05/09/2025 5:59 AM EDT [facility] Hematocrit 24.4(L) 39 - 50 % 05/09/2025 5:59 AM EDT [facility] MCV 90 80 - 100 fL 05/09/2025 5:59 AM EDT [facility] MCH 31.0 27 - 34 pg 05/09/2025 5:59 AM EDT [facility] MCHC 34.5 32 - 36 g/dL 05/09/2025 5:59 AM EDT [facility] RDW 14.4 11.5 - 15 % 05/09/2025 5:59 AM EDT [facility] Platelet Count 239 150 - 450 X10E9/L 05/09/2025 5:59 AM EDT [facility] MPV 7.7 7 - 12 fL 05/09/2025 5:59 AM EDT [facility] Neutrophils % 67.4 % 05/09/2025 5:59 AM EDT [facility] Lymphocytes % 15.8 % 05/09/2025 5:59 AM EDT [facility] Monocytes % 11.4 % 05/09/2025 5:59 AM EDT [facility] Eosinophils % 4.4 % 05/09/2025 5:59 AM EDT [facility] Basophils % 1.0 % 05/09/2025 5:59 AM EDT [facility] Neutrophils Absolute (A) 4.7 1.5 - 6.6 10*3/uL 05/09/2025 5:59 AM EDT [facility] Lymphocytes Absolute 1.1 1.0 - 3.5 10*3/uL 05/09/2025 5:59 AM EDT [facility] Monocytes Absolute 0.8 0.0 - 0.9 10*3/uL 05/09/2025 5:59 AM EDT [facility] Eosinophils Absolute 0.3 0.0 - 0.4 10*3/uL 05/09/2025 5:59 AM EDT [facility] Basophils Absolute 0.1 0.0 - 0.2 10*3/uL 05/09/2025 5:59 AM EDT [facility] Differential Type AUTOMATED DIFFERENTIAL 05/09/2025 5:59 AM EDT [facility] Blood Venous blood / Unknown Venipuncture / Unknown 05/09/2025 5:20 AM EDT 05/09/2025 5:20 AM EDT us Siobhan Fu HAND PATCHER-LOOM FIXER HELPER LAB BLOOD ORDERABLES Valery l Result [facility] [address] [place] [address], * Magnesium (05/09/2025 5:20 AM EDT) Only the most recent of10 resultswithin the time period is included. MAGNESIUM 2.1 1.8 - 2.6 mg/dL 05/09/2025 6:19 AM EDT [facility] Blood Venous blood / Unknown Venipuncture / Unknown 05/09/2025 5:20 AM EDT 05/09/2025 5:20 AM EDT us Siobhan Fu HAND PATCHER-LOOM FIXER HELPER LAB BLOOD ORDERABLES Valery sandro Result [facility] [address] [place] [address], [place] [phone] * (ABNORMAL) Comprehensive metabolic panel (05/09/2025 5:20 AM EDT) Only the most recent of8 resultswithin the time period is included. SODIUM 142 134 - 146 mmol/L 05/09/2025 6:19 AM EDT [facility] POTASSIUM 3.6 3.5 - 5.0 mmol/L 05/09/2025 6:19 AM EDT [facility] CHLORIDE 102 98 - 109 mmol/L 05/09/2025 6:19 AM EDT [facility] CARBON DIOXIDE 31 22 - 32 mmol/L 05/09/2025 6:19 AM EDT [facility] ANION GAP 9 5 - 15 mmol/L 05/09/2025 6:19 AM EDT [facility] BLOOD UREA NITROGEN 36(H) 5 - 27 mg/dL 05/09/2025 6:19 AM EDT [facility] CREATININE 1.62(H) 0.60 - 1.30 mg/dL 05/09/2025 6:19 AM EDT [facility] Comment:METHOD TRACEABLE TO IDMS STANDARD GLUCOSE 160(H) 65 - 99 mg/dL 05/09/2025 6:19 AM EDT [facility] CALCIUM 8.0(L) 8.5 - 10.5 mg/dL 05/09/2025 6:19 AM EDT [facility] TOTAL PROTEIN 5.8(L) 6.0 - 8.0 g/dL 05/09/2025 6:19 AM EDT [facility] ALBUMIN 3.2 3.2 - 5.3 g/dL 05/09/2025 6:19 AM EDT [facility] ALKALINE PHOSPHATASE 99 39 - 130 U/L 05/09/2025 6:19 AM EDT [facility] AST 15 <=41 U/L 05/09/2025 6:19 AM EDT [facility] ALT 14 <=40 U/L 05/09/2025 6:19 AM EDT [facility] BILIRUBIN,TOTAL 0.4 0.3 - 1.2 mg/dL 05/09/2025 6:19 AM EDT [facility] EGFR Non-Race Dependent 48(L) >=60 ml/min/1.7 3sq.m 05/09/2025 6:19 AM EDT [facility] Comment: Reported eGFR is based on the CKD-EPI 2020 equation that does not use a race coefficient. Blood Venous blood / Unknown Venipuncture / Unknown 05/09/2025 5:20 AM EDT 05/09/2025 5:20 AM EDT us Siobhan Fu HAND PATCHER-LOOM FIXER HELPER LAB BLOOD ORDERABLES Valery jo Result [facility] [address] [place] [address], * Electrolyte panel (05/09/2025 12:07 AM EDT) Only the most recent of5 resultswithin the time period is included. SODIUM 143 134 - 146 mmol/L 05/09/2025 1:15 AM EDT [facility] POTASSIUM 3.7 3.5 - 5.0 mmol/L 05/09/2025 1:15 AM EDT [facility] CHLORIDE 104 98 - 109 mmol/L 05/09/2025 1:15 AM EDT [facility] CARBON DIOXIDE 30 22 - 32 mmol/L 05/09/2025 1:15 AM EDT [facility] ANION GAP 9 5 - 15 mmol/L 05/09/2025 1:15 AM EDT [facility] Blood Venous blood / Unknown Venipuncture / Unknown 05/09/2025 12:07 AM EDT 05/09/2025 12:07 AM EDT Madelaine Jaramillo MD LAB BLOOD ORDERABLES Final Result [facility] [address] [place] [address], [place] [phone] * Er Extra Urine (05/08/2025 6:38 PM EDT) Extra Tube Auto Resulted 05/08/2025 8:02 PM EDT [facility] Urine Urine / Unknown 05/08/2025 6 :38 PM EDT 05/08/2025 7:20 PM EDT us Mitesh Montoya MD URINE ORDERABLES Final Resu lt [facility] [address] [place] [address], [place] [phone] * (ABNORMAL) Urinalysis (05/08/2025 6:38 PM EDT) Only the most recent of3 resultswithin the time period is included. COLOR [place](A) Yellow, Colorless 05/08/2025 7:48 PM EDT [facility] TURBIDITY Cloudy(A) Clear 05/08/2025 7:48 PM EDT [facility] SPECIFIC GRAVITY 1.020 1.003 - 1.035 05/08/2025 7:48 PM EDT [facility] NITRITE Negative Negative 05/08/2025 7:48 PM EDT [facility] PH,URINE 6.0 5.0 - 8.5 05/08/2025 7:48 PM EDT [facility] LEUKOCYTE ESTERASE Moderate(A) Negative 05/08/2025 7:48 PM EDT [facility] PROTEIN 70 mg/dL(A) Negative 05/08/2025 7:48 PM EDT [facility] KETONES (URINE) Negative Negative 7:48 PM EDT [facility] UROBILINOGEN <1.1 eu/dL <1.1 eu/dL 05/08/2025 7:48 PM EDT [facility] BILIRUBIN (URINE) Negative Negative 05/08/2025 7:48 PM EDT [facility] BLOOD/HGB Large(A) Negative 05/08/2025 7:48 PM EDT [facility] R.B.CELLS >720(H) 0 - 5 05/08/2025 7:48 PM EDT [facility] W.B.CELLS 327(H) 0 - 5 05/08/2025 7:48 PM EDT [facility] GLUCOSE (URINE) 150 mg/dL(A) Negative 05/08/2025 7:48 PM EDT [facility] Urine (Urine, Indwelling Catheter) Collection / Unknown 05/08/2025 6:38 PM EDT 05/08/2025 7:18 PM EDT us Siobhan Fu HAND PATCHER-LOOM FIXER HELPER URINE ORDERABLES Final Re sult [facility] [address] [place] [address], [place] [phone] * Echo limited W/ contrast (05/08/2025 1:24 PM EDT) FS 23 28 - 44 % [facility] LVIDd 3.90 4.18 - 5.80 cm [facility] LVIDs 3.00 2.47 - 3.74 cm [facility] IVS 1.00 0.6 - 1.1 cm [facility] PW 1.00 0.6 - 1.1 cm [facility] LA size 4.10 cm [facility]A Aortic root 2.80 cm [facility] LV RWT 2D 51.28 [facility] Left Ventricle Mass 122.66174 [id number] 7 g [facility] Interventricular Septum Diastolic Thickness [...] left ventricular wall motion is globally hypokinetic. Gabriella Cabrera PA-C CV ECHO ORDERABLES Final Result * (ABNORMAL) Iron and TIBC (05/08/2025 6:57 AM EDT) Only the most recent of3 resultswithin the time period is included. IRON 42(L) 50 - 212 ug/dL 05/08/2025 12:15 PM EDT [facility] TRANSFERRIN 128(L) 168 - 336 mg/dL 05/08/2025 12:15 PM EDT [facility] IRON BINDING 179(L) 250 - 425 ug/dL 05/08/2025 12:15 PM EDT [facility] IRON SATURATION 23 20 - 50 % SATURATION 05/08/2025 12:15 PM EDT [facility] Blood Venous blood / Unknown Venipuncture / Unknown 05/08/2025 6:57 AM EDT 05/08/2025 7:42 AM EDT Fanny Ta [employer] [facility] B[facility] ORDERABLE S Final Result [facility] [address] [place] [address], * Folate (05/08/2025 6:57 AM EDT) Only the most recent of3 resultswithin the time period is included. FOLIC ACID 9.6 >5.8 ng/mL 05/08/2025 12:39 PM EDT [facility] Blood Venous blood / Unknown Venipuncture / Unknown 05/08/2025 6:57 AM EDT 05/08/2025 7:42 AM EDT Fanny Ta HAND PATCHER-LOOM FIXER HELPER LAB BLOOD ORDERABLE S Final Result [facility] [address] [place] [address], * (ABNORMAL) Ferritin (05/08/2025 6:57 AM EDT) Only the most recent of3 resultswithin the time period is included. FERRITIN 759(H) 24 - 336 ng/mL 05/08/2025 12:35 PM EDT [facility] Blood Venous blood / Unknown Venipuncture / Unknown 05/08/2025 6:57 AM EDT 05/08/2025 7:42 AM EDT Fanny Lundberg Emigdiorosaflorianer HAND PATCHER-LOOM FIXER HELPER LAB BLOOD ORDERABLE S Final Result [facility] [address] [place] [address], * Vitamin B12 (05/08/2025 6:57 AM EDT) Only the most recent of3 resultswithin the time period is included. VITAMIN B12 260 180 - 914 pg/mL 05/08/2025 12:40 PM EDT [facility] Blood Venous blood / Unknown Venipuncture / Unknown 05/08/2025 6:57 AM EDT 05/08/2025 7:42 AM EDT Fanny Lundberg Cely HAND PATCHER-LOOM FIXER HELPER LAB BLOOD ORDERABLE S Final Result Performing Organization Address City/[facility]/ZIP Co de Phone Number [facility] [address] [place] [id number], * (ABNORMAL) B-type natriuretic peptide (05/07/2025 3:04 PM EDT) BNP 1,709(H) <=100 pg/mL 05/07/2025 4:09 PM EDT [facility] Blood Venous blood / Unknown Venipuncture / Unknown 05/07/2025 3:04 PM EDT 05/07/2025 3:04 PM EDT us Siobhan Fu HAND PATCHER-LOOM FIXER HELPER LAB BLOOD ORDERABLES Valery l Result [facility] [address] [place] [id number], * CT abdomen and pelvis with contrast (05/06/2025 5:55 PM EDT) us Scanning Provider External IMG CT ORDERABLES Fin al Result * X-ray chest 2 views (05/06/2025 4:20 PM EDT) Only the most recent of2 resultswithin the time period is included. us Scanning Provider External IMG DIAGNOSTIC IMAGIN G ORDERABLES Final Result * Multiple labs (04/26/2025 2:48 PM EDT) Only the most recent of2 resultswithin the time period is included. us Not In System Ref Prov MS IMAGING Final Res ult MANUALLY TRANSCRIBED RESULTS [...] - 11 x10E9/L 04/19/2025 10:25 AM EDT [facility] RBC Count 3.04(L) 4.1 - 5.7 X10E12/L 04/19/2025 10:25 AM EDT [facility] Hemoglobin 9.7(L) 13 - 17 g/dL 04/19/2025 10:25 AM EDT [facility] Hematocrit 28.1(L) 39 - 50 % 04/19/2025 10:25 AM EDT [facility] MCV 93 80 - 100 fL 04/19/2025 10:25 AM EDT [facility] MCH 31.8 27 - 34 pg 04/19/2025 10:25 AM EDT [facility] MCHC 34.3 32 - 36 g/dL 04/19/2025 10:25 AM EDT [facility] RDW 13.8 11.5 - 15 % 04/19/2025 10:25 AM EDT [facility] Platelet Count 430 150 - 450 X10E9/L 04/19/2025 10:25 AM EDT [facility] MPV 7.2 7 - 12 fL 04/19/2025 10:25 AM EDT [facility] Blood Venous blood / Unknown 04/19/2025 9:00 AM EDT 04/19/2025 10:07 AM EDT us Jimmy Fernando MD LAB BLOOD ORDERABLES Fi nal Result [address] [address], [place] * Phosphorus (04/19/2025 9:00 AM EDT) Only the most recent of6 resultswithin the time period is included. PHOSPHORUS 3.8 2.4 - 4.9 mg/dL 04/19/2025 10:34 AM EDT [facility] Blood Venous blood / Unknown 04/19/2025 9:00 AM EDT 04/19/2025 10:07 AM EDT us Jimmy Fernando MD LAB BLOOD ORDERABLES Fi nal Result [address] [place] [address], [place] * Ionized calcium (04/16/2025 4:44 AM EDT) Only the most recent of7 resultswithin the time period is included. IONIZED CALCIUM - ICAN 4.5 4.5 - 5.3 mg/dL 04/16/2025 5:24 AM EDT [facility] Blood Venous blood / Unknown Port / Unknown 04/16/2025 4:44 AM EDT 04/16/2025 5:07 AM EDT Alicia Puri MD LAB BLOOD ORDERABLES Final Result [facility] [address] [place] [address], * (ABNORMAL) Hemoglobin (04/15/2025 3:01 PM EDT) Only the most recent of3 resultswithin the time period is included. Hemoglobin 8.5(L) 13 - 17 g/dL 04/15/2025 3:15 PM EDT [facility] Blood Venous blood / Unknown 04/15/2025 3:01 PM EDT 04/15/2025 3:09 PM EDT Varsha Russell Reeves HAND PATCHER-LOOM FIXER HELPER LAB BLOOD ORDERABLES F inal Result Performing Organization Address City/[facility]/ZIP Co de Phone Number [facility] [address] [place] [address], * X-ray chest 1 view (04/15/2025 8:45 [...] increase in lower lobe infiltrates. Approved by Cceil Benson DO on 04/15/2025 9:02 AM Shaun [...] Cecil Benson DO on 04/15/2025 9:02 AM IShaun MD have personally reviewed the image(s) and agree withand/or edited the report Finalized by Shaun Loja MD on 04/15/2025 9:13 AM us Varsha Reeves HAND PATCHER-LOOM FIXER HELPER IMG DIAGNOSTIC IMAGING ORDERABLES Final Result * Transfuse RBC:1 Unit (04/14/2025 2:21 PM EDT) Only the most recent of2 resultswithin the time period is included. us Bertha Roldan HAND PATCHER-LOOM FIXER HELPER BLOOD TRANSFUSION OR DERABLES Final Result * Clinical Pathology Review (04/14/2025 2:17 PM EDT) Case Report Clinical Pathology Report Case: [id number] Authorizing Provider: Alicia Puri MD Collected: 04/14/2025 1417 Ordering Location: [facility] Received: 04/14/2025 1417 - JUAREZ 6W Acute Pathologist: Rajwinder Madrigal MD Specimen: Blood, Venous 04/14/2025 4:16 PM EDT [facility] Final Diagnosis No monoclonal protein identified. 04/14/2025 4:16 PM EDT [facility] at 1616 EDT Venous blood / Unknown 04/14/2025 2:17 PM EDT 04/14/2025 2:17 PM EDT Alicia Puri MD PATHOLOGY/CYTOLOGY ORDERABL ES Final Result [facility] [address] [place] [address], [place] [phone] * Crossmatch RBC:Number of Units: 1 (04/14/2025 11:18 AM EDT) Only the most recent of3 resultswithin the time period is included. Blood component type [id number] BLOOD BANK - [employer] Unit number [id number] BL OOD BANK - [employer] Unit ABO A BLOOD BANK - [employer] Unit RH POS BLOOD BANK - [employer] Crossmatch Compatible BLOOD BA NK - [employer] Status of unit TRANSFUSED BLOO D BANK - [facility] Expiration Date BLOOD BANK - [facility] BB Type Barcode 6200 BLOOD BANK - [facility] Blood Venous blood / Unknown 04/14/2025 11:18 AM EDT 04/14/2025 11:25 AM EDT us Bertha Roldan APRN-LOOM FIXER HELPER BLOOD BANK PRODUCT O RDERABLES Edited Result - Final BLOOD BANK - [facility] * Type and screen(includes indirect magali) (04/14/2025 11:18 AM EDT) Only the most recent of2 resultswithin the time period is included. ABO A 04/14/2025 12:19 PM EDT [facility] RH Positive 04/14/2025 12:19 PM EDT [facility] Antibody Screen Negative 04/14/2025 12:19 PM EDT [facility] Blood Venous blood / Unknown Central Line / Unknown 04/14/2025 11:18 AM EDT 04/14/2025 11:37 AM EDT us Bertha Roldan HAND PATCHER-LOOM FIXER HELPER BLOOD BANK TEST ORDSulma CARBAJAL Edited Result - Final Performing Organization Address City/[facility]/ZIP Co de Phone Number [facility] [address] [place] [address], [place] [facility] [address] [place] [address], [place] * CK Total (04/14/2025 3:35 AM EDT) CPK 155 24 - 195 U/L 04/14/2025 4:42 AM EDT [facility] Blood 04/14/2025 3:35 AM EDT 04/14/2025 4:09 AM EDT us Alicia Puri MD LAB BLOOD ORDERABLES Final Result Performing Organization Address City/[facility] Co de Phone Number [facility] [address] [place] [address], [place] [phone] * Ultrasound retroperitoneal complete (04/13/2025 8:37 PM [...] on 04/13/2025 10:21 PM Alicia Puri MD [facility] [place] ORDERABLES Final Res ult * (ABNORMAL) Protein creat ratio (04/13/2025 6:12 PM EDT) Only the most recent of2 resultswithin the time period is included. URINE PROTEIN, RANDOM (MG/L) 1,830(H) <120 mg/L 04/13/2025 8:43 PM EDT [facility] URINE CREATININE,RDM 136.21 mg/dL 04/13/2025 8:43 PM EDT [facility] U/PRO/AIR CONDITIONING INSTALLER SUPERVISOR RATIO CALC 1.34(H) <=0.20 04/13/2025 8:43 PM EDT [facility] Urine Collection / Unknown 04/13/2025 6:12 PM EDT 04/13/2025 6:28 PM EDT Narrative [facility] - 04/13/2025 8:43 PM EDT Nephrotic Syndrome is associated with ratios >3.5 Alicia Puri MD URINE ORDERABLES Final Resu lt [facility] [address] [place] [address], [place] [phone] * (ABNORMAL) Microalbumin - Albumin: Creatinine Urine Ratio (04/13/2025 6:12 PM EDT) URINE CREATININE,RDM 136.86 mg/dL 04/14/2025 1:40 AM EDT [facility] MALB/CREAT RATIO 971.8(H) 0.0 - 30.0 mg/g 04/14/2025 1:40 AM EDT [facility] MICROALBUMIN, URINE 133.0(H) 0.0 - 1.9 mg/dL 04/14/2025 1:40 AM EDT [facility] Urine Collection / Unknown 04/13/2025 6:12 PM EDT 04/13/2025 6:28 PM EDT Alicia Puri MD URINE ORDERABLES Final Resu lt [facility] [address] [place] [address], [place] [phone] * Cytoplasmic Neutrophilic Ab (ANCA), S (04/13/2025 4:33 PM EDT) C-ANCA Negative Negative 04/14/2025 2:13 PM EDT [facility] P-ANCA Negative Negative 04/14/2025 2:13 PM EDT [facility] Comment: Negative for cANCA and pANCA patterns by immunofluorescence. ADDITIONAL INFORMATION This test was developed and its performance characteristics determined by [facility] in a manner consistent with CLIA requirements. This test has not been cleared or approved by the U.S. Food and Drug Administration. Test Performed by: [facility] [address] [place] [address] Inspector Glass Or Mirror: Brodie Hernandez Ph.D.; CLIA# [id number] Blood Central Line / Unknown 04/13/2025 4:33 PM EDT 04/13/2025 4:47 PM EDT us Alicia Puri MD LAB BLOOD ORDERABLES Final Result [facility] [address] [place] [address], [place] * Glomerular basement membrane IgG AB (04/13/2025 4:33 PM EDT) GBM IGG AB <0.2 <1.0 AI 04/13/2025 6:35 PM EDT [facility] Blood Central Line / Unknown 04/13/2025 4:33 PM EDT 04/13/2025 4:48 PM EDT Alicia Puri MD LAB BLOOD ORDERABLES Final Result [facility] [address] [place] [address], * Syphilis Total (Unknown Syphilis Status) (04/13/2025 4:33 PM EDT) SYPHILIS TOTAL <0.2 <=0.8 AI 04/13/2025 6:36 PM EDT [facility] Blood Central Line / Unknown 04/13/2025 4:33 PM EDT 04/13/2025 4:48 PM EDT Narrative [facility] - 04/13/2025 6:36 PM EDT NON REACTIVE No serologic evidence of infection to Treponema pallidum. Repeat testing may be considered in patients with suspected acute or primary syphilis in 2 to 4 weeks. Alicia Puri MD LAB BLOOD ORDERABLES Final Result [facility] [address] [place] [address], [place] [phone] * Complement profile (C3 AND C4) (04/13/2025 4:33 PM EDT) COMPLEMENT C3 110 86 - 184 mg/dL 04/13/2025 5:21 PM EDT [facility] COMPLEMENT C4 25 16 - 47 mg/dL 04/13/2025 5:21 PM EDT [facility] Blood Central Line / Unknown 04/13/2025 4:33 PM EDT 04/13/2025 4:48 PM EDT us Alicia Puri MD LAB BLOOD ORDERABLES Final Result [facility] [address] [place] [address], [place] [phone] * (ABNORMAL) Immunoelectrophoresis for Therapy Monitoring (04/13/2025 4:33 PM EDT) IGA 189 68 - 378 mg/dL 04/14/2025 7:37 PM EDT [facility] IGG 313(L) 635 - 1,741 mg/dL 04/14/2025 7:37 PM EDT [facility] IGM 39(L) 45 - 281 mg/dL 04/14/2025 7:37 PM EDT [facility] FREE KAPPA LT CHAINS 3.79(H) 0.33 - 1.94 mg/dL 04/14/2025 7:37 PM EDT [facility] Immune Profile Interpretation See Pathology Report 04/14/2025 7:37 PM EDT [facility] FREE LAMBDA LT CHAINS 2.41 0.57 - 2.63 mg/dL 04/14/2025 7:37 PM EDT [facility] FREE KIKA/LAMBD RATIO 1.57 0.26 - 1.65 04/14/2025 7:37 PM EDT [facility] Blood Central Line / Unknown 04/13/2025 4:33 PM EDT 04/13/2025 4:48 PM EDT us Alicia Puri MD LAB BLOOD ORDERABLES Final Result [facility] [address] [place] [address], [place] [phone] * (ABNORMAL) Protein electrophoresis, serum (04/13/2025 4:33 PM EDT) TOTAL PROTEIN 4.6(L) 6.0 - 8.0 g/dL 04/14/2025 1:22 PM EDT [facility] ALPHA 1 GLOBULIN 0.4 0.1 - 0.4 g/dL 04/14/2025 1:22 PM EDT [facility] ALPHA 2 GLOBULIN 0.8 0.4 - 1.1 g/dL 04/14/2025 1:22 PM EDT [facility] BETA GLOBULIN 0.5 0.5 - 1.2 g/dL 04/14/2025 1:22 PM EDT [facility] GAMMA GLOBULIN 0.3(L) 0.5 - 1.6 g/dL 04/14/2025 1:22 PM EDT [facility] Protein Electrophoresis Interp Unremarkable protein distribution, no monoclonal bands 04/14/2025 1:22 PM EDT [facility] Albumin 2.5(L) 3.4 - 5.3 g/dL 04/14/2025 1:22 PM EDT [facility] Blood Central Line / Unknown 04/13/2025 4:33 PM EDT 04/13/2025 4:48 PM EDT us Alicia Puri MD LAB BLOOD ORDERABLES Final Result [facility] [address] [place] [address], [place] [phone] * Ionized magnesium (04/13/2025 3:41 AM EDT) Only the most recent of4 resultswithin the time period is included. IONIZED MAGNESIUM 0.68 0.45 - 0.74 mmol/L 04/13/2025 4:11 AM EDT [facility] Blood Venous blood / Unknown 04/13/2025 3:41 AM EDT 04/13/2025 3:53 AM EDT us iJmmy Fernando MD LAB BLOOD ORDERABLES Fi nal Result [facility] [address] [place] [address], * DNA double-stranded (dsDNA) Abs (04/13/2025 3:41 AM EDT) Double Stranded DNA Ab <1 <5 IU/ML 04/13/2025 6:48 PM EDT [facility] Blood Venous blood / Unknown 04/13/2025 3:41 AM EDT 04/13/2025 3:53 AM EDT Narrative [facility] - 04/13/2025 6:48 PM EDT Interpretation < 5 Negative 5 - 9 Indeterminate > 9 Positive Alicia Puri MD LAB BLOOD ORDERABLES Final Result Performing Organization Address City/[facility]/ZIP Co de Phone Number [facility] [address] [place] [address], * Hepatitis panel, acute (04/13/2025 3:41 AM EDT) [facility] HEPATITIS B SURF AG Non-Reacti ve Non-Reacti ve 04/13/2025 4:57 PM EDT [facility] HEPATITIS A IGM Non-Reacti ve Non-Reacti ve 04/13/2025 4:57 PM EDT [facility] HEPATITIS B CORE IGM Non-Reacti ve Non-Reacti ve 04/13/2025 4:57 PM EDT [facility] ANTI HCV W/PCR REFLX Non-Reacti ve Non-Reacti ve 04/13/2025 4:57 PM EDT [facility] Comment: If recent infection suspected, recommend repeat testing (>2 months). Fqjwwb-vg-ffzurp ratio is <1.0. Blood Venous blood / Unknown 04/13/2025 3:41 AM EDT 04/13/2025 3:53 AM EDT us Alicia Puri MD LAB BLOOD ORDERABLES Final Result [facility] [address] [place] [address], [place] [phone] * Rheumatoid factor (04/13/2025 3:41 AM EDT) RHEUMATOID FACTOR <10 <20 IU/mL 04/13/2025 4:04 PM EDT [facility] Blood Venous blood / Unknown 04/13/2025 3:41 AM EDT 04/13/2025 3:53 AM EDT Alicia Puri MD LAB BLOOD ORDERABLES Final Result Performing Organization Address City/[facility]/ZIP Co de Phone Number [facility] [address] [place] [address], [place] [phone] * RAMBO Screen w/ Reflex (04/13/2025 3:41 AM EDT) RAMBO SCREEN W/REFLEX Negative Negative 04/13/2025 6:48 PM EDT [facility] Blood Venous blood / Unknown 04/13/2025 3:41 AM EDT 04/13/2025 3:53 AM EDT Narrative [facility] - 04/13/2025 6:48 PM EDT Testing performed using multiplex flow immunoassay. Eleven difference antigens associated with systemic autoimmunie diseases (dsDNA, Sm, Sm/BUSINESS INTEGRATION MANAGER, BUSINESS INTEGRATION MANAGER, Chromatin, SSA, SSB, Yamilka-1, Sc170, Ribo P, Centromere B) are included in this sreening tests. us Alicia Puri MD LAB BLOOD ORDERABLES Final Result Performing Organization Address City/[facility]/ZIP Co de Phone Number [facility] [address] [place] [address], [place] [phone] * (ABNORMAL) Hemoglobin A1c (04/13/2025 3:41 AM EDT) Only the most recent of2 resultswithin the time period is included. HEMOGLOBIN A1C 11.3(H) 4.4 - 5.6 % 04/13/2025 5:05 PM EDT [facility] Comment: ADA Guidelines Result HgbA1c Normal : less than 5.7 % Prediabetes : 5.7 % to 6.4 % Diabetes : > 6.4 % Use with caution in patients with abnormal hemoglobin variants as the half-life of red blood cells and in vivo glycation rates are affected. EST. AVERAGE GLUCOSE 278 mg/dL 04/13/2025 5:05 PM EDT [facility] Blood Venous blood / Unknown 04/13/2025 3:41 AM EDT 04/13/2025 3:53 AM EDT Alicia Puri MD LAB BLOOD ORDERABLES Final Result [facility] [address] [place] [address], [place] [phone] * (ABNORMAL) Basic Metabolic Panel (04/13/2025 3:41 AM EDT) Only the most recent of6 resultswithin the time period is included. Pathologist [facility] SODIUM 140 134 - 146 mmol/L 04/13/2025 4:20 AM EDT [facility] POTASSIUM 4.7 3.5 - 5.0 mmol/L 04/13/2025 4:20 AM EDT [facility] CHLORIDE 105 98 - 109 mmol/L 04/13/2025 4:20 AM EDT [facility] CARBON DIOXIDE 27 22 - 32 mmol/L 04/13/2025 4:20 AM EDT [facility] ANION GAP 8 5 - 15 mmol/L 04/13/2025 4:20 AM EDT [facility] BLOOD UREA NITROGEN 41(H) 5 - 27 mg/dL 04/13/2025 4:20 AM EDT [facility] CREATININE 1.80(H) 0.60 - 1.30 mg/dL 04/13/2025 4:20 AM EDT [facility] Comment:METHOD TRACEABLE TO IDMS STANDARD GLUCOSE 73 65 - 99 mg/dL 04/13/2025 4:20 AM EDT [facility] CALCIUM 7.9(L) 8.5 - 10.5 mg/dL 04/13/2025 4:20 AM EDT [facility] EGFR Non-Race Dependent 42(L) >=60 ml/min/1.7 3sq.m 04/13/2025 4:20 AM EDT [facility] Comment: Reported eGFR is based on the CKD-EPI 2020 equation that does not use a race coefficient. Blood Venous blood / Unknown 04/13/2025 3:41 AM EDT 04/13/2025 3:53 AM EDT Jimmy Fernando MD LAB BLOOD ORDERABLES Fi nal Result [facility] [address] [place] [address], * Potassium (04/12/2025 7:20 AM EDT) Only the most recent of5 resultswithin the time period is included. POTASSIUM 4.9 3.5 - 5.0 mmol/L 04/12/2025 7:57 AM EDT [facility] Blood Venous blood / Unknown 04/12/2025 7:20 AM EDT 04/12/2025 7:32 AM EDT Jimmy Fernando MD LAB BLOOD ORDERABLES Fi nal Result [facility] [address] [place] [address], [place] [phone] * ECG 12 lead (04/12/2025 3:21 AM EDT) Only the most recent of4 resultswithin the time period is included. 04/12/2025 3:21 AM EDT Narrative [facility] - 04/12/2025 9:13 AM EDT us Jimmy Fernando MD ECG ORDERABLES Final R esult [facility] * Protime & INR (04/12/2025 2:03 AM EDT) Only the most recent of4 resultswithin the time period is included. PROTIME 12.3 9.8 - 13.2 sec 04/12/2025 3:41 AM EDT [facility] INR 1.1 0.9 - 1.2 04/12/2025 3:41 AM EDT [facility] Blood Venous blood / Unknown 04/12/2025 2:03 AM EDT 04/12/2025 2:37 AM EDT us Jimmy Fernando MD LAB BLOOD ORDERABLES Fi nal Result Performing Organization Address [facility] Co de Phone Number [facility] [address] [place] [address], [place] [phone] * (ABNORMAL) Hemoglobin and hematocrit, blood (04/11/2025 11:12 PM EDT) Only the most recent of2 resultswithin the time period is included. Hemoglobin 8.4(L) 13 - 17 g/dL 04/11/2025 11:36 PM EDT [facility] Hematocrit 24.3(L) 39 - 50 % 04/11/2025 11:36 PM EDT [facility] Blood Venous blood / Unknown 04/11/2025 11:12 PM EDT 04/11/2025 11:24 PM EDT us Jimmy Fernando MD LAB BLOOD ORDERABLES Fi nal Result [facility] [address] [place] [address], * Platelet count (04/11/2025 11:12 PM EDT) Only the most recent of2 resultswithin the time period is included. Platelet Count 185 150 - 450 [id number] 04/11/2025 11:36 PM EDT [facility] MPV 7.6 7 - 12 fL 04/11/2025 11:36 PM EDT [facility] Blood Venous blood / Unknown 04/11/2025 11:12 PM EDT 04/11/2025 11:24 PM EDT Jimmy Fernando MD LAB BLOOD ORDERABLES Fi nal Result [facility] [address] [place] [address], * (ABNORMAL) BUN (04/11/2025 11:12 PM EDT) Only the most recent of2 resultswithin the time period is included. BLOOD UREA NITROGEN 36(H) 5 - 27 mg/dL 04/11/2025 11:52 PM EDT [facility] Blood Venous blood / Unknown 04/11/2025 11:12 PM EDT 04/11/2025 11:24 PM EDT Jimmy Fernando MD LAB BLOOD ORDERABLES Fi nal Result [facility] [address] [place] [address], * (ABNORMAL) Creatinine includes GFR, serum (04/11/2025 11:12 PM EDT) Only the most recent of2 resultswithin the time period is included. CREATININE 1.34(H) 0.60 - 1.30 mg/dL 04/11/2025 11:52 PM EDT [facility] Comment:METHOD TRACEABLE TO IDMS STANDARD EGFR Non-Race Dependent 60 >=60 ml/min/1.7 3sq.m 04/11/2025 11:52 PM EDT [facility] Comment: Reported eGFR is based on the CKD-EPI 2020 equation that does not use a race coefficient. Blood Venous blood / Unknown 04/11/2025 11:12 PM EDT 04/11/2025 11:24 PM EDT us Jimmy Fernando MD LAB BLOOD ORDERABLES Fi nal Result [facility] [address] [place] [address], [place] [phone] * (ABNORMAL) Blood Gas, Arterial (04/11/2025 6:20 PM EDT) Sample type Arterial 04/11/2025 6:20 PM [facility] Body Temp 37.00 >=37 C 04/11/2025 6:20 PM [facility] pH, Arterial 7.393 7.350 - 7.450 04/11/2025 6:20 PM T [facility] pCO2, Arterial 40.2 35.0 - 45.0 mmHg 04/11/2025 6:20 PM [facility] PO2, Arterial 550(H) 80 - 100 mmHg 04/11/2025 6:20 PM T [facility] Base, Deficit -0.5(L) 0.0 - 2.0 mmol/L 04/11/2025 6:20 PM EDT [facility] HCO3, Arterial 24.4 22.0 - 26.0 mmol/L 04/11/2025 6:20 PM T [facility] %O2 Saturation, Arterial 100.8 >90.0 % 04/11/2025 6:20 PM T [facility] Jono's test NA 04/11/2025 6:20 PM T [facility] SPO2 550.0 % 04/11/2025 6:20 PM EDT [facility] Sample site A LINE 04/11/2025 6:20 PM EDT [facility] Insp. O2 conc. 100.0 % 04/11/2025 6:20 PM EDT [facility] arterial (Blood, Arterial) 04/11/2025 6:20 PM EDT 04/11/2025 6:20 PM EDT Mihai Gibbons MD LAB BLOOD ORDERABLES Final Re sult [facility] [address] [place] [address], [place] * APTT (04/11/2025 5:29 PM EDT) Only the most recent of3 resultswithin the time period is included. APTT 31 26 - 37 sec 04/11/2025 6:11 PM EDT [facility] Blood Venous blood / Unknown Central Line / Unknown 04/11/2025 5:29 PM EDT 04/11/2025 5:38 PM EDT us Jimmy Fernando MD LAB BLOOD ORDERABLES Fi nal Result Performing Organization Address [facility]/ZIP Co de Phone Number [facility] [address] [place] [address], [place] [phone] * Intra-operative transesophageal echocardiogram (04/11/2025 5:25 PM EDT) Narrative XCELERA - 04/11/2025 5:25 PM EDT See Anesthesia DEIDRE procedure note for findings. us Varsha Reeves HAND PATCHER-LOOM FIXER HELPER CV ECHO ORDERABLES Fin al Result Performing Organization Address City/[facility]/ZIP Co de Phone Number XCELERA * ANESTHESIA DEIDRE (04/11/2025 4:40 PM [...] MD LAB BLOOD ORDERABLES Fi nal Result [facility] [address] [place] [address], [place] * (ABNORMAL) POCT ABG Rapid K GLU ICA HH (04/11/2025 4:31 PM EDT) Only the most recent of3 resultswithin the time period is included. POC Potassium 4.8 3.5 - 5.0 mmol/L 04/11/2025 4:34 PM T [facility] POC Glucose 206(H) 65 - 99 mg/dL 04/11/2025 4:34 PM [facility] POC HGB 8.2(L) 13.0 - 17.0 g/dL 04/11/2025 4:34 PM [facility] POC Hematocrit 25(L) 39 - 49 % 04/11/2025 4:34 PM [facility] POC Ionized Calcium 4.6 4.5 - 5.3 mg/dL 04/11/2025 4:34 PM T [facility] Sample type Arterial 04/11/2025 4:34 PM [facility] Body Temp 37.00 >=37 C 04/11/2025 4:34 PM [facility] pH, Arterial 7.447 7.350 - 7.450 04/11/2025 4:34 PM [facility] pCO2, Arterial 34.4(L) 35.0 - 45.0 mmHg 04/11/2025 4:34 PM [facility] PO2, Arterial 538(H) 80 - 100 mmHg 04/11/2025 4:34 PM [facility] Base, Deficit -0.4(L) 0.0 - 2.0 mmol/L 04/11/2025 4:34 PM EDT [facility] HCO3, Arterial 23.7 22.0 - 26.0 mmol/L 04/11/2025 4:34 PM EDT [facility] %O2 Saturation, Arterial 100.6 >90.0 % 04/11/2025 4:34 PM EDT [facility] Jono's test NA 04/11/2025 4:34 PM EDT [facility] Sample site A LINE 04/11/2025 4:34 PM EDT [facility] Insp. O2 conc. 100.0 % 04/11/2025 4:34 PM EDT [facility] arterial (Blood, Arterial) 04/11/2025 4:31 PM EDT 04/11/2025 4:34 PM EDT us Mihai Gibbons MD POINT OF CARE TEST ORDERABLES Final Result [facility] [address] [place] [address], * (ABNORMAL) POCT ABG Rapid K GLU HH (04/11/2025 4:02 PM EDT) Only the most recent of2 resultswithin the time period is included. POC Potassium 5.3(H) 3.5 - 5.0 mmol/L 04/11/2025 4:06 PM [facility] POC Glucose 181(H) 65 - 99 mg/dL 04/11/2025 4:06 PM T [facility] POC HGB 7.6(L) 13.0 - 17.0 g/dL 04/11/2025 4:06 PM T [facility] POC Hematocrit 23(L) 39 - 49 % 04/11/2025 4:06 PM T [facility] Sample type Arterial 04/11/2025 4:06 PM T [facility] Body Temp 37.00 >=37 C 04/11/2025 4:06 PM EDT [facility] pH, Arterial 7.411 7.350 - 7.450 04/11/2025 4:06 PM EDT [facility] pCO2, Arterial 41.0 35.0 - 45.0 mmHg 04/11/2025 4:06 PM EDT [facility] PO2, Arterial 312(H) 80 - 100 mmHg 04/11/2025 4:06 PM EDT [facility] Base, Excess 1.4 0.0 - 2.0 mmol/L 04/11/2025 4:06 PM EDT [facility] HCO3, Arterial 26.0 22.0 - 26.0 mmol/L 04/11/2025 4:06 PM EDT [facility] %O2 Saturation, Arterial 100.4 >90.0 % 04/11/2025 4:06 PM EDT [facility] Jono's test NA 04/11/2025 4:06 PM EDT [facility] Sample site A LINE 04/11/2025 4:06 PM EDT [facility] Insp. O2 conc. 100.0 % 04/11/2025 4:06 PM EDT [facility] SPO2 312.0 % 04/11/2025 4:06 PM EDT [facility] arterial (Blood, Arterial) 04/11/2025 4:02 PM EDT 04/11/2025 4:06 PM EDT us Mihai Gibbons MD POINT OF CARE TEST ORDERABLES Final Result [facility] [address] [place] [address], * MS ANES ART LINE (04/11/2025 2:39 PM EDT) Narrative Alphonso Gaviria APRN-CRNA - 04/11/2025 2:39 PM EDT MICHAEL Connolly 04/11/2025 2:40 PM Art Line Performed by: MICHAEL Connolly Authorized by: Omar Iglesias MD Patient Location: OR Start Time: 04/11/2025 12:46 PM End Time: 04/11/2025 1:06 PM Service Provider: Omar Iglesias MD AGRICULTURE WORKER ( if not the service provider): MICHAEL [...] 20 G Total Catheter Length (inches): 1 34 Location: Radial Orientation: Left Securement Method: Taped, Transparent Dressing and Sutured Specimen Obtained: No Placement Technique: Guidewire and Ultrasound Guidance Insertion Attempts: 2 Patient Tolerance: Tolerated Well no arterial injury us Omar Iglesias MD MS ANESTHESIA Final Result * MS INSERT/PLACE FLOW DIRECT CATH (04/11/2025 2:36 PM EDT) Alphonso Noel APRN-CRNA - 04/11/2025 2:36 PM EDT MICHAEL Connolly 04/11/2025 2:37 PM Venous Access Line (CVC/[place] Pat[place]) Performed by: MICHAEL Connolly Authorized by: Omar Iglesias MD Patient Location: OR Start Time: 04/11/2025 12:50 PM End Time: 04/11/2025 12:55 PM Service Provider: Omar Iglesias MD Requesting Surgeon: Jmimy Fernando MD AGRICULTURE WORKER ( if not the service provider): MICHAEL Connolly Placed By: Omar Iglesias MD Patient Identified, IV Checked, Risks and Benefits Discussed, Surgical Consent, Monitors and Equipment Checked, Pre-op Evaluation and Timeout Performed Fire Risk Assessment Score: 0 Vascular Access: Introducer Number of Introducer Lumens: Double Vascular Access: [place] Is the patient 5 years old or [...] Tolerance: Tolerated Well us Omar Iglesias MD MS ANESTHESIA Final Result * POCT IMAGN (04/11/2025 1:11 PM EDT) POC Ionized Magnesium 0.58 0.45 - 0.60 mmol/L 04/11/2025 1:14 PM EDT [facility] venous 04/11/2025 1:11 PM EDT 04/11/2025 1:14 PM EDT us Mihai Gibbons MD POINT OF CARE TEST ORDERABLES Final Result [facility] [address] [place] [address], [place] * MS AN ELECTIVE ENDOTRACHEAL AIRWAY (04/11/2025 12:48 PM EDT) Narrative Alphonso Gaviria APRN-CRNA - 04/11/2025 12:48 PM EDT MICHAEL Connolly 04/11/2025 2:16 PM Airway Patient location during procedure: OR Urgency: Elective Date/Time: 04/11/2025 12:48 PM Airway not difficult IV In Situ: Peripheral General Information and Staff Service Provider: Omar Iglesias MD AGRICULTURE WORKER: MICHAEL Connolly Placed by: Omar Iglesias MD [...] ECHO ORDERABLES Final Result Performing Organization Address [facility] Co de Phone Number XCELERA * Intra-operative transesophageal echocardiogram (04/11/2025 11:25 AM EDT) Narrative XCELERA - 04/11/2025 11:25 AM EDT See Anesthesia DEIDRE procedure note for findings. Omar Iglesias MD CV ECHO ORDERABLES Final Result Performing Organization Address [facility] Co de Phone Number XCELERA * (ABNORMAL) Anti XA unfractionated heparin (04/11/2025 6:25 AM EDT) ANTI XA UFH 0.07(L) 0.30 - 0.70 IU/mL 04/11/2025 7:05 AM EDT [facility] Comment: Optimal time for testing is 6 hrs post dosage This test is specific for monitoring patients on UFH, and is not recommended for use with other Anti-Xa medications. Blood Venous blood / Unknown 04/11/2025 6:25 AM EDT 04/11/2025 6:25 AM EDT Enrike Lancaster HAND PATCHER-LOOM FIXER HELPER LAB BLOOD ORDERABLES Final Result [facility] [address] [place] [address], * C-reactive protein (04/10/2025 6:24 AM EDT) C REACTIVE PROTEIN <0.1 <=0.7 mg/dL 04/10/2025 7:58 AM EDT [facility] Blood 04/10/2025 6:24 AM EDT 04/10/2025 6:24 AM EDT us Varshabryan Reeves HAND PATCHER-LOOM FIXER HELPER LAB BLOOD ORDERABLES F inal Result [facility] [address] [place] [address], * Lipid profile (04/09/2025 8:27 AM EDT) Only the most recent of2 resultswithin the time period is included. CHOLESTEROL 178 150 - 200 mg/dL 04/09/2025 9:24 AM EDT [facility] TRIGLYCERIDE 111 27 - 150 mg/dL 04/09/2025 9:24 AM EDT [facility] HDL CHOLESTEROL 57 >39 mg/dL 9:24 AM EDT [facility] Comment: HDL <40 mg/dL - High Risk HDL > or = 40mg/dL- Desirable HDL >60 mg/dL - Negative Risk LDL (CALC) 99 <130 mg/dL 04/09/2025 9:24 AM EDT [facility] Comment: LDL <100 mg/dL - Desirable LDL >160 mg/dL - High Risk CHOLESTEROL:HDL 3.1 1.0 - 5.0 9:24 AM EDT [facility] VERY LOW LIPOPROTEIN 22 0 - 30 mg/dL 04/09/2025 9:24 AM EDT [facility] Blood Venous blood / Unknown 04/09/2025 8:27 AM EDT 04/09/2025 8:27 AM EDT Varsha Reeves HAND PATCHER-LOOM FIXER HELPER LAB BLOOD ORDERABLES F inal Result [facility] [address] [place] [address], [place] [phone] * Vas carotid duplex bilateral (04/08/2025 4:41 [...] phone number beside their name. Procedure Note Ray Luciano, DO - 04/10/2025 Right: Plaque with no [...] the phone number besidetheir name. Varsha Reeves HAND PATCHER-LOOM FIXER HELPER CV VASCULAR ORDERABLES Final Result * TSH with Reflex (04/07/2025 6:28 PM EDT) TSH 1.88 0.49 - 4.67 uIU/mL 04/07/2025 7:19 PM EDT [facility] Blood Venous blood / Unknown 04/07/2025 6:28 PM EDT 04/07/2025 6:28 PM EDT us Tricia Smith MD LAB BLOOD ORDERABLES Final Resul t Performing Organization Address City/[facility]/ZIP Co de Phone Number [facility] [address] [place] [address], [place] [phone] * (ABNORMAL) Liver panel (04/07/2025 6:28 PM EDT) TOTAL PROTEIN 5.8(L) 6.0 - 8.0 g/dL 04/07/2025 7:10 PM EDT [facility] ALBUMIN 3.0(L) 3.2 - 5.3 g/dL 04/07/2025 7:10 PM EDT [facility] BILIRUBIN,TOTAL 0.3 0.3 - 1.2 mg/dL 04/07/2025 7:10 PM EDT [facility] ALKALINE PHOSPHATASE 96 39 - 130 U/L 04/07/2025 7:10 PM EDT [facility] AST 18 <=41 U/L 04/07/2025 7:10 PM EDT [facility] ALT 16 <=40 U/L 04/07/2025 7:10 PM EDT [facility] BILIRUBIN,DIRECT <0.1 <=0.4 mg/dL 04/07/2025 7:10 PM EDT [facility] Blood Venous blood / Unknown 04/07/2025 6:28 PM EDT 04/07/2025 6:28 PM EDT us Tricia Smith MD LAB BLOOD ORDERABLES Final Resul t [facility] [address] [place] [address], [place] [phone] * Cardiac Invasive (04/07/2025 10:02 AM EDT) Anatomical Region Laterality Modality Other us Scanning Provider External CV CARDIAC CATH ORDER JANESSA Final Result * Non [facility] Cardiac Catheterization (04/07/2025 8:15 AM EDT) Narrative OLVIN - 04/07/2025 3:08 PM EDT This order has been auto-finalized and does not contain a result. us Scanning Provider External CV CARDIAC SERVICES O RDERABLES Final Result Performing Organization Address [facility] de Phone Number HOLTZYMED * Echo Doppler (04/06/2025 10:01 AM EDT) Anatomical Region Laterality Modality Chest N/A Ultrasound us Scanning Provider External CV ECHO ORDERABLES Fi nal Result * Non [facility] Echo (04/06/2025 9:30 AM EDT) us Scanning Provider External CV ECHO ORDERABLES Fi nal Result Performing Organization Address [facility] de Phone Number XCELERA * Vas venous duplex lwr bilateral (04/05/2025 5:45 PM EDT) us Scanning Provider External CV VASCULAR ORDERABLE S Final Result Performing Organization Address [facility] de Phone Number MEDSTREAMING * CT angiogram chest (04/05/2025 12:35 PM EDT) us Scanning Provider External IMG CT ORDERABLES Fin al Result * CT chest with contrast (04/05/2025 11:04 AM EDT) Anatomical Region Laterality Modality Body, Lung, Chest, Body Covera N/A C omputed Tomography us Scanning Provider External IMG CT ORDERABLES Fin al Result from Last 3 Months Insurance ANTHEM ANTHEM Advance Directives * Full Code (Latest Code Status on File) Date Activated Date Inactivated Comments 05/07/2025 2:57 PM * Full Code Date Activated Date Inactivated Comments 04/07/2025 5:55 PM 04/16/2025 5:46 PM Care Teams Grain Receiver Relationship Specialty Start Date End Date Kwadwo Oshea MD [address] [place] [address] PCP - General Family Medicine 04/07/25
--- OUTSIDE RECORDS SUMMARY | 2025-05-09 08:32 | XMS_ITS | Encounter Summary ---
Author Organization [facility] Address [id number] [address] [place] [address] Care Team Providers Care Child Center Assistant Name Role Phone Kwadwo Oshea MD Primary Care Provider [phone] Encounter Details Date Type Department Care Team ([facility] st Contact Info) Description 05/03/2025 Documentation [facility] - Manuel Nobles Mc[address] [address] [phone] Marquita Veliz Social History Tobacco Use Types Packs/Day Years Used Date Smoking Tobacco: Former Cigarettes 2011 Passive Smoke Exposure: Past Smokeless Tobacco: Never Alcohol Use Standard Drinks/Week Comments Not Currently 0 (1 standard drink = 0.6 oz pur e alcohol) [facility] Utilities Answer Date Recorded In the past 12 months has [employer], gas, oil, or water ulike threatened to shut off services in your [...] Info) Description 05/12/2025 10:30 AM EDT Appointment [facility] - Cardiovascular [address] [place] [phone] Aliza De La Cruz MD [address] [place] [address] 06/27/2025 9:00 AM EDT Office Visit [facility] [address] [facility] [address] [place] [phone] [place] Alatorre, PA-C [address] [place] [address] documented as of this encounter [...] documented as of this encounter Care Teams Child Center Assistant Relationship Specialty Start Date End Date Kwadwo Oshea MD [address] [place] [address] PCP - General Family Medicine 04/07/25 documented as of this encounter
--- OUTSIDE RECORDS SUMMARY | 2025-05-09 08:32 | XMS_ITS | Encounter Summary ---
Author Organization [facility] tem Address [facility] [address] 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 ([facility]) Social History Tobacco Use Types Packs/Day Years Used Date Smoking Tobacco: Former Cigarettes 2011 Passive Smoke Exposure: Past Smokeless Tobacco: Never Alcohol Use Standard Drinks/Week Comments Not Currently 0 (1 standard drink = 0.6 oz pur e alcohol) [facility] Utilities Answer Date Recorded In the past 12 months has [employer], gas, oil, or water [employer] threatened to shut off services in your [...] Info) Description 05/12/2025 10:30 AM EDT Appointment [facility] - Cardiovascular [address] [phone] Aliza De La Cruz MD [address] [place], [place] [phone] 06/27/2025 9:00 AM EDT Office Visit [facility] [address] [place] [phone] [place] Alatorre, PA-C [address] [place] [address] documented as of this encounter Goals Goal [...] EDT) us Not In System Ref Prov MD IMAGING Final Res ult MANUALLY TRANSCRIBED RESULTS documented in this encounter Visit Diagnoses Diagnosis 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
--- OUTSIDE RECORDS SUMMARY | 2025-05-09 08:32 | XMS_ITS | Encounter Summary ---
Author Organization [facility] Address [id number] [address] [place] [address] Care Team Providers Care Sales Assoc Name Role Phone Kwadwo Oshea MD Primary Care Provider [phone] Encounter Details Date Type Department Care Team ([facility] st Contact Info) Description 04/20/2025 Orders Only [facility] [address] [place] [phone] External, Scanning Provider Social History Tobacco Use Types Packs/Day Years Used Date Smoking Tobacco: Former Cigarettes 984 2011 Passive Smoke Exposure: Past Smokeless Tobacco: Never Alcohol Use Standard Drinks/Week Comments Not Currently 0 (1 standard drink = 0.6 oz pur e alcohol) [facility] Utilities Answer Date Recorded In the past 12 months has [employer], gas, oil, or water company threatened to [...] Info) Description 05/12/2025 10:30 AM EDT Appointment [facility] - Cardiovascular [address] [place] [phone] Aliza De La Cruz MD [address] [place], [place] [phone] 06/27/2025 9:00 AM EDT Office Visit [facility] Cardiology [address] [facility] [place] [address] [place] Alatorre, PA-C [address] [place], [place] [phone] documented as of this encounter Goals Goal [...] 10:55 AM EDT) us Scanning Provider External RI IMAGING Final Result Performing Organization Address City/[facility]/ZIP Co de Phone Number MANUALLY TRANSCRIBED RESULTS [...] as of this encounter Care Teams Sales Assoc Relationship Specialty Start Date End Date Kwadwo Oshea MD [address] [place] [address] PCP - General Family Medicine 04/07/25 documented as of this encounter
--- OUTSIDE RECORDS SUMMARY | 2025-05-09 08:32 | XMS_ITS | Encounter Summary ---
Author Organization [facility] Address [address] [place] [address] Care Team Providers Care Property Custodian Name Role Phone Unavailable Primary Care Provider Unavailabl e Encounter Details Date Type Department Care Team (Late st Contact Info) Description 05/06/2025 Clinisync Result Encounter [facility] External Department Unsolicited Daisy Hathaway PA [address] [place] [address] [place] [address] Social History Tobacco Use Types Packs/Day Years Used Date Smoking Tobacco: Never Assessed Sex and Gender Information Value Date Recorded Sex Assigned at Not on file Legal Sex Male 6:41 PM EDT Gender Identity Not on file Sexual Orientation Not on file documented as of this encounter Plan of Treatment Not on file documented as of this encounter Procedures Procedure Name Priority Date/Time Associated Diagnosis Comments ECG 12-LEAD 05/06/2025 4:31 PM EDT documented in this encounter Results * ECG 12-LEAD (05/06/2025 4:31 PM EDT) Anatomical Region Laterality Modality Other 05/06/2025 4:31 PM EDT Narrative 05/07/2025 12:05 PM EDT The [address] [address] Electrocardiograph Report Signed Patient: GUMARO ARNDT MR#: [id number] : 1965 Acct:[id number] Age/Sex: 60 / M ADM Date: 05/06/25 Loc: [place] 224-[address]: Sheyla Justice M.D. Ordering Physician: Daisy Hathaway Date of Service: 05/06/25 Procedure(s): ECG 12 lead Accession Number(s): [id number] cc: The [facility] Test Date: 2025-05-06 Pat Name: GUMARO ARNDT Department: Room: - Gender: Male Medical Artist: : 1965 Requested By: SHEYLA JUSTICE Order Number: [id number] Reading MD: OSWALDO GALLO M.D. Measurements Intervals [place] Rate: 68 P: 55 MA: 188 QRS: 69 QRSD: 96 T: 222 QT: 378 QTc: 396 Interpretive Statements 1100 Sinus rhythm 4068 Nonspecific Twave abnormality 9130 borderline ECG No previous ECG available for comparison Electronically Signed On 05-07-2025 12:04:58 EDT by OSWALDO GALLO M.D. Dictated By: OSWALDO GALLO Signed By: 05/07/25 1205 DD/ 1631 TD/TT: Marketing Sales Consultant: Procedure Note Radiology, Radiologist, MD - 05/07/2025 [place] [address] Electrocardiograph Report Signed Patient: GUMARO ARNDT AMR#: [id number] : 1965Acct:[id number] Age/Sex: 60 / MADM Date: 05/06/25 Loc: [place] 224-[address]: Sheyla Justice M.D. Ordering Physician: Daisy Hathaway Date of Service: 05/06/25 Procedure(s): ECG 12 lead Accession Number(s): [id number] cc: [facility] Test Date: 2025-05-06 Pat Name: GUMARO ARNDT Department: Room: - Gender: Male Medical Artist: : 1965 Requested By: SHEYLA JUSTICE Order Number: [id number] Reading MD: OSWALDO GALLO M.D. Measurements Intervals [place] Rate: 68 P: 55 MA: 188 QRS: 69 QRSD: 96 T: 222 QT: 378 QTc: 396 Interpretive Statements 1100 Sinus rhythm 4068 Nonspecific Twave abnormality 9130 borderline ECG No previous ECG available for comparison Electronically Signed On 05-07-2025 12:04:58 EDT by OSWALDO GALLO M.D. Dictated By: OSWALDO GALLO Signed By:05/07/25 1205 DD/ 1631 TD/TT: Marketing Sales Consultant: Daisy [facility] Final Result documented in this encounter Visit Diagnoses Not on filedocumented in this encounter
--- OUTSIDE RECORDS SUMMARY | 2025-05-09 08:32 | XMS_ITS | Encounter Summary ---
Author Organization [facility] Address [id number] [address] [place] [address] Care Team Providers Care Postal Service Mail Processor Name Role Phone Kwadwo Oshea MD Primary Care Provider [phone] Encounter Details Date Type Department Care Team (Late st Contact Info) Description 04/19/2025 Lab Requisition [facility] - Lab [address] [place] [phone] Jimmy Fernando MD [address] [facility] [place], [place] [id number] Chronic kidney disease, stage 3a ([facility]); Proteinuria, unspecified; Atherosclerotic heart disease of [place] coronary artery with unstable angina pectoris ([facility]-HCC) Social History Tobacco Use Types Packs/Day Years Used Date Smoking Tobacco: Former Cigarettes 984 - 2011 Passive Smoke Exposure: Past Smokeless Tobacco: Never Alcohol Use Standard Drinks/Week Comments Not Currently 0 (1 standard drink = 0.6 oz pur e alcohol) [facility] Utilities Answer Date Recorded In the past 12 months has [employer], gas, oil, or water company threatened to [...] Info) Description 05/12/2025 10:30 AM EDT Appointment [facility] - Cardiovascular [address] [place] [phone] Aliza De La Cruz MD [address] [place] [address] 06/27/2025 9:00 AM EDT Office Visit [facility] Cardiology [address] [facility] [address] [place] [phone] Charlotte Alatorre, PA-C [address] [place] [address] documented as of this encounter [...] (CMS-HCC) Proteinuria, unspecified Atherosclerotic heart disease of [place] coronary artery with unstable angina pectoris (CMS-HCC) PHOSPHORUS Routine 04/19/2025 9:00 AM EDT Chronic kidney disease, stage 3a (CMS-HCC) Proteinuria, unspecified Atherosclerotic heart disease of [place] coronary artery with unstable angina pectoris (CMS-HCC) MAGNESIUM Routine 04/19/2025 9:00 AM EDT Chronic kidney disease, stage 3a (CMS-HCC) Proteinuria, unspecified Atherosclerotic heart disease of [place] coronary artery with unstable angina pectoris (CMS-HCC) COMPREHENSIVE METABOLIC PANEL Routine 04/19/2025 9:00 AM EDT Chronic kidney disease, stage 3a (CMS-HCC) Proteinuria, unspecified Atherosclerotic heart disease of [place] coronary artery with unstable angina pectoris (CMS-HCC) documented in this encounter Results * Phosphorus (04/19/2025 9:00 AM EDT) PHOSPHORUS 3.8 2.4 - 4.9 mg/dL 04/19/2025 10:34 AM EDT [facility] Blood Venous blood / Unknown 04/19/2025 9:00 AM EDT 04/19/2025 10:07 AM EDT us Jimmy Fernando MD LAB BLOOD ORDERABLES Fi nal Result [facility] [address] [place] [address], * Magnesium (04/19/2025 9:00 AM EDT) MAGNESIUM 2.0 1.8 - 2.6 mg/dL 04/19/2025 10:34 AM EDT [facility] Blood Venous blood / Unknown 04/19/2025 9:00 AM EDT 04/19/2025 10:07 AM EDT us Jimmy Fernando MD LAB BLOOD ORDERABLES Fi nal Result [facility] [address] [place] [address], [place] * (ABNORMAL) CBC without diff (04/19/2025 9:00 AM EDT) WBC 7.4 4 - 11 x10E9/L 04/19/2025 10:25 AM EDT [facility] RBC Count 3.04(L) 4.1 - 5.7 X10E12/L 04/19/2025 10:25 AM EDT [facility] Hemoglobin 9.7(L) 13 - 17 g/dL 04/19/2025 10:25 AM EDT [facility] Hematocrit 28.1(L) 39 - 50 % 04/19/2025 10:25 AM EDT [facility] MCV 93 80 - 100 fL 04/19/2025 10:25 AM EDT [facility] MCH 31.8 27 - 34 pg 04/19/2025 10:25 AM EDT [facility] MCHC 34.3 32 - 36 g/dL 04/19/2025 10:25 AM EDT [facility] RDW 13.8 11.5 - 15 % 04/19/2025 10:25 AM EDT [facility] Platelet Count 430 150 - 450 X10E9/L 04/19/2025 10:25 AM EDT [facility] MPV 7.2 7 - 12 fL 04/19/2025 10:25 AM EDT [facility] Blood Venous blood / Unknown 04/19/2025 9:00 AM EDT 04/19/2025 10:07 AM EDT us Jimmy Fernando MD LAB BLOOD ORDERABLES Fi nal Result [facility] [address] [place] [address], [place] * (ABNORMAL) Comprehensive metabolic panel (04/19/2025 9:00 AM EDT) SODIUM 134 134 - 146 mmol/L 04/19/2025 10:34 AM EDT [facility] POTASSIUM 4.0 3.5 - 5.0 mmol/L 04/19/2025 10:34 AM EDT [facility] CHLORIDE 101 98 - 109 mmol/L 04/19/2025 10:34 AM EDT [facility] CARBON DIOXIDE 29 22 - 32 mmol/L 04/19/2025 10:34 AM EDT [facility] ANION GAP 4(L) 5 - 15 mmol/L 04/19/2025 10:34 AM EDT [facility] BLOOD UREA NITROGEN 42(H) 5 - 27 mg/dL 04/19/2025 10:34 AM EDT [facility] CREATININE 1.48(H) 0.70 - 1.20 mg/dL 04/19/2025 10:34 AM EDT [facility] Comment:METHOD TRACEABLE TO IDMS STANDARD GLUCOSE 285(H) 65 - 99 mg/dL 04/19/2025 10:34 AM EDT [facility] CALCIUM 7.9(L) 8.5 - 10.5 mg/dL 04/19/2025 10:34 AM EDT [facility] TOTAL PROTEIN 5.9(L) 6.0 - 8.0 g/dL 04/19/2025 10:34 AM EDT [facility] ALBUMIN 2.7(L) 3.2 - 5.3 g/dL 04/19/2025 10:34 AM EDT [facility] ALKALINE PHOSPHATASE 100 39 - 130 U/L 04/19/2025 10:34 AM EDT [facility] AST 25 <=41 U/L 04/19/2025 10:34 AM EDT [facility] ALT 18 <=40 U/L 04/19/2025 10:34 AM EDT [facility] BILIRUBIN,TOTAL 0.4 0.3 - 1.2 mg/dL 04/19/2025 10:34 AM EDT [facility] EGFR Non-Race Dependent 53(L) >=60 ml/min/1.7 3sq.m 04/19/2025 10:34 AM EDT [facility] Comment: eGFR not reported due to non-numeric value for Creatinine. Reported eGFR is based on the CKD-EPI 2020 equation that does not use a race coefficient. Blood Venous blood / Unknown 04/19/2025 9:00 AM EDT 04/19/2025 10:07 AM EDT us Jimmy Fernando MD LAB BLOOD ORDERABLES Fi nal Result [facility] [address] documented in this encounter Visit Diagnoses Diagnosis Chronic kidney disease, stage 3a (CMS-HCC) Proteinuria, unspecified Atherosclerotic heart disease of [place] coronary artery with unstable angina pectoris (CMS-HCC) documented in this encounter Additional Health Concerns Infection Onset Date Last Indicated Resolved Time Enteric Rule-Out 05/09/2025 05/09/2025 05/09/2025 8:20 AM EDT Assessment Noted Time PHQ-9 Depression Total Score: 0 04/07/20 8:16 PM EDT documented as of this encounter Care Teams Postal Service Mail Processor Relationship Specialty Start Date End Date Kwadwo Oshea MD [address] [place] [address] PCP - General Family Medicine 04/07/25 documented as of this encounter
--- OUTSIDE RECORDS SUMMARY | 2025-05-09 08:32 | XMS_ITS | Encounter Summary ---
Author Organization [employer] s tem Address [facility] [id number] [address] [place] [address] Care Team Providers Care Maintenance Shop Manager Name Role Phone Kwadwo Oshea MD Primary Care Provider [phone] Encounter Details Date Type Department Care Team (Latest Contact Info) Description 04/27/2025 Travel Social History Tobacco Use Types Packs/Day Years Used Date Smoking Tobacco: Former Cigarettes 982011 Passive Smoke Exposure: Past Smokeless Tobacco: Never Alcohol Use Standard Drinks/Week Comments Not Currently 0 (1 standard drink = 0.6 oz pur e alcohol) [facility] Utilities Answer Date Recorded In the past 12 months has [place], gas, oil, or water [employer] threatened to shut off services in your [...] Description 05/12/2025 10:30 AM EDT Appointment [facility] - Cardiovascular [address] [place] [phone] Aliza De La Cruz MD [address] [place], [place] [phone] 06/27/2025 9:00 AM EDT Office Visit [facility] Physicians Cardiology [address] [facility] [address] [place] [phone] Charlotte Alatorre, PA-C [address] [place] [address] documented as of this encounter Goals Goal [...] as of this encounter Care Teams Maintenance Shop Manager Relationship Specialty Start Date End Date Kwadwo Oshea MD [address] [facility] [place] [address] PCP - General Family Medicine 04/07/25 documented as of this encounter
--- OUTSIDE RECORDS SUMMARY | 2025-05-09 08:32 | XMS_ITS | Encounter Summary ---
Author Organization [employer] Address [facility] [place]-[id number] [address] [place] [address] Care Team Providers Care Auto Slip Cover Installer Name Role Phone Kwadwo Oshea MD Primary Care Provider [phone] Reason for Visit * Reason Onset Date Comments Hospital Follow-up 04/18/2025 Encounter Details Date Type Department Care Team (Late st Contact Info) Description [facility]/18[facility]20[facility] [address] [place] [phone] [facility] Follow-up Social History Tobacco Use Types Packs/Day Years Used Date Smoking Tobacco: Former Cigarettes 2011 Passive Smoke Exposure: Past Smokeless Tobacco: Never Alcohol Use Standard Drinks/Week Comments Not Currently 0 (1 standard drink = 0.6 oz pur e alcohol) C Utilities Answer Date Recorded In the past 12 months has [employer], gas, oil, or water [employer] threatened to shut off services in your [...] the 04/16/25 d/c list Patient d/c from [facility]. Dx Progressive dyspnea Multivessel ASCVD -status [...] Info) Description 05/12/2025 10:30 AM EDT Appointment [facility] - Cardiovascular [address] [place] [address] Aliza De La Cruz MD [address] [place] [address] 06/27/2025 9:00 AM EDT Office Visit [facility] Cardiology [address] [facility] 1 [place] [address] Charlotte Alatorre, PA-C [address] [place] [address] documented as of this encounter Goals Goal [...] documented as of this encounter Care Teams Auto Slip Cover Installer Relationship Specialty Start Date End Date Kwadwo Oshea MD [address] [facility] [place] [address] PCP - General Family Medicine 04/07/25 documented as of this encounter
--- OUTSIDE RECORDS SUMMARY | 2025-05-09 08:32 | XMS_ITS | Clinical Summary ---
Author Organization [facility] Address [address] [place] [address] Care Team Providers Care Operator Receptionist Name Role Phone Unavailable Primary Care Provider Unavailabl e Encounters Date Type Department Care Team Description 05/06/2025 Clinisync Result Encounter [facility] External Department Unsolicited Daisy Hathaway PA from Last 3 Months Social History Tobacco Use Types Packs/Day Years Used Date Smoking Tobacco: Never Assessed Sex and Gender Information Value Date Recorded Sex Assigned at Not on file Legal Sex Male 6:41 PM EDT Gender Identity Not on file Sexual Orientation Not on file Plan of Treatment Not on file Procedures Procedure Name Priority Date/Time Associated Diagnosis Comments ECG 12-LEAD 05/06/2025 4:31 PM EDT from Last 3 Months Results * ECG 12-LEAD (05/06/2025 4:31 PM EDT) Anatomical Region Laterality Modality Other 05/06/2025 4:31 PM EDT Narrative 05/07/2025 12:05 PM EDT The [address] [address] Electrocardiograph Report Signed Patient: GUMARO ARNDT MR#: [id number] : 1965 Acct:[id number] Age/Sex: 60 / M ADM Date: 05/06/25 Loc: [place] 224-[address]: Sheyla Justice M.D. Ordering Physician: Daisy Hathaway Date of Service: 05/06/25 Procedure(s): ECG 12 lead Accession Number(s): [id number] cc: [facility] Test Date: 2025-05-06 Pat Name: GUMARO ARNDT Department: Room: - Gender: Male Cable Technician: : 1965 Requested By: SHEYLA JUSTICE Order Number: [id number] Reading MD: OSWALDO GALLO M.D. Measurements Intervals [place] Rate: 68 P: 55 ND: 188 QRS: 69 QRSD: 96 T: 222 QT: 378 QTc: 396 Interpretive Statements 1100 Sinus rhythm 4068 Nonspecific Twave abnormality 9130 borderline ECG No previous ECG available for comparison Electronically Signed On 05-07-2025 12:04:58 EDT by OSWALDO GALLO M.D. Dictated By: OSWALDO GALLO Signed By: 05/07/25 1205 DD/ 1631 TD/TT: Materials Management Manager: Procedure Note Radiology, Radiologist, MD - 05/07/2025 [place] [address] Electrocardiograph Report Signed Patient: GUMARO ARNDT AMR#: [id number] : 1965Acct:[id number] Age/Sex: 60 / MADM Date: 05/06/25 Loc: [place] 224-[address]: Sheyla Justice M.D. Ordering Physician: Daisy Hathaway Date of Service: 05/06/25 Procedure(s): ECG 12 lead Accession Number(s): [id number] cc: [facility] Test Date: 2025-05-06 Pat Name: GUMARO ARNDT Department: Room: - Gender: Male Cable Technician: : 1965 Requested By: SHEYLA JUSTICE Order Number: [id number] Reading MD: OSWALDO GALLO M.D. Measurements Intervals [place] Rate: 68 P: 55 ND: 188 QRS: 69 QRSD: 96 T: 222 QT: 378 QTc: 396 Interpretive Statements 1100 Sinus rhythm 4068 Nonspecific [place] abnormality 9130 borderline ECG No previous ECG available for comparison Electronically Signed On 05-07-2025 12:04:58 EDT by OSWALDO GALLO M.D. Dictated By: OSWALDO GALLO Signed By:05/07/25 1205 DD/ 1631 TD/TT: Materials Management Manager: Daisy [facility] Final Result from Last 3 Months
== END 2025-05-07 12:51 | disposition short-term general hospital (02) | DRG 280 ==
LOC: ER 19:33 → MS 21:54
PROVIDERS: Physician Assistant; Registered Nurse; Admitting Provider Family Medicine; Emergency Provider Emergency Medicine; Family Provider Family Medicine; PCP Family Medicine; Visit Provider Family Medicine
DX: I11.0 Hypertensive heart disease with heart failure (principal); I50.41 Acute combined systolic (congestive) and diastolic (congestive) heart failure; I21.4 Non-ST elevation (NSTEMI) myocardial infarction; K92.2 Gastrointestinal hemorrhage, unspecified; D62 Acute posthemorrhagic anemia; Z95.1 Presence of aortocoronary bypass graft; E11.649 Type 2 diabetes mellitus with hypoglycemia without coma; Z79.4 Long term (current) use of insulin; Z79.84 Long term (current) use of oral hypoglycemic drugs; R19.7 Diarrhea, unspecified; E87.6 Hypokalemia; N32.0 Bladder-neck obstruction; N40.1 Benign prostatic hyperplasia with lower urinary tract symptoms; E83.42 Hypomagnesemia; R06.03 Acute respiratory distress; Z79.02 Long term (current) use of antithrombotics/antiplatelets; Z87.891 Personal history of nicotine dependence; Z79.82 Long term (current) use of aspirin
CPT/HCPCS: 36415; 51702; 51798; 71046; 74177; 80048; 80053; 81001; 82948; 83735; 83880; 84436; 84443; 84484; 85025; 85027; 85610; 86850; 86900; 86901; 87045; 87046; 87086; 87427; 87493; 93005; 94761; 96365; 96366; 99285; G0328; J3475; J3480; Q9967